=== PATIENT | female | born 1965 | race Caucasian/White ===

== ENCOUNTER → 2016-07-14 | Outpatient (REF) | payer OTHER ==
[~2016-07-14] MED LIST: /DULO30CA; /ESOM40CA; /HALO2TA; AMBI10TA; ASPI81TA3; ASPI81TA85 PO; BENA25CA2 PO; BUSP10TA2; CLON0.5T PO; CLON1TAB PO; DETR1TAB4 PO; DOCU10CA PO; FAMO20TA PO; GEOD20CA14 PO; HALO05TA PO; KLON0.5T PO; KLON1TAB PO; LEXA1TAB PO; MINI5CAP PO; NAPR500T PO; PEPC1TAB4 PO; PRAZ5CAP PO; PRIL40CA PO; TOLT1CAP PO; TRAZ100T; TRAZ150T; VIST25CA PO; ZOLO50TA; ZYRT10CA PO
[2016-07-14 14:03] LABS: BASO # 0.1 K/mm3 (0.0-0.2); BASO % 0.9 % (0.0-1.0); EOS # 0.1 K/mm3 (0.0-0.50); EOS % 1.8 % (0.0-3.0); LARGE UNSTAINED CELL # 0.1 K/mm3 (0.0-0.4); LARGE UNSTAINED CELL % 1.2 % (0.0-4.0); LYMPH # 1.6 K/mm3 (1.5-4.5); LYMPH % 23.1 % (24.0-44.0); MEAN CORPUSCULAR HEMOGLOBIN 28.2 pg (27.0-33.0); MEAN CORPUSCULAR HGB CONC 32.5 g/dl (32.0-36.5); MEAN CORPUSCULAR VOLUME 86.6 fl (80.0-96.0); MONO # 0.3 K/mm3 (0.0-0.8); MONO % 4.4 % (0.0-5.0); NEUTROPHILS # 4.8 K/mm3 (1.8-7.7); NEUTROPHILS % 68.6 % (36.0-66.0); PLATELET COUNT, AUTOMATED 243 k/mm3 (150-450)
[2016-07-14 14:24] LABS: VITAMIN B12 LEVEL 652 PG/ML
[2016-07-14 14:41] LABS: ALBUMIN 4.3 GM/DL (3.2-5.2); ALBUMIN/GLOBULIN RATIO 1.54 (1.00-1.93); ALKALINE PHOSPHATASE 73 U/L (45-117); ALT/SGPT 23 U/L (12-78); ANION GAP 6 MEQ/L (8-16); AST/SGOT 16 U/L (15-37); BILIRUBIN,TOTAL 0.2 MG/DL (0.2-1.0); BLOOD UREA NITROGEN 17 MG/DL (7-18); CARBON DIOXIDE LEVEL 31 MEQ/L (21-32); CHLORIDE LEVEL 107 MEQ/L (98-107); CREATININE FOR GFR 0.65 MG/DL (0.55-1.02); GLOMERULAR FILTRATION RATE > 60.0 (>51); GLUCOSE, FASTING 85 MG/DL (70-105); POTASSIUM SERUM 4.4 MEQ/L (3.5-5.1); SODIUM LEVEL 144 MEQ/L (136-145); TOTAL PROTEIN 7.1 GM/DL (6.4-8.2)
[2016-07-16 14:20] LABS: VITAMIN E LEVEL 8.3 mg/L (5.3-16.8)
== END ==
LOC: M LABNEURO 13:24
PROVIDERS: ATTEND Psychiatry & Neurology Neurology
DX: R41.0 Disorientation, unspecified (principal); Z13.29 Encounter for screening for other suspected endocrine disorder

== ENCOUNTER → 2016-10-10 | Outpatient (REF) | payer OTHER ==
[~2016-10-10] MED LIST changes: +DIGECAP7 PO; +EPIP0.3I2 IM; +HAIRTAB5 PO; +HALO0.5H PO; -HALO05TA PO; +HYDR200T3 PO; +OMEP40CA2 PO; +PRAZ2CAP PO
[2016-10-10 17:17] LABS: ALBUMIN 4.3 GM/DL (3.2-5.2); ALBUMIN/GLOBULIN RATIO 1.43 (1.00-1.93); ALKALINE PHOSPHATASE 70 U/L (45-117); ALT/SGPT 29 U/L (12-78); ANION GAP 10 MEQ/L (8-16); AST/SGOT 26 U/L (15-37); BILIRUBIN,TOTAL 0.4 MG/DL (0.2-1.0); BLOOD UREA NITROGEN 14 MG/DL (7-18); CALCIUM LEVEL 9.2 MG/DL (8.5-10.1); CARBON DIOXIDE LEVEL 26 MEQ/L (21-32); CHLORIDE LEVEL 108 MEQ/L (98-107); CREATININE FOR GFR 0.76 MG/DL (0.55-1.02); GLOMERULAR FILTRATION RATE > 60.0 (>51); GLUCOSE, FASTING 95 MG/DL (70-105); POTASSIUM SERUM 3.9 MEQ/L (3.5-5.1); SODIUM LEVEL 144 MEQ/L (136-145); TOTAL PROTEIN 7.3 GM/DL (6.4-8.2)
[2016-10-10 17:51] LABS: BASO % 0.7 % (0.0-1.0); EOS % 0.5 % (0.0-3.0); LARGE UNSTAINED CELL # 0.1 K/mm3 (0.0-0.4); LYMPH # 1.3 K/mm3 (1.5-4.5); LYMPH % 17.4 % (24.0-44.0); MEAN CORPUSCULAR HEMOGLOBIN 27.4 pg (27.0-33.0); MEAN CORPUSCULAR VOLUME 83.1 fl (80.0-96.0); MONO # 0.3 K/mm3 (0.0-0.8); MONO % 4.5 % (0.0-5.0); NEUTROPHILS # 5.3 K/mm3 (1.8-7.7); NEUTROPHILS % 75.9 % (36.0-66.0); PLATELET COUNT, AUTOMATED 225 k/mm3 (150-450); RED CELL DISTRIBUTION WIDTH 13.3 % (11.5-14.5)
[2016-10-15 00:06] LABS: BENZODIAZEPINES, URINE SCREEN Negative ng/mL (Cutoff=200); METHADONE, URINE SCREEN Negative ng/mL (Cutoff=300); pH, URINE 6.6 (4.5-8.9)
== END ==
LOC: M LABDRAW1 16:42
PROVIDERS: ATTEND Psychiatry & Neurology Neurology
DX: R41.82 Altered mental status, unspecified (principal)

== ENCOUNTER 2016-10-14 01:25 | Emergency (ER) | payer OTHER ==
[~2016-10-14 01:25] MED LIST changes: -DIGECAP7 PO; -EPIP0.3I2 IM; -HAIRTAB5 PO; -HYDR200T3 PO; -OMEP40CA2 PO; -PRAZ2CAP PO
[2016-10-14 01:31] VITALS: BP 143/84
[2016-10-14] MEDS ORDERED: HYDR200T3 PO (01:38)
[2016-10-14] MEDS ORDERED: OMEP40CA2 PO (01:38)
[2016-10-14] MEDS ORDERED: diphenhydrAMINE 25 MG CAP PO ONE (03:45)
== END 2016-10-14 04:00 | disposition home or self-care (01) ==
LOC: M ED 01:25
DX: L50.9 Urticaria, unspecified (principal); F32.9 Major depressive disorder, single episode, unspecified; Z91.013 Allergy to seafood; Z91.040 Latex allergy status; Z88.0 Allergy status to penicillin; Z79.899 Other long term (current) drug therapy; Z79.82 Long term (current) use of aspirin

== ENCOUNTER 2016-10-21 11:50 | Emergency (ER) | payer OTHER ==
[~2016-10-21] VITALS: Ht 167.6 cm; Wt 99.9 kg
[~2016-10-21 11:50] MED LIST changes: +HYDR200T3 PO; +OMEP40CA2 PO
[2016-10-21 13:37] LABS: MEAN CORPUSCULAR HEMOGLOBIN 27.7 pg (27.0-33.0); MEAN CORPUSCULAR HGB CONC 33.8 g/dl (32.0-36.5); MEAN CORPUSCULAR VOLUME 81.8 fl (80.0-96.0); RED CELL DISTRIBUTION WIDTH 13.1 % (11.5-14.5); WHITE BLOOD COUNT 6.9 K/mm3 (4.0-10.0)
[2016-10-21 13:56] LABS: METHADONE URINE NEGATIVE (NEGATIVE)
[2016-10-21 14:28] LABS: ALBUMIN 4.5 GM/DL (3.2-5.2); ALBUMIN/GLOBULIN RATIO 1.55 (1.00-1.93); ALKALINE PHOSPHATASE 64 U/L (45-117); ALT/SGPT 27 U/L (12-78); ANION GAP 10 MEQ/L (8-16); AST/SGOT 26 U/L (15-37); BILIRUBIN,DIRECT 0.2 MG/DL (0.0-0.2); BILIRUBIN,TOTAL 0.6 MG/DL (0.2-1.0); BLOOD UREA NITROGEN 12 MG/DL (7-18); CALCIUM LEVEL 9.1 MG/DL (8.5-10.1); CARBON DIOXIDE LEVEL 25 MEQ/L (21-32); CHLORIDE LEVEL 112 MEQ/L (98-107); CREATININE FOR GFR 0.89 MG/DL (0.55-1.02); GLOMERULAR FILTRATION RATE > 60.0 (>51); GLUCOSE, FASTING 92 MG/DL (70-105); POTASSIUM SERUM 3.5 MEQ/L (3.5-5.1); SODIUM LEVEL 147 MEQ/L (136-145); TOTAL PROTEIN 7.4 GM/DL (6.4-8.2)
--- NOTE | 2016-10-21 16:12 | ECGEPIP ---
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
[2016-10-21 16:35] VITALS: BP 125/80
== END 2016-10-21 16:36 | disposition home or self-care (01) ==
LOC: M ED 11:50
DX: F41.9 Anxiety disorder, unspecified (principal); F32.9 Major depressive disorder, single episode, unspecified; M32.9 Systemic lupus erythematosus, unspecified; Z88.1 Allergy status to other antibiotic agents; Z88.0 Allergy status to penicillin; Z91.040 Latex allergy status; Z91.041 Radiographic dye allergy status; Z91.013 Allergy to seafood; Z79.82 Long term (current) use of aspirin; Z79.899 Other long term (current) drug therapy
CPT/HCPCS: 36415; 80048; 80076; 80307; 84443; 85027; 93005; 99283; G0480

== ENCOUNTER 2016-10-24 23:41 | Emergency (ER) | payer OTHER ==
[~2016-10-24] VITALS: Ht 165.1 cm; Wt 219.0 kg
[2016-10-25 01:37] LABS: BASO # 0.1 K/mm3 (0.0-0.2); BASO % 1.4 % (0.0-1.0); EOS # 0.1 K/mm3 (0.0-0.50); EOS % 0.9 % (0.0-3.0); LARGE UNSTAINED CELL # 0.2 K/mm3 (0.0-0.4); LYMPH # 2.4 K/mm3 (1.5-4.5); MEAN CORPUSCULAR HEMOGLOBIN 27.8 pg (27.0-33.0); MEAN CORPUSCULAR HGB CONC 34.2 g/dl (32.0-36.5); MEAN CORPUSCULAR VOLUME 81.5 fl (80.0-96.0); MONO # 0.4 K/mm3 (0.0-0.8); MONO % 5.3 % (0.0-5.0); NEUTROPHILS # 4.6 K/mm3 (1.8-7.7); NEUTROPHILS % 60.5 % (36.0-66.0); PLATELET COUNT, AUTOMATED 230 k/mm3 (150-450); RED CELL DISTRIBUTION WIDTH 13.1 % (11.5-14.5); WHITE BLOOD COUNT 7.6 K/mm3 (4.0-10.0)
[2016-10-25 02:18] LABS: ALBUMIN 3.8 GM/DL (3.2-5.2); ALBUMIN/GLOBULIN RATIO 1.31 (1.00-1.93); ALKALINE PHOSPHATASE 59 U/L (45-117); ALT/SGPT 33 U/L (12-78); ANION GAP 7 MEQ/L (8-16); AST/SGOT 28 U/L (15-37); BILIRUBIN,DIRECT 0.1 MG/DL (0.0-0.2); BILIRUBIN,TOTAL 0.3 MG/DL (0.2-1.0); BLOOD UREA NITROGEN 11 MG/DL (7-18); CALCIUM LEVEL 8.8 MG/DL (8.5-10.1); CARBON DIOXIDE LEVEL 28 MEQ/L (21-32); CHLORIDE LEVEL 110 MEQ/L (98-107); CREATININE FOR GFR 0.79 MG/DL (0.55-1.02); GLOMERULAR FILTRATION RATE > 60.0 (>51); GLUCOSE, FASTING 103 MG/DL (70-105); POTASSIUM SERUM 3.4 MEQ/L (3.5-5.1); SODIUM LEVEL 145 MEQ/L (136-145); TOTAL PROTEIN 6.7 GM/DL (6.4-8.2)
[2016-10-25 02:56] LABS: METHADONE URINE NEGATIVE (NEGATIVE)
[2016-10-25 04:47] VITALS: BP 130/72
== END 2016-10-25 05:05 | disposition home or self-care (01) ==
LOC: M ED 23:41
DX: R53.1 Weakness (principal); F31.9 Bipolar disorder, unspecified; F44.81 Dissociative identity disorder; J30.9 Allergic rhinitis, unspecified; Z79.82 Long term (current) use of aspirin; Z79.899 Other long term (current) drug therapy; Z88.0 Allergy status to penicillin; Z88.1 Allergy status to other antibiotic agents; Z88.8 Allergy status to other drugs, medicaments and biological substances; Z91.013 Allergy to seafood; Z91.040 Latex allergy status; Z91.09 Other allergy status, other than to drugs and biological substances
CPT/HCPCS: 36415; 80048; 80076; 80307; 84443; 85025; 86780; 99282; G0480

== ENCOUNTER 2016-11-21 21:12 | Inpatient (IN) | payer OTHER ==
[~2016-11-21] VITALS: Ht 165.1 cm; Wt 96.8 kg
[2016-11-21] MEDS: PRAZOSIN 1 MG CAP PO SCH (21:00)
[2016-11-22] MEDS ORDERED: DIGECAP7 PO (00:36)
[2016-11-22] MEDS ORDERED: HAIRTAB5 PO (00:36)
[2016-11-22] MEDS ORDERED: EPIP0.3I2 IM (00:36)
[2016-11-22] MEDS ORDERED: PRAZ2CAP PO (00:36)
[2016-11-22 02:15] VITALS: BP 126/73
[2016-11-22] MEDS ORDERED: MOM 30ML SUSPENSION UDC PO PRN (03:45)
[2016-11-22] MEDS ORDERED: MAALOX 30 ML SUSP *UDC PO PRN (03:45)
[2016-11-22] MEDS: OMEPRAZOLE 20 MG CAP PO SCH (09:13)
[2016-11-22] MEDS: HYDROXYCHLOROQUINE 200 MG TAB PO SCH ×2 (09:13→21:50)
[2016-11-22] MEDS: NAPROXEN 250 MG TAB PO PRN ×2 (09:15→21:52)
[2016-11-22] MEDS: ACETAMINOPHEN TAB 650MG DOSE (2X325MG) PO PRN (16:28)
[2016-11-22 18:00] VITALS: BP 139/65
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
[2016-11-22] MEDS: PRAZOSIN 1 MG CAP PO SCH (21:51)
[2016-11-23] MEDS: ACETAMINOPHEN TAB 650MG DOSE (2X325MG) PO PRN ×3 (02:40→21:55)
[2016-11-23 06:50] VITALS: BP 136/74
[2016-11-23] MEDS: OMEPRAZOLE 20 MG CAP PO SCH (08:34)
[2016-11-23] MEDS: HYDROXYCHLOROQUINE 200 MG TAB PO SCH ×2 (08:34→21:49)
[2016-11-23] MEDS ORDERED: INFLUENZA QUADRIVALENT PF VACCINE 0.5ML SYRINGE (90686) IM ONE (09:00)
[2016-11-23] MEDS: NAPROXEN 250 MG TAB PO PRN (11:10)
[2016-11-23] MEDS: OLANZapine 5 MG TAB PO PRN (11:10)
[2016-11-23 12:00] VITALS: BP 125/73
--- NOTE | 2016-11-23 17:17 | MHIPN ---
DATE: 11/23/2016 CHIEF COMPLAINT: Feels anxious. SUBJECTIVE: Seen for followup in the presence of staff. Feels anxious and somewhat distressed. Says is experiencing what she terms as "reactions to the environment," indicating she has felt uncomfortable yesterday as well, with feeling uncomfortable sensations in her limbs, her breasts. Says also has had a burning sort of sensation in her back and her vagina, her legs, and says has experienced these similar to when she is at home. Says she thinks that maybe because of chemicals or "pheromones" while here. Reluctantly acknowledges that is unlikely that there are chemicals in the environment which may be impacting her, but has a hard time seeing that. Says has had similar sensations when at her daughter's place and elsewhere, but that they are not as intense. Says did not have a very good night. Does not feel rested. MENTAL STATUS EXAMINATION: She is neat. She is cooperative. Mildly fidgety. Appears mildly distressed and a bit anxious. No psychomotor retardation. She is coherent. Denies any suicidal thoughts or intents. No evidence of psychosis. Cognition is grossly intact. Judgment and insight are quite questionable. ASSESSMENT: Posttraumatic stress disorder. The possibility of delusion disorder is also considered. It is also possible the somatic preoccupation to possibly delusional proportions are incorporated in the posttraumatic stress. PLAN: I would suggest that she consider using an antidepressant to help with trauma-related symptoms and anxiety, and she would also potentially benefit from a low-dose of an atypical antipsychotic. It is preferable using an antidepressant. She indicated she does not think she is depressed, dose not need an antidepressant, and that she has discussed this with her psychiatrist, in fact does see a psychiatrist, Dr. Celeste, by telepsychiatry, who she says has thought that she does not need an antidepressant or any other "psychiatric medication" other than the prazosin, which she is quick to point out is an antihypertensive but given to her for night terrors. These preoccupations distinctly impact her functioning. She minimizes this. Attempts were made to talk to her . I understand the staff have not been able to and they will try again later in the afternoon. She says she informed her daughter in [place] that she was safe. She did not inform her where she was, says has not wanted to, but that the daughter was pleased that the patient was safe. I have encouraged her to participate in activities in the unit as tolerated. She has been given Zyprexa to help with agitation/anxiety for now. She will be meeting the treatment team, the assigned psychiatrist tomorrow. VITAL SIGNS: Blood pressure 136/74, pulse 89, temperature 98. It would be helpful to obtain collateral information, including from her psychiatrist, Dr. Celeste, and her therapist.
[2016-11-23 18:00] VITALS: BP 123/65
[2016-11-23] MEDS: PRAZOSIN 1 MG CAP PO SCH (21:00)
[2016-11-23 21:54] VITALS: BP 126/58
[2016-11-24 02:29] VITALS: BP 133/64
[2016-11-24] MEDS: NAPROXEN 250 MG TAB PO PRN ×2 (02:31→13:23)
--- NOTE | 2016-11-24 04:03 | HPE ---
DATE OF ADMISSION: 11/21/2016 PRIMARY CARE PROVIDER: Anjali Mariano MD. HISTORY OF PRESENT ILLNESS: Please refer to psychiatric history and evaluation for further details on this admission. This examination and history is intended for medical issues, which may need treatment, followup or consult on this 51-year-old female. SOCIAL HISTORY: She was transferred from [facility] for mental health evaluation. She feels that her is trying to poison her. She lives with her and four children. Two are living at the home. Ethyl alcohol (EtOH) none. Smokes none. Recreational drug use none. ALLERGIES: PENICILLIN, IODINE cause hives and anaphylaxis. Allergy to fish and shellfish. PAST MEDICAL HISTORY: 1. IVF. 2. History of nephrolithiasis. 3. History of ovarian cysts. 4. Chronic low back pain. 5. Fibrocystic breast disease. 6. Arthritis. 7. Posttraumatic stress disorder (PTSD). 8. Anxiety. 9. Gastroesophageal reflux disease (GERD). 10. Anticoagulant lupus. 11. Endometriosis. 12. History of eating disorder. 13. Obsessive-compulsive disorder (OCD). 14. History of cervix cancer status post four rounds of chemotherapy approximately 16 years ago. 15. History of hemorrhoids. PAST SURGICAL HISTORY: 1. Multiple loop electrosurgical excisional procedure (LEEP) procedures. 2. Cryosurgery. 3. Four laparoscopic surgeries, one ovarian cysts and she had three for endometriosis. 4. Colonoscopy 11/30/[address] Mendoza. 5. Right breast cyst removed, benign. 6. Dilation and curettage (D and C). 7. Heart catheterization 10 years ago, within normal limits. HOME MEDICATIONS: - hair, skin and nails one by mouth daily - hydroxychloroquine sulfate 200 mg by mouth twice a day - naproxen 500 mg by mouth twice a day as needed for pain - omeprazole 40 mg by mouth daily - prazosin two capsules 8 mg by mouth nightly REVIEW OF SYSTEMS: 10-system review was done, other than chronic pain, she was feeling well and some discomfort from the bruising. OBJECTIVE: 51-year-old cooperative female in no acute distress. Height 65 inches, weight 96.81 kg, body mass index (BMI) 35.5. Blood pressure 123/65, pulse 67, respirations 16, temperature 98.2. Patient is alert and oriented times three. Pupils equal and react to light. Extraocular muscles intact. Cornea and sclerae clear. Conjunctivae were normal. No facial asymmetry. Pharynx, tongue and gums pink and moist. Tongue is midline. Neck is supple without lymphadenopathy. No thyromegaly, no goiter. Carotids 2+ without bruit. Chest clear to auscultation without wheeze or retraction. Heart is regular. Abdomen is benign. Bowel sounds positive. Genitourinary/rectal: Not done. Extremities show equal strength, full range of motion. No cyanosis, clubbing or edema. Peripheral pulses equal and palpable bilaterally. Skin is warm and dry. Three healing bruises noted just above the antecubital space, one a little higher and one on her right arm, shoulder area, as well as one on the back of her leg, which she has had seen by orthopedics. Monitor for infection. IMPRESSION/PLAN: Psychiatric plan per Psychiatry Encourage patient to notify if further bruises arise.Gerd: Continue current medication of omeprazole. No acute medical issues. MTDD
[2016-11-24] MEDS: ACETAMINOPHEN TAB 650MG DOSE (2X325MG) PO PRN ×2 (04:59→19:45)
[2016-11-24 06:34] VITALS: BP_SYST 107; BP_SYST 110; BP_DIAS 61; BP_DIAS 63
[2016-11-24] MEDS: HYDROXYCHLOROQUINE 200 MG TAB PO SCH ×2 (08:30→21:26)
[2016-11-24] MEDS: OMEPRAZOLE 20 MG CAP PO SCH (08:30)
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
[2016-11-24 18:00] VITALS: BP 115/66
[2016-11-24] MEDS: PRAZOSIN 1 MG CAP PO SCH (21:28)
[2016-11-24] MEDS: OLANZapine 5 MG TAB PO PRN (22:53)
[2016-11-24] MEDS: traZODone 50 MG TAB PO PRN (22:53)
[2016-11-25 06:24] VITALS: BP 128/56
[2016-11-25] MEDS: OMEPRAZOLE 20 MG CAP PO SCH (09:42)
[2016-11-25] MEDS: HYDROXYCHLOROQUINE 200 MG TAB PO SCH ×2 (09:42→20:28)
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
[2016-11-25] MEDS: NAPROXEN 250 MG TAB PO PRN ×2 (11:52→23:57)
[2016-11-25] MEDS: ACETAMINOPHEN TAB 650MG DOSE (2X325MG) PO PRN ×2 (16:52→23:57)
[2016-11-25 18:00] VITALS: BP 124/70
[2016-11-25] MEDS: OLANZapine 5 MG TAB PO PRN ×2 (19:14→23:57)
[2016-11-25] MEDS: traZODone 50 MG TAB PO PRN (20:28)
[2016-11-25] MEDS: PRAZOSIN 1 MG CAP PO SCH (20:29)
[2016-11-26 06:50] VITALS: BP 134/94
[2016-11-26] MEDS: OMEPRAZOLE 20 MG CAP PO SCH (08:06)
[2016-11-26] MEDS: HYDROXYCHLOROQUINE 200 MG TAB PO SCH ×2 (08:06→21:53)
[2016-11-26] MEDS: OLANZapine 5 MG TAB PO PRN (08:07)
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
[2016-11-26] MEDS: ACETAMINOPHEN TAB 650MG DOSE (2X325MG) PO PRN (09:19)
[2016-11-26] MEDS: NAPROXEN 250 MG TAB PO PRN (13:51)
[2016-11-26 18:30] VITALS: BP 132/67
[2016-11-26] MEDS: traZODone 50 MG TAB PO PRN (21:53)
[2016-11-26] MEDS: PRAZOSIN 1 MG CAP PO SCH (21:54)
[2016-11-27] MEDS: ACETAMINOPHEN TAB 650MG DOSE (2X325MG) PO PRN ×3 (01:50→14:41)
[2016-11-27] MEDS: NAPROXEN 250 MG TAB PO PRN (05:30)
[2016-11-27 07:00] VITALS: BP 143/63
[2016-11-27] MEDS: HYDROXYCHLOROQUINE 200 MG TAB PO SCH ×2 (08:17→22:18)
[2016-11-27] MEDS: OMEPRAZOLE 20 MG CAP PO SCH (08:17)
--- NOTE | 2016-11-27 16:35 | MHIPNPDOC ---
[facility] Progress Note Progress Note DATE OF SERVICE: 11/27/16 HISTORY: day 6 of admission for bizarre thoughts and feeling unsafe VITAL SIGNS: See below. NEW TEST RESULTS: na CURRENT MEDICATIONS: See below. MENTAL STATUS EXAMINATION: General appearance: Patient is a 51-year old female, who is wearing hospital attire, dark hair, glasses, appears older than age, cooperative. Speech: spontaneous Thought processes: goal directed, contains thoughts which indicate she believes she is suffering from environmental sensitivities here and pheromones that make her ill at home. Believe they are affecting her children now. Thought content: .delusional? about (illegal activities) and home environment (pheromones) Weird reactions and sensitivities to environmental allergies. Thoughts are quite appropriate when discussing children, school, past treatment, family. Abstract reasoning and computation: good Description of associations: good. Description of abnormal or psychotic thoughts: denies SI or HI, pt has thoughts that she is reacting to and being affected by pheromones that her is excreting in their home. Also reports "environmental sensitivities" to being on this unit. Judgment: limited Insight: poor Orientation: oriented x 4 Recent and remote memory: mostly intact, some impaired remote recall Attention span and concentration: good. Fund of knowledge: Full Mood: depressed Affect: anxious, sometimes very calm DIAGNOSES: 1. PTSD-chronic by history 2. Dissociative Identity Disorder 3. Generalized anxiety disorder. 4. r/o Delusional disorder ASSESSMENT: Lilian talked openly about her past and one would have to be blind not recognize how truly strong this woman is. What she has survived is astounding and she was not required to tell lead technical writer all the details of her life. Write needs to speak with her therapist and find out how much these "sensitivities" are reality based and what we can do to either repair her relationship with or find her an appropriate setting to live in. Pt does not believe her marriage is salvageable at this point. She states 3 years ago there was a "disconnect" by her and she has not been able to get things back on track since then. Her greatest fear is to lose contact with her children. MANAGEMENT PLAN: speak with therapist, speak with , continue treatment plan, support pt in making decisions regarding her future. Will provide pass for 15 yo son to visit this weekend.Lilian will let me know what day. TIME SPENT: 45 minutes. Vital Signs Vital Signs Date Time Temp Pulse Resp B/P (MAP) Pulse Ox O2 Delivery O2 Flow Rate FiO2 11/27/16 07:00 97.2 102 18 143/63 (89) 11/24/16 02:29 Room Air 11/22/16 02:15 100 Current Medications Current Medications Acetaminophen (Tylenol Tab) 650 mg Q6HP PRN PO HEADACHE or DISCOMFORT Last administered on 11/27/16 14:41; Start 11/22/16 at 03:45; Stop 12/22/16 at 03: 44 Al Hydrox/Mg Hydrox/Simethicone (Mylanta) 30 ml Q4HP PRN PO HEARTBURN/ INDIGESTION; Start 11/22/16 at 03:45; Stop 12/22/16 at 03:44 Home Med (Med Rec Complete!) ASDIRECTED XX ; Start 11/22/16 at 00:45; Stop at 00:45; Status DC Hydroxychloroquine Sulfate (Plaquenil) 200 mg BID PO Last administered on 08:17; Start 11/22/16 at 09:00; Stop 12/22/16 at 08:59 Magnesium Hydroxide (Milk Of Magnesia) 30 ml DAILYPRN PRN PO CONSTIPATION; Start 11/22/16 at 03:45; Stop 12/22/16 at 03:44 Naproxen (Naprosyn) 500 mg BIDP PRN PO PAIN Last administered on 11/27/16 05: 30; Start 11/22/16 at 03:45; Stop 12/22/16 at 03:44 Olanzapine (ZyPREXA) 5 mg Q4HP PRN PO AGITATION Last administered on 11/26/16 08:07; Start 11/22/16 at 03:45; Stop 12/22/16 at 03:44 Omeprazole (PriLOSEC) 40 mg DAILY PO Last administered on 11/27/16 08:17; Start 11/22/16 at 09:00; Stop 12/22/16 at 08:59 Prazosin HCl (Minipress) 8 mg QHS PO Last administered on 11/26/16 21:54; Start 11/21/16 at 21:00; Stop 12/21/16 at 20:59 Trazodone HCl (Desyrel) 50 mg QHSP PRN PO INSOMNIA Last administered on t 21:53; Start 11/22/16 at 03:45; Stop 12/22/16 at 03:44 Allergies Coded Allergies: Iodine (Verified Allergy, Intermediate, SNEEZING AND VOMITING, 10/21/16) Latex (Verified Allergy, Intermediate, hives, 10/14/16) Clavulanic Acid (Verified Allergy, Unknown, 06/09/12) ENVIROMENTAL (Verified Allergy, Unknown, TREES, DUST, GRASS, POLLEN, ) FISH (Verified Allergy, Unknown, 08/26/06) Penicillins (Verified Allergy, Unknown, 06/09/12) Penicillins Cross Reactors (Verified Allergy, Unknown, 06/09/12) Shellfish Allergy (Verified Allergy, Unknown, 06/09/12) Amoxicillin (Verified Adverse Reaction, Mild, NAUSEA, 10/21/16) Tsering Welsh Nov 27, 2016 16:35
[2016-11-27 18:00] VITALS: BP 142/82
[2016-11-27] MEDS: PRAZOSIN 1 MG CAP PO SCH (22:20)
[2016-11-28] MEDS: NAPROXEN 250 MG TAB PO PRN ×2 (01:04→22:01)
[2016-11-28] MEDS: ACETAMINOPHEN TAB 650MG DOSE (2X325MG) PO PRN (05:29)
[2016-11-28 06:00] VITALS: BP 133/64
[2016-11-28] MEDS: OMEPRAZOLE 20 MG CAP PO SCH (10:44)
[2016-11-28] MEDS: OLANZapine 5 MG TAB PO PRN ×2 (10:44→22:01)
[2016-11-28] MEDS: HYDROXYCHLOROQUINE 200 MG TAB PO SCH ×2 (10:44→22:01)
--- NOTE | 2016-11-28 13:00 | MHIPNPDOC ---
[facility] Progress Note Progress Note DATE OF SERVICE: 11/28/16 HISTORY: day 7 of admission for PTSD and DID w/depression and anxiety VITAL SIGNS: See below. NEW TEST RESULTS: na CURRENT MEDICATIONS: See below. MENTAL STATUS EXAMINATION: General appearance: Patient is a 51-year old female, who is wearing hospital attire, dark hair, glasses, appears older than age, cooperative. Speech: spontaneous Thought processes: goal directed, contains thoughts which indicate she believes she is suffering from environmental sensitivities here and pheromones that make her ill at home. Believe they are affecting her children now. Thought content: .delusional? about (illegal activities) and home environment (pheromones) Weird reactions and sensitivities to environmental allergies. Thoughts are quite appropriate when discussing children, school, past treatment, family. Abstract reasoning and computation: good Description of associations: good. Description of abnormal or psychotic thoughts: denies SI or HI, pt has thoughts that she is reacting to and being affected by pheromones that her is excreting in their home. Also reports "environmental sensitivities" to being on this unit. Judgment: limited Insight: poor Orientation: oriented x 4 Recent and remote memory: mostly intact, some impaired remote recall Attention span and concentration: good. Fund of knowledge: Full Mood: depressed Affect: anxious, shoulders up to ears DIAGNOSES: 1. PTSD-chronic by history 2. Dissociative Identity Disorder 3. Generalized anxiety disorder. 4. r/o Delusional disorder ASSESSMENT:Lilian is attending programming and quite visible on the unit. She continues to experience pain in various parts of her body and odd sensations she believes are related to environmental sensitivities. She is tense much of the time and sighs a great deal. Pt is having good and bad days of sleep. She is worried about her children but they will visit her this weekend which should help. Hygiene is very good. Pt is using prn olanzapine for anxiety/agitation. Pt is not feeling very well today. Reports onset of sore throat and some chest congestion. Would like to do warm water and salt gargle which may help her. Otherwise a cepacol lozenge could be prescribed by PA. 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 Degroot at [phone] his personal cell phone number supplied by Lilian. it is hopeful he can shed some light on how to help her with this preoccupation or delusion with pheromones.Increase trazodone to help with insomnia. TIME SPENT: 15 minutes. Vital Signs Vital Signs Date Time Temp Pulse Resp B/P (MAP) Pulse Ox O2 Delivery O2 Flow Rate FiO2 11/28/16 06:00 98.5 77 18 133/64 (87) 11/24/16 02:29 Room Air 11/22/16 02:15 100 Current Medications Current Medications Acetaminophen (Tylenol Tab) 650 mg Q6HP PRN PO HEADACHE or DISCOMFORT Last administered on 11/28/16 05:29; Start 11/22/16 at 03:45; Stop 12/22/16 at 03: 44 Al Hydrox/Mg Hydrox/Simethicone (Mylanta) 30 ml Q4HP PRN PO HEARTBURN/ INDIGESTION; Start 11/22/16 at 03:45; Stop 12/22/16 at 03:44 Home Med (Med Rec Complete!) ASDIRECTED XX ; Start 11/22/16 at 00:45; Stop at 00:45; Status DC Hydroxychloroquine Sulfate (Plaquenil) 200 mg BID PO Last administered on 10:44; Start 11/22/16 at 09:00; Stop 12/22/16 at 08:59 Magnesium Hydroxide (Milk Of Magnesia) 30 ml DAILYPRN PRN PO CONSTIPATION; Start 11/22/16 at 03:45; Stop 12/22/16 at 03:44 Naproxen (Naprosyn) 500 mg BIDP PRN PO PAIN Last administered on 11/28/16 01: 04; Start 11/22/16 at 03:45; Stop 12/22/16 at 03:44 Olanzapine (ZyPREXA) 5 mg Q4HP PRN PO AGITATION Last administered on 11/28/16 10:44; Start 11/22/16 at 03:45; Stop 12/22/16 at 03:44 Omeprazole (PriLOSEC) 40 mg DAILY PO Last administered on 11/28/16 10:44; Start 11/22/16 at 09:00; Stop 12/22/16 at 08:59 Prazosin HCl (Minipress) 8 mg QHS PO Last administered on 11/27/16 22:20; Start 11/21/16 at 21:00; Stop 12/21/16 at 20:59 Trazodone HCl (Desyrel) 50 mg QHSP PRN PO INSOMNIA Last administered on t 21:53; Start 11/22/16 at 03:45; Stop 12/22/16 at 03:44 Allergies Coded Allergies: Iodine (Verified Allergy, Intermediate, SNEEZING AND VOMITING, 10/21/16) Latex (Verified Allergy, Intermediate, hives, 10/14/16) Clavulanic Acid (Verified Allergy, Unknown, 06/09/12) ENVIROMENTAL (Verified Allergy, Unknown, TREES, DUST, GRASS, POLLEN, ) FISH (Verified Allergy, Unknown, 08/26/06) Penicillins (Verified Allergy, Unknown, 06/09/12) Penicillins Cross Reactors (Verified Allergy, Unknown, 06/09/12) Shellfish Allergy (Verified Allergy, Unknown, 06/09/12) Amoxicillin (Verified Adverse Reaction, Mild, NAUSEA, 10/21/16) Tsering Welsh Nov 28, 2016 13:00
[2016-11-28 18:30] VITALS: BP 113/58
[2016-11-28] MEDS: traZODone 100 MG TAB PO PRN (22:01)
[2016-11-28] MEDS: PRAZOSIN 1 MG CAP PO SCH (22:02)
[2016-11-29] MEDS: ACETAMINOPHEN TAB 650MG DOSE (2X325MG) PO PRN ×3 (01:21→23:19)
[2016-11-29 03:10] VITALS: BP 109/59
[2016-11-29 03:21] VITALS: BP 111/59
[2016-11-29 07:20] VITALS: BP 111/65
[2016-11-29] MEDS: HYDROXYCHLOROQUINE 200 MG TAB PO SCH ×2 (08:06→21:37)
[2016-11-29] MEDS: OMEPRAZOLE 20 MG CAP PO SCH (08:07)
[2016-11-29] MEDS: NAPROXEN 250 MG TAB PO PRN (11:52)
[2016-11-29 18:24] VITALS: BP 104/65
[2016-11-29] MEDS: traZODone 100 MG TAB PO PRN (21:37)
[2016-11-29] MEDS: PRAZOSIN 1 MG CAP PO SCH (21:38)
[2016-11-30] MEDS: NAPROXEN 250 MG TAB PO PRN (02:04)
[2016-11-30] MEDS: ACETAMINOPHEN TAB 650MG DOSE (2X325MG) PO PRN (06:05)
[2016-11-30 06:28] VITALS: BP 126/68
[2016-11-30] MEDS: HYDROXYCHLOROQUINE 200 MG TAB PO SCH ×2 (08:09→21:21)
[2016-11-30] MEDS: OMEPRAZOLE 20 MG CAP PO SCH (08:09)
[2016-11-30] MEDS: OLANZapine 5 MG TAB PO PRN (12:43)
[2016-11-30 18:46] VITALS: BP 126/76
[2016-11-30] MEDS: traZODone 100 MG TAB PO PRN (21:20)
[2016-11-30] MEDS: PRAZOSIN 1 MG CAP PO SCH (21:21)
[2016-12-01] MEDS: ACETAMINOPHEN TAB 650MG DOSE (2X325MG) PO PRN ×2 (00:30→13:08)
[2016-12-01 06:41] VITALS: BP 114/61
[2016-12-01] MEDS: OMEPRAZOLE 20 MG CAP PO SCH (08:05)
[2016-12-01] MEDS: HYDROXYCHLOROQUINE 200 MG TAB PO SCH ×2 (08:05→21:30)
--- NOTE | 2016-12-01 11:42 | MHIPNPDOC ---
[facility] Progress Note Progress Note DATE OF SERVICE: 12/01/16 HISTORY: day 10 of admission for paranoia VITAL SIGNS: See below. NEW TEST RESULTS: na CURRENT MEDICATIONS: See below. MENTAL STATUS EXAMINATION: General appearance: Patient is a 51-year old female, who is wearing black slacks and polka dot blouse, dark hair, wet from shower, glasses, cooperative. Speech: spontaneous Thought processes: goal directed, contains thoughts which indicate she believes she is suffering from environmental sensitivities here and pheromones that make her ill at home. Believe they are affecting her children now. Thought content: .delusional? about (illegal activities) and home environment (pheromones) Weird reactions and sensitivities to environmental allergies. Thoughts are quite appropriate when discussing children, school, past treatment, family. Abstract reasoning and computation: good Description of associations: good. Description of abnormal or psychotic thoughts: denies SI or HI, pt has thoughts that she is reacting to and being affected by pheromones that her is excreting in their home. Also reports "environmental sensitivities" to being on this unit. Judgment: limited Insight: poor Orientation: oriented x 4 Recent and remote memory: mostly intact, some impaired remote recall Attention span and concentration: good. Fund of knowledge: Full Mood: "what to do next?" Affect: anxious & depressed DIAGNOSES: 1. PTSD-chronic by history 2. Dissociative Identity Disorder 3. Generalized anxiety disorder. 4. r/o Delusional disorder ASSESSMENT:Pt enjoyed the weekend visits with her 2 children. they also brought her clothing items. Pt has been attending very well to hygiene. Pt conitnues to obsessive over what she thinks are illegal activities by her . She has written quite a bit about this this weekend. Otherwise pt is visible in milieu , attends programming when feeling well, gets along well with others. She continues to struggle with environmental problems she feels are related to the unit. She has frequent somatic complaints. no evidence she used salt water gargle over the weekend. We discussed her Legal status she does not want to be converted to 2 PC. She will call someone from [employer] and see if that person would be willing to rent her a room. Then we will see if her will pay for this. That way she could sleep and have meals somewhere other than home where she feels ill. MANAGEMENT PLAN: pt does not desire olanzapine on discharge. Will not accept prn Seroquel at low dose due to weight gain in the past on Seroquel. Pt is intolerant of antihistamines. Pt was offered SSRI, SNRI but she denies depression stating "I'm not really depressed". E-mail with Dr. Natanael Degroot confirmed that having the pt live in her own space would be a step in the right direction as he has told her that her cannot be trusted right now. Dr. Zane carbajal snot think it is a safe relationship for Lilian at this time. We will see if the is willing to either come in or talk over the phone about options for his for living. Dr. Degroot did reveal Lilian's has PTSD. TIME SPENT: 25 minutes. Vital Signs Vital Signs Date Time Temp Pulse Resp B/P (MAP) Pulse Ox O2 Delivery O2 Flow Rate FiO2 12/01/16 06:41 98.3 70 16 114/61 (78) 11/29/16 03:21 97 Room Air Current Medications Current Medications Acetaminophen (Tylenol Tab) 650 mg Q6HP PRN PO HEADACHE or DISCOMFORT Last administered on 12/01/16 00:30; Start 11/22/16 at 03:45; Stop 12/22/16 at 03: 44 Al Hydrox/Mg Hydrox/Simethicone (Mylanta) 30 ml Q4HP PRN PO HEARTBURN/ INDIGESTION; Start 11/22/16 at 03:45; Stop 12/22/16 at 03:44 Home Med (Med Rec Complete!) ASDIRECTED XX ; Start 11/22/16 at 00:45; Stop at 00:45; Status DC Hydroxychloroquine Sulfate (Plaquenil) 200 mg BID PO Last administered on 08:05; Start 11/22/16 at 09:00; Stop 12/22/16 at 08:59 Magnesium Hydroxide (Milk Of Magnesia) 30 ml DAILYPRN PRN PO CONSTIPATION; Start 11/22/16 at 03:45; Stop 12/22/16 at 03:44 Naproxen (Naprosyn) 500 mg BIDP PRN PO PAIN Last administered on 11/30/16 02: 04; Start 11/22/16 at 03:45; Stop 12/22/16 at 03:44 Olanzapine (ZyPREXA) 5 mg Q4HP PRN PO AGITATION Last administered on 11/30/16 12:43; Start 11/22/16 at 03:45; Stop 12/22/16 at 03:44 Omeprazole (PriLOSEC) 40 mg DAILY PO Last administered on 12/01/16 08:05; Start 11/22/16 at 09:00; Stop 12/22/16 at 08:59 Prazosin HCl (Minipress) 8 mg QHS PO Last administered on 11/30/16 21:21; Start 11/21/16 at 21:00; Stop 12/21/16 at 20:59 Trazodone HCl (Desyrel) 50 mg QHSP PRN PO INSOMNIA Last administered on 21:53; Start 11/22/16 at 03:45; Stop 11/28/16 at 13:06; Status DC Trazodone HCl (Desyrel) 100 mg QHSP PRN PO INSOMNIA Last administered on 21:20; Start 11/28/16 at 13:15; Stop 12/28/16 at 13:14 Allergies Coded Allergies: Iodine (Verified Allergy, Intermediate, SNEEZING AND VOMITING, 10/21/16) Latex (Verified Allergy, Intermediate, hives, 10/14/16) Clavulanic Acid (Verified Allergy, Unknown, 06/09/12) ENVIROMENTAL (Verified Allergy, Unknown, TREES, DUST, GRASS, POLLEN, ) FISH (Verified Allergy, Unknown, 08/26/06) Penicillins (Verified Allergy, Unknown, 06/09/12) Penicillins Cross Reactors (Verified Allergy, Unknown, 06/09/12) Shellfish Allergy (Verified Allergy, Unknown, 06/09/12) Amoxicillin (Verified Adverse Reaction, Mild, NAUSEA, 10/21/16) Tsering Welsh Dec 01, 2016 11:42
[2016-12-01 18:00] VITALS: BP 126/77
[2016-12-01] MEDS: traZODone 100 MG TAB PO PRN (21:30)
[2016-12-01] MEDS: PRAZOSIN 1 MG CAP PO SCH (21:31)
[2016-12-02] MEDS: NAPROXEN 250 MG TAB PO PRN (00:01)
[2016-12-02 06:24] VITALS: BP 106/60
[2016-12-02] MEDS: OMEPRAZOLE 20 MG CAP PO SCH (09:07)
[2016-12-02] MEDS: HYDROXYCHLOROQUINE 200 MG TAB PO SCH ×2 (09:08→21:27)
--- NOTE | 2016-12-02 16:11 | MHIPNPDOC ---
[facility] Progress Note Progress Note DATE OF SERVICE: 12/02/16 HISTORY: day 11 of admission for feeling unsafe at home, altered perceptions, thoughts and paranoia VITAL SIGNS: See below. NEW TEST RESULTS: na CURRENT MEDICATIONS: See below. MENTAL STATUS EXAMINATION: General appearance: Patient is a 51-year old female, who is wearing black slacks and polka dot blouse, dark hair, wet from shower, glasses, cooperative. Speech: spontaneous Thought processes: goal directed, contains thoughts which indicate she believes she is suffering from environmental sensitivities here and pheromones that make her ill at home. Believe they are affecting her children now. Thought content: .delusional? about (illegal activities) and home environment (pheromones) Weird reactions and sensitivities to environmental allergies. Thoughts are quite appropriate when discussing children, school, past treatment, family. Abstract reasoning and computation: good Description of associations: good. Description of abnormal or psychotic thoughts: denies SI or HI, pt has thoughts that she is reacting to and being affected by pheromones that her is excreting in their home. Also reports "environmental sensitivities" to being on this unit. Judgment: limited Insight: poor Orientation: oriented x 4 Recent and remote memory: mostly intact, some impaired remote recall Attention span and concentration: good. Fund of knowledge: Full Mood: "what to do next?" Affect: anxious & depressed DIAGNOSES: 1. PTSD-chronic by history 2. Dissociative Identity Disorder 3. Generalized anxiety disorder. 4. r/o Delusional disorder ASSESSMENT:pt is attempting to secure housing at low cost where she can get away from her but also be the mother she wants to be. She plans to continue her therapy upon discharge. her was contacted today and asked about medication. Explained that I will not pressure Lilian into taking medication and I am not legally able to pursue Court action to force her to take medication. Pt denies feeling depressed or anxious and betty with her sensations and symptoms in her own way. Explained to our goal of finding her a safe place to reside outside of the home but he did not offer any suggestions but wanted a meeting to discuss Lilian. I told him her therapist Dr. Degroot knew her far better and he would probably get more out of talking to him than taking to me but we would meet with him if Lilian does not object. He asked for a call back to confirm a date of as we anticipate discharge by Thursday. MANAGEMENT PLAN: continue therapeutic environment, meds as prescribed and support. TIME SPENT: 15minutes. Vital Signs Vital Signs Date Time Temp Pulse Resp B/P (MAP) Pulse Ox O2 Delivery O2 Flow Rate FiO2 12/02/16 06:24 96.9 73 20 106/60 (75) 11/29/16 03:21 97 Room Air Current Medications Current Medications Acetaminophen (Tylenol Tab) 650 mg Q6HP PRN PO HEADACHE or DISCOMFORT Last administered on 12/01/16 13:08; Start 11/22/16 at 03:45; Stop 12/22/16 at 03: 44 Al Hydrox/Mg Hydrox/Simethicone (Mylanta) 30 ml Q4HP PRN PO HEARTBURN/ INDIGESTION; Start 11/22/16 at 03:45; Stop 12/22/16 at 03:44 Home Med (Med Rec Complete!) ASDIRECTED XX ; Start 11/22/16 at 00:45; Stop at 00:45; Status DC Hydroxychloroquine Sulfate (Plaquenil) 200 mg BID PO Last administered on 09:08; Start 11/22/16 at 09:00; Stop 12/22/16 at 08:59 Magnesium Hydroxide (Milk Of Magnesia) 30 ml DAILYPRN PRN PO CONSTIPATION; Start 11/22/16 at 03:45; Stop 12/22/16 at 03:44 Naproxen (Naprosyn) 500 mg BIDP PRN PO PAIN Last administered on 12/02/16 00: 01; Start 11/22/16 at 03:45; Stop 12/22/16 at 03:44 Olanzapine (ZyPREXA) 5 mg Q4HP PRN PO AGITATION Last administered on 11/30/16 12:43; Start 11/22/16 at 03:45; Stop 12/22/16 at 03:44 Omeprazole (PriLOSEC) 40 mg DAILY PO Last administered on 12/02/16 09:07; Start 11/22/16 at 09:00; Stop 12/22/16 at 08:59 Prazosin HCl (Minipress) 8 mg QHS PO Last administered on 12/01/16 21:31; Start 11/21/16 at 21:00; Stop 12/21/16 at 20:59 Trazodone HCl (Desyrel) 50 mg QHSP PRN PO INSOMNIA Last administered on 21:53; Start 11/22/16 at 03:45; Stop 11/28/16 at 13:06; Status DC Trazodone HCl (Desyrel) 100 mg QHSP PRN PO INSOMNIA Last administered on 21:30; Start 11/28/16 at 13:15; Stop 12/28/16 at 13:14 Allergies Coded Allergies: Iodine (Verified Allergy, Intermediate, SNEEZING AND VOMITING, 10/21/16) Latex (Verified Allergy, Intermediate, hives, 10/14/16) Clavulanic Acid (Verified Allergy, Unknown, 06/09/12) ENVIROMENTAL (Verified Allergy, Unknown, TREES, DUST, GRASS, POLLEN, ) FISH (Verified Allergy, Unknown, 08/26/06) Penicillins (Verified Allergy, Unknown, 06/09/12) Penicillins Cross Reactors (Verified Allergy, Unknown, 06/09/12) Shellfish Allergy (Verified Allergy, Unknown, 06/09/12) Amoxicillin (Verified Adverse Reaction, Mild, NAUSEA, 10/21/16) Tsering Welsh Dec 02, 2016 16:11
[2016-12-02 18:00] VITALS: BP 134/82
[2016-12-02] MEDS: PRAZOSIN 1 MG CAP PO SCH (21:27)
[2016-12-02] MEDS: traZODone 100 MG TAB PO PRN (21:27)
[2016-12-02] MEDS: ACETAMINOPHEN TAB 650MG DOSE (2X325MG) PO PRN (21:29)
[2016-12-03] MEDS: NAPROXEN 250 MG TAB PO PRN (02:01)
[2016-12-03] MEDS: ACETAMINOPHEN TAB 650MG DOSE (2X325MG) PO PRN (06:37)
[2016-12-03 07:09] VITALS: BP 112/56
[2016-12-03] MEDS: HYDROXYCHLOROQUINE 200 MG TAB PO SCH ×2 (08:47→20:29)
[2016-12-03] MEDS: OMEPRAZOLE 20 MG CAP PO SCH (08:48)
[2016-12-03] MEDS: OLANZapine 5 MG TAB PO PRN (15:18)
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
[2016-12-03 18:00] VITALS: BP 139/73
[2016-12-03] MEDS: PRAZOSIN 1 MG CAP PO SCH (20:29)
[2016-12-04] MEDS: NAPROXEN 250 MG TAB PO PRN ×2 (00:22→13:02)
[2016-12-04 06:00] VITALS: BP 123/71
[2016-12-04] MEDS: OMEPRAZOLE 20 MG CAP PO SCH (09:30)
[2016-12-04] MEDS: HYDROXYCHLOROQUINE 200 MG TAB PO SCH ×2 (09:30→22:33)
[2016-12-04] MEDS: ACETAMINOPHEN TAB 650MG DOSE (2X325MG) PO PRN (09:46)
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
[2016-12-04 18:00] VITALS: BP 138/84
[2016-12-04 22:34] VITALS: BP 154/85
[2016-12-04] MEDS: PRAZOSIN 1 MG CAP PO SCH (22:34)
[2016-12-05] MEDS: NAPROXEN 250 MG TAB PO PRN (02:45)
[2016-12-05 04:23] VITALS: BP 127/74
[2016-12-05] MEDS: ACETAMINOPHEN TAB 650MG DOSE (2X325MG) PO PRN (04:44)
[2016-12-05] MEDS: OMEPRAZOLE 20 MG CAP PO SCH (08:51)
[2016-12-05] MEDS: HYDROXYCHLOROQUINE 200 MG TAB PO SCH (08:51)
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
== END 2016-12-05 10:40 | disposition home or self-care (01) | DRG 882 ==
LOC: M ED 21:12 → M ED INP 23:31 → M PSY 11-22 01:07
PROVIDERS: ADMIT Psychiatry & Neurology Psychiatry; ATTEND Psychiatry & Neurology Psychiatry
DX: F43.12 Post-traumatic stress disorder, chronic (principal); D68.62 Lupus anticoagulant syndrome; F44.81 Dissociative identity disorder; F41.1 Generalized anxiety disorder; K21.9 Gastro-esophageal reflux disease without esophagitis; F22 Delusional disorders; Z79.899 Other long term (current) drug therapy; Z91.040 Latex allergy status; Z88.0 Allergy status to penicillin; Z88.1 Allergy status to other antibiotic agents; Z91.013 Allergy to seafood; Z91.048 Other nonmedicinal substance allergy status; Z91.018 Allergy to other foods; Z92.21 Personal history of antineoplastic chemotherapy; Z85.41 Personal history of malignant neoplasm of cervix uteri

== ENCOUNTER 2016-12-16 16:58 | Inpatient (IN) | payer OTHER ==
[~2016-12-16] VITALS: Ht 165.1 cm; Wt 95.4 kg
[~2016-12-16 16:58] MED LIST changes: +DIGECAP7 PO; +EPIP0.3I2 IM; +HAIRTAB5 PO; +PRAZ2CAP PO
[2016-12-16 18:03] LABS: METHADONE URINE NEGATIVE (NEGATIVE)
[2016-12-16 18:40] LABS: MEAN CORPUSCULAR HEMOGLOBIN 27.5 pg (27.0-33.0); MEAN CORPUSCULAR HGB CONC 32.8 g/dl (32.0-36.5); MEAN CORPUSCULAR VOLUME 83.6 fl (80.0-96.0); RED CELL DISTRIBUTION WIDTH 13.4 % (11.5-14.5); WHITE BLOOD COUNT 9.2 10^3/uL (4.0-10.0)
[2016-12-16 19:25] LABS: ALBUMIN 4.3 GM/DL (3.2-5.2); ALBUMIN/GLOBULIN RATIO 1.34 (1.00-1.93); ALKALINE PHOSPHATASE 80 U/L (45-117); ALT/SGPT 32 U/L (12-78); ANION GAP 9 MEQ/L (8-16); AST/SGOT 20 U/L (15-37); BILIRUBIN,DIRECT 0.1 MG/DL (0.0-0.2); BILIRUBIN,TOTAL 0.3 MG/DL (0.2-1.0); BLOOD UREA NITROGEN 17 MG/DL (7-18); CALCIUM LEVEL 9.6 MG/DL (8.5-10.1); CARBON DIOXIDE LEVEL 26 MEQ/L (21-32); CHLORIDE LEVEL 104 MEQ/L (98-107); CREATININE FOR GFR 0.67 MG/DL (0.55-1.02); GLOMERULAR FILTRATION RATE > 60.0 (>51); GLUCOSE, FASTING 91 MG/DL (70-105); POTASSIUM SERUM 3.7 MEQ/L (3.5-5.1); SODIUM LEVEL 139 MEQ/L (136-145); TOTAL PROTEIN 7.5 GM/DL (6.4-8.2)
[2016-12-16] MEDS ORDERED: PRAZOSIN 1 MG CAP PO SCH (21:00)
[2016-12-16] MEDS ORDERED: MAALOX 30 ML SUSP *UDC PO PRN (22:00)
[2016-12-16] MEDS ORDERED: MOM 30ML SUSPENSION UDC PO PRN (22:00)
[2016-12-16] MEDS ORDERED: ACETAMINOPHEN TAB 650MG DOSE (2X325MG) PO PRN (22:00)
[2016-12-16] MEDS ORDERED: traZODone 50 MG TAB PO PRN (22:00)
[2016-12-16 23:30] VITALS: BP 139/71
[2016-12-17] MEDS: NAPROXEN 250 MG TAB PO PRN ×2 (01:06→13:42)
[2016-12-17] MEDS: HYDROXYCHLOROQUINE 200 MG TAB PO SCH ×2 (01:06→09:04)
[2016-12-17 01:10] VITALS: BP 139/71
[2016-12-17 06:54] VITALS: BP 113/60
[2016-12-17] MEDS ORDERED: OMEPRAZOLE 20 MG CAP PO SCH (09:00)
--- NOTE | 2016-12-17 09:22 | HPEPDOC ---
[facility] Medical History & Physical Date of Admission Dec 16, 2016 History and Physical PCP: Dr Mariano ATTENDING: Dr. Lavon Sheikh HPI: 51 yo F admitted to [facility] for unspecified psychotic disorder, being medically examined today. No acute medical complaints today. Patient requests screening for hepatitis and HIV. Patient states she is currently taking prazosin for nightmares. Denies any fevers, chills, weakness, fatigue, MAYES, CP, SOB, cough, palpitations, abdominal pain, N/V/D or changes in bowel or bladder habits. PMHx: 1. IVF. 2. History of nephrolithiasis. 3. History of ovarian cysts. 4. Chronic low back pain 5. Fibrocystic breast disease. 6. OA. 7. Posttraumatic stress disorder (PTSD). 8. Anxiety. 9. Gastroesophageal reflux disease (GERD). 10. Anticoagulant lupus. Dr Caty Underwood. 11. Endometriosis. 12. History of eating disorder. 13. Obsessive-compulsive disorder (OCD). 14. History of cervix cancer status post four rounds of chemotherapy approximately 16 years ago. 15. History of hemorrhoids. 16. GERD 17. allergies. 18. Night terrors. PSHX: 1. Multiple loop electrosurgical excisional procedure (LEEP) procedures. 2. Cryosurgery. 3. Four laparoscopic surgeries, one ovarian cysts and she had three for endometriosis. 4. Colonoscopy 11/30/[address] Mendoza. 5. Right breast cyst removed, benign. 6. Dilation and curettage (D and C). 7. Heart catheterization 10 years ago, within normal limits. 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 ROS: As noted in HPI, otherwise 11pt ROS of systems reviewed and remarkable only for LMP, unknown. PE: GEN: 51 yo F, appears stated age. Well-nourished, well developed. No acute distress. Alert and oriented x 3. Pleasant, interactive. HEENT: Normocephalic, atraumatic. Pupils are equal, round, and reactive to light. Extraocular movements are intact. No nystagmus appreciated. Sclera are nonicteric. Conjunctiva without injection. Nose midline. Nasal turbinates without bogginess. EACs both patent BL. TMs both visualized and sherman with good cone of light, no bulging or erythema. No facial asymmetry. Moist mucous membranes. Dentition fair. Pharynx pink and moist, no cobblestoning. Neck supple , trachea midline. No lymphadenopathy or thyromegaly appreciated. CHEST: Regular rate and rhythm, +S1, +S2 LUNGS: Clear to auscultation bilaterally. No wheezes, rales, or rhonchi. Breathing appears symmetric and easy. Patient is speaking in full sentences. No accessory muscle use. ABD: Round, soft, non-tender, non-distended. +Bowel sounds throughout. No rebound or guarding. No costovertebral angle tenderness. EXT: Pulses 2+ bilaterally dorsalis pedis and radial. No lower extremity edema appreciated. SKIN: [place], dry, warm. Capillary refill <2sec. No rashes. NEURO: Alert and oriented x 3. Cranial nerves III-XII are intact. No focal deficits appreciated. EK10/21/16 SINUS RHYTHM NONSPECIFIC T-WAVE ABNORMALITY SIMILAR TO 07/30/15 A&P: 51 yo F admitted to [facility] for unspecified psychotic disorder 1. Psych. Plan per Psychiatry. EKG on file. 2. HIV and hepatitis screening as per patient request. 3. GERD. Continue Prilosec 40 mg daily. 4. Follow up with PCP on discharge. 5. Osteoarthritis. Continue naproxen 500 mg twice a day as needed. 6. Lupus. Continue hydroxychloroquine 200 mg by mouth twice a day as per rheumatology. 7. Staff member Cleopatra present throughout exam. Vital Signs Vital Signs Date Time Temp Pulse Resp B/P (MAP) Pulse Ox O2 Delivery O2 Flow Rate FiO2 12/17/16 06:54 97.3 83 20 113/60 (77) 12/16/16 23:30 100 Room Air Laboratory Data Labs 24H Laboratory Tests 2 12/16/16 17:25: Urine Amphetamines Screen NEGATIVE, Urine Benzodiazepines Screen NEGATIVE, Urine Opiates Screen NEGATIVE, Urine Methadone Screen NEGATIVE, Urine Barbiturates Screen NEGATIVE, Urine Phencyclidine Screen NEGATIVE, Urine Cocaine Metabolite Screen NEGATIVE, Urine Cannabinoids Screen NEGATIVE 12/16/16 18:31: Anion Gap 9, Glomerular Filtration Rate > 60.0, Calcium Level 9.6, Aspartate Amino Transf (AST/SGOT) 20, Alanine Aminotransferase (ALT/SGPT) 32, Alkaline Phosphatase 80, Total Bilirubin 0.3, Direct Bilirubin 0.1, Total Protein 7.5, Albumin 4.3, Albumin/Globulin Ratio 1.34, Thyroid Stimulating Hormone (TSH) 0.585, Salicylates Level < 1.7L, Acetaminophen Level < 2.0L, Ethyl Alcohol Level < 0.003 CBC/BMP Laboratory Tests 12/16/16 18:31 Red Blood Count 4.88, Mean Corpuscular Volume 83.6, Mean Corpuscular Hemoglobin 27.5, Mean Corpuscular Hemoglobin Concent 32.8, Red Cell Distribution Width 13.4 Home Medications Scheduled (Hair/Skin/Nails) 1 Tab Tab, 1 TAB PO DAILY (Digestive Enzymes) 1 Cap Cap, 2 CAP PO PC Hydroxychloroquine Sulfate (Hydroxychloroquine Sulfat) 200 Mg Tab, 200 MG PO BID Omeprazole (Omeprazole) 40 Mg Cap, 40 MG PO DAILY Prazosin Hcl (Prazosin HCl) 2 Mg Cap, 8 MG PO QHS Scheduled PRN (Epipen 2-Js) 0.3 Mg/0.3 Ml Inj, 1 SYRINGE IM ASDIRECTED PRN for ANAPHLAXIS Naproxen (Naprosyn) 500 Mg Tab, 500 MG PO BID PRN for pain Allergies Coded Allergies: Iodine (Verified Allergy, Intermediate, SNEEZING AND VOMITING, 10/21/16) Latex (Verified Allergy, Intermediate, hives, 10/14/16) Clavulanic Acid (Verified Allergy, Unknown, 06/09/12) ENVIROMENTAL (Verified Allergy, Unknown, TREES, DUST, GRASS, POLLEN, ) FISH (Verified Allergy, Unknown, 08/26/06) Penicillins (Verified Allergy, Unknown, 06/09/12) Penicillins Cross Reactors (Verified Allergy, Unknown, 06/09/12) Shellfish Allergy (Verified Allergy, Unknown, 06/09/12) Amoxicillin (Verified Adverse Reaction, Mild, NAUSEA, 10/21/16) Alexandra Lara Dec 17, 2016 09:22
--- NOTE | 2016-12-17 11:42 | MHIPNPDOC ---
[facility] Progress Note Progress Note DATE OF SERVICE: 12/17/16 HISTORY: pt admitted after she requested medical help for environment sensitivities. She was classified as delusional and admitted to the [facility]. Her sensitivities and mental status are well document. She is not a danger to self or others and she feels no benefit from being her when she was seeking medical care. She was evaluated by the unit PA. VITAL SIGNS: See below. NEW TEST RESULTS: HIV and Hepatitis testing all negative. CURRENT MEDICATIONS: See below. MENTAL STATUS EXAMINATION: Patient is a 51-year old female, who is average height, dark hair, glasses, wearing hospital attire and tearful as she relays her past 24 hour experience. Speech: Is spontaneous Language skills are good Thought processes including: goal directed Thought content: appropriate. Abstract reasoning, and computation: good. Description of associations: good. Description of abnormal or psychotic thoughts: she is being affected by her home environment when she visits due to her using cleaning products and not opening the windows. she feels he "sets me up" as he knows I was coming by to get the alarm fixed. He waited until 4 a.m. to do the cleaning and kept the house all closed up. Judgment: good Insight: fair to good. Orientation: well oriented x 4 Recent and remote memory: intact. Attention span and concentration: good. Fund of knowledge: full Mood: sad and angry Affect: tearful DIAGNOSES: 1. PTSD 2. unspecified depressive disorder. ASSESSMENT:Pt is not DTS or DTO. She reacts much differently to her environment due to her PTSD illness. She is having a severe action to her home and her . These things are characteristic in PTSD and though severe in Lilian's case, not at all uncommon. She is logical and future oriented. She has no desire to be here and would like to be dishcarged so she can process what is happening with her outpatient Psychologist and other therapist. She has housing until [facility] can be fully engaged in providing her with a place to live. Pt is staying with friends. She became ill at the soccer game last night of her 2 children and will need a cab to take her to the car at the [employer] in [place]. We called to let them know she would be returning for the car. MANAGEMENT PLAN: continue Prazosin at hs. Continue regular sessions with outpatient providers. TIME SPENT: 30 minutes. Vital Signs Vital Signs Date Time Temp Pulse Resp B/P (MAP) Pulse Ox O2 Delivery O2 Flow Rate FiO2 12/17/16 06:54 97.3 83 20 113/60 (77) 12/16/16 23:30 100 Room Air Laboratory Data 24H Labs Laboratory Tests 2 12/16/16 17:25: Urine Amphetamines Screen NEGATIVE, Urine Benzodiazepines Screen NEGATIVE, Urine Opiates Screen NEGATIVE, Urine Methadone Screen NEGATIVE, Urine Barbiturates Screen NEGATIVE, Urine Phencyclidine Screen NEGATIVE, Urine Cocaine Metabolite Screen NEGATIVE, Urine Cannabinoids Screen NEGATIVE 12/16/16 18:31: Anion Gap 9, Glomerular Filtration Rate > 60.0, Calcium Level 9.6, Aspartate Amino Transf (AST/SGOT) 20, Alanine Aminotransferase (ALT/SGPT) 32, Alkaline Phosphatase 80, Total Bilirubin 0.3, Direct Bilirubin 0.1, Total Protein 7.5, Albumin 4.3, Albumin/Globulin Ratio 1.34, Thyroid Stimulating Hormone (TSH) 0.585, Salicylates Level < 1.7L, Acetaminophen Level < 2.0L, Ethyl Alcohol Level < 0.003, Hepatitis A IgM Antibody NEGATIVE, Hepatitis B Surface Antigen NEGATIVE, Hepatitis B Core IgM Antibody NEGATIVE, Hepatitis C Antibody Index 0.1 , HIV Antigen/Antibody Combo Qual NEGATIVE CBC/BMP Laboratory Tests 12/16/16 18:31 Red Blood Count 4.88, Mean Corpuscular Volume 83.6, Mean Corpuscular Hemoglobin 27.5, Mean Corpuscular Hemoglobin Concent 32.8, Red Cell Distribution Width 13.4 Current Medications Current Medications Acetaminophen (Tylenol Tab) 650 mg Q6HP PRN PO HEADACHE or DISCOMFORT Last administered on 12/17/16 09:05; Start 12/16/16 at 22:00; Stop 01/15/17 at 21: 59 Al Hydrox/Mg Hydrox/Simethicone (Mylanta) 30 ml Q4HP PRN PO HEARTBURN/ INDIGESTION; Start 12/16/16 at 22:00; Stop 01/15/17 at 21:59 Hydroxychloroquine Sulfate (Plaquenil) 200 mg BID PO Last administered on 12/17 09:04; Start 12/16/16 at 21:00; Stop 01/15/17 at 20:59 Magnesium Hydroxide (Milk Of Magnesia) 30 ml DAILYPRN PRN PO CONSTIPATION; Start 12/16/16 at 22:00; Stop 01/15/17 at 21:59 Naproxen (Naprosyn) 500 mg BIDP PRN PO PAIN Last administered on 12/17/16 01: 06; Start 12/16/16 at 22:00; Stop 01/15/17 at 21:59 Omeprazole (PriLOSEC) 40 mg DAILY PO Last administered on 12/17/16 09:04; Start 12/17/16 at 09:00; Stop 01/16/17 at 08:59 Prazosin HCl (Minipress) 2 mg QHS PO Last administered on 12/17/16 01:10; Start 12/16/16 at 21:00; Stop 01/15/17 at 20:59 Trazodone HCl (Desyrel) 50 mg QHSP PRN PO INSOMNIA; Start 12/16/16 at 22:00; Stop 01/15/17 at 21:59 Allergies Coded Allergies: Iodine (Verified Allergy, Intermediate, SNEEZING AND VOMITING, 10/21/16) Latex (Verified Allergy, Intermediate, hives, 10/14/16) Clavulanic Acid (Verified Allergy, Unknown, 06/09/12) ENVIROMENTAL (Verified Allergy, Unknown, TREES, DUST, GRASS, POLLEN, ) FISH (Verified Allergy, Unknown, 08/26/06) Penicillins (Verified Allergy, Unknown, 06/09/12) Penicillins Cross Reactors (Verified Allergy, Unknown, 06/09/12) Shellfish Allergy (Verified Allergy, Unknown, 06/09/12) Amoxicillin (Verified Adverse Reaction, Mild, NAUSEA, 10/21/16) Tsering Welsh Dec 17, 2016 11:42
--- NOTE | 2016-12-17 14:29 | MHDSPDOC ---
[facility] Discharge Summary Discharge Summary DATE OF ADMISSION: Dec 16, 2016 at 21:52 DATE OF DISCHARGE: Dec 17, 2016 at 14:05 DISCHARGE DIAGNOSES: 1. PTSD 2. depressive disorder, unspecified. REASON FOR ADMISSION: Pt requested medical care due to her sensitivities to environmental triggers. Pt admitted to [facility] as her symptoms were considered delusions. Pt c/o skin burning, pain in genital area, breast pain. She is not appropriate for psychiatric inpatient treatment as she is emotional stable despite being angry at her . She receives routine outpatient counseling and keeping her here will keep her away from that treatment she surely needs. Pt spent 15 days on the unit and was just released 11 days ago. CONSULTANTS INVOLVED: lab, medicine, nursing, psychiatry. TREATMENT AND PROGRESS ON THE UNIT : pt had a PE, requested lab tests that were completed. Pt attended to her immediate needs and when seen by technical writer indicated it was pointless for her to stay here. She has a place to stay that is safe while she works out housing with [facility]. She denies suicidal ideation, plan or intent. She is upset that her did things that triggered her sensitivities and could have been done with more consideration to her needs. Pt has been enjoying activities with her 2 children. HOSPITAL COURSE: uneventful, however pt has physical problems due to the environment on [facility] and struggles to tolerate it here similar to home but home is worse. DISCHARGE ASSESSMENT: Pt will retrieve her car from the [place] where she was watching her children play soccer last night when she had to be taken by ambulance to our ED. Yellow cab will transport her there so she can return to her friends home. Pt has appts already with Yolanda Wiggins and Dr. Degroot. MENTAL STATUS EXAMINATION ON DISCHARGE: Patient is a 51-year old female, who is average height, dark hair, glasses, wearing hospital attire and tearful as she relays her past 24 hour experience. Speech: Is spontaneous Language skills are good Thought processes including: goal directed Thought content: appropriate. Abstract reasoning, and computation: good. Description of associations: good. Description of abnormal or psychotic thoughts: she is being affected by her home environment when she visits due to her using cleaning products and not opening the windows. she feels he "sets me up" as he knows I was coming by to get the alarm fixed. He waited until 4 a.m. to do the cleaning and kept the house all closed up. Judgment: good Insight: fair to good. Orientation: well oriented x 4 Recent and remote memory: intact. Attention span and concentration: good. Fund of knowledge: full Mood: euthymic Affect: congruent. MEDICATIONS ON DISCHARGE: done required. PLAN/FOLLOWUP ARRANGEMENTS: [facility]&K Natanael Mooney, Ph.D. & Yolanda Wiggins. Pt in control of her emotions. Not crying when discharged. Not suicidal or homicidal. 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 The amount of time spent in the coordination of care for this patient was approximately 30 minutes. Vital Signs/I&Os Vital Signs Date Time Temp Pulse Resp B/P (MAP) Pulse Ox O2 Delivery O2 Flow Rate FiO2 12/17/16 06:54 97.3 83 20 113/60 (77) 12/16/16 23:30 100 Room Air Laboratory Data Labs 24H Laboratory Tests 2 12/16/16 17:25: Urine Amphetamines Screen NEGATIVE, Urine Benzodiazepines Screen NEGATIVE, Urine Opiates Screen NEGATIVE, Urine Methadone Screen NEGATIVE, Urine Barbiturates Screen NEGATIVE, Urine Phencyclidine Screen NEGATIVE, Urine Cocaine Metabolite Screen NEGATIVE, Urine Cannabinoids Screen NEGATIVE 12/16/16 18:31: Anion Gap 9, Glomerular Filtration Rate > 60.0, Calcium Level 9.6, Aspartate Amino Transf (AST/SGOT) 20, Alanine Aminotransferase (ALT/SGPT) 32, Alkaline Phosphatase 80, Total Bilirubin 0.3, Direct Bilirubin 0.1, Total Protein 7.5, Albumin 4.3, Albumin/Globulin Ratio 1.34, Thyroid Stimulating Hormone (TSH) 0.585, Salicylates Level < 1.7L, Acetaminophen Level < 2.0L, Ethyl Alcohol Level < 0.003, Hepatitis A IgM Antibody NEGATIVE, Hepatitis B Surface Antigen NEGATIVE, Hepatitis B Core IgM Antibody NEGATIVE, Hepatitis C Antibody Index 0.1 , HIV Antigen/Antibody Combo Qual NEGATIVE CBC/BMP Laboratory Tests 12/16/16 18:31 Red Blood Count 4.88, Mean Corpuscular Volume 83.6, Mean Corpuscular Hemoglobin 27.5, Mean Corpuscular Hemoglobin Concent 32.8, Red Cell Distribution Width 13.4 Medications Scheduled (Hair/Skin/Nails) 1 Tab Tab, 1 TAB PO DAILY, (Reported) (Digestive Enzymes) 1 Cap Cap, 2 CAP PO PC, (Reported) Hydroxychloroquine Sulfate (Hydroxychloroquine Sulfat) 200 Mg Tab, 200 MG PO BID , (Reported) Omeprazole (Omeprazole) 40 Mg Cap, 40 MG PO DAILY, (Reported) Prazosin Hcl (Prazosin HCl) 2 Mg Cap, 8 MG PO QHS, (Reported) Scheduled PRN (Epipen 2-Js) 0.3 Mg/0.3 Ml Inj, 1 SYRINGE IM ASDIRECTED PRN for ANAPHLAXIS, ( Reported) Naproxen (Naprosyn) 500 Mg Tab, 500 MG PO BID PRN for pain, (Reported) Allergies Coded Allergies: Iodine (Verified Allergy, Intermediate, SNEEZING AND VOMITING, 10/21/16) Latex (Verified Allergy, Intermediate, hives, 10/14/16) Clavulanic Acid (Verified Allergy, Unknown, 06/09/12) ENVIROMENTAL (Verified Allergy, Unknown, TREES, DUST, GRASS, POLLEN, ) FISH (Verified Allergy, Unknown, 08/26/06) Penicillins (Verified Allergy, Unknown, 06/09/12) Penicillins Cross Reactors (Verified Allergy, Unknown, 06/09/12) Shellfish Allergy (Verified Allergy, Unknown, 06/09/12) Amoxicillin (Verified Adverse Reaction, Mild, NAUSEA, 10/21/16) Tsering Welsh Dec 17, 2016 14:28
== END 2016-12-17 14:05 | disposition home or self-care (01) | DRG 882 ==
LOC: M ED 16:58 → M ED INP 21:52 → M PSY 23:30
PROVIDERS: ADMIT Psychiatry & Neurology Psychiatry; ATTEND Psychiatry & Neurology Psychiatry
DX: F43.10 Post-traumatic stress disorder, unspecified (principal); F32.9 Major depressive disorder, single episode, unspecified; K21.9 Gastro-esophageal reflux disease without esophagitis; M19.90 Unspecified osteoarthritis, unspecified site; M32.9 Systemic lupus erythematosus, unspecified; J30.9 Allergic rhinitis, unspecified; Z79.899 Other long term (current) drug therapy; Z88.0 Allergy status to penicillin; Z88.8 Allergy status to other drugs, medicaments and biological substances; Z91.013 Allergy to seafood

== ENCOUNTER 2017-01-30 14:30 | Emergency (ER) | payer OTHER ==
[~2017-01-30] VITALS: Ht 165.1 cm; Wt 103.2 kg
--- NOTE | 2017-01-30 15:34 | REP ---
Clinical: Altered mental status. Possible acute cerebrovascular accident. Comparison: 10/27/2015. Findings: The ventricles, sulci, and cisterns are normal in position and appearance. Lott-white differentiation is maintained. No acute intracranial hemorrhage, mass/mass effect, pathology or trauma/injury. No evidence for acute infarction. No extra-axial fluid collection. Calvarium is intact. Paranasal sinuses and mastoid air cells are clear. Impression: Normal noncontrast head CT. No evidence for acute intracranial pathology or trauma/injury. Signed by Juan Miguel Allred MD 01/30/2017 03:25 P
--- NOTE | 2017-01-30 15:41 | REP ---
Clinical: Cerebrovascular accident . Comparison: 07/30/2015 . Findings: The mediastinum and cardiac silhouette are stable and within normal limits for portable technique. The lung mar are clear without acute consolidation, effusion, or pneumothorax. Skeletal structures are intact. Impression: No acute cardiopulmonary process appreciated. Signed by Juan Miguel Allred MD 01/30/2017 03:32 P
[2017-01-30 15:58] LABS: BASO # 0.1 10^3/uL (0.0-0.2); BASO % 0.8 % (0.0-1.0); EOS # 0.1 10^3/uL (0.0-0.50); EOS % 1.6 % (0.0-3.0); IMMATURE GRANULOCYTE % 0.3 % (0-0); LYMPH # 1.8 10^3/uL (1.5-4.5); LYMPH % 23.8 % (24.0-44.0); MEAN CORPUSCULAR HEMOGLOBIN 27.2 pg (27.0-33.0); MEAN CORPUSCULAR HGB CONC 32.3 g/dl (32.0-36.5); MEAN CORPUSCULAR VOLUME 84.3 fl (80.0-96.0); MONO # 0.5 10^3/uL (0.0-0.8); MONO % 6.8 % (0.0-5.0); NEUTROPHILS % 66.7 % (36.0-66.0); PLATELET COUNT, AUTOMATED 240 10^3/uL (150-450); RED CELL DISTRIBUTION WIDTH 13.3 % (11.5-14.5); WHITE BLOOD COUNT 7.5 10^3/uL (4.0-10.0)
[2017-01-30 16:22] LABS: ANION GAP 5 MEQ/L (8-16); BLOOD UREA NITROGEN 21 MG/DL (7-18); CALCIUM LEVEL 8.6 MG/DL (8.5-10.1); CARBON DIOXIDE LEVEL 28 MEQ/L (21-32); CHLORIDE LEVEL 110 MEQ/L (98-107); CREATININE FOR GFR 0.75 MG/DL (0.55-1.02); GLOMERULAR FILTRATION RATE > 60.0 (>51); GLUCOSE, FASTING 98 MG/DL (70-105); POTASSIUM SERUM 4.4 MEQ/L (3.5-5.1); SODIUM LEVEL 143 MEQ/L (136-145)
[2017-01-30 17:01] LABS: OSMOLALITY SERUM 296 MOSM/KG (275-295)
--- NOTE | 2017-01-30 17:06 | REP ---
Clinical: Right-sided weakness. Technique: Standard noncontrast MRI sequencing of the brain. Findings: The ventricles, sulci, and cisterns are normal. The parenchyma including posterior fossa and cerebellum appear symmetric and normal. There is no evidence for acute intracranial hemorrhage, mass/mass effect, abnormal signal intensity, or evidence for acute infarction. Midline and midbrain structures are intact and normal. No extra-axial fluid collection is appreciated. Sinuses are clear. The bilateral orbits are symmetric and normal. Impression: Normal noncontrast MRI of the brain. Signed by Juan Miguel Allred MD 01/30/2017 04:58 P
--- NOTE | 2017-01-30 17:07 | REP ---
Clinical: Right-sided weakness Comparison: None Technique: Axial 3-D [id number] noncontrast source images with 3-D multiplanar re-formations. Findings: Vasculature to the bilateral hemispheres appears symmetric and normal without areas of attenuation to suggest occlusion or stenosis. No evidence for arteriovenous malformation or aneurysm. No obvious abnormality. Impression: Normal MRA of the brain. Signed by Juan Miguel Allred MD 01/30/2017 04:59 P
[2017-01-30] MEDS ORDERED: PERCOCET 5MG/325MG TAB PO ONE (17:30)
[2017-01-30 17:36] LABS: METHADONE URINE NEGATIVE (NEGATIVE)
[2017-01-30 18:02] VITALS: BP 138/68
--- NOTE | 2017-01-30 18:15 | ECGEPIP ---
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
== END 2017-01-30 18:15 | disposition home or self-care (01) ==
LOC: M ED 14:30
DX: R53.1 Weakness (principal); K21.9 Gastro-esophageal reflux disease without esophagitis; F99 Mental disorder, not otherwise specified; F43.10 Post-traumatic stress disorder, unspecified; Z79.899 Other long term (current) drug therapy; Z88.0 Allergy status to penicillin; J30.89 Other allergic rhinitis; Z91.013 Allergy to seafood; Z88.8 Allergy status to other drugs, medicaments and biological substances; Z91.040 Latex allergy status; Z85.41 Personal history of malignant neoplasm of cervix uteri; Z92.21 Personal history of antineoplastic chemotherapy; Z98.890 Other specified postprocedural states
CPT/HCPCS: 70450; 70544; 70551; 71010; 80048; 80307; 82140; 82550; 82553; 83930; 85025; 85610; 85730; 86850; 86900; 86901; 93005; 93041; 94760; 99284; G0480

== ENCOUNTER 2017-01-31 20:41 | Inpatient (IN) | payer OTHER ==
[~2017-01-31] VITALS: Ht 165.1 cm; Wt 104.3 kg
[2017-01-31] MEDS ORDERED: NS 1,000 ML IV ONE (21:30)
[2017-01-31 21:55] LABS: VENOUS BASE EXCESS 0.8 (-2.0-2.0); VENOUS O2 SATURATION 97.7 % (60.0-80.0); VENOUS PARTIAL PRESSURE CO2 42.9 mmHg (38.0-50.0); VENOUS PARTIAL PRESSURE O2 99.7 mmHg (30.0-50.0); VENOUS STANDARD HCO3 25.2 MEQ/L; VENOUS TOTAL CO2 27.1 MEQ/L (24.0-28.0)
[2017-01-31 21:57] LABS: BASO # 0.1 10^3/uL (0.0-0.2); BASO % 0.7 % (0.0-1.0); EOS # 0.2 10^3/uL (0.0-0.50); EOS % 1.6 % (0.0-3.0); IMMATURE GRANULOCYTE % 0.2 % (0-0); LYMPH # 2.3 10^3/uL (1.5-4.5); LYMPH % 24.1 % (24.0-44.0); MEAN CORPUSCULAR HEMOGLOBIN 27.6 pg (27.0-33.0); MEAN CORPUSCULAR HGB CONC 32.7 g/dl (32.0-36.5); MEAN CORPUSCULAR VOLUME 84.4 fl (80.0-96.0); MONO # 0.6 10^3/uL (0.0-0.8); MONO % 6.1 % (0.0-5.0); NEUTROPHILS # 6.4 10^3/uL (1.8-7.7); NEUTROPHILS % 67.3 % (36.0-66.0); PLATELET COUNT, AUTOMATED 286 10^3/uL (150-450); RED CELL DISTRIBUTION WIDTH 13.3 % (11.5-14.5); WHITE BLOOD COUNT 9.5 10^3/uL (4.0-10.0)
[2017-01-31 22:01] LABS: INR 0.85
[2017-01-31 22:07] LABS: ANION GAP 5 MEQ/L (8-16); BLOOD UREA NITROGEN 19 MG/DL (7-18); CALCIUM LEVEL 8.8 MG/DL (8.5-10.1); CARBON DIOXIDE LEVEL 29 MEQ/L (21-32); CHLORIDE LEVEL 107 MEQ/L (98-107); CREATININE FOR GFR 0.71 MG/DL (0.55-1.02); GLOMERULAR FILTRATION RATE > 60.0 (>51); GLUCOSE, FASTING 99 MG/DL (70-105); POTASSIUM SERUM 4.1 MEQ/L (3.5-5.1); SODIUM LEVEL 141 MEQ/L (136-145)
[2017-02-01] MEDS ORDERED: CETI10TA PO (00:02)
[2017-02-01] MEDS ORDERED: ONDANSETRON 4 MG TAB (S0181) PO PRN (01:15)
[2017-02-01 04:00] VITALS: BP 148/86
[2017-02-01] MEDS: PRAZOSIN 1 MG CAP PO SCH ×2 (04:45→22:16)
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
[2017-02-01 06:00] VITALS: BP 133/80
[2017-02-01] MEDS: OCUVITE 1 TAB PO SCH (09:53)
[2017-02-01] MEDS: HYDROXYCHLOROQUINE 200 MG TAB PO SCH ×2 (09:53→19:53)
[2017-02-01] MEDS: CETIRIZINE (ZyrTEC) 10 MG TAB PO SCH (09:53)
[2017-02-01 14:00] VITALS: BP 131/87
--- NOTE | 2017-02-01 16:42 | ECGEPIP ---
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
[2017-02-01 19:34] LABS: METHADONE URINE NEGATIVE (NEGATIVE)
[2017-02-01] MEDS: NAPROXEN 250 MG TAB PO PRN (22:16)
[2017-02-01 22:30] VITALS: BP 130/82
[2017-02-02 06:00] VITALS: BP 113/57
[2017-02-02 07:08] LABS: MEAN CORPUSCULAR HGB CONC 32.1 g/dl (32.0-36.5); MEAN CORPUSCULAR VOLUME 84.1 fl (80.0-96.0); PLATELET COUNT, AUTOMATED 232 10^3/uL (150-450); RED CELL DISTRIBUTION WIDTH 13.6 % (11.5-14.5); WHITE BLOOD COUNT 5.7 10^3/uL (4.0-10.0)
[2017-02-02 07:35] LABS: ANION GAP 8 MEQ/L (8-16); BLOOD UREA NITROGEN 19 MG/DL (7-18); CALCIUM LEVEL 8.8 MG/DL (8.5-10.1); CARBON DIOXIDE LEVEL 26 MEQ/L (21-32); CHLORIDE LEVEL 111 MEQ/L (98-107); CREATININE FOR GFR 0.62 MG/DL (0.55-1.02); GLOMERULAR FILTRATION RATE > 60.0 (>51); GLUCOSE, FASTING 91 MG/DL (70-105); POTASSIUM SERUM 3.7 MEQ/L (3.5-5.1); SODIUM LEVEL 145 MEQ/L (136-145)
--- NOTE | 2017-02-02 08:42 | ECGEPIP ---
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
[2017-02-02] MEDS: CETIRIZINE (ZyrTEC) 10 MG TAB PO SCH (08:58)
[2017-02-02] MEDS: OCUVITE 1 TAB PO SCH (08:58)
[2017-02-02] MEDS: HYDROXYCHLOROQUINE 200 MG TAB PO SCH ×2 (08:59→21:37)
[2017-02-02 14:00] VITALS: BP 167/98
[2017-02-02] MEDS: NAPROXEN 250 MG TAB PO PRN ×2 (15:19→21:37)
--- NOTE | 2017-02-02 18:12 | IPN ---
DATE: 02/02/2017 SUBJECTIVE: The patient is seen and examined in the room today. During the encounter which lasted approximately 15-20 minutes, the patient continued to have persistent twitching-like movement. However, per patient, the patient stated that she really thinks the is trying to poison her with high dose of pheromone. Denies any acute complaints. OBJECTIVE: VITAL SIGNS: Temperature is 97.9, pulse is 82, respirations 18, blood pressure is 113/57, pulse oximetry is 95% in room air. GENERAL: No sign of acute distress, persistent muscle twitching of the upper extremities and neck and facial muscles. Able to answer questions correctly. However, the content may be tangential most of the time. HEENT: Normocephalic, atraumatic. CARDIOVASCULAR: Positive S1, S2, regular rate. LUNGS: Clear to auscultation bilaterally. ABDOMEN: Soft, nontender, nondistended. Bowel sounds present. EXTREMITIES: No edema. No cyanosis. LABORATORY DATA: WBC is 5.7, hemoglobin 11.3, hematocrit 34.9, platelet count is 232. Sodium is 145, potassium 3.7, chloride is 111, carbon dioxide 26, BUN 19, creatinine 0.62, GFR greater than 60, fasting glucose 91, calcium 8.8, total CK is 56, troponin I is less than 0.02. ASSESSMENT AND PLAN: 1. Possible psychosis. Before the encounter, the patient did not realize that I had stepped in the room and the patient was able to type an email or text on her cell phone without any issues. Since the initiation of the encounter, the patient started to have persistent bilateral upper extremity twitching, facial muscle twitching, and neck muscle twitching that has been persistent since the whole encounter. Per nursing staff, the patient can finish all of her meals without spilling over the tray. Her gown and her bed are completely clean. It seems like the abnormal movement only occurs when a visitor is in the room. I also had a chance to discuss with the patient's friends. They do admit that the patient does have a significant psychiatric disorder for a long duration. The patient confessed to the nursing staff and also to me that she strongly feels that her is trying to hurt her by increasing the amount of pheromone and because of the increase in pheromone, the patient has increased sensory stimulations. Laboratory tests and vital signs are completely normal. The patient's presentation seems largely due to her exacerbation of psychiatric conditions. Case discussed with psychiatrist, Dr. Cuello. We appreciate her input. 2. History of lupus anticoagulants. Continue Plaquenil. 3. Posttraumatic stress disorder (PTSD) and night terrors, on prazosin. 4. Osteoarthritis. 5. History of obsessive-compulsive disorder (OCD). 6. History of anxiety. 7. History of cervical cancer, status post chemotherapy. 8. Deep vein thrombosis (DVT) prophylaxis, on compression.
[2017-02-02] MEDS: PRAZOSIN 1 MG CAP PO SCH (21:38)
[2017-02-02 22:00] VITALS: BP 134/77
[2017-02-03] MEDS: NAPROXEN 250 MG TAB PO PRN (03:44)
[2017-02-03 06:00] VITALS: BP 118/66
[2017-02-03 07:45] LABS: MEAN CORPUSCULAR HEMOGLOBIN 27.1 pg (27.0-33.0); MEAN CORPUSCULAR HGB CONC 32.4 g/dl (32.0-36.5); MEAN CORPUSCULAR VOLUME 83.8 fl (80.0-96.0); PLATELET COUNT, AUTOMATED 242 10^3/uL (150-450); RED CELL DISTRIBUTION WIDTH 13.6 % (11.5-14.5)
[2017-02-03 08:10] LABS: ANION GAP 7 MEQ/L (8-16); BLOOD UREA NITROGEN 17 MG/DL (7-18); CARBON DIOXIDE LEVEL 28 MEQ/L (21-32); CHLORIDE LEVEL 108 MEQ/L (98-107); CREATININE FOR GFR 0.63 MG/DL (0.55-1.02); GLOMERULAR FILTRATION RATE > 60.0 (>51); GLUCOSE, FASTING 85 MG/DL (70-105); POTASSIUM SERUM 3.9 MEQ/L (3.5-5.1); SODIUM LEVEL 143 MEQ/L (136-145)
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
[2017-02-03] MEDS: HYDROXYCHLOROQUINE 200 MG TAB PO SCH ×2 (10:36→21:08)
[2017-02-03] MEDS: OCUVITE 1 TAB PO SCH (10:36)
[2017-02-03] MEDS: CETIRIZINE (ZyrTEC) 10 MG TAB PO SCH (10:37)
[2017-02-03 14:00] VITALS: BP 135/95
--- NOTE | 2017-02-03 18:18 | IPNPDOC ---
Text Note Date of Service The patient was seen on 02/03/17. NOTE SUBJECTIVE: The patient is seen and examined in the room today. Denies any acute complaints. Continues having involuntary body movements. No event is reported. OBJECTIVE: VITAL SIGNS: Listed below GENERAL: No sign of acute distress, persistent muscle twitching of the upper extremities and neck and facial muscles. Able to answer questions correctly. However, the content may be tangential most of the time. HEENT: Normocephalic, atraumatic. CARDIOVASCULAR: Positive S1, S2, regular rate. LUNGS: Clear to auscultation bilaterally. ABDOMEN: Soft, nontender, nondistended. Bowel sounds present. EXTREMITIES: No edema. No cyanosis. LABORATORY DATA: Listed below ASSESSMENT AND PLAN: 1. PTSD. Evaluated by psychiatrist. Starts patient on Risperdal 0.5mg BID per recommendation. Patient does not need [facility] admission. Physical therapy is helping accessing her functional status. 2. History of lupus anticoagulants. Continue Plaquenil. 3. Posttraumatic stress disorder (PTSD) and night terrors, on prazosin. 4. Osteoarthritis. 5. History of obsessive-compulsive disorder (OCD). 6. History of anxiety. 7. History of cervical cancer, status post chemotherapy. 8. Deep vein thrombosis (DVT) prophylaxis, on compression. VS,Fishbone, I+O VS, Fishbone, I+O Laboratory Tests 02/03/17 07:04 Red Blood Count 4.13, Mean Corpuscular Volume 83.8, Mean Corpuscular Hemoglobin 27.1, Mean Corpuscular Hemoglobin Concent 32.4, Red Cell Distribution Width 13.6 , Calcium Level 9.0 Vital Signs Date Time Temp Pulse Resp B/P (MAP) Pulse Ox O2 Delivery O2 Flow Rate FiO2 02/03/17 14:00 97.7 80 16 135/95 (108) 98 Room Air I&O- Last 24 Hours up to 6 AM 02/04/17 06:00 Intake Total 1440 ml Output Total 1950 ml Balance -510 ml JOSE VILLAGOMEZ DO Feb 03, 2017 18:18
[2017-02-03] MEDS: risperiDONE 0.5 MG TAB PO SCH (21:00)
[2017-02-03 21:08] VITALS: BP 137/64
[2017-02-03] MEDS: PRAZOSIN 1 MG CAP PO SCH (21:08)
[2017-02-03 22:00] VITALS: BP 137/64
[2017-02-04] MEDS: NAPROXEN 250 MG TAB PO PRN (01:20)
[2017-02-04 06:00] VITALS: BP 106/55
[2017-02-04 07:17] LABS: ANION GAP 6 MEQ/L (8-16); BLOOD UREA NITROGEN 16 MG/DL (7-18); CALCIUM LEVEL 8.7 MG/DL (8.5-10.1); CARBON DIOXIDE LEVEL 29 MEQ/L (21-32); CHLORIDE LEVEL 108 MEQ/L (98-107); GLOMERULAR FILTRATION RATE > 60.0 (>51); GLUCOSE, FASTING 90 MG/DL (70-105); POTASSIUM SERUM 3.8 MEQ/L (3.5-5.1); SODIUM LEVEL 143 MEQ/L (136-145)
[2017-02-04 07:21] LABS: MEAN CORPUSCULAR HEMOGLOBIN 27.3 pg (27.0-33.0); MEAN CORPUSCULAR HGB CONC 32.6 g/dl (32.0-36.5); MEAN CORPUSCULAR VOLUME 83.8 fl (80.0-96.0); PLATELET COUNT, AUTOMATED 255 10^3/uL (150-450); RED CELL DISTRIBUTION WIDTH 13.4 % (11.5-14.5); WHITE BLOOD COUNT 6.2 10^3/uL (4.0-10.0)
[2017-02-04] MEDS: risperiDONE 0.5 MG TAB PO SCH (09:00)
[2017-02-04] MEDS: OCUVITE 1 TAB PO SCH (10:37)
[2017-02-04] MEDS: HYDROXYCHLOROQUINE 200 MG TAB PO SCH (10:37)
[2017-02-04] MEDS: CETIRIZINE (ZyrTEC) 10 MG TAB PO SCH (10:37)
[2017-02-04] MEDS ORDERED: RISP0.5T21 PO (13:24)
[2017-02-04 14:00] VITALS: BP 120/66
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
== END 2017-02-04 16:40 | disposition home health service (06) | DRG 556 ==
LOC: M ED 20:41 → M ED INP 02-01 02:55 → M MS5PR 02-01 03:42
PROVIDERS: ADMIT Internal Medicine; ATTEND Internal Medicine
DX: M62.838 Other muscle spasm (principal); D68.62 Lupus anticoagulant syndrome; F32.0 Major depressive disorder, single episode, mild; F43.10 Post-traumatic stress disorder, unspecified; R53.1 Weakness; M19.90 Unspecified osteoarthritis, unspecified site; F41.9 Anxiety disorder, unspecified; F42.9 Obsessive-compulsive disorder, unspecified; F44.7 Conversion disorder with mixed symptom presentation; K21.9 Gastro-esophageal reflux disease without esophagitis; F45.8 Other somatoform disorders; Z91.040 Latex allergy status; Z91.013 Allergy to seafood; Z88.0 Allergy status to penicillin; Z88.8 Allergy status to other drugs, medicaments and biological substances; M54.5 Low back pain; Z85.41 Personal history of malignant neoplasm of cervix uteri; Z92.21 Personal history of antineoplastic chemotherapy; J30.9 Allergic rhinitis, unspecified; Z62.810 Personal history of physical and sexual abuse in childhood; Z79.899 Other long term (current) drug therapy

== ENCOUNTER 2017-02-12 16:20 | Emergency (ER) | payer OTHER ==
[~2017-02-12] VITALS: Ht 165.1 cm; Wt 104.1 kg
[~2017-02-12 16:20] MED LIST changes: +CETI10TA PO; +RISP0.5T21 PO
[2017-02-12] MEDS ORDERED: LORazepam 2 MG/ML VIAL (J2060) IM STA (16:42)
[2017-02-12] MEDS ORDERED: diphenhydrAMINE INJ 50MG/ML VIAL (J1200) IM STA (16:42)
[2017-02-12 18:26] VITALS: BP 115/65
== END 2017-02-12 18:32 | disposition home or self-care (01) ==
LOC: M ED 16:20
DX: F44.9 Dissociative and conversion disorder, unspecified (principal); F31.9 Bipolar disorder, unspecified; M32.9 Systemic lupus erythematosus, unspecified; Z79.899 Other long term (current) drug therapy; Z88.0 Allergy status to penicillin; Z88.8 Allergy status to other drugs, medicaments and biological substances; Z91.040 Latex allergy status; Z91.013 Allergy to seafood; J30.1 Allergic rhinitis due to pollen; J30.89 Other allergic rhinitis
CPT/HCPCS: 96372; 99283; J1200; J2060

== ENCOUNTER 2017-03-25 15:59 | Emergency (ER) | payer OTHER ==
[2017-03-25] MEDS: LORazepam 1 MG TAB PO (17:55)
[2017-03-25 18:45] LABS: BASO # 0.1 10^3/uL (0.0-0.2); EOS # 0.1 10^3/uL (0.0-0.50); EOS % 1.6 % (0.0-3.0); HEMATOCRIT 37.9 % (36.0-47.0); HEMOGLOBIN 12.4 g/dl (12.0-16.0); IMMATURE GRANULOCYTE % 0.1 % (0-0); LYMPH # 1.8 10^3/uL (1.5-4.5); LYMPH % 27.2 % (24.0-44.0); MEAN CORPUSCULAR HGB CONC 32.7 g/dl (32.0-36.5); MEAN CORPUSCULAR VOLUME 82.4 fl (80.0-96.0); MONO # 0.5 10^3/uL (0.0-0.8); MONO % 6.8 % (0.0-5.0); NEUTROPHILS # 4.3 10^3/uL (1.8-7.7); NEUTROPHILS % 63.3 % (36.0-66.0); PLATELET COUNT, AUTOMATED 248 10^3/uL (150-450); RED CELL DISTRIBUTION WIDTH 13.3 % (11.5-14.5); WHITE BLOOD COUNT 6.8 10^3/uL (4.0-10.0)
[2017-03-25 19:02] LABS: CONTROL LINE HCG INT CTR LINE PRESENT; HCG, SERUM QUALITATIVE NEGATIVE (NEGATIVE)
[2017-03-25 19:08] LABS: AMPHETAMINES LEVEL URINE NEGATIVE (NEGATIVE); BARBITURATES URINE NEGATIVE (NEGATIVE); BENZODIAZEPINES URINE NEGATIVE (NEGATIVE); CANNABINOIDS URINE NEGATIVE (NEGATIVE); COCAINE METABOLITE URINE NEGATIVE (NEGATIVE); METHADONE URINE NEGATIVE (NEGATIVE); OPIATES URINE NEGATIVE (NEGATIVE); PHENCYCLIDINE URINE NEGATIVE (NEGATIVE)
[2017-03-25 19:09] LABS: CPK CREATINE PHOSPHOKINASE 93 U/L (26-192)
[2017-03-25 19:19] LABS: ALBUMIN 4.6 GM/DL (3.2-5.2); ALBUMIN/GLOBULIN RATIO 1.59 (1.00-1.93); ALKALINE PHOSPHATASE 69 U/L (45-117); ALT/SGPT 27 U/L (12-78); ANION GAP 6 MEQ/L (8-16); AST/SGOT 19 U/L (7-37); BILIRUBIN,DIRECT < 0.1 MG/DL (0.0-0.2); BILIRUBIN,TOTAL 0.3 MG/DL (0.2-1.0); BLOOD UREA NITROGEN 18 MG/DL (7-18); CALCIUM LEVEL 9.1 MG/DL (8.5-10.1); CARBON DIOXIDE LEVEL 27 MEQ/L (21-32); CHLORIDE LEVEL 108 MEQ/L (98-107); CREATININE FOR GFR 0.71 MG/DL (0.55-1.02); ETHYL ALCOHOL (ETHANOL) < 0.003 % (0.000-0.010); GLOMERULAR FILTRATION RATE > 60.0 (>51); GLUCOSE, FASTING 93 MG/DL (70-105); POTASSIUM SERUM 4.2 MEQ/L (3.5-5.1); SALICYLATE LEVEL 1.7 MG/DL (5.0-30.0); SODIUM LEVEL 141 MEQ/L (136-145); THYROID STIMULATING HORMONE 0.605 uIU/ML (0.358-3.740); TOTAL PROTEIN 7.5 GM/DL (6.4-8.2)
[2017-03-25 19:20] LABS: ACETAMINOPHEN LEVEL < 2.0 UG/ML (10.0-30.0)
== END 2017-03-25 22:33 | disposition home or self-care (01) ==
LOC: M ED 15:59
DX: F43.20 Adjustment disorder, unspecified (principal); K21.9 Gastro-esophageal reflux disease without esophagitis; F99 Mental disorder, not otherwise specified; Z79.899 Other long term (current) drug therapy; Z88.0 Allergy status to penicillin; Z88.8 Allergy status to other drugs, medicaments and biological substances; Z91.040 Latex allergy status; Z91.048 Other nonmedicinal substance allergy status; Z91.013 Allergy to seafood; Z98.890 Other specified postprocedural states
CPT/HCPCS: G0480

== ENCOUNTER 2017-04-02 16:25 | Emergency (ER) | payer OTHER | END 2017-04-02 18:39 | disposition home or self-care (01) | LOC: M ED 16:25 | DX: F43.10 Post-traumatic stress disorder, unspecified (principal); F44.9 Dissociative and conversion disorder, unspecified; Z79.899 Other long term (current) drug therapy; Z91.048 Other nonmedicinal substance allergy status; Z88.0 Allergy status to penicillin; Z88.8 Allergy status to other drugs, medicaments and biological substances; Z91.013 Allergy to seafood; Z91.040 Latex allergy status | CPT/HCPCS: 99284 ==

== ENCOUNTER 2017-04-12 02:23 | Emergency (ER) | payer OTHER ==
[2017-04-12] MEDS: NS 1,000 ML IV (04:00)
[2017-04-12] MEDS: PROMETHAZINE INJ 25 MG/ML VIAL (J2550) IV (04:00)
[2017-04-12] MEDS: PANTOPRAZOLE 40MG INJ (PROTONIX) (C9113) IV (04:00)
[2017-04-12 04:12] LABS: BASO # 0.1 10^3/uL (0.0-0.2); BASO % 0.8 % (0.0-1.0); EOS % 0.4 % (0.0-3.0); HEMATOCRIT 36.3 % (36.0-47.0); HEMOGLOBIN 12.1 g/dl (12.0-16.0); IMMATURE GRANULOCYTE % 0.2 % (0-0); LYMPH % 21.9 % (24.0-44.0); MEAN CORPUSCULAR HEMOGLOBIN 27.3 pg (27.0-33.0); MEAN CORPUSCULAR HGB CONC 33.3 g/dl (32.0-36.5); MEAN CORPUSCULAR VOLUME 81.8 fl (80.0-96.0); MONO # 0.6 10^3/uL (0.0-0.8); MONO % 6.5 % (0.0-5.0); NEUTROPHILS # 6.2 10^3/uL (1.8-7.7); NEUTROPHILS % 70.2 % (36.0-66.0); PLATELET COUNT, AUTOMATED 244 10^3/uL (150-450); RED BLOOD COUNT 4.44 10^6/uL (4.00-5.40); RED CELL DISTRIBUTION WIDTH 13.2 % (11.5-14.5); WHITE BLOOD COUNT 8.9 10^3/uL (4.0-10.0)
[2017-04-12 04:21] LABS: ALBUMIN 4.1 GM/DL (3.2-5.2); ALBUMIN/GLOBULIN RATIO 1.21 (1.00-1.93); ALKALINE PHOSPHATASE 60 U/L (45-117); ALT/SGPT 32 U/L (12-78); ANION GAP 6 MEQ/L (8-16); AST/SGOT 28 U/L (7-37); BILIRUBIN,DIRECT < 0.1 MG/DL (0.0-0.2); BILIRUBIN,TOTAL 0.2 MG/DL (0.2-1.0); BLOOD UREA NITROGEN 14 MG/DL (7-18); CARBON DIOXIDE LEVEL 29 MEQ/L (21-32); CHLORIDE LEVEL 110 MEQ/L (98-107); CK-MB VALUE MASS 4.6 NG/ML (0.0-3.6); CPK CREATINE PHOSPHOKINASE 260 U/L (26-192); CREATININE FOR GFR 0.87 MG/DL (0.55-1.30); GLOMERULAR FILTRATION RATE > 60.0 (>51); GLUCOSE, FASTING 125 MG/DL (70-100); LIPASE 125 U/L (73-393); MB/CK RELATIVE INDEX 1.76 (< OR =4); POTASSIUM SERUM 3.6 MEQ/L (3.5-5.1); SODIUM LEVEL 145 MEQ/L (136-145); TOTAL PROTEIN 7.5 GM/DL (6.4-8.2); TROPONIN I 0.03 NG/ML (< 0.10)
[2017-04-12] MEDS: LORazepam 2 MG/ML VIAL (J2060) IV (04:47)
[2017-04-12] MEDS ORDERED: ISOVUE-370 76% 100ML VIAL (Q9967) As Ordered (04:52)
[2017-04-12 07:42] LABS: INFLUENZA A AMPLIFICATION NEGATIVE (NEGATIVE); INFLUENZA B AMPLIFICATION NEGATIVE (NEGATIVE)
== END 2017-04-12 08:15 | disposition home or self-care (01) ==
LOC: M ED 02:23
DX: K52.9 Noninfective gastroenteritis and colitis, unspecified (principal); F43.10 Post-traumatic stress disorder, unspecified; Z79.899 Other long term (current) drug therapy; Z91.048 Other nonmedicinal substance allergy status; Z91.013 Allergy to seafood; Z88.0 Allergy status to penicillin; Z88.8 Allergy status to other drugs, medicaments and biological substances; Z91.040 Latex allergy status
CPT/HCPCS: C9113

== ENCOUNTER 2017-04-14 17:46 | Emergency (ER) | payer OTHER ==
[2017-04-14] MEDS: ASPIRIN 81 MG CHEW TABLET PO (18:00)
[2017-04-14] MEDS: NS 500 ML IV (18:45)
[2017-04-14] MEDS: ONDANSETRON 4MG/2ML VIAL (J2405) IV (18:45)
[2017-04-14] MEDS: ACETAMINOPHEN TAB 650MG DOSE (2X325MG) PO (18:49)
[2017-04-14 18:54] LABS: BASO # 0.1 10^3/uL (0.0-0.2); BASO % 0.7 % (0.0-1.0); EOS % 0.4 % (0.0-3.0); HEMATOCRIT 35.3 % (36.0-47.0); HEMOGLOBIN 11.7 g/dl (12.0-16.0); IMMATURE GRANULOCYTE % 0.1 % (0-0); LYMPH # 1.9 10^3/uL (1.5-4.5); LYMPH % 27.2 % (24.0-44.0); MEAN CORPUSCULAR HEMOGLOBIN 26.5 pg (27.0-33.0); MEAN CORPUSCULAR HGB CONC 33.1 g/dl (32.0-36.5); MONO # 0.4 10^3/uL (0.0-0.8); MONO % 5.5 % (0.0-5.0); NEUTROPHILS # 4.7 10^3/uL (1.8-7.7); NEUTROPHILS % 66.1 % (36.0-66.0); PLATELET COUNT, AUTOMATED 237 10^3/uL (150-450); RED BLOOD COUNT 4.41 10^6/uL (4.00-5.40); RED CELL DISTRIBUTION WIDTH 13.1 % (11.5-14.5); WHITE BLOOD COUNT 7.1 10^3/uL (4.0-10.0)
[2017-04-14 19:28] LABS: ALBUMIN 4.2 GM/DL (3.2-5.2); ALBUMIN/GLOBULIN RATIO 1.35 (1.00-1.93); ALKALINE PHOSPHATASE 57 U/L (45-117); ALT/SGPT 27 U/L (12-78); ANION GAP 6 MEQ/L (8-16); AST/SGOT 23 U/L (7-37); BILIRUBIN,DIRECT < 0.1 MG/DL (0.0-0.2); BILIRUBIN,TOTAL 0.3 MG/DL (0.2-1.0); BLOOD UREA NITROGEN 19 MG/DL (7-18); CALCIUM LEVEL 8.8 MG/DL (8.5-10.1); CARBON DIOXIDE LEVEL 28 MEQ/L (21-32); CHLORIDE LEVEL 109 MEQ/L (98-107); CK-MB VALUE MASS 3.7 NG/ML (0.0-3.6); CPK CREATINE PHOSPHOKINASE 119 U/L (26-192); CREATININE FOR GFR 0.77 MG/DL (0.55-1.30); GLOMERULAR FILTRATION RATE > 60.0 (>51); GLUCOSE, FASTING 96 MG/DL (70-100); POTASSIUM SERUM 3.6 MEQ/L (3.5-5.1); SODIUM LEVEL 143 MEQ/L (136-145); TOTAL PROTEIN 7.3 GM/DL (6.4-8.2); TROPONIN I 0.03 NG/ML (< 0.10)
[2017-04-14 19:28] LABS: NT-PRO BNP 76 PG/ML (<125)
== END 2017-04-14 20:32 | disposition home or self-care (01) ==
LOC: M ED 17:46
DX: R07.9 Chest pain, unspecified (principal); M32.9 Systemic lupus erythematosus, unspecified; K21.9 Gastro-esophageal reflux disease without esophagitis; F41.9 Anxiety disorder, unspecified; F33.9 Major depressive disorder, recurrent, unspecified; F43.10 Post-traumatic stress disorder, unspecified; F44.4 Conversion disorder with motor symptom or deficit; Z88.0 Allergy status to penicillin; Z88.8 Allergy status to other drugs, medicaments and biological substances; Z91.040 Latex allergy status; Z91.013 Allergy to seafood; Z91.048 Other nonmedicinal substance allergy status; Z86.69 Personal history of other diseases of the nervous system and sense organs; Z87.42 Personal history of other diseases of the female genital tract; Z98.890 Other specified postprocedural states
CPT/HCPCS: J2405

== ENCOUNTER 2017-04-19 21:01 | Emergency (ER) | payer OTHER ==
[2017-04-19 22:00] LABS: HEMATOCRIT 39.5 % (36.0-47.0); HEMOGLOBIN 12.8 g/dl (12.0-16.0); MEAN CORPUSCULAR HEMOGLOBIN 26.5 pg (27.0-33.0); MEAN CORPUSCULAR HGB CONC 32.4 g/dl (32.0-36.5); MEAN CORPUSCULAR VOLUME 81.8 fl (80.0-96.0); PLATELET COUNT, AUTOMATED 251 10^3/uL (150-450); RED BLOOD COUNT 4.83 10^6/uL (4.00-5.40); RED CELL DISTRIBUTION WIDTH 13.3 % (11.5-14.5)
[2017-04-19 22:22] LABS: AMPHETAMINES LEVEL URINE NEGATIVE (NEGATIVE); BARBITURATES URINE NEGATIVE (NEGATIVE); BENZODIAZEPINES URINE NEGATIVE (NEGATIVE); CANNABINOIDS URINE NEGATIVE (NEGATIVE); COCAINE METABOLITE URINE NEGATIVE (NEGATIVE); METHADONE URINE NEGATIVE (NEGATIVE); OPIATES URINE NEGATIVE (NEGATIVE); PHENCYCLIDINE URINE NEGATIVE (NEGATIVE)
[2017-04-19 22:29] LABS: ALBUMIN 4.6 GM/DL (3.2-5.2); ALBUMIN/GLOBULIN RATIO 1.44 (1.00-1.93); ALKALINE PHOSPHATASE 67 U/L (45-117); ALT/SGPT 28 U/L (12-78); ANION GAP 6 MEQ/L (8-16); AST/SGOT 25 U/L (7-37); BILIRUBIN,DIRECT 0.1 MG/DL (0.0-0.2); BILIRUBIN,TOTAL 0.3 MG/DL (0.2-1.0); BLOOD UREA NITROGEN 14 MG/DL (7-18); CARBON DIOXIDE LEVEL 28 MEQ/L (21-32); CHLORIDE LEVEL 109 MEQ/L (98-107); CREATININE FOR GFR 0.81 MG/DL (0.55-1.30); ETHYL ALCOHOL (ETHANOL) < 0.003 % (0.000-0.010); GLOMERULAR FILTRATION RATE > 60.0 (>51); GLUCOSE, FASTING 91 MG/DL (70-100); SALICYLATE LEVEL < 1.7 MG/DL (5.0-30.0); SODIUM LEVEL 143 MEQ/L (136-145); THYROID STIMULATING HORMONE 0.661 uIU/ML (0.358-3.740); TOTAL PROTEIN 7.8 GM/DL (6.4-8.2)
[2017-04-19 22:54] LABS: ACETAMINOPHEN LEVEL < 2.0 UG/ML (10.0-30.0)
[2017-04-20] MEDS ORDERED: METAL LOCK LOOP XX (05:05)
[2017-04-20] MEDS: HYDROXYCHLOROQUINE 200 MG TAB PO (07:48)
[2017-04-20] MEDS: CETIRIZINE (ZyrTEC) 10 MG TAB PO (07:48)
[2017-04-20] MEDS: OMEPRAZOLE 20 MG CAP PO (07:48)
[2017-04-20] MEDS: ONDANSETRON 4 MG ORAL DISINTEGRATING TAB (S0181) PO (08:46)
== END 2017-04-20 09:13 | disposition short-term general hospital (02) ==
LOC: M ED 04-20 09:13
DX: R41.82 Altered mental status, unspecified (principal); Z79.899 Other long term (current) drug therapy; Z91.018 Allergy to other foods; Z91.013 Allergy to seafood; Z88.0 Allergy status to penicillin; Z88.8 Allergy status to other drugs, medicaments and biological substances; Z91.040 Latex allergy status
CPT/HCPCS: 70450

== ENCOUNTER → 2017-08-19 | Outpatient (REF) | payer OTHER ==
[2017-08-22 14:10] LABS: HPV HYBRID CAPTURE II Negative (Negative)
== END ==
LOC: M LAB REF 18:44
DX: Z01.419 Encounter for gynecological examination (general) (routine) without abnormal findings (principal); Z11.51 Encounter for screening for human papillomavirus (HPV)
CPT/HCPCS: G0123

== ENCOUNTER 2018-10-09 12:27 | Emergency (ER) | payer OTHER ==
[~2018-10-09] VITALS: Ht 167.6 cm; Wt 116.3 kg
[~2018-10-09 12:27] MED LIST changes: -/DULO30CA; -/ESOM40CA; -/HALO2TA; -CLON0.5T PO; +CLON0.5T8 PO; -CLON1TAB PO; +CLON1TAB8 PO; +CYMB1CAP5; -DETR1TAB4 PO; +DETR1TAB5 PO; +HALO1TAB19; +NAPR-837 PO; -NAPR500T PO; +NEXI1CAP3; -PEPC1TAB4 PO; +PEPC1TAB5 PO; -TOLT1CAP PO; +TOLT4CAP3 PO; +ZOFR4TAB14 PO
[2018-10-09 12:59] LABS: BASO # 0.1 10^3/uL (0.0-0.2); BASO % 0.7 % (0.0-1.0); EOS # 0.1 10^3/uL (0.0-0.50); EOS % 0.8 % (0.0-3.0); HEMOGLOBIN 13.7 g/dl (12.0-15.5); LYMPH # 1.7 10^3/uL (1.5-4.5); LYMPH % 22.9 % (24.0-44.0); MEAN CORPUSCULAR HEMOGLOBIN 26.9 pg (27.0-33.0); MEAN CORPUSCULAR HGB CONC 32.6 g/dl (32.0-36.5); MEAN CORPUSCULAR VOLUME 82.4 fl (80.0-96.0); MONO # 0.4 10^3/uL (0.0-0.8); NEUTROPHILS # 5.2 10^3/uL (1.8-7.7); NEUTROPHILS % 70.3 % (36.0-66.0); PLATELET COUNT, AUTOMATED 255 10^3/uL (150-450); WHITE BLOOD COUNT 7.3 10^3/uL (4.0-10.0)
[2018-10-09] MEDS ORDERED: MECLIZINE 25 MG TABLET PO ONE (13:00)
[2018-10-09 13:12] LABS: INR 1.08; PROTHROMBIN TIME 13.7 SECONDS (11.8-14.0)
[2018-10-09 13:13] LABS: PARTIAL THROMBOPLASTIN TIME 29.7 SECONDS (25.0-38.4)
--- NOTE | 2018-10-09 13:18 | REP ---
Clinical: Possible acute cerebrovascular accident . Comparison: 01/30/2017, 04/19/2017 . Findings: The ventricles, sulci, and cisterns are normal in position and appearance. Lott-white differentiation is maintained. No acute intracranial hemorrhage, mass/mass effect, pathology or trauma/injury. No evidence for acute infarction. No extra-axial fluid collection. Calvarium is intact. Paranasal sinuses and mastoid air cells are clear. Impression: Normal noncontrast head CT. No evidence for acute intracranial pathology or trauma/injury. Electronically Signed by Juan Miguel Allred MD 10/09/2018 01:10 P
--- NOTE | 2018-10-09 13:35 | REP ---
Clinical: Dizziness . Comparison: 04/12/2017. Technique: PA and lateral. Findings: The mediastinum and cardiac silhouette are normal. The lung mar are clear and without acute consolidation, effusion, or pneumothorax. The skeletal structures are intact and normal. Impression: 1. No acute cardiopulmonary process. Electronically Signed by Juan Miguel Allred MD 10/09/2018 01:27 P
[2018-10-09] MEDS ORDERED: NS 500 ML IV ONE (13:45)
[2018-10-09 13:48] LABS: ALBUMIN 3.7 GM/DL (3.2-5.2); ALT/SGPT 24 U/L (12-78); BILIRUBIN,TOTAL 0.4 MG/DL (0.2-1.0); BLOOD UREA NITROGEN 13 MG/DL (7-18); CALCIUM LEVEL 8.8 MG/DL (8.5-10.1); CARBON DIOXIDE LEVEL 25 MEQ/L (21-32); CHLORIDE LEVEL 108 MEQ/L (98-107); CK-MB VALUE MASS < 1.0 NG/ML (<3.6); CPK CREATINE PHOSPHOKINASE 57 U/L (26-192); CREATININE FOR GFR 0.97 MG/DL (0.55-1.30); FREE T4 1.07 NG/DL (0.76-1.46); GLOMERULAR FILTRATION RATE > 60.0 (>51); GLUCOSE, FASTING 110 MG/DL (70-100); MAGNESIUM LEVEL 1.7 MG/DL (1.8-2.4); MB/CK RELATIVE INDEX 1.75 (< OR =4); PHOSPHORUS LEVEL 2.5 MG/DL (2.5-4.9); POTASSIUM SERUM 3.8 MEQ/L (3.5-5.1); SODIUM LEVEL 142 MEQ/L (136-145); THYROID STIMULATING HORMONE 0.487 uIU/ML (0.358-3.740); TOTAL PROTEIN 7.4 GM/DL (6.4-8.2); TROPONIN I 0.02 NG/ML (< 0.10)
[2018-10-09] MEDS ORDERED: MAGNESIUM OXIDE 400 MG TAB (MAG-OX) PO ONE (14:00)
--- NOTE | 2018-10-09 15:35 | ECGEPIP ---
[facility] - ED Test Date: 2018-10-09 Pat Name: SEVERO YEPEZ Department: Room: - Gender: Female Fleet Coordinator: DAMARIS : 1965 Requested By: JOE Muñiz Order Number: [id number] Reading MD: Yesenia Regan Measurements Intervals [place] Rate: 70 P: 32 NE: 153 QRS: -23 QRSD: 90 T: 6 QT: 405 QTc: 440 Interpretive Statements SINUS RHYTHM BORDERLINE LEFT AXIS DEVIATION NONSPECIFIC T-WAVE ABNORMALITY INCREASED RATE 04/20/17 Electronically Signed on 10-09-2018 15:35:01 EDT by Yesenia Regan
--- NOTE | 2018-10-09 16:01 | REPVR ---
EXAM: MR Head Without Contrast EXAM DATE/TIME: 10/09/2018 3:35 PM CLINICAL HISTORY: 53 years old, female; Dizziness and visual disturbance and walking, difficulty; Patient HX: CVA dizziness nausea trouble walking TECHNIQUE: Imaging protocol: MR of the head without contrast. MRA is recommended to evaluate for vascular structures. COMPARISON: CT Head without contrast 10/09/2018 1:05 PM FINDINGS: Brain: Normal. No acute infarct. No hemorrhage. No significant white matter disease. No edema. Ventricles: Normal. No ventriculomegaly. Bones/joints: Unremarkable. Soft tissues: Normal. Sinuses: There is mild sinus disease. Mastoid air cells: Normal as visualized. No mastoid effusion. Orbits: Unremarkable. IMPRESSION: No acute intracranial findings identified. Please refer to incidental findings in body of report. EXAM: MR Angiogram Head Without Contrast, Arteries EXAM DATE/TIME: 10/09/2018 3:35 PM CLINICAL HISTORY: 53 years old, female; Dizziness and visual disturbance and walking, difficulty; Patient HX: CVA dizziness nausea trouble walking TECHNIQUE: Imaging protocol: MR angiogram head without contrast. Exam focused on the arteries. MRA is recommended to evaluate for vascular structures. COMPARISON: CT Head without contrast 10/09/2018 1:05 PM FINDINGS: Right internal carotid artery: Unremarkable. Intracranial segment is patent with no significant stenosis. No aneurysm. Right anterior cerebral artery: Unremarkable. No occlusion or significant stenosis. No aneurysm. Right middle cerebral artery: Unremarkable. No occlusion or significant stenosis. No aneurysm. Right posterior cerebral artery: Unremarkable. No occlusion or significant stenosis. No aneurysm. Right vertebral artery: Unremarkable. No occlusion or significant stenosis. No aneurysm. Left internal carotid artery: Unremarkable. Intracranial segment is patent with no significant stenosis. No aneurysm. Left anterior cerebral artery: Unremarkable. No occlusion or significant stenosis. No aneurysm. Left middle cerebral artery: Unremarkable. No occlusion or significant stenosis. No aneurysm. Left posterior cerebral artery: Unremarkable. No occlusion or significant stenosis. No aneurysm. Left vertebral artery: Unremarkable. No occlusion or significant stenosis. No aneurysm. Basilar artery: Unremarkable. No occlusion or significant stenosis. No aneurysm. IMPRESSION: No acute findings. Electronically signed by: Albin Bsos On 10/09/2018 16:01:36 PM
--- NOTE | 2018-10-09 16:02 | REPVR ---
EXAM: MR Angiogram Head Without Contrast, Arteries EXAM DATE/TIME: 10/09/2018 3:35 PM CLINICAL HISTORY: 53 years old, female; Dizziness and giddiness and visual disturbance and weakness; Other visual defect; Patient HX: CVA dizziness nausea trouble walking TECHNIQUE: Imaging protocol: MR angiogram head without contrast. Exam focused on the arteries. 3D rendering: MIP reconstructed images were created and reviewed. COMPARISON: CT Head without contrast 10/09/2018 1:05 PM FINDINGS: Right internal carotid artery: Unremarkable. Intracranial segment is patent with no significant stenosis. No aneurysm. Right anterior cerebral artery: Unremarkable. No occlusion or significant stenosis. No aneurysm. Right middle cerebral artery: Unremarkable. No occlusion or significant stenosis. No aneurysm. Right posterior cerebral artery: Unremarkable. No occlusion or significant stenosis. No aneurysm. Right vertebral artery: Unremarkable. No occlusion or significant stenosis. No aneurysm. Left internal carotid artery: Unremarkable. Intracranial segment is patent with no significant stenosis. No aneurysm. Left anterior cerebral artery: Unremarkable. No occlusion or significant stenosis. No aneurysm. Left middle cerebral artery: Unremarkable. No occlusion or significant stenosis. No aneurysm. Left posterior cerebral artery: Unremarkable. No occlusion or significant stenosis. No aneurysm. Left vertebral artery: Unremarkable. No occlusion or significant stenosis. No aneurysm. Basilar artery: Unremarkable. No occlusion or significant stenosis. No aneurysm. IMPRESSION: No acute findings. Electronically signed by: Albin Boss On 10/09/2018 16:01:50 PM
[2018-10-09] MEDS ORDERED: MECL-68 PO (16:08)
[2018-10-09 16:38] VITALS: BP 119/80
== END 2018-10-09 16:40 | disposition home or self-care (01) ==
LOC: M ED 12:27
DX: R42 Dizziness and giddiness (principal); M32.9 Systemic lupus erythematosus, unspecified; F43.10 Post-traumatic stress disorder, unspecified; F42.9 Obsessive-compulsive disorder, unspecified; F41.9 Anxiety disorder, unspecified; G89.29 Other chronic pain; M54.9 Dorsalgia, unspecified; Z98.61 Coronary angioplasty status; J30.2 Other seasonal allergic rhinitis; Z79.899 Other long term (current) drug therapy; Z91.013 Allergy to seafood; Z91.89 Other specified personal risk factors, not elsewhere classified; Z91.040 Latex allergy status; Z88.0 Allergy status to penicillin

== ENCOUNTER 2019-02-19 11:32 | Emergency (ER) | payer OTHER ==
[~2019-02-19] VITALS: Ht 170.2 cm; Wt 116.6 kg
[~2019-02-19 11:32] MED LIST changes: +CLON0.5T2 PO; -CLON0.5T8 PO; +MECL-68 PO; -OMEP40CA2 PO; +OMEP40CA97 PO
[2019-02-19] MEDS ORDERED: OMEP-221 (12:34)
[2019-02-19] MEDS ORDERED: PRAZ2CAP (12:34)
[2019-02-19] MEDS ORDERED: ALL10TAB29 (12:34)
[2019-02-19 13:03] LABS: BASO # 0.1 10^3/uL (0.0-0.2); BASO % 0.7 % (0.0-1.0); EOS # 0.1 10^3/uL (0.0-0.5); EOS % 0.9 % (0.0-3.0); HEMATOCRIT 41.9 % (36.0-47.0); HEMOGLOBIN 13.2 g/dl (12.0-15.5); LYMPH # 1.8 10^3/uL (1.5-5.0); LYMPH % 26.2 % (24.0-44.0); MEAN CORPUSCULAR HGB CONC 31.5 g/dl (32.0-36.5); MEAN CORPUSCULAR VOLUME 82.5 fl (80.0-96.0); MONO # 0.4 10^3/uL (0.0-0.8); MONO % 5.8 % (0.0-5.0); NEUTROPHILS # 4.6 10^3/uL (1.5-8.5); NEUTROPHILS % 66.1 % (36.0-66.0); PLATELET COUNT, AUTOMATED 262 10^3/uL (150-450); RED BLOOD COUNT 5.08 10^6/uL (4.00-5.40); WHITE BLOOD COUNT 6.9 10^3/uL (4.0-10.0)
[2019-02-19 13:27] LABS: ALBUMIN 3.6 GM/DL (3.2-5.2); ALT/SGPT 16 U/L (12-78); BILIRUBIN,DIRECT 0.1 MG/DL (0.0-0.2); BILIRUBIN,TOTAL 0.4 MG/DL (0.2-1.0); BLOOD UREA NITROGEN 12 MG/DL (7-18); CARBON DIOXIDE LEVEL 29 MEQ/L (21-32); CHLORIDE LEVEL 106 MEQ/L (98-107); CREATININE FOR GFR 0.97 MG/DL (0.55-1.30); GLOMERULAR FILTRATION RATE > 60.0 (>51); GLUCOSE, FASTING 91 MG/DL (70-100); LIPASE 61 U/L (73-393); POTASSIUM SERUM 3.7 MEQ/L (3.5-5.1); SODIUM LEVEL 143 MEQ/L (136-145); TOTAL PROTEIN 7.3 GM/DL (6.4-8.2)
[2019-02-19] MEDS ORDERED: NS 1,000 ML IV ONE (14:00)
[2019-02-19] MEDS ORDERED: KETOROLAC 30 MG/ML VIAL (J1885) IV ONE (16:30)
[2019-02-19] MEDS ORDERED: METAL LOCK LOOP XX ONE (17:47)
[2019-02-19 18:15] VITALS: BP 138/66
[2019-02-19 18:43] LABS: CHLAMYDIA DNA AMPLIFICATION NEGATIVE (NEGATIVE); GC DNA AMPLIFICATION NEGATIVE (NEGATIVE)
--- NOTE | 2019-02-20 06:41 | REP ---
CT abdomen and pelvis without IV or oral contrast: Renal stone protocol. History: Left flank pain. Left lower quadrant pain. Comparison CT study: April 12, 2017. CT findings: Preliminary digital supervising broker radiograph is unremarkable. There is a small amount of right pleural fluid visible which is a new finding compared with the April 12, 2017 exam. No left effusion is seen. The lung bases are otherwise clear. No pericardial effusion is seen. The liver and the spleen are normal in size and homogeneous in texture. There are two tiny accessory splenules. No abnormalities noted in the gallbladder or in the pancreas. No adrenal lesion is seen on either side. There is a cyst in the upper pole of the left kidney medially measuring 1.6 cm in greatest diameter. No hydronephrosis is seen. There are bilateral intrarenal stones however with four to five separate calculi visible in the left kidney and five separate calculi in the right kidney. The largest of these is in the left mid kidney measuring 3 mm. There are multiple phleboliths in the pelvis. No ureteral stone is observed on either side. No bladder calculus is appreciated. The uterus is unremarkable. No adnexal abnormality is seen. A normal appendix is observed. Small and large bowel loops are unremarkable. No abdominal wall defect is seen. Impression: Bilateral intrarenal nephrolithiasis. There is no evidence of hydronephrosis or ureteral calculus. Small cyst upper pole left kidney. This is unchanged. Normal appendix. Otherwise negative. Electronically Signed by Ricki Dangelo MD 02/20/2019 08:44 A
--- NOTE | 2019-02-20 07:09 | REP ---
Pelvic sonography: History: Left pelvic pain. Comparison CT study is from earlier today. Findings: Transabdominal and transvaginal scanning are performed. Normal sized uterus is seen measuring 7.0 x 3.7 x 5.8 cm. Endometrial echo is 0.3 cm thick and centrally placed. No focal uterine mass is seen. Visualized bladder hare are smooth. No free fluid is noted. The left ovary could not be identified due to bowel gas and position. A normal right ovary is seen measuring 1.7 x 1.2 x 1.6 cm. No free fluid or adnexal mass lesion is seen. There is no left ovarian or right ovarian abnormality by CT. Impression: Normal pelvic sonography. Left ovary not directly visualized. Electronically Signed by Ricki Dangelo MD 02/20/2019 08:45 A
== END 2019-02-19 19:15 | disposition home or self-care (01) ==
LOC: M ED 11:32
DX: R10.32 Left lower quadrant pain (principal); R11.0 Nausea; M32.9 Systemic lupus erythematosus, unspecified; K21.9 Gastro-esophageal reflux disease without esophagitis; K27.9 Peptic ulcer, site unspecified, unspecified as acute or chronic, without hemorrhage or perforation; N80.9 Endometriosis, unspecified; Z79.899 Other long term (current) drug therapy; Z88.0 Allergy status to penicillin; Z88.8 Allergy status to other drugs, medicaments and biological substances; Z91.018 Allergy to other foods; Z91.040 Latex allergy status

== ENCOUNTER → 2019-02-22 | Outpatient (REF) | payer OTHER ==
[~2019-02-22] MED LIST changes: +ALL10TAB29; +OMEP-221; +PRAZ2CAP
== END ==
LOC: M LAB REF 13:57
PROVIDERS: ATTEND Family Medicine
DX: Z01.411 Encounter for gynecological examination (general) (routine) with abnormal findings (principal)

== ENCOUNTER 2019-05-30 19:19 | Emergency (ER) | payer OTHER ==
[~2019-05-30] VITALS: Ht 170.2 cm; Wt 110.0 kg
[~2019-05-30 19:19] MED LIST changes: -MECL-68 PO; +MECL1TAB31 PO
[2019-05-30 20:36] LABS: BASO # 0.1 10^3/uL (0.0-0.2); BASO % 0.7 % (0.0-1.0); EOS % 0.4 % (0.0-3.0); HEMATOCRIT 43.4 % (36.0-47.0); HEMOGLOBIN 13.9 g/dl (12.0-15.5); LYMPH # 2.6 10^3/uL (1.5-5.0); LYMPH % 25.5 % (24.0-44.0); MEAN CORPUSCULAR HEMOGLOBIN 26.3 pg (27.0-33.0); MEAN CORPUSCULAR VOLUME 82.2 fl (80.0-96.0); MONO # 0.7 10^3/uL (0.0-0.8); MONO % 6.8 % (0.0-5.0); NEUTROPHILS # 6.8 10^3/uL (1.5-8.5); NEUTROPHILS % 66.3 % (36.0-66.0); PLATELET COUNT, AUTOMATED 292 10^3/uL (150-450); RED BLOOD COUNT 5.28 10^6/uL (4.00-5.40); WHITE BLOOD COUNT 10.2 10^3/uL (4.0-10.0)
[2019-05-30 21:06] LABS: ALBUMIN 4.1 GM/DL (3.2-5.2); ALT/SGPT 22 U/L (12-78); BILIRUBIN,DIRECT 0.1 MG/DL (0.0-0.2); BILIRUBIN,TOTAL 0.3 MG/DL (0.2-1.0); BLOOD UREA NITROGEN 12 MG/DL (7-18); CALCIUM LEVEL 9.6 MG/DL (8.5-10.1); CARBON DIOXIDE LEVEL 28 MEQ/L (21-32); CHLORIDE LEVEL 105 MEQ/L (98-107); CK-MB VALUE MASS 1.7 NG/ML (<3.6); CPK CREATINE PHOSPHOKINASE 99 U/L (26-192); GLOMERULAR FILTRATION RATE > 60.0 (>51); GLUCOSE, FASTING 106 MG/DL (70-100); MB/CK RELATIVE INDEX 1.72 (< OR =4); POTASSIUM SERUM 4.2 MEQ/L (3.5-5.1); SODIUM LEVEL 141 MEQ/L (136-145); TOTAL PROTEIN 8.1 GM/DL (6.4-8.2); TROPONIN I 0.09 NG/ML (< 0.10)
[2019-05-30] MEDS ORDERED: METAL LOCK LOOP XX ONE (21:27)
[2019-05-30 22:51] LABS: CK-MB VALUE MASS 1.8 NG/ML (<3.6); MB/CK RELATIVE INDEX 2.12 (< OR =4); TROPONIN I 0.1 NG/ML (< 0.10)
[2019-05-30] MEDS ORDERED: PYRI1TAB5 PO (23:43)
[2019-05-30 23:53] VITALS: BP 146/88
--- NOTE | 2019-05-31 05:46 | ECGEPIP ---
[facility] - ED Test Date: 2019-05-30 Pat Name: SEVERO YEPEZ Department: Room: - Gender: Female Customer Success Manager: DAMARIS : 1965 Requested By: VEDA NORWOOD Order Number: [id number] Reading MD: Alcon Dick Measurements Intervals [place] Rate: 67 P: 47 ME: 157 QRS: -7 QRSD: 94 T: 9 QT: 404 QTc: 428 Interpretive Statements SINUS RHYTHM INCOMPLETE RIGHT BUNDLE BRANCH BLOCK NONSPECIFIC T-WAVE ABNORMALITY SIMILAR TO PRIOR ON SAME DATE Electronically Signed on 05-31-2019 5:46:37 EDT by Alcon Dick
--- NOTE | 2019-05-31 05:46 | ECGEPIP ---
[facility] - ED Test Date: 2019-05-30 Pat Name: SEVERO YEPEZ Department: Room: - Gender: Female Entry Level Sales Consultant: DAMON : 1965 Requested By: VEDA NORWOOD Order Number: [id number] Reading MD: Alcon Dick Measurements Intervals [place] Rate: 76 P: 40 MT: 154 QRS: -16 QRSD: 89 T: 11 QT: 375 QTc: 424 Interpretive Statements SINUS RHYTHM INCOMPLETE RIGHT BUNDLE BRANCH BLOCK NONSPECIFIC T-WAVE ABNORMALITY SIMILAR TO 10/09/18 Electronically Signed on 05-31-2019 5:46:16 EDT by Alcon Dick
[2019-05-31] MEDS ORDERED: PHEN-501 (16:37)
[2019-05-31] MEDS ORDERED: FLUC200T2 (16:37)
[2019-05-31] MEDS ORDERED: MACR100C43 PO (21:39)
== END 2019-05-30 23:54 | disposition home or self-care (01) ==
LOC: M ED 19:19
DX: R30.0 Dysuria (principal); R07.9 Chest pain, unspecified; I45.19 Other right bundle-branch block; K21.9 Gastro-esophageal reflux disease without esophagitis; F43.10 Post-traumatic stress disorder, unspecified; F44.81 Dissociative identity disorder; F44.9 Dissociative and conversion disorder, unspecified; Z85.41 Personal history of malignant neoplasm of cervix uteri; Z79.899 Other long term (current) drug therapy; Z88.0 Allergy status to penicillin; Z88.1 Allergy status to other antibiotic agents; Z91.89 Other specified personal risk factors, not elsewhere classified; Z91.040 Latex allergy status; Z91.013 Allergy to seafood

== ENCOUNTER 2019-05-31 16:29 | Emergency (ER) | payer OTHER ==
[~2019-05-31] VITALS: Ht 167.6 cm; Wt 116.5 kg
[~2019-05-31 16:29] MED LIST changes: +PYRI1TAB5 PO
[2019-05-31] MEDS ORDERED: FLUC200T2 (16:37)
[2019-05-31] MEDS ORDERED: PHEN-501 (16:37)
[2019-05-31] MEDS ORDERED: ONDANSETRON 4MG/2ML VIAL (J2405) IV ONE (17:30)
[2019-05-31] MEDS ORDERED: NS 1,000 ML IV ONE (17:30)
[2019-05-31] MEDS ORDERED: diazePAM 5 MG TAB PO ONE (17:30)
[2019-05-31] MEDS ORDERED: diphenhydrAMINE INJ 50MG/ML VIAL (J1200) IV ONE (18:00)
[2019-05-31] MEDS ORDERED: methylPREDNISolone INJ 125 MG/2 ML VIAL (J2930) IV ONE (18:00)
[2019-05-31 18:01] LABS: BASO # 0.1 10^3/uL (0.0-0.2); BASO % 0.7 % (0.0-1.0); EOS # 0.1 10^3/uL (0.0-0.5); EOS % 0.8 % (0.0-3.0); HEMATOCRIT 39.3 % (36.0-47.0); HEMOGLOBIN 12.9 g/dl (12.0-15.5); LYMPH # 2.7 10^3/uL (1.5-5.0); LYMPH % 22.6 % (24.0-44.0); MEAN CORPUSCULAR HEMOGLOBIN 26.3 pg (27.0-33.0); MEAN CORPUSCULAR HGB CONC 32.8 g/dl (32.0-36.5); MONO % 8.2 % (0.0-5.0); NEUTROPHILS % 67.4 % (36.0-66.0); PLATELET COUNT, AUTOMATED 264 10^3/uL (150-450); RED BLOOD COUNT 4.91 10^6/uL (4.00-5.40); WHITE BLOOD COUNT 11.9 10^3/uL (4.0-10.0)
--- NOTE | 2019-05-31 18:14 | REP ---
Clinical: Chest and abdominal pain . Comparison: 10/09/2018 . Technique: PA and lateral. Findings: The mediastinum and cardiac silhouette are normal. The lung mar are clear and without acute consolidation, effusion, or pneumothorax. The skeletal structures are intact and normal. Impression: 1. No acute cardiopulmonary process. Electronically Signed by Juan Miguel Allred MD 05/31/2019 06:05 P
[2019-05-31 18:30] LABS: BILIRUBIN, URINE MANUAL NEGATIVE (NEGATIVE); GLUCOSE, URINE (UA) MANUAL NEGATIVE (NEGATIVE); KETONE, URINE MANUAL NEGATIVE (NEGATIVE); UROBILINOGEN, URINE MANUAL NORMAL (NORMAL)
[2019-05-31 18:33] LABS: ALBUMIN 3.8 GM/DL (3.2-5.2); ALT/SGPT 27 U/L (12-78); BILIRUBIN,DIRECT < 0.1 MG/DL (0.0-0.2); BILIRUBIN,TOTAL 0.6 MG/DL (0.2-1.0); BLOOD UREA NITROGEN 12 MG/DL (7-18); CALCIUM LEVEL 8.8 MG/DL (8.5-10.1); CARBON DIOXIDE LEVEL 23 MEQ/L (21-32); CHLORIDE LEVEL 93 MEQ/L (98-107); GLOMERULAR FILTRATION RATE > 60.0 (>51); GLUCOSE, FASTING 83 MG/DL (70-100); LIPASE 26 U/L (73-393); POTASSIUM SERUM 5.3 MEQ/L (3.5-5.1); SODIUM LEVEL 126 MEQ/L (136-145); TOTAL PROTEIN 7.5 GM/DL (6.4-8.2)
[2019-05-31 18:36] LABS: BACTERIA, URINE SMALL AMOUNT; HYALINE CAST, URINE NONE SEEN /lpf (0-1); RBC, URINE 0-1 /hpf (0-3); SQUAMOUS EPITHELIAL CELL URINE SMALL AMOUNT /hpf (SMALL AMT)
[2019-05-31 18:38] LABS: HEMOGLOBIN A1c 5.6 %
[2019-05-31] MEDS ORDERED: ISOVUE-370 76% 100ML VIAL (Q9967) As Ordered ONE (18:46)
[2019-05-31 18:59] LABS: INFLUENZA A AMPLIFICATION NEGATIVE (NEGATIVE); INFLUENZA B AMPLIFICATION NEGATIVE (NEGATIVE)
--- NOTE | 2019-05-31 19:45 | REPVR ---
PROCEDURE INFORMATION: Exam: CT Abdomen And Pelvis With Contrast Exam date and time: 05/31/2019 7:16 PM Age: 54 years old Clinical indication: Abdominal pain; Generalized TECHNIQUE: Imaging protocol: Computed tomography of the abdomen and pelvis with intravenous contrast. Radiation optimization: All CT scans at this facility use at least one of these dose optimization techniques: automated exposure control; mA and/or kV adjustment per patient size (includes targeted exams where dose is matched to clinical indication); or iterative reconstruction. Contrast material: ISOVUE 370; Contrast volume: 100 ml; Contrast route: IV; COMPARISON: 1. CT ABD PELVIS W/O CONTRAST 02/19/2019 2:20 PM 2. US PELVIC NON-OB COMPLETE 02/19/2019 3:07:[address] ABD PELVIS W/O CONTRAST 04/12/2017 4:59:53 AM FINDINGS: Lungs: There is mild atelectasis in the inferior lingula. Heart: No cardiomegaly or pericardial effusion. Diaphragm: Intact. Liver: Unremarkable. No liver lesion is identified. The contour of the liver is smooth. No hepatomegaly is noted. Gallbladder and bile ducts: No calcified gallstones are noted. No gallbladder wall thickening, pericholecystic fluid, or pericholecystic inflammatory changes are identified. No dilation of the intrahepatic or extrahepatic bile ducts is noted. Pancreas: Normal. No dilation of the main pancreatic duct is noted. There is no inflammatory fat stranding around the pancreas to suggest acute pancreatitis. Spleen: Normal. No splenomegaly is noted. Incidental note is made of 2 small accessory spleens. Adrenals: Normal. No adrenal mass is noted. Kidneys and ureters: There are several calculi in the right renal collecting system measuring up to 3 mm and several calculi in the left renal collecting system measuring up to 4 mm. No stones are noted in the ureters. There is no hydronephrosis. There is a moderately dilated right extrarenal pelvis and mild right hydroureter. Incidental note is made of a 1.6 cm simple exophytic cyst arising from the medial aspect of the upper pole of the left kidney, which is unchanged compared to the prior CTs on 02/19/2019 and 04/12/2017 and for which follow-up is not necessary. There are no wedge-shaped areas of low attenuation in the kidneys to suggest pyelonephritis. There is no renal abscess or perinephric fluid collection. Stomach and bowel: The stomach is unremarkable. The small bowel is unremarkable. There is colonic diverticulosis without evidence for diverticulitis. There is no evidence for a bowel obstruction, pneumatosis intestinalis, intussusception, volvulus, or perforated viscus. The transverse colon, descending colon, and rectosigmoid are decompressed, limiting their optimal evaluation. There is no pericolonic inflammatory fat stranding. Appendix: The appendix is chronically dilated and measures 9 mm in diameter, which is unchanged compared to the prior CTs on 02/19/2019 and 04/12/2017. However, there is no inflammatory fat stranding around the appendix or appendicolith to suggest acute appendicitis. Intraperitoneal space: No free air. No fluid collection. Retroperitoneal space: No fluid collection. No mass. Vasculature: The abdominal aorta is patent, normal in caliber, and there is no dissection. The iliac arteries, common femoral arteries, renal arteries, celiac artery, superior mesenteric artery, and inferior mesenteric artery are patent. The iliac veins, inferior vena cava, renal veins, hepatic veins, portal veins, splenic vein, superior mesenteric vein, and inferior mesenteric vein are patent. Incidental note is made of a retroaortic left renal vein. Incidental note is made of small round calcifications in the pelvis, which are compatible with phleboliths. Lymph nodes: No enlarged lymph nodes. Bladder: The distended urinary bladder is normal in appearance. No stones or masses are seen in the bladder. Reproductive: The uterus is anterverted and unremarkable. The ovaries are unremarkable. Bones/joints: No fracture or dislocation is noted. There is no suspicious osteolytic or osteoblastic lesion. There are degenerative changes in the lower thoracic spine and lumbar spine. Soft tissues: There is a small fat containing umbilical hernia, which is similar in appearance compared to the prior CT on 02/19/2019. IMPRESSION: 1. Moderately dilated right extrarenal pelvis and mild right hydroureter, but no stones in the ureters or bladder. 2. Bilateral nephrolithiasis. 3. Colonic diverticulosis without evidence for diverticulitis. 4. Small fat containing umbilical hernia, which is similar in appearance compared to the prior CT on 02/19/2019. Electronically signed by: Mitul Alberto On 05/31/2019 19:44:55 PM
[2019-05-31] MEDS ORDERED: NITROFURANTOIN (MACROBID) 100 MG CAP PO ONE (20:15)
[2019-05-31] MEDS ORDERED: PHENAZOPYRIDINE 100 MG TAB PO ONE (20:15)
[2019-05-31 20:49] LABS: BLOOD UREA NITROGEN 10 MG/DL (7-18); CALCIUM LEVEL 8.7 MG/DL (8.5-10.1); CARBON DIOXIDE LEVEL 27 MEQ/L (21-32); CHLORIDE LEVEL 99 MEQ/L (98-107); CREATININE FOR GFR 0.76 MG/DL (0.55-1.30); GLOMERULAR FILTRATION RATE > 60.0 (>51); GLUCOSE, FASTING 87 MG/DL (70-100); POTASSIUM SERUM 3.6 MEQ/L (3.5-5.1); SODIUM LEVEL 133 MEQ/L (136-145)
[2019-05-31] MEDS ORDERED: MACR100C43 PO (21:39)
[2019-05-31 22:15] VITALS: BP 133/81
[2019-05-31] MEDS ORDERED: ACETAMINOPHEN 325 MG TAB PO ONE (22:15)
[2019-06-02] MEDS ORDERED: PRAZ2CAP (18:47)
[2019-06-02] MEDS ORDERED: OMEP-218 PO (23:15)
[2019-06-02] MEDS ORDERED: PRAZ2CAP PO (23:15)
[2019-06-02] MEDS ORDERED: CETI10TA4 PO (23:15)
[2019-06-02] MEDS ORDERED: MACR100C43 PO (23:15)
[2019-06-02] MEDS ORDERED: PYRI1TAB5 PO (23:17)
== END 2019-06-01 00:28 | disposition home or self-care (01) ==
LOC: M ED 16:29
DX: N30.90 Cystitis, unspecified without hematuria (principal); F41.9 Anxiety disorder, unspecified; F43.10 Post-traumatic stress disorder, unspecified; F44.9 Dissociative and conversion disorder, unspecified; G43.909 Migraine, unspecified, not intractable, without status migrainosus; K21.9 Gastro-esophageal reflux disease without esophagitis; M32.9 Systemic lupus erythematosus, unspecified; Z79.899 Other long term (current) drug therapy; Z88.0 Allergy status to penicillin; Z88.8 Allergy status to other drugs, medicaments and biological substances; Z91.018 Allergy to other foods; Z91.040 Latex allergy status
CPT/HCPCS: 71046; 74177; 80047; 80048; 80076; 81000; 83036; 83690; 85025; 87086; 87502; 96361; 96374; 96375; 99284; J1200; J2405; J2930; Q9967

== ENCOUNTER 2019-06-02 18:27 | Inpatient (IN) | payer OTHER ==
[~2019-06-02] VITALS: Ht 170.2 cm; Wt 108.8 kg
[~2019-06-02 18:27] MED LIST changes: +FLUC200T2; +MACR100C43 PO; +PHEN-501
[2019-06-02] MEDS ORDERED: PRAZ2CAP (18:47)
[2019-06-02 19:08] LABS: HEMOGLOBIN 13.5 g/dl (12.0-15.5); MEAN CORPUSCULAR HEMOGLOBIN 26.1 pg (27.0-33.0); MEAN CORPUSCULAR HGB CONC 31.4 g/dl (32.0-36.5); PLATELET COUNT, AUTOMATED 294 10^3/uL (150-450); RED BLOOD COUNT 5.18 10^6/uL (4.00-5.40); WHITE BLOOD COUNT 10.6 10^3/uL (4.0-10.0)
[2019-06-02 19:45] LABS: ACETAMINOPHEN LEVEL < 2.0 UG/ML (10.0-30.0); ALBUMIN 4.3 GM/DL (3.2-5.2); ALT/SGPT 28 U/L (12-78); BILIRUBIN,DIRECT 0.1 MG/DL (0.0-0.2); BILIRUBIN,TOTAL 0.3 MG/DL (0.2-1.0); BLOOD UREA NITROGEN 17 MG/DL (7-18); CALCIUM LEVEL 9.3 MG/DL (8.5-10.1); CARBON DIOXIDE LEVEL 29 MEQ/L (21-32); CHLORIDE LEVEL 104 MEQ/L (98-107); CREATININE FOR GFR 0.99 MG/DL (0.55-1.30); ETHYL ALCOHOL (ETHANOL) < 0.003 % (0.000-0.010); GLOMERULAR FILTRATION RATE > 60.0 (>51); GLUCOSE, FASTING 130 MG/DL (70-100); POTASSIUM SERUM 3.6 MEQ/L (3.5-5.1); SALICYLATE LEVEL < 1.7 MG/DL (5.0-30.0); SODIUM LEVEL 139 MEQ/L (136-145); THYROID STIMULATING HORMONE 0.838 uIU/ML (0.358-3.740); TOTAL PROTEIN 7.7 GM/DL (6.4-8.2)
[2019-06-02] MEDS ORDERED: HALOPERIDOL 5 MG/ML VIAL (J1630) As Ordered ONE (20:13)
[2019-06-02] MEDS ORDERED: diphenhydrAMINE INJ 50MG/ML VIAL (J1200) As Ordered ONE (20:13)
[2019-06-02] MEDS ORDERED: LORazepam 2 MG/ML VIAL (J2060) IM ONE (20:15)
[2019-06-02] MEDS ORDERED: HALOPERIDOL 5 MG/ML VIAL (J1630) IM ONE (20:15)
[2019-06-02] MEDS ORDERED: diphenhydrAMINE INJ 50MG/ML VIAL (J1200) IM ONE (20:15)
[2019-06-02 22:09] LABS: AMPHETAMINES LEVEL URINE NEGATIVE (NEGATIVE); BARBITURATES URINE NEGATIVE (NEGATIVE); BENZODIAZEPINES URINE NEGATIVE (NEGATIVE); CANNABINOIDS URINE NEGATIVE (NEGATIVE); COCAINE METABOLITE URINE NEGATIVE (NEGATIVE); METHADONE URINE NEGATIVE (NEGATIVE); OPIATES URINE NEGATIVE (NEGATIVE); PHENCYCLIDINE URINE NEGATIVE (NEGATIVE)
[2019-06-02] MEDS ORDERED: traZODone 50 MG TAB PO PRN (23:00)
[2019-06-02] MEDS ORDERED: ACETAMINOPHEN TAB 650MG DOSE (2X325MG) PO PRN (23:00)
[2019-06-02] MEDS ORDERED: MOM 30ML SUSPENSION UDC PO PRN (23:00)
[2019-06-02] MEDS ORDERED: MAALOX 30 ML SUSP *UDC PO PRN (23:00)
[2019-06-02] MEDS ORDERED: CETI10TA4 PO (23:15)
[2019-06-02] MEDS ORDERED: PRAZ2CAP PO (23:15)
[2019-06-02] MEDS ORDERED: OMEP-218 PO (23:15)
[2019-06-02] MEDS ORDERED: MACR100C43 PO (23:15)
[2019-06-02] MEDS ORDERED: PYRI1TAB5 PO (23:17)
[2019-06-03 00:23] VITALS: BP 162/88
[2019-06-03 06:25] VITALS: BP 142/90
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
[2019-06-03] MEDS ORDERED: OLANZapine ORAL DISINTEGRATING TAB 5MG PO PRN (10:00)
[2019-06-03] MEDS ORDERED: PHENAZOPYRIDINE 100 MG TAB PO SCH (10:45)
--- NOTE | 2019-06-03 11:39 | HPEPDOC ---
[facility] Medical History & Physical Date of Admission Jun 03, 2019 Home Medications Scheduled Cetirizine HCl (Cetirizine HCl) 10 Mg Tablet, 10 MG PO DAILY Nitrofurantoin Monohyd/M-Cryst (Macrobid 100 mg Capsule) 100 Mg Capsule, 100 MG PO BID Omeprazole (Omeprazole) 20 Mg Capsule.dr, 40 MG PO DAILY Phenazopyridine HCl (Pyridium) 200 Mg Tablet, 200 MG PO Q8H Prazosin Hcl (Prazosin HCl) 2 Mg Capsule, 8 MG PO QHS Allergies Coded Allergies: shellfish derived (Verified Allergy, Severe, lip swelling/airway compromise, 05/30/19) Penicillins (Verified Allergy, Intermediate, swelling of lips, 05/30/19) latex (Verified Allergy, Intermediate, rash, 05/30/19) amoxicillin (Verified Adverse Reaction, Intermediate, vomiting, 05/30/19) clavulanic acid (Verified Adverse Reaction, Intermediate, vomiting, 05/30/19) iodine (Verified Adverse Reaction, Intermediate, sneezing/vomiting, 05/30/19) ENVIROMENTAL (Verified Adverse Reaction, Mild, cough/sneeze, 05/30/19) DANITZA PARRISH MD Jun 03, 2019 11:39
[2019-06-03] MEDS: OMEPRAZOLE 20 MG CAP PO SCH (12:21)
[2019-06-03] MEDS: CETIRIZINE (ZyrTEC) 10 MG TAB PO SCH (12:22)
[2019-06-03] MEDS: NITROFURANTOIN (MACROBID) 100 MG CAP PO SCH ×2 (12:22→21:08)
[2019-06-03] MEDS ORDERED: PHENAZOPYRIDINE 100 MG TAB PO PRN (12:30)
--- NOTE | 2019-06-03 13:15 | CR.PDOC ---
General Date of Consultation: Jun 03, 2019 Referring Provider: RAMESH DE LUNA DO Consultation TIME OF SERVICE: 8:20 AM REASON FOR CONSULT: Medical comanagement HISTORY OF PRESENT ILLNESS: This is a 54 old female who was admitted to [facility] because of delusional behavior; apparently she's been paranoid and has been accusing her of poisoning her and moved to travel [place] for the last week. This morning the patient reports feeling well. She denies having any chest pain, shortness of breath, fever, cough, chills, or any other acute complaints. REVIEW OF SYSTEMS: 12 point review of systems negative except as listed in HPI PAST MEDICAL/ SURGICAL HISTORY: Lupus / reports she is no longer taking chloroquine as because of adverse effects. Antiphospholipid antibody syndrome Chronic back pain Fibrocystic breast disease. PTSD/anxiety History of recurrent UTIs. Endometriosis. Diverticulitis Status post LEEP. SOCIAL HISTORY: She doesn't smoke. She drinks alcohol occasionally. She denies recreational drug Is FAMILY HISTORY: Father was institutionalized and was a sex offender Mother had Graves ALLERGIES: Please see below. HOME MEDICATIONS: Please see below. PHYSICAL EXAMINATION: Vital Signs Date Time Temp Pulse Resp B/P (MAP) Pulse Ox O2 Delivery O2 Flow Rate FiO2 06/02/19 18:33 98.3 96 20 142/94 (110) 98 Room Air GEN: well-nourished / well developed/ NAD HEENT: NCAT CVS: RRR/NMRG LUNGS: lungs are clear to auscultation bilaterally on room air MSK/EXTREMITIES: Gait normal NEURO: CN 2-12 are grossly intact PSYCH: alert and oriented to person place and time/ able to understand and follow all commands LABORATORY DATA: Laboratory Tests 06/02/19 18:57 06/02/19 18:57: Nucleated Red Blood Cells % (auto) 0.0, Anion Gap 6L, Glomerular Filtration Rate > 60.0, Calcium Level 9.3, Total Bilirubin 0.3, Direct Bilirubin 0.1, Aspartate Amino Transf (AST/SGOT) 32, Alanine Aminotransferase (ALT/SGPT) 28, Alkaline Phosphatase 92, Total Protein 7.7, Albumin 4.3, Albumin/Globulin Ratio 1.26, Thyroid Stimulating Hormone (TSH) 0.838, Salicylates Level < 1.7L, Acetaminophen Level < 2.0L, Ethyl Alcohol Level < 0.003 3/26/20 21:37: Urine Opiates Screen NEGATIVE, Urine Methadone Screen NEGATIVE, Urine Barbiturates Screen NEGATIVE, Urine Phencyclidine Screen NEGATIVE, Urine Amph etamines Screen NEGATIVE, Urine Benzodiazepines Screen NEGATIVE, Urine Cocaine Metabolite Screen NEGATIVE, Urine Cannabinoids Screen NEGATIVE ASSESSMENT: Ms. Raza is a 54-year-old with a history of lupus, antiphospholipid antibody syndrome, chronic back pain, PTSD, anxiety, and recurrent UTIs who was admitted to [facility] for management of paranoia and psychosis; we were consulted for medical management. PLAN: 1. Paranoia/psychosis?/Anxiety/PTSD - plan per Dr. De Luna 2. Recurrent UTIs?- c/w Macrobid 3. Chronic back pain - Tylenol / lidocaine patches when necessary 4. SLE / antiphospholipid antibody syndrome - follow-up with qa tester on an outpatient basis 5. Elevated BP / HTN ? - she is on prazosin but this is not first line for HTN, f/u vitals and consider switching to amlodipine 6. Obesity , BMI of 38. Complicates care - f/u A1C / the pt can f/u w her PCP for ST[facility]ANG questionnaire & senior systems programmer consult DVT PROPHYLAXIS: n/a she is ambulatory Thank you for consulting us; we will continue to follow the patient with you. Allergies Coded Allergies: shellfish derived (Verified Allergy, Severe, lip swelling/airway compromise, 05/30/19) Penicillins (Verified Allergy, Intermediate, swelling of lips, 05/30/19) latex (Verified Allergy, Intermediate, rash, 05/30/19) amoxicillin (Verified Adverse Reaction, Intermediate, vomiting, 05/30/19) clavulanic acid (Verified Adverse Reaction, Intermediate, vomiting, 05/30/19) iodine (Verified Adverse Reaction, Intermediate, sneezing/vomiting, 05/30/19) ENVIROMENTAL (Verified Adverse Reaction, Mild, cough/sneeze, 05/30/19) Home Medications Scheduled Cetirizine HCl (Cetirizine HCl) 10 Mg Tablet, 10 MG PO DAILY, (Reported) Nitrofurantoin Monohyd/M-Cryst (Macrobid 100 mg Capsule) 100 Mg Capsule, 100 MG PO BID for 6 Days, (Reported) Omeprazole (Omeprazole) 20 Mg Capsule.dr, 40 MG PO DAILY, (Reported) Phenazopyridine HCl (Pyridium) 200 Mg Tablet, 200 MG PO Q8H for 3 Days, (Reported) Prazosin Hcl (Prazosin HCl) 2 Mg Capsule, 8 MG PO QHS, (Reported) DANITZA PARRISH MD Jun 03, 2019 13:15
[2019-06-03 15:56] VITALS: BP 136/76
[2019-06-03] MEDS: LIDOCAINE 5% (LIDODERM) PATCH TD SCH ×2 (21:00→21:26)
[2019-06-03] MEDS: risperiDONE 1 MG TAB PO SCH (21:08)
[2019-06-03] MEDS: PRAZOSIN 1 MG CAP PO SCH (21:09)
[2019-06-03 22:00] LABS: HEMOGLOBIN A1c 5.7 %
[2019-06-04 06:18] VITALS: BP 135/71
[2019-06-04] MEDS: CETIRIZINE (ZyrTEC) 10 MG TAB PO SCH (08:24)
[2019-06-04] MEDS: OMEPRAZOLE 20 MG CAP PO SCH (08:24)
[2019-06-04] MEDS: NITROFURANTOIN (MACROBID) 100 MG CAP PO SCH ×2 (08:25→21:46)
[2019-06-04] MEDS: **NOTE PATIENT COMMENT** MISC XX SCH (08:28)
[2019-06-04 17:04] VITALS: BP 150/80
--- NOTE | 2019-06-04 18:00 | MHIPNPDOC ---
[facility] Progress Note Progress Note DATE OF SERVICE: 06/04/19 HISTORY: As per Dr. De Luna: "HISTORY OF THE PRESENT ILLNESS: Patient is a 54 -year-old , female, with a history of depression, depression with psychosis, lupus, currently being treated for UTI, who was brought to ED on 9.45 after her therapist concerned pt was decompensating. Per ED, pt has been isolating at the [facility] for the past week b/c she felt she needed "a little space from others." Pt's outpatient therapist, Dr. Degroot, spoke the ED after he had spoken to pt's who said that pt had been increasingly paranoid at home and accusing him of trying to poison her. Pt was asked about her paranoia toward her and she confirmed that she believes her is trying to "poison my drinks." Pt denies SI/HI, hallucinations in the ED. She endorsed "restlessness," poor concentration, racing thoughts in the ED. She became agitated in the ED after interviewed, demanding to leave and was chemically and mechanically restrained for safety." VITAL SIGNS: See below. NEW TEST RESULTS: See below CURRENT MEDICATIONS: See below. MENTAL STATUS EXAMINATION: General Appearance: well groomed, appears stated age, hospital scrubs/clothing Build: overweight Demeanor: average Eye Contact: average Activity: average Behavior: cooperative Speech: clear, spontaneous, normal volume, reg/rate,rhythm,volume Mood: "It's been a hard day" Mood Anxious/sad Affect: full, appropriate, congruent, anxious, sad, tearful at times Thought Process: logical/linear, intact Thought Content (Delusions): denies SI, HI, AVH, she reports an improvement in her paranoid delusions. She says she doesn't think her is going to poison her and now she realizes he might have been trying to protect her before. Thought Content (Other): appropriate, cooperative, initially she was a little bit guarded. Thought Content (Aggressive): none reported Perception (Hallucinations): none reported Perception (Other): none reported Cognition (Impairment of): none reported Cognition(Intelligence Est.): average Oriented: Awake, Alert, Oriented times three Insight: fair Judgment: Fair Diagnoses Psychosis unspecified R/O psychosis [place] [facility] [place] ASSESSMENT: The patient has been active at the Unit, according to Nursing staff. The patient tells me that she has been questioning herself about her previous paranoid thoughts regarding her wanting to poison her. She is responding to medications, she says she loves her with all her heart and she doesn't think he will try to poison her, she thinks in the past he might have been trying to protect her. MANAGEMENT PLAN: As per Dr. De Luna TIME SPENT: 20 minutes. Vital Signs Vital Signs Date Time Temp Pulse Resp B/P (MAP) Pulse Ox O2 Delivery O2 Flow Rate FiO2 06/04/19 08:35 Room Air 06/04/19 06:18 96.8 95 16 135/71 (92) 06/02/19 23:40 99 Laboratory Data 24H Labs Laboratory Tests 2 06/03/19 18:57: Estimated Mean Plasma Glucose 117H, Hemoglobin A1c 5.7 Current Medications Current Medications Medications (Trade) Dose Ordered Sig/Remberto Route PRN Reason Start Time Stop Time Status Last Admin Dose Admin Acetaminophen (Tylenol Tab) 650 mg Q6HP PRN PO HEADACHE or DISCOMFORT 06/02/19 23:00 Al Hydrox/Mg Hydrox/Simethicone (Mylanta) 30 ml Q4HP PRN PO HEARTBURN/INDIGESTION 06/02/19 23:00 Cetirizine HCl (ZyrTEC) 10 mg DAILY PO 06/03/19 09:00 06/04/19 08:24 Home Med (Med Rec Complete!) ASDIRECTED XX 06/02/19 23:30 06/02/19 23:19 DC Lidocaine (Lidoderm Patch) 2 patch QHS TD 06/03/19 21:00 06/03/19 21:26 Magnesium Hydroxide (Milk Of Magnesia) 30 ml DAILYPRN PRN PO CONSTIPATION 06/02/19 23:00 Nitrofurantoin Monoh/Nitrofur Macro (Macrobid) 100 mg BID PO 06/03/19 09:00 06/08/19 21:01 06/04/19 08:25 Non-Formulary Medication ( See Comment Field Below ) REMOVE LIDODERM PATCH DAILY@0900 XX 06/04/19 09:00 06/04/19 08:28 Olanzapine (ZyPREXA ZYDIS) 5 mg Q4HP PRN PO ANXIETY/AGITATION 06/03/19 10:00 Omeprazole (PriLOSEC) 40 mg DAILY PO 06/03/19 09:00 06/04/19 08:24 Phenazopyridine HCl (Pyridium) 200 mg Q8H PO 06/03/19 10:45 06/03/19 12:23 DC Phenazopyridine HCl (Pyridium) 200 mg Q8MP PRN PO PAIN 06/03/19 12:30 Prazosin HCl (Minipress) 8 mg QHS PO 06/03/19 21:00 06/03/19 21:09 Risperidone (RisperDAL) 1 mg QHS PO 06/03/19 21:00 06/03/19 21:08 Trazodone HCl (Desyrel) 50 mg QHSP PRN PO INSOMNIA 06/02/19 23:00 Allergies Coded Allergies: shellfish derived (Verified Allergy, Severe, lip swelling/airway compromise, 05/30/19) Penicillins (Verified Allergy, Intermediate, swelling of lips, 05/30/19) latex (Verified Allergy, Intermediate, rash, 05/30/19) amoxicillin (Verified Adverse Reaction, Intermediate, vomiting, 05/30/19) clavulanic acid (Verified Adverse Reaction, Intermediate, vomiting, 05/30/19) iodine (Verified Adverse Reaction, Intermediate, sneezing/vomiting, 05/30/19) ENVIROMENTAL (Verified Adverse Reaction, Mild, cough/sneeze, 05/30/19) YESI HUFF MD Jun 04, 2019 16:54
[2019-06-04] MEDS: risperiDONE 1 MG TAB PO SCH (21:46)
[2019-06-04] MEDS: LIDOCAINE 5% (LIDODERM) PATCH TD SCH (21:47)
[2019-06-04] MEDS: PRAZOSIN 1 MG CAP PO SCH (21:50)
[2019-06-05 06:28] VITALS: BP 122/77
[2019-06-05] MEDS: **NOTE PATIENT COMMENT** MISC XX SCH (07:28)
[2019-06-05] MEDS: NITROFURANTOIN (MACROBID) 100 MG CAP PO SCH ×2 (08:27→21:35)
[2019-06-05] MEDS: CETIRIZINE (ZyrTEC) 10 MG TAB PO SCH (08:27)
[2019-06-05] MEDS: OMEPRAZOLE 20 MG CAP PO SCH (08:27)
--- NOTE | 2019-06-05 12:49 | MHIPNPDOC ---
[facility] Progress Note Progress Note DATE OF SERVICE: 06/05/19 HISTORY: As per Dr. De Luna: "HISTORY OF THE PRESENT ILLNESS: Patient is a 54 -year-old , female, with a history of depression, depression with psychosis, lupus, currently being treated for UTI, who was brought to ED on 9.45 after her therapist concerned pt was decompensating. Per ED, pt has been isolating at the [facility] for the past week b/c she felt she needed "a little space from others." Pt's outpatient therapist, Dr. Degroot, spoke the ED after he had spoken to pt's who said that pt had been increasingly paranoid at home and accusing him of trying to poison her. Pt was asked about her paranoia toward her and she confirmed that she believes her is trying to "poison my drinks." Pt denies SI/HI, hallucinations in the ED. She endorsed "restlessness," poor concentration, racing thoughts in the ED. She became agitated in the ED after interviewed, demanding to leave and was chemically and mechanically restrained for safety." VITAL SIGNS: See below. NEW TEST RESULTS: See below CURRENT MEDICATIONS: See below. MENTAL STATUS EXAMINATION: General Appearance: well groomed, appears stated age, hospital scrubs/clothing Build: overweight Demeanor: average Eye Contact: average Activity: average Behavior: cooperative Speech: clear, spontaneous, normal volume, reg/rate,rhythm,volume Mood: "I feel all excited " Mood Euthymic Affect: full, appropriate, happy Thought Process: logical/linear, intact Thought Content (Delusions): denies SI, HI, AVH, she denies paranoid delusions Thought Content (Other): appropriate, cooperative, future orientated, she wants to have a fresh start with her . Thought Content (Aggressive): none reported Perception (Hallucinations): none reported Perception (Other): none reported Cognition (Impairment of): none reported Cognition(Intelligence Est.): average Oriented: Awake, Alert, Oriented times three Insight: fair Judgment: Fair Diagnoses Psychosis unspecified R/O psychosis due to [facility] UTI/lupus ASSESSMENT: She sleeps well, her appetite is good, her smell and her taste are coming back. She had some PTSD moments but she has been able to manage. She is having a good response to medications and she denies side effects. She is applying coping skills to manage her illness. MANAGEMENT PLAN: As per Dr. De Luna TIME SPENT: 20 minutes. Vital Signs Vital Signs Date Time Temp Pulse Resp B/P (MAP) Pulse Ox O2 Delivery O2 Flow Rate FiO2 06/05/19 07:42 Room Air 06/05/19 06:28 98.7 82 16 122/77 (92) 06/02/19 23:40 99 Current Medications Current Medications Medications (Trade) Dose Ordered Sig/Remberto Route PRN Reason Start Time Stop Time Status Last Admin Dose Admin Acetaminophen (Tylenol Tab) 650 mg Q6HP PRN PO HEADACHE or DISCOMFORT 06/02/19 23:00 Al Hydrox/Mg Hydrox/Simethicone (Mylanta) 30 ml Q4HP PRN PO HEARTBURN/INDIGESTION 06/02/19 23:00 Cetirizine HCl (ZyrTEC) 10 mg DAILY PO 06/03/19 09:00 06/05/19 08:27 Home Med (Med Rec Complete!) ASDIRECTED XX 06/02/19 23:30 06/02/19 23:19 DC Lidocaine (Lidoderm Patch) 2 patch QHS TD 06/03/19 21:00 06/04/19 21:47 Magnesium Hydroxide (Milk Of Magnesia) 30 ml DAILYPRN PRN PO CONSTIPATION 06/02/19 23:00 Nitrofurantoin Monoh/Nitrofur Macro (Macrobid) 100 mg BID PO 06/03/19 09:00 06/08/19 21:01 06/05/19 08:27 Non-Formulary Medication ( See Comment Field Below ) REMOVE LIDODERM PATCH DAILY@0900 XX 06/04/19 09:00 06/05/19 07:28 Olanzapine (ZyPREXA ZYDIS) 5 mg Q4HP PRN PO ANXIETY/AGITATION 06/03/19 10:00 Omeprazole (PriLOSEC) 40 mg DAILY PO 06/03/19 09:00 06/05/19 08:27 Phenazopyridine HCl (Pyridium) 200 mg Q8H PO 06/03/19 10:45 06/03/19 12:23 DC Phenazopyridine HCl (Pyridium) 200 mg Q8MP PRN PO PAIN 06/03/19 12:30 Prazosin HCl (Minipress) 8 mg QHS PO 06/03/19 21:00 06/04/19 21:50 Risperidone (RisperDAL) 1 mg QHS PO 06/03/19 21:00 06/04/19 21:46 Trazodone HCl (Desyrel) 50 mg QHSP PRN PO INSOMNIA 06/02/19 23:00 Allergies Coded Allergies: shellfish derived (Verified Allergy, Severe, lip swelling/airway compromise, 05/30/19) Penicillins (Verified Allergy, Intermediate, swelling of lips, 05/30/19) latex (Verified Allergy, Intermediate, rash, 05/30/19) amoxicillin (Verified Adverse Reaction, Intermediate, vomiting, 05/30/19) clavulanic acid (Verified Adverse Reaction, Intermediate, vomiting, 05/30/19) iodine (Verified Adverse Reaction, Intermediate, sneezing/vomiting, 05/30/19) ENVIROMENTAL (Verified Adverse Reaction, Mild, cough/sneeze, 05/30/19) YESI HUFF MD Jun 05, 2019 10:17
[2019-06-05 18:07] VITALS: BP 153/87
[2019-06-05] MEDS: LIDOCAINE 5% (LIDODERM) PATCH TD SCH (21:00)
[2019-06-05] MEDS: risperiDONE 1 MG TAB PO SCH (21:35)
[2019-06-05 21:36] VITALS: BP 156/90
[2019-06-05] MEDS: PRAZOSIN 1 MG CAP PO SCH (21:36)
[2019-06-06 06:16] VITALS: BP 120/76
[2019-06-06] MEDS ORDERED: RISP1TAB42 PO (08:30)
--- NOTE | 2019-06-06 08:30 | MHDSPDOC ---
[facility] Discharge Summary Discharge Summary DATE OF ADMISSION: Jun 02, 2019 at 11:02 pm DATE OF DISCHARGE: Jun 06, 2019 DISCHARGE DIAGNOSES: Psychosis unspecified R/O psychosis due to [facility] UTI/lupus REASON FOR ADMISSION: Patient is a 54 -year-old , female, with a history of depression, depression with psychosis, lupus, currently being treated for UTI, who was brought to ED on 9.45 after her therapist concerned pt was decompensating. Per ED, pt has been isolating at the [employer] for the past week b/c she felt she needed "a little space from others." Pt's outpatient therapist, Dr. Degroot, spoke the ED after he had spoken to pt's who said that pt had been increasingly paranoid at home and accusing him of trying to poison her. Pt was asked about her paranoia toward her and she confirmed that she believes her is trying to "poison my drinks." Pt denies SI/HI, hallucinations in the ED. She endorsed "restlessness," poor concentration, racing thoughts in the ED. She became agitated in the ED after interviewed, demanding to leave and was chemically and mechanically restrained for safety. CONSULTANTS INVOLVED: none TREATMENT AND PROGRESS ON THE UNIT : Pt was admitted to [facility], seen for psychia tric assessment and started on risperidone 1mg qhs for psychosis and paranoia. She was provided trazodone 50mg qhs prn insomnia. Pt found her risperidone beneficial and it them well. She attended groups daily during her stay. Her symptoms of psychosis and paranoia improved with treatment. On day of discharge she denied depression, anxiety, insomnia, SI/HI, hallucinations, delusions, paranoia. She was discharged home with follow-up at [facility]. She felt safe for discharge. DISCHARGE ASSESSMENT: Pt seen and states that her mood is "good" and that she's looking forward to going home to her today. She denies paranoia toward him and does not appear psychotic. States she slept well last night. Feels she is tolerating her risperidone and that it's beneficial. She is attending groups and finding them helpful. She denies depression, anxiety, insomnia, SI/HI, hallucinations, delusions, paranoia. Pt feels safe to d/c home today. MENTAL STATUS EXAMINATION ON DISCHARGE: General Appearance: well groomed, appears stated age, own clothing Build: overweight Demeanor: average Eye Contact: average Activity: average Behavior: cooperative Speech: clear, spontaneous, normal volume, reg/rate,rhythm,volume Mood: "good" Mood euthymic, full range, bright Affect: full, appropriate, congruent Thought Process: logical/linear, intact Thought Content (Delusions): denies SI, HI, AVH, denies paranoid delusions Thought Content (Other): appropriate, cooperative Thought Content (Aggressive): none reported Perception (Hallucinations): none reported Perception (Other): none reported Cognition (Impairment of): none reported Cognition(Intelligence Est.): average Oriented: Awake, Alert, Oriented times three Insight: good Judgment: good MEDICATIONS ON DISCHARGE: risperidone 1mg qhs PLAN/FOLLOWUP ARRANGEMENTS: D/c home with follow-up at [facility]. The amount of time spent in the coordination of care for this patient was approximately 30 minutes. Vital Signs/I&Os Vital Signs Date Time Temp Pulse Resp B/P (MAP) Pulse Ox O2 Delivery O2 Flow Rate FiO2 06/06/19 06:16 97.4 88 12 120/76 (91) Room Air 06/02/19 23:40 99 Medications Scheduled Cetirizine HCl (Cetirizine HCl) 10 Mg Tablet, 10 MG PO DAILY, (Reported) Nitrofurantoin Monohyd/M-Cryst (Macrobid 100 mg Capsule) 100 Mg Capsule, 100 MG PO BID for 6 Days, (Reported) Omeprazole (Omeprazole) 20 Mg Capsule.dr, 40 MG PO DAILY, (Reported) Phenazopyridine HCl (Pyridium) 200 Mg Tablet, 200 MG PO Q8H for 3 Days, (Reported) Prazosin Hcl (Prazosin HCl) 2 Mg Capsule, 8 MG PO QHS, (Reported) Allergies Coded Allergies: shellfish derived (Verified Allergy, Severe, lip swelling/airway compromise, 05/30/19) Penicillins (Verified Allergy, Intermediate, swelling of lips, 05/30/19) latex (Verified Allergy, Intermediate, rash, 05/30/19) amoxicillin (Verified Adverse Reaction, Intermediate, vomiting, 05/30/19) clavulanic acid (Verified Adverse Reaction, Intermediate, vomiting, 05/30/19) iodine (Verified Adverse Reaction, Intermediate, sneezing/vomiting, 05/30/19) ENVIROMENTAL (Verified Adverse Reaction, Mild, cough/sneeze, 05/30/19) RAMESH HCIKS DO Jun 06, 2019 8:30 am
[2019-06-06] MEDS: CETIRIZINE (ZyrTEC) 10 MG TAB PO SCH (08:34)
[2019-06-06] MEDS: NITROFURANTOIN (MACROBID) 100 MG CAP PO SCH (08:34)
[2019-06-06] MEDS: OMEPRAZOLE 20 MG CAP PO SCH (08:35)
[2019-06-06] MEDS: **NOTE PATIENT COMMENT** MISC XX SCH (08:41)
== END 2019-06-06 12:40 | disposition home or self-care (01) | DRG 885 ==
LOC: M ED 18:27 → M ED INP 23:02 → M PSY 23:51
PROVIDERS: ADMIT Psychiatry & Neurology Addiction Medicine; ATTEND Psychiatry & Neurology Psychiatry
DX: F29 Unspecified psychosis not due to a substance or known physiological condition (principal); D68.61 Antiphospholipid syndrome; L93.0 Discoid lupus erythematosus; F43.10 Post-traumatic stress disorder, unspecified; F22 Delusional disorders; F41.9 Anxiety disorder, unspecified; M54.5 Low back pain; R03.0 Elevated blood-pressure reading, without diagnosis of hypertension; F06.8 Other specified mental disorders due to known physiological condition; E66.9 Obesity, unspecified; Z68.38 Body mass index [BMI] 38.0-38.9, adult; Z88.0 Allergy status to penicillin; Z88.8 Allergy status to other drugs, medicaments and biological substances; Z87.440 Personal history of urinary (tract) infections; Z91.013 Allergy to seafood; Z91.040 Latex allergy status; Z79.899 Other long term (current) drug therapy

== ENCOUNTER 2019-06-15 03:33 | Inpatient (IN) | payer OTHER ==
[~2019-06-15] VITALS: Ht 167.6 cm; Wt 100.0 kg
[~2019-06-15 03:33] MED LIST changes: +CETI10TA4 PO; +OMEP-218 PO; +RISP1TAB42 PO
[2019-06-15 04:32] LABS: HEMATOCRIT 40.5 % (36.0-47.0); HEMOGLOBIN 12.9 g/dl (12.0-15.5); MEAN CORPUSCULAR HEMOGLOBIN 26.1 pg (27.0-33.0); MEAN CORPUSCULAR HGB CONC 31.9 g/dl (32.0-36.5); PLATELET COUNT, AUTOMATED 280 10^3/uL (150-450); RED BLOOD COUNT 4.94 10^6/uL (4.00-5.40); WHITE BLOOD COUNT 9.6 10^3/uL (4.0-10.0)
[2019-06-15 05:10] LABS: ACETAMINOPHEN LEVEL < 2.0 UG/ML (10.0-30.0); ALT/SGPT 41 U/L (12-78); BILIRUBIN,DIRECT 0.1 MG/DL (0.0-0.2); BILIRUBIN,TOTAL 0.3 MG/DL (0.2-1.0); BLOOD UREA NITROGEN 10 MG/DL (7-18); CALCIUM LEVEL 8.8 MG/DL (8.5-10.1); CARBON DIOXIDE LEVEL 28 MEQ/L (21-32); CHLORIDE LEVEL 109 MEQ/L (98-107); CREATININE FOR GFR 0.76 MG/DL (0.55-1.30); ETHYL ALCOHOL (ETHANOL) < 0.003 % (0.000-0.010); GLOMERULAR FILTRATION RATE > 60.0 (>51); GLUCOSE, FASTING 102 MG/DL (70-100); POTASSIUM SERUM 4.1 MEQ/L (3.5-5.1); SALICYLATE LEVEL < 1.7 MG/DL (5.0-30.0); SODIUM LEVEL 140 MEQ/L (136-145); THYROID STIMULATING HORMONE 0.553 uIU/ML (0.358-3.740); TOTAL PROTEIN 7.4 GM/DL (6.4-8.2)
[2019-06-15 05:12] LABS: AMPHETAMINES LEVEL URINE NEGATIVE (NEGATIVE); BARBITURATES URINE NEGATIVE (NEGATIVE); BENZODIAZEPINES URINE NEGATIVE (NEGATIVE); CANNABINOIDS URINE NEGATIVE (NEGATIVE); COCAINE METABOLITE URINE NEGATIVE (NEGATIVE); METHADONE URINE NEGATIVE (NEGATIVE); OPIATES URINE NEGATIVE (NEGATIVE); PHENCYCLIDINE URINE NEGATIVE (NEGATIVE)
[2019-06-15] MEDS ORDERED: LORazepam 1 MG TAB PO ONE (06:15)
[2019-06-15] MEDS ORDERED: FERR325T3 PO (06:24)
[2019-06-15] MEDS ORDERED: EPIN0.3I11 IM (06:24)
[2019-06-15] MEDS ORDERED: C 50TAB PO (06:24)
[2019-06-15] MEDS ORDERED: RISP1TAB3 PO (06:25)
[2019-06-15] MEDS ORDERED: MAALOX 30 ML SUSP *UDC PO PRN (08:45)
[2019-06-15] MEDS ORDERED: traZODone 50 MG TAB PO PRN (08:45)
[2019-06-15] MEDS ORDERED: ACETAMINOPHEN TAB 650MG DOSE (2X325MG) PO PRN (08:45)
[2019-06-15] MEDS ORDERED: MOM 30ML SUSPENSION UDC PO PRN (08:45)
[2019-06-15 09:37] VITALS: BP 131/69
--- NOTE | 2019-06-15 10:54 | HPEPDOC ---
General Date of Admission Jun 15, 2019 at 08:40 Date of Service: Jun 15, 2019 Chief Complaint The patient is a 54-year-old female admitted with a reason for visit of Unspecified Psychotic Disorder. Source: Patient, RN/MD History of Present Illness 54 year old female admitted to [facility] for acute psychosis and paranoid ideas. She said that her is trying to poison her. Complaining of pain in both the knees and the bottom of feet and both heels. The knee pain is about 4/10 in intensity, dull aching in nature sometimes goes to the back of the knees. Says sometimes takes tylenol for the pain. Home Medications Scheduled Ascorbic Acid (Vitamin C) 500 Mg Tablet, 500 MG PO DAILY, (Reported) Cetirizine HCl (Cetirizine HCl) 10 Mg Tablet, 10 MG PO DAILY, (Reported) Ferrous Sulfate (Ferrous Sulfate) 325 Mg Tablet.dr, 325 MG PO DAILY, (Reported) Omeprazole (Omeprazole) 20 Mg Capsule.dr, 40 MG PO DAILY, (Reported) Prazosin Hcl (Prazosin HCl) 2 Mg Capsule, 8 MG PO QHS, (Reported) Risperidone (Risperidone) 1 Mg Tablet, 1 MG PO QHS, (Reported) Scheduled PRN Epinephrine (Epinephrine) 0.3 Mg/0.3 Ml Auto.injct, 0.3 MG IM ASDIRECTED PRN for ANAPHYLAXIS, (Reported) Allergies Coded Allergies: shellfish derived (Verified Allergy, Severe, lip swelling/airway compromise, 05/30/19) Penicillins (Verified Allergy, Intermediate, swelling of lips, 05/30/19) latex (Verified Allergy, Intermediate, rash, 05/30/19) amoxicillin (Verified Adverse Reaction, Intermediate, vomiting, 05/30/19) clavulanic acid (Verified Adverse Reaction, Intermediate, vomiting, 0) iodine (Verified Adverse Reaction, Intermediate, sneezing/vomiting, 05/30/19) ENVIROMENTAL (Verified Adverse Reaction, Mild, cough/sneeze, 05/30/19) Past Medical History Medical History Lupus / reports she is no longer taking chloroquine as because of adverse effects. Antiphospholipid antibody syndrome Chronic back pain Fibrocystic breast disease. PTSD/anxiety History of obsessive compulsive disorder (OCD). Night terrors Osteoarthritis. History of ovarian cysts. Endometriosis. History of eating disorder. History of cervix cancer status post cryosurgery about 20 years ago. approximately 20 years ago. History of nephrolithiasis. History of hemorrhoids. Surgical History Multiple loop electrosurgical excisional procedure (LEEP) procedures. Cryosurgery. Four laparoscopic surgeries, one ovarian cysts and she had three for endometriosis. Colonoscopy 11/30/[address] Mendoza. Right breast cyst removed, benign. Dilation and curettage (D and C). Heart catheterization 10 years ago, within normal limits. Family History Significant Family History: Cancer (mother iwht cervical cancer, Maternal aunts with cervical and breast cancers. ), Heart disease (mother), Other (mother with rheumatoid arthritis, graves disease) Social History * Smoker: Denies Alcohol: rarely Drugs: denies A-FIB/CHADSVASC A-FIB History Current/History of A-Fib/PAF?: No Review of Systems Constitutional: Denies: Chills, Fever, Night Sweats Eyes: Denies: Pain, Vision change ENT: Denies: Head Aches, Ear Pain, Dysphagia Skin: Denies: Rash, Lesions, Breakdown Pulmonary: Denies: Dyspnea, Cough Cardiovascular: Denies: Chest Pain, Palpitations, Orthopnea, Paroxysmal Noc. Dyspnea, Lt Headedness Gastrointestinal: Reports: Constipation; Denies: Nausea, Vomiting, Abdominal Pain Genitourinary: Denies: Dysuria, Frequency, Incontinence, Retention Hematologic: Denies: Bruising, Bleeding Excessively Musculoskeletal: Reports: Foot Pain, Joint Pain, Muscle Pain Physical Examination General Exam: Positive: Alert, Cooperative, No Acute Distress Eye Exam: Positive: PERRLA, Conjunctiva & lids normal, EOMI; Negative: Sclera icteric ENT Exam: Positive: Atraumatic, Mucous membr. moist/pink, Pharynx Normal Neck Exam: Positive: Supple; Negative: JVD, thyromegaly Chest Exam: Positive: Clear to auscultation, Normal air movement Heart Exam: Positive: Rate Normal, Regular Rhythm, Normal S1, Normal S2; Negative: Murmurs, Rubs Abdomen Exam: Positive: Normal bowel sounds, Soft; Negative: Tenderness, Hepatospenomegaly Extremity Exam: Positive: Normal pulses; Negative: Clubbing, Cyanosis, Edema Skin Exam: Positive: Nl turgor and temperature; Negative: Breakdown, Lesion Vital Signs Vital Signs Date Time Temp Pulse Resp B/P (MAP) Pulse Ox O2 Delivery O2 Flow Rate FiO2 4/8/20 09:37 97.5 74 16 131/69 (89) 99 Room Air Laboratory Data Labs 24H Laboratory Tests 2 06/15/19 04:11: Urine Opiates Screen NEGATIVE, Urine Methadone Screen NEGATIVE, Urine Barbiturates Screen NEGATIVE, Urine Phencyclidine Screen NEGATIVE, Urine Amphetamines Screen NEGATIVE, Urine Benzodiazepines Screen NEGATIVE, Urine Cocaine Metabolite Screen NEGATIVE, Urine Cannabinoids Screen NEGATIVE 06/15/19 04:18: Nucleated Red Blood Cells % (auto) 0.0, Anion Gap 3L, Glomerular Filtration Rate > 60.0, Calcium Level 8.8, Total Bilirubin 0.3, Direct Bilirubin 0.1, Aspartate Amino Transf (AST/SGOT) 48H, Alanine Aminotransferase (ALT/SGPT) 41, Alkaline Phosphatase 87, Total Protein 7.4, Albumin 4.0, Albumin/Globulin Ratio 1.18, Thyroid Stimulating Hormone (TSH) 0.553, Salicylates Level < 1.7L, Acetaminophen Level < 2.0L, Ethyl Alcohol Level < 0.003 CBC/BMP Laboratory Tests 06/15/19 04:18 Assessment/Plan 54 year old female admitted to [facility] for acute psychosis and paranoid ideas. i am seeing the pateint here for medical histroy and physical. Knee pain/ heel pain OA tylenol prn Acute psychosis /paranoid ideas as per psychiatry Plan / VTE VTE Prophylaxis Ordered?: No MATTHEW MARTIN MD Jun 15, 2019 10:16
[2019-06-15] MEDS: CETIRIZINE (ZyrTEC) 10 MG TAB PO SCH (15:23)
[2019-06-15] MEDS: OMEPRAZOLE 20 MG CAP PO SCH (15:23)
[2019-06-15] MEDS: FERROUS SULFATE 325MG TAB PO SCH (15:23)
[2019-06-15] MEDS: ASCORBIC ACID 500 MG TAB PO SCH (15:23)
[2019-06-15 15:56] VITALS: BP 190/93
[2019-06-15] MEDS: risperiDONE 1 MG TAB PO SCH ×3 (21:00→22:51)
[2019-06-15] MEDS: PRAZOSIN 1 MG CAP PO SCH ×3 (21:00→22:51)
[2019-06-16 06:31] VITALS: BP 138/71
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
[2019-06-16] MEDS: OMEPRAZOLE 20 MG CAP PO SCH (09:15)
[2019-06-16] MEDS: ASCORBIC ACID 500 MG TAB PO SCH (09:15)
[2019-06-16] MEDS: FERROUS SULFATE 325MG TAB PO SCH (09:15)
[2019-06-16] MEDS: CETIRIZINE (ZyrTEC) 10 MG TAB PO SCH (09:15)
[2019-06-16 16:00] VITALS: BP 142/76
[2019-06-16 17:56] VITALS: BP 142/76
[2019-06-16] MEDS: risperiDONE 1 MG TAB PO SCH (20:34)
[2019-06-16] MEDS: PRAZOSIN 1 MG CAP PO SCH (20:35)
[2019-06-17 06:40] VITALS: BP 132/82
[2019-06-17] MEDS: ASCORBIC ACID 500 MG TAB PO SCH (08:58)
[2019-06-17] MEDS: CETIRIZINE (ZyrTEC) 10 MG TAB PO SCH (08:58)
[2019-06-17] MEDS: OMEPRAZOLE 20 MG CAP PO SCH (08:59)
[2019-06-17] MEDS: FERROUS SULFATE 325MG TAB PO SCH (08:59)
--- NOTE | 2019-06-17 09:14 | MHDSPDOC ---
[facility] Discharge Summary Discharge Summary DATE OF ADMISSION: Jun 15, 2019 at 08:40 DATE OF DISCHARGE: DISCHARGE DIAGNOSES: 1. . 2. . REASON FOR ADMISSION: CONSULTANTS INVOLVED: TREATMENT AND PROGRESS ON THE UNIT : . HOSPITAL COURSE: DISCHARGE ASSESSMENT: MENTAL STATUS EXAMINATION ON DISCHARGE: Patient is a -year old female, who is . Speech is . Language skills are . Thought processes including: . Thought content: . Abstract reasoning, and computation: . Description of associations: . Description of abnormal or psychotic thoughts: . Judgment: . Insight: . Orientation to . Recent and remote memory: . Attention span and concentration: . Language: . Fund of knowledge: . Mood: . Affect: . MEDICATIONS ON DISCHARGE: - for . - for . - for . PLAN/FOLLOWUP ARRANGEMENTS: . The amount of time spent in the coordination of care for this patient was approximately minutes. Vital Signs/I&Os Vital Signs Date Time Temp Pulse Resp B/P (MAP) Pulse Ox O2 Delivery O2 Flow Rate FiO2 06/17/19 06:40 97.7 82 18 132/82 (99) 96 Room Air Laboratory Data Labs 24H Laboratory Tests 2 06/16/19 10:39: C-Reactive Protein, Quantitative 0.82H Medications Scheduled Ascorbic Acid (Vitamin C) 500 Mg Tablet, 500 MG PO DAILY, (Reported) Cetirizine HCl (Cetirizine HCl) 10 Mg Tablet, 10 MG PO DAILY, (Reported) Ferrous Sulfate (Ferrous Sulfate) 325 Mg Tablet.dr, 325 MG PO DAILY, (Reported) Omeprazole (Omeprazole) 20 Mg Capsule.dr, 40 MG PO DAILY, (Reported) Prazosin Hcl (Prazosin HCl) 2 Mg Capsule, 8 MG PO QHS, (Reported) Risperidone (Risperidone) 1 Mg Tablet, 1 MG PO QHS, (Reported) Scheduled PRN Epinephrine (Epinephrine) 0.3 Mg/0.3 Ml Auto.injct, 0.3 MG IM ASDIRECTED PRN for ANAPHYLAXIS, (Reported) Allergies Coded Allergies: shellfish derived (Verified Allergy, Severe, lip swelling/airway compromise, 05/30/19) Penicillins (Verified Allergy, Intermediate, swelling of lips, 05/30/19) latex (Verified Allergy, Intermediate, rash, 05/30/19) amoxicillin (Verified Adverse Reaction, Intermediate, vomiting, 05/30/19) clavulanic acid (Verified Adverse Reaction, Intermediate, vomiting, 05/30/19) iodine (Verified Adverse Reaction, Intermediate, sneezing/vomiting, 05/30/19) ENVIROMENTAL (Verified Adverse Reaction, Mild, cough/sneeze, 05/30/19) BLAKE SOSA DO Jun 17, 2019 09:14
--- NOTE | 2019-06-17 10:31 | MHIPNPDOC ---
[facility] Progress Note Progress Note Inpatient Progress Note Lilian Tinajero MRN: N/A Date of : N/A Date of Service: 06/17/2019 History of Present Illness The patient is a 54-year-old woman who was recently admitted to the inpatient mental health unit only week or 2 ago presents again reporting that she has had paranoid thoughts and feels that her had been trying to poison her and her dog. The patient elaborates that she only has this particular paranoid thou ghts and does appear to change her mood quite quickly when meeting with this provider versus others. There had been some concerns that the patient had been presenting in order to avoid having to be around her and she had reportedly stated "I lied to get here." The patient was met with but generally focuses on elaborating in great detail these particular paranoid thoughts, h owever, she is easily redirected and reports that she has had no major changes and has no major medication problems since she left. Interestingly enough, she still endorses that she feels paranoid that her is trying to poison her but is not able to rectify this with why she has presented by herself to the ER for admission. Her psychosocial information is extracted from her previous admission and updated as appropriate. Interval History The patient is met with today, she continues to refuse to sign any voluntary paperwork and the majority of the session is spent with her arguing about how she should be allowed to use "whatever name she wants" on the paperwork. The patient generally has told me that she will sign voluntary or comply with treatment, but subsequently declines to stating to the nurse that she has no interest to and stating that she wants to stay here "forever". The patient has notably made statements that she's "lied" in order to get into our inpatient unit and generally hasn't been endorsing any suicidal or homicidal ideation with no bizarre ideation. The patient spends the majority of the time focusing on which name she would be allowed to use. She is generally uncooperative with treatment, highly uninterested in any offerings on the unit. Review Of Systems No notations of any physical concerns. Psychotherapy None on this visit. Vital Signs Reviewed. Mental Status Examination General: Well dressed with good hygiene Speech: Spontaneous and fluid Thought processes: Linear and logical MSK: Smooth and coordinated gait, no signs of tremors or involuntary orofacial movements Thought content: Perseverative on admission Abstract reasoning, and computation: Intact Description of associations: Intact Description of abnormal or psychotic thoughts: Denies any suicidal or homicidal ideation. Denies any auditory or visual hallucinations. Does not appear to be responding to internal stimuli. Does not appear to be endorsing any bizarre or paranoid ideation. Judgment: fair Insight: limited Orientation: Alert and orientated 3 Cognition: Grossly normal Recent and remote memory: Intact Attention span and concentration: Intact Fund of knowledge: Adequate Mood: "okay" Affect: Euthymic, only dysthymic when she appears to be in front of this provider. Diagnoses Unspecified psychosis. Rule out malingering versus fabrication versus organic cause. PTSD, chronic. Cluster B personality traits? Assessment and Plan Unspecified psychosis: The patient's agreed to trying Invega, we'll start 3 mg nightly, discontinue risperidone. Concern for malingering: Patient will be converted to voluntary status, however, if she declines again she will be discharged as she does not meet involuntary criteria. There is strong concern that she is malingering as she has stated as such and seems to be highly interested in being kept against her will where she will not be empowered to make any choices, that appears consistent with an individual with cluster B personality traits. PTSD: Continue Prazosin 8 mg daily. Unclear if currently present on admission, does not appear to have any significant problems at this time with intrusiveness or flashbacks. Disposition Patient will be converted to voluntary. If she refuses to sign she will be discharged as she does not meet involuntary criteria and appears primarily interested in being kept here without need to engage in treatment, consistent with her initial statement when she had presented of "I lied to get in". I am highly concerned that she is primarily malingering and if she does not sign for voluntary then I would have no choice but to discharge her. She doesn't appear to be endorsing any psychiatric signs or symptoms of psychosis, her paranoia only seems to be isolated to her , but does not appeared to be readily engaged or even endorsed with any conviction. Time Spent 15 minutes Thursday Vital Signs Vital Signs Date Time Temp Pulse Resp B/P (MAP) Pulse Ox O2 Delivery O2 Flow Rate FiO2 06/17/19 06:40 97.7 82 18 132/82 (99) 96 Room Air Laboratory Data 24H Labs Laboratory Tests 2 06/16/19 10:39: C-Reactive Protein, Quantitative 0.82H Current Medications Current Medications Medications (Trade) Dose Ordered Sig/Remberto Route PRN Reason Start Time Stop Time Status Last Admin Dose Admin Acetaminophen (Tylenol Tab) 650 mg Q6HP PRN PO HEADACHE or DISCOMFORT 06/15/19 08:45 Al Hydrox/Mg Hydrox/Simethicone (Mylanta) 30 ml Q4HP PRN PO HEARTBURN/INDIGESTION 06/15/19 08:45 Ascorbic Acid (Vitamin C) 500 mg DAILY PO 06/15/19 09:00 06/17/19 08:58 Cetirizine HCl (ZyrTEC) 10 mg DAILY PO 06/15/19 09:00 06/17/19 08:58 Ferrous Sulfate (Ferrous Sulfate) 325 mg DAILY PO 06/15/19 09:00 06/17/19 08:59 Home Med (Med Rec Complete!) ASDIRECTED XX 06/15/19 06:30 06/15/19 06:27 DC Magnesium Hydroxide (Milk Of Magnesia) 30 ml DAILYPRN PRN PO CONSTIPATION 06/15/19 08:45 Omeprazole (PriLOSEC) 40 mg DAILY PO 06/15/19 09:00 06/17/19 08:59 Prazosin HCl (Minipress) 8 mg QHS PO 06/15/19 21:00 06/16/19 20:35 Risperidone (RisperDAL) 1 mg QHS PO 06/15/19 21:00 06/16/19 20:34 Trazodone HCl (Desyrel) 50 mg QHSP PRN PO INSOMNIA 06/15/19 08:45 Allergies Coded Allergies: shellfish derived (Verified Allergy, Severe, lip swelling/airway compromise, 05/30/19) Penicillins (Verified Allergy, Intermediate, swelling of lips, 05/30/19) latex (Verified Allergy, Intermediate, rash, 05/30/19) amoxicillin (Verified Adverse Reaction, Intermediate, vomiting, 05/30/19) clavulanic acid (Verified Adverse Reaction, Intermediate, vomiting, 0) iodine (Verified Adverse Reaction, Intermediate, sneezing/vomiting, 05/30/19) ENVIROMENTAL (Verified Adverse Reaction, Mild, cough/sneeze, 05/30/19) BLAKE SOSA DO Jun 17, 2019 10:31
[2019-06-17 16:00] VITALS: BP 142/81
[2019-06-17] MEDS ORDERED: PALIPERIDONE 3 MG ER TAB (INVEGA) PO SCH (21:00)
[2019-06-17 21:18] VITALS: BP 142/81
[2019-06-17] MEDS: PRAZOSIN 1 MG CAP PO SCH (21:18)
[2019-06-18 07:00] VITALS: BP 116/64
[2019-06-18] MEDS: OMEPRAZOLE 20 MG CAP PO SCH (09:34)
[2019-06-18] MEDS: FERROUS SULFATE 325MG TAB PO SCH (09:34)
[2019-06-18] MEDS: CETIRIZINE (ZyrTEC) 10 MG TAB PO SCH (09:34)
[2019-06-18] MEDS: ASCORBIC ACID 500 MG TAB PO SCH (09:34)
--- NOTE | 2019-06-18 11:48 | MHDSPDOC ---
[facility] Discharge Summary Discharge Summary DATE OF ADMISSION: Jun 15, 2019 at 08:40 DATE OF DISCHARGE: 06/18/19 Discharge Lilian Tinajero MRN: N/A Date of : N/A Date of Service: 06/18/2019 Diagnoses Malingering. PTSD, chronic. Cluster B personality traits. History of Present Illness The patient is a 54-year-old woman who was recently admitted to the inpatient mental health unit only week or 2 ago presents again reporting that she has had paranoid thoughts and feels that her had been trying to poison her and her dog. The patient elaborates that she only has this particular paranoid th oughts and does appear to change her mood quite quickly when meeting with this provider versus others. There had been some concerns that the patient had been presenting in order to avoid having to be around her and she had reportedly stated "I lied to get here." The patient was met with but generally focuses on elaborating in great detail these particular paranoid thoughts, however, she is easily redirected and reports that she has had no major changes and has no major medication problems since she left. Interestingly enough, she still endorses that she feels paranoid that her is trying to poison her but is not able to rectify this with why she has presented by herself to the ER for admission. Her psychosocial information is extracted from her previous admission and updated as appropriate. Consultants Involved Hospitalist/PCP screening Treatment and Progress On The Unit The patient was admitted to the inpatient unit and she denied any suicidal or homicidal ideation throughout the entirety of her stay. She did endorse only one paranoid thought that she felt her was poisoning her, however when asked more specifically about it she endorsed no conviction about this and appeared primarily interested in staying on the unit and not being engaged in treatment. She was converted to involuntary status twice after she had agreed to stay voluntarily as she no longer met involuntary criteria, however both times she refused to sign after the nurse brought her the paperwork and consistently refused to try any different medications, she did eventually consent to changing her risperidone to Invega 3 mg, which she tried. However on the day of discharge she had declined further voluntary admission multiple times and she was instructed that she cannot be held against her will since she has specifically made it clear she does not want to sign any voluntary paperwork and she no longer meets involuntary criteria. She will have to be discharged. She had been tearful about this, however she appeared primarily to tell different stories to different individuals and even upon her presentation had stated that she had "laid" to get back in here. She had no major behavioral problems and was observed to primarily not have any psychiatric/psychotic phenomenon. Discharge Assessment 54-year-old woman who presents primarily malingering for admission, she appears to prefer to stay on the unit and does not want to have any involvement in treatment, she appeared to be uninterested in signing any voluntary paper primarily engaging an unusual discussions asking about signing under a different name, reporting that she has a history or dissociative identity disorder she demonstrated no signs or symptoms of this and generally would only be tearful whenever she would present to this provider, after she was discussed with that she cannot stay without a legal status and that she cannot be held against her will the patient was discharged. It appeared that given the preponderance of the information above that she was primarily malingering as she had nearly stated as such. She had been denying suicidal and homicidal ideation and had not been exhibiting any overt psychosis symptoms that were impairing and thus did not meet involuntary criteria. I discussed with her that since she has refused twice to sign for voluntary that I would have to assumed that meant that she does not wish to be kept against her will and that she is not interested in a voluntary admission. Mental Status Examination General: Well dressed with good hygiene Speech: Spontaneous and fluid Thought processes: Linear and logical MSK: Smooth and coordinated gait, no signs of tremors or involuntary orofacial movements Thought content: Focused on admission. Abstract reasoning, and computation: Intact Description of associations: Intact Description of abnormal or psychotic thoughts: Does not allude to any suicidal or homicidal ideation, does not appear to be responding to internal stimuli, endorses no paranoid ideation at this time. Judgment: Chronically limited. Insight: Limited. Orientation: Alert and orientated 3 Cognition: Grossly normal Recent and remote memory: Intact Attention span and concentration: Intact Fund of knowledge: Adequate Mood: "Fine." Affect: Tearful at first, but then euthymic after confronted. Follow Up The social work team worked during the predischarge meeting in order to evaluate for further issues of lethality address them fully before discharge. They worked on safety planning with the patient's family members in order to ensure that the patient will have a safe and effective discharge. Time Spent The amount of time spent in the coordination of care for this patient was approximately 45 minutes. Thursday Vital Signs/I&Os Vital Signs Date Time Temp Pulse Resp B/P (MAP) Pulse Ox O2 Delivery O2 Flow Rate FiO2 06/18/19 07:00 99.4 97 18 116/64 (81) 96 Room Air Medications Scheduled Ascorbic Acid (Vitamin C) 500 Mg Tablet, 500 MG PO DAILY, (Reported) Cetirizine HCl (Cetirizine HCl) 10 Mg Tablet, 10 MG PO DAILY, (Reported) Ferrous Sulfate (Ferrous Sulfate) 325 Mg Tablet.dr, 325 MG PO DAILY, (Reported) Omeprazole (Omeprazole) 20 Mg Capsule.dr, 40 MG PO DAILY, (Reported) Paliperidone (Paliperidone ER) 3 Mg Tab.er.24, 3 MG PO QHS for thought for 7 Days, #7 Prazosin Hcl (Prazosin HCl) 2 Mg Capsule, 8 MG PO QHS, (Reported) Scheduled PRN Epinephrine (Epinephrine) 0.3 Mg/0.3 Ml Auto.injct, 0.3 MG IM ASDIRECTED PRN for ANAPHYLAXIS, (Reported) Allergies Coded Allergies: shellfish derived (Verified Allergy, Severe, lip swelling/airway compromise, 05/30/19) Penicillins (Verified Allergy, Intermediate, swelling of lips, 05/30/19) latex (Verified Allergy, Intermediate, rash, 05/30/19) amoxicillin (Verified Adverse Reaction, Intermediate, vomiting, 05/30/19) clavulanic acid (Verified Adverse Reaction, Intermediate, vomiting, 05/30/19) iodine (Verified Adverse Reaction, Intermediate, sneezing/vomiting, 05/30/19) ENVIROMENTAL (Verified Adverse Reaction, Mild, cough/sneeze, 05/30/19) BLAKE SOSA DO Jun 18, 2019 11:48
[2019-06-18] MEDS ORDERED: PALI1TAB2 PO (11:56)
== END 2019-06-18 13:10 | disposition home or self-care (01) | DRG 883 ==
LOC: M ED 03:33 → M ED INP 08:40 → M PSY 09:17
PROVIDERS: ADMIT Psychiatry & Neurology Psychiatry; ATTEND Psychiatry & Neurology Addiction Medicine
DX: F60.89 Other specific personality disorders (principal); D68.61 Antiphospholipid syndrome; F43.12 Post-traumatic stress disorder, chronic; Z76.5 Malingerer [conscious simulation]; J30.9 Allergic rhinitis, unspecified; N60.19 Diffuse cystic mastopathy of unspecified breast; L93.0 Discoid lupus erythematosus; M54.9 Dorsalgia, unspecified; M15.9 Polyosteoarthritis, unspecified; F29 Unspecified psychosis not due to a substance or known physiological condition; Z79.899 Other long term (current) drug therapy; Z88.0 Allergy status to penicillin; Z88.8 Allergy status to other drugs, medicaments and biological substances; Z91.013 Allergy to seafood; Z91.040 Latex allergy status; Z87.442 Personal history of urinary calculi; Z85.41 Personal history of malignant neoplasm of cervix uteri

== ENCOUNTER 2019-06-20 16:46 | Inpatient (IN) | payer OTHER ==
[~2019-06-20] VITALS: Ht 165.1 cm; Wt 111.0 kg
[~2019-06-20 16:46] MED LIST changes: +C 50TAB PO; +EPIN0.3I11 IM; +FERR325T3 PO; +PALI1TAB2 PO; +RISP1TAB3 PO
[2019-06-20] MEDS ORDERED: RISP1TAB3 PO (16:55)
[2019-06-20 17:44] LABS: HEMATOCRIT 37.5 % (36.0-47.0); HEMOGLOBIN 12.1 g/dl (12.0-15.5); MEAN CORPUSCULAR HEMOGLOBIN 27.1 pg (27.0-33.0); MEAN CORPUSCULAR HGB CONC 32.3 g/dl (32.0-36.5); MEAN CORPUSCULAR VOLUME 84.1 fl (80.0-96.0); PLATELET COUNT, AUTOMATED 237 10^3/uL (150-450); RED BLOOD COUNT 4.46 10^6/uL (4.00-5.40); WHITE BLOOD COUNT 9.3 10^3/uL (4.0-10.0)
[2019-06-20 18:04] LABS: ACETAMINOPHEN LEVEL < 2.0 UG/ML (10.0-30.0); ALBUMIN 3.5 GM/DL (3.2-5.2); ALT/SGPT 24 U/L (12-78); BILIRUBIN,DIRECT < 0.1 MG/DL (0.0-0.2); BILIRUBIN,TOTAL 0.2 MG/DL (0.2-1.0); BLOOD UREA NITROGEN 13 MG/DL (7-18); CALCIUM LEVEL 8.7 MG/DL (8.5-10.1); CARBON DIOXIDE LEVEL 29 MEQ/L (21-32); CHLORIDE LEVEL 111 MEQ/L (98-107); CREATININE FOR GFR 0.87 MG/DL (0.55-1.30); ETHYL ALCOHOL (ETHANOL) < 0.003 % (0.000-0.010); GLOMERULAR FILTRATION RATE > 60.0 (>51); GLUCOSE, FASTING 102 MG/DL (70-100); POTASSIUM SERUM 3.7 MEQ/L (3.5-5.1); SALICYLATE LEVEL < 1.7 MG/DL (5.0-30.0); SODIUM LEVEL 144 MEQ/L (136-145); THYROID STIMULATING HORMONE 0.707 uIU/ML (0.358-3.740); TOTAL PROTEIN 6.7 GM/DL (6.4-8.2)
[2019-06-20 18:13] LABS: AMPHETAMINES LEVEL URINE NEGATIVE (NEGATIVE); BARBITURATES URINE NEGATIVE (NEGATIVE); BENZODIAZEPINES URINE NEGATIVE (NEGATIVE); CANNABINOIDS URINE NEGATIVE (NEGATIVE); COCAINE METABOLITE URINE NEGATIVE (NEGATIVE); METHADONE URINE NEGATIVE (NEGATIVE); OPIATES URINE NEGATIVE (NEGATIVE); PHENCYCLIDINE URINE NEGATIVE (NEGATIVE)
[2019-06-20] MEDS ORDERED: MAALOX 30 ML SUSP *UDC PO PRN (19:30)
[2019-06-20] MEDS ORDERED: MOM 30ML SUSPENSION UDC PO PRN (19:30)
[2019-06-20] MEDS ORDERED: ACETAMINOPHEN TAB 650MG DOSE (2X325MG) PO PRN (19:30)
[2019-06-20] MEDS ORDERED: OLANZapine ORAL DISINTEGRATING TAB 5MG PO PRN (19:30)
[2019-06-20] MEDS ORDERED: EPINEPHrine INJ 1 MG/ML 1ML AMP IM PRN (19:30)
[2019-06-20] MEDS ORDERED: PALI1TAB2 PO ×2 (19:46)
[2019-06-20] MEDS: PALIPERIDONE 3 MG ER TAB (INVEGA) PO SCH (21:00)
[2019-06-20 21:28] VITALS: BP 137/80
[2019-06-21] MEDS: FERROUS SULFATE 325MG TAB PO SCH (08:10)
[2019-06-21] MEDS: ASCORBIC ACID 500 MG TAB PO SCH (08:10)
[2019-06-21] MEDS: CETIRIZINE (ZyrTEC) 10 MG TAB PO SCH (08:10)
[2019-06-21] MEDS: OMEPRAZOLE 20 MG CAP PO SCH (08:10)
[2019-06-21] MEDS: PALIPERIDONE 3 MG ER TAB (INVEGA) PO SCH (08:14)
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
[2019-06-21 13:34] LABS: CHOLESTEROL RISK RATIO 2.584 (<5)
[2019-06-21 13:47] LABS: HEMOGLOBIN A1c 5.6 %
--- NOTE | 2019-06-21 15:58 | HPEPDOC ---
General Date of Admission Jun 20, 2019 at 19:17 Date of Service: Jun 21, 2019 Chief Complaint The patient is a 54-year-old female admitted with a reason for visit of Unspecified Psychotic Disorder. Source: Patient Exam Limitations: No limitations Timing/Duration: 24 hours Severity: Mild History of Present Illness Patient is 54 years old female with past medical history of lupus, chronic back pain, history of obsessive-compulsive disorder, history of osteoarthritis and endometriosis presented hospital with delusional and paranoid ideation. She denied fever, chills, nausea, vomiting, chest pain, diarrhea or dysuria. Home Medications Scheduled Ascorbic Acid (Vitamin C) 500 Mg Tablet, 500 MG PO DAILY, (Reported) Cetirizine HCl (Cetirizine HCl) 10 Mg Tablet, 10 MG PO DAILY, (Reported) Ferrous Sulfate (Ferrous Sulfate) 325 Mg Tablet.dr, 325 MG PO DAILY, (Reported) Omeprazole (Omeprazole) 20 Mg Capsule.dr, 40 MG PO DAILY, (Reported) Paliperidone (Paliperidone ER) 3 Mg Tab.er.24, 3 MG PO QHS, (Reported) Prazosin Hcl (Prazosin HCl) 2 Mg Capsule, 8 MG PO QHS, (Reported) Scheduled PRN Epinephrine (Epinephrine) 0.3 Mg/0.3 Ml Auto.injct, 0.3 MG IM ASDIRECTED PRN for ANAPHYLAXIS, (Reported) Allergies Coded Allergies: shellfish derived (Verified Allergy, Severe, lip swelling/airway compromise, 05/30/19) Penicillins (Verified Allergy, Intermediate, swelling of lips, 05/30/19) latex (Verified Allergy, Intermediate, rash, 05/30/19) amoxicillin (Verified Adverse Reaction, Intermediate, vomiting, 05/30/19) clavulanic acid (Verified Adverse Reaction, Intermediate, vomiting, 05/30/19) iodine (Verified Adverse Reaction, Intermediate, sneezing/vomiting, 05/30/19) ENVIROMENTAL (Verified Adverse Reaction, Mild, cough/sneeze, 05/30/19) Past Medical History Medical History Lupus / reports she is no longer taking chloroquine as because of adverse effects. Antiphospholipid antibody syndrome Chronic back pain Fibrocystic breast disease. PTSD/anxiety History of obsessive compulsive disorder (OCD). Night terrors Osteoarthritis. History of ovarian cysts. Endometriosis. History of eating disorder. History of cervix cancer status post cryosurgery about 20 years ago. approximately 20 years ago. History of nephrolithiasis. History of hemorrhoids. Surgical History Multiple loop electrosurgical excisional procedure (LEEP) procedures. Cryosurgery. Four laparoscopic surgeries, one ovarian cysts and she had three for endometriosis. Colonoscopy 11/30/[address] Mendoza. Right breast cyst removed, benign. Dilation and curettage (D and C). Heart catheterization 10 years ago, within normal limits. Surgical History Cryosurgery. Four laparoscopic surgeries, one ovarian cysts and she had three for endometriosis. Colonoscopy 11/30/[address] Mendoza. Right breast cyst removed, benign. Dilation and curettage (D and C). Heart catheterization 10 years ago, within normal limits. Family History Cancer (mother iwht cervical cancer, Maternal aunts with cervical and breast cancers. ), Heart disease (mother), Other (mother with rheumatoid arthritis, graves disease) Social History * Smoker: Denies Alcohol: Denies Drugs: denies A-FIB/CHADSVASC A-FIB History Current/History of A-Fib/PAF?: No Current PO Anticoag Therapy: No Review of Systems Constitutional: Denies: Chills Eyes: Denies: Pain ENT: Denies: Head Aches Skin: Denies: Rash Pulmonary: Denies: Dyspnea, Cough Cardiovascular: Denies: Chest Pain, Palpitations Gastrointestinal: Denies: Nausea, Vomiting Genitourinary: Denies: Dysuria, Frequency Hematologic: Denies: Bruising Endocrine: Denies: Polydipsia, Polyphagia Musculoskeletal: Denies: Neck Pain Neurological: Denies: Weakness Psych: Reports: Mood Normal Physical Examination General Exam: Positive: Alert, Cooperative Eye Exam: Positive: PERRLA ENT Exam: Positive: Atraumatic Neck Exam: Positive: Supple; Negative: JVD Chest Exam: Positive: Clear to auscultation Heart Exam: Positive: Rate Normal Telemetry: Positive: No significant arrhythmia Abdomen Exam: Positive: Normal bowel sounds Extremity Exam: Negative: Clubbing, Cyanosis Skin Exam: Positive: Nl turgor and temperature Neuro Exam: Positive: Normal Gait Psych Exam: Positive: Mental status NL Vital Signs Vital Signs Date Time Temp Pulse Resp B/P (MAP) Pulse Ox O2 Delivery O2 Flow Rate FiO2 06/21/19 08:36 Room Air 06/20/19 21:28 98.8 95 18 137/80 (99) 97 Laboratory Data Labs 24H Laboratory Tests 2 06/20/19 17:18: Nucleated Red Blood Cells % (auto) 0.0, Anion Gap 4L, Glomerular Filtration Rate > 60.0, Calcium Level 8.7, Total Bilirubin 0.2, Direct Bilirubin < 0.1, Aspartate Amino Transf (AST/SGOT) 21, Alanine Aminotransferase (ALT/SGPT) 24, Alkaline Phosphatase 81, Total Protein 6.7, Albumin 3.5, Albumin/Globulin Ratio 1.09, Thyroid Stimulating Hormone (TSH) 0.707, Salicylates Level < 1.7L, Acetaminophen Level < 2.0L, Ethyl Alcohol Level < 0.003 06/20/19 17:41: Urine Opiates Screen NEGATIVE, Urine Methadone Screen NEGATIVE, Urine Barbiturates Screen NEGATIVE, Urine Phencyclidine Screen NEGATIVE, Urine Amphetamines Screen NEGATIVE, Urine Benzodiazepines Screen NEGATIVE, Urine Cocaine Metabolite Screen NEGATIVE, Urine Cannabinoids Screen NEGATIVE 06/21/19 12:32: Estimated Mean Plasma Glucose 114H, Hemoglobin A1c 5.6, Triglycerides Level 88, Total Cholesterol 168, LDL Cholesterol 85, Non-HDL Cholesterol (LDL + VLDL) 103, Total HDL Cholesterol 65, Cholesterol/HDL Ratio 2.584 CBC/BMP Laboratory Tests 06/20/19 17:18 Assessment/Plan Patient is 54 years old female with past medical history of lupus, chronic back pain, history of obsessive-compulsive disorder, history of osteoarthritis and endometriosis presented hospital with delusional and paranoid ideation. She denied fever, chills, nausea, vomiting, chest pain, diarrhea or dysuria. Problems (1) Anxiety and depression Status: Acute Problem Text: Associated with depression Psychiatry team follows her Currently patient doesn't have any acute somatic diseases except mental illness Plan / VTE VTE Prophylaxis Ordered?: No VTE Exclusion Pharmacological: At Low Risk for VTE GHASSAN EUBANKS DO Jun 21, 2019 15:58
[2019-06-21] MEDS: PRAZOSIN 1 MG CAP PO SCH (20:08)
[2019-06-21] MEDS: traZODone 50 MG TAB PO PRN (20:12)
[2019-06-22 06:20] VITALS: BP 137/79
[2019-06-22] MEDS: CETIRIZINE (ZyrTEC) 10 MG TAB PO SCH (08:24)
[2019-06-22] MEDS: FERROUS SULFATE 325MG TAB PO SCH (08:24)
[2019-06-22] MEDS: ASCORBIC ACID 500 MG TAB PO SCH (08:24)
[2019-06-22] MEDS: OMEPRAZOLE 20 MG CAP PO SCH (08:24)
--- NOTE | 2019-06-22 09:13 | MHIPNPDOC ---
[facility] Progress Note Progress Note Inpatient Progress Note Lilian Tinajero MRN: N/A Date of : N/A Date of Service: 06/22/2019 History of Present Illness The patient, a 54-year-old woman who presents again shortly after being discharged, she returned stating that she was "psychotic," she reports that she felt her was poisoning her, but as previous report no change in the low level of conviction she had about this. She was admitted out of an abundance of caution, however, the patient reportedly had malingered to present again to our unit. She reports no changes in her review systems or psychosocial information. Interval History Patient is met with today. She reports she is tolerating the Abilify well and has not noticed any undue effects. She continues to state she has paranoid thoughts, but has difficulty describing any thoughts, she continues to want to split with various staff members and continues to try to justify her needs by endorsing various unusual paranoid ideations, but usually does not continue with it. She said no behavioral problems overnight and has been compliant although generally not engaged in treatment. Review Of Systems General: Denies fever or appetite changes Cardiovascular: Denies Chest pain or palpations GI: Denies Nausea, vomiting, or bowel changes Respiratory: Denies shortness of breath or cough Neuro: Denies dizziness, tremors Derm: Denies any rashes or pruritus : Denies any dysuria or urinary problems MSK: Denies any muscle tightness or stiffness HEENT: Denies any vision changes or headaches General: Denies fever or appetite changes Cardiovascular: Denies Chest pain or palpations GI: Denies Nausea, vomiting, or bowel changes Respiratory: Denies shortness of breath or cough Neuro: Denies dizziness, tremors Derm: Denies any rashes or pruritus : Denies any dysuria or urinary problems MSK: Denies any muscle tightness or stiffness HEENT: Denies any vision changes or headaches Psychotherapy None on this visit. Vital Signs Reviewed. Mental Status Examination General: Well dressed with good hygiene Speech: Spontaneous and fluid Thought processes: Linear and logical MSK: Smooth and coordinated gait, no signs of tremors or involuntary orofacial movements Thought content: Future orientated Abstract reasoning, and computation: Intact Description of associations: Intact Description of abnormal or psychotic thoughts: Denies any suicidal or homicidal ideation. Denies any auditory or visual hallucinations. Does not appear to be responding to internal stimuli. Does not appear to be endorsing any bizarre or paranoid ideation. Judgment: Limited. Insight: Limited. Orientation: Alert and orientated 3 Cognition: Grossly normal Recent and remote memory: Intact Attention span and concentration: Intact Fund of knowledge: Adequate Mood: "okay" Affect: Euthymic with a full range Diagnoses Unspecified psychosis. Concern for fabrication versus malingering. Dependent personality disorder. Assessment and Plan Unspecified psychosis: Continue Abilify 5 mg nightly. Continue to monitor. Disposition Continue to monitor for effects, and to determinate if paranoid ideation exists. Time Spent 15 minutes [id number]. Thursday Vital Signs Vital Signs Date Time Temp Pulse Resp B/P (MAP) Pulse Ox O2 Delivery O2 Flow Rate FiO2 06/22/19 08:02 Room Air 06/22/19 06:20 98.3 84 14 137/79 (98) 96 Laboratory Data 24H Labs Laboratory Tests 2 06/21/19 12:32: Estimated Mean Plasma Glucose 114H, Hemoglobin A1c 5.6, Triglycerides Level 88, Total Cholesterol 168, LDL Cholesterol 85, Non-HDL Cholesterol (LDL + VLDL) 103, Total HDL Cholesterol 65, Cholesterol/HDL Ratio 2.584 Current Medications Current Medications Medications (Trade) Dose Ordered Sig/Remberto Route PRN Reason Start Time Stop Time Status Last Admin Dose Admin Acetaminophen (Tylenol Tab) 650 mg Q6HP PRN PO HEADACHE or DISCOMFORT 06/20/19 19:30 06/21/19 20:09 Al Hydrox/Mg Hydrox/Simethicone (Mylanta) 30 ml Q4HP PRN PO HEARTBURN/INDIGESTION 06/20/19 19:30 Aripiprazole (AbiLIFY) 5 mg QHS PO 06/21/19 21:00 06/21/19 20:08 Ascorbic Acid (Vitamin C) 500 mg DAILY PO 06/21/19 09:00 06/22/19 08:24 Cetirizine HCl (ZyrTEC) 10 mg DAILY PO 06/21/19 09:00 06/22/19 08:24 Epinephrine HCl (Adrenalin) 0.3 mg DAILYPRN PRN IM anaphylaxis 06/20/19 19:30 Ferrous Sulfate (Ferrous Sulfate) 325 mg DAILY PO 06/21/19 09:00 06/22/19 08:24 Home Med (Med Rec Complete!) ASDIRECTED XX 06/20/19 20:15 06/20/19 20:16 DC Magnesium Hydroxide (Milk Of Magnesia) 30 ml DAILYPRN PRN PO CONSTIPATION 06/20/19 19:30 Olanzapine (ZyPREXA ZYDIS) 5 mg Q6HP PRN PO AGITATION 06/20/19 19:30 Omeprazole (PriLOSEC) 40 mg DAILY PO 06/21/19 09:00 06/22/19 08:24 Paliperidone (Invega) 3 mg BID PO 06/20/19 21:00 06/21/19 09:45 DC Prazosin HCl (Minipress) 8 mg QHS PO 06/21/19 21:00 06/21/19 20:08 Trazodone HCl (Desyrel) 50 mg QHSP PRN PO INSOMNIA 06/20/19 19:30 06/21/19 20:12 Allergies Coded Allergies: shellfish derived (Verified Allergy, Severe, lip swelling/airway compromise, 05/30/19) Penicillins (Verified Allergy, Intermediate, swelling of lips, 05/30/19) latex (Verified Allergy, Intermediate, rash, 05/30/19) amoxicillin (Verified Adverse Reaction, Intermediate, vomiting, 05/30/19) clavulanic acid (Verified Adverse Reaction, Intermediate, vomiting, 05/30/19) iodine (Verified Adverse Reaction, Intermediate, sneezing/vomiting, 05/30/19) ENVIROMENTAL (Verified Adverse Reaction, Mild, cough/sneeze, 05/30/19) BLAKE SOSA DO Jun 22, 2019 09:13
[2019-06-22 15:44] VITALS: BP 120/82
[2019-06-22] MEDS: PRAZOSIN 1 MG CAP PO SCH (21:51)
[2019-06-22] MEDS: traZODone 50 MG TAB PO PRN (21:52)
[2019-06-23 06:08] VITALS: BP 128/69
[2019-06-23] MEDS: FERROUS SULFATE 325MG TAB PO SCH (08:21)
[2019-06-23] MEDS: OMEPRAZOLE 20 MG CAP PO SCH (08:22)
[2019-06-23] MEDS: CETIRIZINE (ZyrTEC) 10 MG TAB PO SCH (08:22)
[2019-06-23] MEDS: ASCORBIC ACID 500 MG TAB PO SCH (08:22)
--- NOTE | 2019-06-23 09:12 | MHIPNPDOC ---
[facility] Progress Note Progress Note Inpatient Progress Note Lilian Tinajero MRN: N/A Date of : N/A Date of Service: 06/23/2019 History of Present Illness The patient, a 54-year-old woman who presents again shortly after being discharged, she returned stating that she was "psychotic," she reports that she felt her was poisoning her, but as previous report no change in the low level of conviction she had about this. She was admitted out of an abundance of caution, however, the patient reportedly had malingered to present again to our unit. She reports no changes in her review systems or psychosocial information. Interval History The patient has met with today. She generally brings a list of various complaints, she discussed that she feels somewhat more fatigued on the Abilify. However she reports that this goes away. She continues to focus on wanting to engage and split with the treatment team, she continues to want her daughter and her psychologist to be intimately involved in her care, continue redirection as needed in order to reframe that this is a short-term stay and that she will need to ascertain her ultimate direction. Review Of Systems General: Denies fever or appetite changes Cardiovascular: Denies Chest pain or palpations GI: Denies Nausea, vomiting, or bowel changes Respiratory: Denies shortness of breath or cough Neuro: Denies dizziness, tremors Derm: Denies any rashes or pruritus MSK: Denies any muscle tightness or stiffness Psychotherapy None on this visit. Vital Signs Reviewed. Mental Status Examination General: Well dressed with good hygiene Speech: Spontaneous and fluid Thought processes: Linear and logical MSK: Smooth and coordinated gait, no signs of tremors or involuntary orofacial movements Thought content: Future orientated Abstract reasoning, and computation: Intact Description of associations: Intact Description of abnormal or psychotic thoughts: Denies any suicidal or homicidal ideation. Denies any auditory or visual hallucinations. Does not appear to be responding to internal stimuli. Does not appear to be endorsing any bizarre or paranoid ideation. Judgment: Limited. Insight: Limited. Orientation: Alert and orientated 3 Cognition: Grossly normal Recent and remote memory: Intact Attention span and concentration: Intact Fund of knowledge: Adequate Mood: "okay" Affect: Euthymic with a full range Diagnoses Unspecified psychosis. Concern for fabrication versus malingering. Dependent personality disorder. Assessment and Plan Unspecified psychosis: Continue Abilify 5 mg nightly. Continue to monitor. Dependent personality disorder: Will minimize splitting, discuss with treatment team about minimizing the patient's ability to split between treatment team and family and outpatient providers, as she generally does. Will continue to ascertain peer need for treatment avoiding engaging in any transfer and space behavior. Disposition Patient will be observed and likely discharge on Thursday, as she will be met the full amount treatment possible for her condition, still great concern for malingering. Time Spent 15 minutes. Vital Signs Vital Signs Date Time Temp Pulse Resp B/P (MAP) Pulse Ox O2 Delivery O2 Flow Rate FiO2 06/23/19 07:59 Room Air 06/23/19 06:08 98.1 81 16 128/69 (88) 97 Current Medications Current Medications Medications (Trade) Dose Ordered Sig/Remberto Route PRN Reason Start Time Stop Time Status Last Admin Dose Admin Acetaminophen (Tylenol Tab) 650 mg Q6HP PRN PO HEADACHE or DISCOMFORT 06/20/19 19:30 06/21/19 20:09 Al Hydrox/Mg Hydrox/Simethicone (Mylanta) 30 ml Q4HP PRN PO HEARTBURN/INDIGESTION 06/20/19 19:30 Aripiprazole (AbiLIFY) 5 mg QHS PO 06/21/19 21:00 06/22/19 21:50 Ascorbic Acid (Vitamin C) 500 mg DAILY PO 06/21/19 09:00 06/23/19 08:22 Cetirizine HCl (ZyrTEC) 10 mg DAILY PO 06/21/19 09:00 06/23/19 08:22 Epinephrine HCl (Adrenalin) 0.3 mg DAILYPRN PRN IM anaphylaxis 06/20/19 19:30 Ferrous Sulfate (Ferrous Sulfate) 325 mg DAILY PO 06/21/19 09:00 06/23/19 08:21 Home Med (Med Rec Complete!) ASDIRECTED XX 06/20/19 20:15 06/20/19 20:16 DC Magnesium Hydroxide (Milk Of Magnesia) 30 ml DAILYPRN PRN PO CONSTIPATION 06/20/19 19:30 Olanzapine (ZyPREXA ZYDIS) 5 mg Q6HP PRN PO AGITATION 06/20/19 19:30 Omeprazole (PriLOSEC) 40 mg DAILY PO 06/21/19 09:00 06/23/19 08:22 Paliperidone (Invega) 3 mg BID PO 06/20/19 21:00 06/21/19 09:45 DC Prazosin HCl (Minipress) 8 mg QHS PO 06/21/19 21:00 06/22/19 21:51 Trazodone HCl (Desyrel) 50 mg QHSP PRN PO INSOMNIA 06/20/19 19:30 06/22/19 21:52 Allergies Coded Allergies: shellfish derived (Verified Allergy, Severe, lip swelling/airway compromise, 05/30/19) Penicillins (Verified Allergy, Intermediate, swelling of lips, 05/30/19) latex (Verified Allergy, Intermediate, rash, 05/30/19) amoxicillin (Verified Adverse Reaction, Intermediate, vomiting, 05/30/19) clavulanic acid (Verified Adverse Reaction, Intermediate, vomiting, 05/30/19) iodine (Verified Adverse Reaction, Intermediate, sneezing/vomiting, 05/30/19) ENVIROMENTAL (Verified Adverse Reaction, Mild, cough/sneeze, 05/30/19) BLAKE SOSA DO Jun 23, 2019 09:12
[2019-06-23] MEDS ORDERED: CEPACOL LOZENGE PO PRN (12:00)
[2019-06-23 15:15] VITALS: BP 175/88
[2019-06-23] MEDS: PRAZOSIN 1 MG CAP PO SCH (21:50)
[2019-06-23] MEDS: traZODone 50 MG TAB PO PRN (21:51)
[2019-06-24 06:19] VITALS: BP 142/87
[2019-06-24] MEDS: ASCORBIC ACID 500 MG TAB PO SCH (08:39)
[2019-06-24] MEDS: CETIRIZINE (ZyrTEC) 10 MG TAB PO SCH (08:40)
[2019-06-24] MEDS: OMEPRAZOLE 20 MG CAP PO SCH (08:40)
[2019-06-24] MEDS: FERROUS SULFATE 325MG TAB PO SCH (08:40)
--- NOTE | 2019-06-24 09:10 | MHIPNPDOC ---
[facility] Progress Note Progress Note Inpatient Progress Note Lilian Tinajero MRN: N/A Date of : N/A Date of Service: 06/24/2019 History of Present Illness The patient, a 54-year-old woman who presents again shortly after being discharged, she returned stating that she was "psychotic," she reports that she felt her was poisoning her, but as previous report no change in the low level of conviction she had about this. She was admitted out of an abundance of caution, however, the patient reportedly had malingered to present again to our unit. She reports no changes in her review systems or psychosocial information. Interval History The patient is met with today. She continues to fixate on various splitting behaviors. She continues to try to justify her admission, stating that she has some sedation from the Abilify, however continues to manufacture unclear symptoms. She states she has gastrointestinal upset, however is unable to describe it. She continues to focus on this during the entirety of the interview being wholly unproductive. The patient continues to be very needy focusing on tension seeking behaviors from the nurses. When asked about any suicidal thoughts, she bloviates for the majority of it as well as with homicidal thoughts, however with more strict clarification. She yields she does not have this, but then request to have a one-to-one sitter. Review Of Systems Unclear, however patient denies any specific side effects from Abilify. Psychotherapy None on this visit. Vital Signs Reviewed. Mental Status Examination General: Well dressed with good hygiene Speech: Spontaneous and fluid Thought processes: Linear and logical MSK: Smooth and coordinated gait, no signs of tremors or involuntary orofacial movements Thought content: Focused on remaining Abstract reasoning, and computation: Intact Description of associations: Intact Description of abnormal or psychotic thoughts: Denies any suicidal or homicidal ideation. Denies any auditory or visual hallucinations. Does not appear to be responding to internal stimuli. Does not appear to be endorsing any bizarre or paranoid ideation. Judgment: Limited. Insight: Limited. Orientation: Alert and orientated 3 Cognition: Grossly normal Recent and remote memory: Intact Attention span and concentration: Intact Fund of knowledge: Adequate Mood: "okay" Affect: Euthymic with a full range Diagnoses Unspecified psychosis. Concern for fabrication versus malingering. Dependent personality disorder. Assessment and Plan Unspecified psychosis: Continue Abilify 5 mg nightly. Dependent personality disorder: Continue to minimize splitting, patient will not be rewarded for any negative behaviors. Disposition Further admission for observation, however she will likely be discharged on Thursday as she appears to be getting worse on her inpatient unit, as would be expected with a dependent personality disorder, she is becoming more needy and attention seeking. Time Spent 15 minutes. Thursday Vital Signs Vital Signs Date Time Temp Pulse Resp B/P (MAP) Pulse Ox O2 Delivery O2 Flow Rate FiO2 06/24/19 06:19 99.7 87 16 142/87 (105) 06/23/19 07:59 Room Air 06/23/19 06:08 97 Current Medications Current Medications Medications (Trade) Dose Ordered Sig/Remberto Route PRN Reason Start Time Stop Time Status Last Admin Dose Admin Acetaminophen (Tylenol Tab) 650 mg Q6HP PRN PO HEADACHE or DISCOMFORT 06/20/19 19:30 06/21/19 20:09 Al Hydrox/Mg Hydrox/Simethicone (Mylanta) 30 ml Q4HP PRN PO HEARTBURN/INDIGESTION 06/20/19 19:30 Aripiprazole (AbiLIFY) 5 mg QHS PO 06/21/19 21:00 06/23/19 21:49 Ascorbic Acid (Vitamin C) 500 mg DAILY PO 06/21/19 09:00 06/24/19 08:39 Cetirizine HCl (ZyrTEC) 10 mg DAILY PO 06/21/19 09:00 06/24/19 08:40 Cetylpyridinium Chloride (Cepacol) 1 ruth Q2HP PRN PO SORE THROAT 06/23/19 12:00 Epinephrine HCl (Adrenalin) 0.3 mg DAILYPRN PRN IM anaphylaxis 06/20/19 19:30 Ferrous Sulfate (Ferrous Sulfate) 325 mg DAILY PO 06/21/19 09:00 06/24/19 08:40 Home Med (Med Rec Complete!) ASDIRECTED XX 06/20/19 20:15 06/20/19 20:16 DC Magnesium Hydroxide (Milk Of Magnesia) 30 ml DAILYPRN PRN PO CONSTIPATION 06/20/19 19:30 Olanzapine (ZyPREXA ZYDIS) 5 mg Q6HP PRN PO AGITATION 06/20/19 19:30 Omeprazole (PriLOSEC) 40 mg DAILY PO 06/21/19 09:00 06/24/19 08:40 Paliperidone (Invega) 3 mg BID PO 06/20/19 21:00 06/21/19 09:45 DC Prazosin HCl (Minipress) 8 mg QHS PO 06/21/19 21:00 06/23/19 21:50 Trazodone HCl (Desyrel) 50 mg QHSP PRN PO INSOMNIA 06/20/19 19:30 06/23/19 21:51 Allergies Coded Allergies: shellfish derived (Verified Allergy, Severe, lip swelling/airway compromise, 05/30/19) Penicillins (Verified Allergy, Intermediate, swelling of lips, 05/30/19) latex (Verified Allergy, Intermediate, rash, 05/30/19) amoxicillin (Verified Adverse Reaction, Intermediate, vomiting, 05/30/19) clavulanic acid (Verified Adverse Reaction, Intermediate, vomiting, 05/30/19) iodine (Verified Adverse Reaction, Intermediate, sneezing/vomiting, 05/30/19) ENVIROMENTAL (Verified Adverse Reaction, Mild, cough/sneeze, 05/30/19) BLAKE SOSA DO Jun 24, 2019 09:10
[2019-06-24] MEDS: traZODone 50 MG TAB PO PRN (21:58)
[2019-06-24] MEDS: PRAZOSIN 1 MG CAP PO SCH (21:59)
[2019-06-25 06:20] VITALS: BP 128/71
[2019-06-25] MEDS: CETIRIZINE (ZyrTEC) 10 MG TAB PO SCH (08:27)
[2019-06-25] MEDS: OMEPRAZOLE 20 MG CAP PO SCH (08:27)
[2019-06-25] MEDS: FERROUS SULFATE 325MG TAB PO SCH (08:27)
[2019-06-25] MEDS: ASCORBIC ACID 500 MG TAB PO SCH (08:27)
[2019-06-25 16:10] VITALS: BP 118/75
[2019-06-25] MEDS: PRAZOSIN 1 MG CAP PO SCH (21:21)
[2019-06-25] MEDS: traZODone 50 MG TAB PO PRN (22:15)
[2019-06-26 06:41] VITALS: BP 125/53
[2019-06-26] MEDS: ASCORBIC ACID 500 MG TAB PO SCH (08:26)
[2019-06-26] MEDS: CETIRIZINE (ZyrTEC) 10 MG TAB PO SCH (08:26)
[2019-06-26] MEDS: OMEPRAZOLE 20 MG CAP PO SCH (08:26)
[2019-06-26] MEDS: FERROUS SULFATE 325MG TAB PO SCH (08:26)
[2019-06-26 16:04] VITALS: BP 132/89
[2019-06-26 21:04] VITALS: BP 113/78
[2019-06-26] MEDS: PRAZOSIN 1 MG CAP PO SCH (21:04)
[2019-06-26] MEDS: traZODone 50 MG TAB PO PRN (21:04)
[2019-06-27 06:33] VITALS: BP 135/64
--- NOTE | 2019-06-27 09:18 | MHDSPDOC ---
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 History of Present Illness The patient, a 54-year-old woman who presents again shortly after being discharged, she returned stating that she was "psychotic," she reports that she felt her was poisoning her, but as previous report no change in the low level of conviction she had about this. She was admitted out of an abundance of caution, however, the patient reportedly had malingered to present again to our unit. She reports no changes in her review systems or psychosocial information. Consultants Involved Hospitalist/PCP screening Treatment and Progress On The Unit The patient was admitted to the inpatient mental health after being recently discharged, she was changed from Invega as she reports it made her too tired to Abilify. She reportedly tolerated it well and would complain about medication, but would never give me any specifics. She continued during her stay to genuinely decompensate the longer she was on our unit becoming more dependent and attention seeking. Her paranoia had no conviction as is her normal presentation, she states that her had been poisoning her, but then when she had arrived she was quite euthymic and asked for him to bring her chocolates. She reported most nursing staff that she wants to stay here to avoid being around her and felt it saved her money from being at a hotel. The patient continued to try to split with staff and wanted a majority of the staff to arrange for her to be ATLS or other living situations. Even when she would talk about paranoid ideation, she was subsequently redirected in the middle of a sentence contradicting herself frequently. She demonstrated a fairly high level of intelligence with no overt signs of psychosis discomfort during her tr eatment, she required multiple redirections in order to gauge in any treatment as she reportedly did not want to be "forced" it took being treated, but did not want to be discharged. Discharge Assessment 54-year-old woman with likely factitious disorder on top of dependent personality presents again after wanting to stay on our unit, she has a long history of being in residential programs for reported dissociative identity disorder, however, no signs or symptoms psychosis or DID were found during her assessment or her observation. She began to decompensate as would be expected with a dependent personality becoming more needy, more behaviorally problematic, with no aggression, but becoming more elaborate with various claims of psychosis that have no conviction. The patient was discharged as she no longer met involuntary criteria, denying any suicidal or homicidal ideation, having no o vert signs of psychosis. I do not believe that at that time of discharge, she met criteria to be kept against her will. She does not meet voluntary criteria as it appears that her voluntary stay has made her worse and will likely decompensated her. A sufficient followup program was made and referral to [facility] residential treatment was made in order for the patient to engage with a more effective treatment. Discussed with her outpatient psychologist about encouraging her to pursue a long-term residential program as she would be ineligible for long-term psychiatric treatment. Mental Status Examination General: Well dressed with good hygiene Speech: Spontaneous and fluid Thought processes: Linear and logical MSK: Smooth and coordinated gait, no signs of tremors or involuntary orofacial movements Thought content: Future orientated Abstract reasoning, and computation: Intact Description of associations: Intact Description of abnormal or psychotic thoughts: Denies any suicidal or homicidal ideation. Denies any auditory or visual hallucinations. Does not appear to be responding to internal stimuli. Does not appear to be endorsing any bizarre or paranoid ideation. Judgment: Chronically limited. Insight: Chronically limited. Orientation: Alert and orientated 3 Cognition: Grossly normal Recent and remote memory: Intact Attention span and concentration: Intact Fund of knowledge: Adequate Mood: "okay" Affect: Euthymic with a full range Follow Up The social work team worked during the predischarge meeting in order to evaluate for further issues of lethality address them fully before discharge. They worked on safety planning with the patient's family members in order to ensure that the patient will have a safe and effective discharge. Time Spent The amount of time spent in the coordination of care for this patient was approximately 45 minutes. Thursday Vital Signs/I&Os Vital Signs Date Time Temp Pulse Resp B/P (MAP) Pulse Ox O2 Delivery O2 Flow Rate FiO2 06/27/19 06:33 97.3 82 16 135/64 (87) 96 Room Air Medications Scheduled Aripiprazole (Abilify) 5 Mg Tablet, 5 MG PO QHS for mood for 7 Days, #7 Ascorbic Acid (Vitamin C) 500 Mg Tablet, 500 MG PO DAILY, (Reported) Cetirizine HCl (Cetirizine HCl) 10 Mg Tablet, 10 MG PO DAILY, (Reported) Ferrous Sulfate (Ferrous Sulfate) 325 Mg Tablet.dr, 325 MG PO DAILY, (Reported) Omeprazole (Omeprazole) 20 Mg Capsule.dr, 40 MG PO DAILY, (Reported) Prazosin Hcl (Prazosin HCl) 2 Mg Capsule, 8 MG PO QHS, (Reported) Scheduled PRN Epinephrine (Epinephrine) 0.3 Mg/0.3 Ml Auto.injct, 0.3 MG IM ASDIRECTED PRN for ANAPHYLAXIS, (Reported) Allergies Coded Allergies: shellfish derived (Verified Allergy, Severe, lip swelling/airway compromise, 05/30/19) Penicillins (Verified Allergy, Intermediate, swelling of lips, 05/30/19) latex (Verified Allergy, Intermediate, rash, 05/30/19) amoxicillin (Verified Adverse Reaction, Intermediate, vomiting, 05/30/19) clavulanic acid (Verified Adverse Reaction, Intermediate, vomiting, 05/30/19) iodine (Verified Adverse Reaction, Intermediate, sneezing/vomiting, 05/30/19) ENVIROMENTAL (Verified Adverse Reaction, Mild, cough/sneeze, 05/30/19) BLAKE SOSA DO Jun 27, 2019 09:18
[2019-06-27] MEDS: FERROUS SULFATE 325MG TAB PO SCH (09:24)
[2019-06-27] MEDS: CETIRIZINE (ZyrTEC) 10 MG TAB PO SCH (09:25)
[2019-06-27] MEDS: OMEPRAZOLE 20 MG CAP PO SCH (09:25)
[2019-06-27] MEDS: ASCORBIC ACID 500 MG TAB PO SCH (09:26)
[2019-06-27] MEDS ORDERED: ABIL1TAB11 PO (11:54)
[2019-06-27 15:00] VITALS: BP 144/80
== END 2019-06-27 15:50 | disposition home or self-care (01) | DRG 880 ==
LOC: M ED 16:46 → M ED INP 19:17 → M PSY 20:28
PROVIDERS: ADMIT Psychiatry & Neurology Psychiatry; ATTEND Psychiatry & Neurology Addiction Medicine
DX: F68.11 Factitious disorder imposed on self, with predominantly psychological signs and symptoms (principal); D68.61 Antiphospholipid syndrome; L93.0 Discoid lupus erythematosus; F60.7 Dependent personality disorder; J30.9 Allergic rhinitis, unspecified; Z88.0 Allergy status to penicillin; Z88.8 Allergy status to other drugs, medicaments and biological substances; M54.9 Dorsalgia, unspecified; N60.19 Diffuse cystic mastopathy of unspecified breast; M19.90 Unspecified osteoarthritis, unspecified site; Z91.013 Allergy to seafood; Z91.040 Latex allergy status; Z85.41 Personal history of malignant neoplasm of cervix uteri; Z62.810 Personal history of physical and sexual abuse in childhood; Z79.899 Other long term (current) drug therapy

== ENCOUNTER → 2019-08-03 | Outpatient (CLI) | payer OTHER ==
[~2019-08-03] MED LIST changes: +ABIL1TAB11 PO; +B-12100010 PO; +CHILCHW27 PO; +FOLI800C PO; +MAGN400C2 PO; +MIRA1POW3 PO; +MULT1TAB83 PO; +NOXI1TAB PO; +OMEG100011 PO; +ONDA4TAB6 PO; +RA T500C2 PO; +VITAD1000T PO
[2019-08-03 08:23] LABS: BASO % 0.5 % (0.0-1.0); EOS # 0.1 10^3/uL (0.0-0.5); EOS % 1.1 % (0.0-3.0); HEMATOCRIT 37.5 % (36.0-47.0); LYMPH # 1.5 10^3/uL (1.5-5.0); LYMPH % 20.2 % (24.0-44.0); MEAN CORPUSCULAR HEMOGLOBIN 26.1 pg (27.0-33.0); MEAN CORPUSCULAR VOLUME 81.5 fl (80.0-96.0); MONO # 0.6 10^3/uL (0.0-0.8); MONO % 8.7 % (0.0-5.0); NEUTROPHILS # 5.1 10^3/uL (1.5-8.5); NEUTROPHILS % 69.2 % (36.0-66.0); PLATELET COUNT, AUTOMATED 251 10^3/uL (150-450); WHITE BLOOD COUNT 7.4 10^3/uL (4.0-10.0)
[2019-08-03 09:04] LABS: ALBUMIN 3.6 GM/DL (3.2-5.2); ALT/SGPT 35 U/L (12-78); BILIRUBIN,TOTAL 0.5 MG/DL (0.2-1.0); BLOOD UREA NITROGEN 10 MG/DL (7-18); CALCIUM LEVEL 8.8 MG/DL (8.5-10.1); CARBON DIOXIDE LEVEL 29 MEQ/L (21-32); CHLORIDE LEVEL 105 MEQ/L (98-107); CREATININE FOR GFR 0.77 MG/DL (0.55-1.30); FOLATE > 24.0 NG/ML; GLOMERULAR FILTRATION RATE > 60.0 (>51); GLUCOSE, FASTING 91 MG/DL (70-100); POTASSIUM SERUM 3.5 MEQ/L (3.5-5.1); SODIUM LEVEL 141 MEQ/L (136-145); VITAMIN B12 LEVEL 982 PG/ML
[2019-08-03 09:55] LABS: HEMOGLOBIN A1c 5.6 %
== END ==
LOC: M LAB 07:59
PROVIDERS: ATTEND Physician Assistant
DX: R20.2 Paresthesia of skin (principal)

== ENCOUNTER 2019-08-06 00:04 | Emergency (ER) | payer OTHER ==
[~2019-08-06] VITALS: Ht 170.2 cm; Wt 100.0 kg
[~2019-08-06 00:04] MED LIST changes: -B-12100010 PO; -CHILCHW27 PO; -FOLI800C PO; -MAGN400C2 PO; -MIRA1POW3 PO; -MULT1TAB83 PO; -NOXI1TAB PO; -OMEG100011 PO; -ONDA4TAB6 PO; -RA T500C2 PO; -VITAD1000T PO
[2019-08-06 01:17] VITALS: BP 106/58
== END 2019-08-06 01:29 | disposition home or self-care (01) ==
LOC: M ED 00:04 → EDBD 00:04 → M ED 01:29
DX: F44.6 Conversion disorder with sensory symptom or deficit (principal); F60.9 Personality disorder, unspecified; Z88.0 Allergy status to penicillin; Z88.1 Allergy status to other antibiotic agents; Z88.8 Allergy status to other drugs, medicaments and biological substances; Z91.040 Latex allergy status; Z91.013 Allergy to seafood; J30.9 Allergic rhinitis, unspecified; Z79.899 Other long term (current) drug therapy

== ENCOUNTER 2019-08-07 23:16 | Inpatient (IN) | payer OTHER ==
[~2019-08-07] VITALS: Ht 162.6 cm; Wt 106.8 kg
[2019-08-08 00:12] LABS: APPEARANCE, URINE CLEAR (CLEAR); BACTERIA, URINE AUTO NEGATIVE (NEGATIVE); BILIRUBIN, URINE AUTO NEGATIVE (NEGATIVE); BLOOD, URINE BLOOD NEGATIVE (NEGATIVE); COLOR, URINE YELLOW (YELLOW); GLUCOSE, URINE (UA) AUTO NEGATIVE (NEGATIVE); KETONE, URINE AUTO NEGATIVE (NEGATIVE); LEUKOCYTE ESTERASE, URINE AUTO NEGATIVE (NEGATIVE); NITRITE, URINE AUTO NEGATIVE (NEGATIVE); PROTEIN, URINE AUTO NEGATIVE (NEGATIVE); RBC, URINE AUTO 0 /HPF (0-3); SPECIFIC GRAVITY URINE AUTO 1.005 (1.002-1.035); SQUAMOUS EPITHELIAL CELL UR AU 0 /HPF (0-6); UROBILINOGEN, URINE AUTO 0.2 mg/dL (0.0-2.0); WBC, URINE AUTO 0 /HPF (0-3)
[2019-08-08 00:17] LABS: BASO # 0.1 10^3/uL (0.0-0.2); BASO % 0.6 % (0.0-1.0); EOS # 0.1 10^3/uL (0.0-0.5); EOS % 0.5 % (0.0-3.0); HEMATOCRIT 39.6 % (36.0-47.0); HEMOGLOBIN 12.8 g/dl (12.0-15.5); LYMPH # 2.1 10^3/uL (1.5-5.0); LYMPH % 21.3 % (24.0-44.0); MEAN CORPUSCULAR HEMOGLOBIN 26.6 pg (27.0-33.0); MEAN CORPUSCULAR HGB CONC 32.3 g/dl (32.0-36.5); MEAN CORPUSCULAR VOLUME 82.3 fl (80.0-96.0); MONO # 0.6 10^3/uL (0.0-0.8); MONO % 6.2 % (0.0-5.0); NEUTROPHILS % 70.6 % (36.0-66.0); PLATELET COUNT, AUTOMATED 302 10^3/uL (150-450); RED BLOOD COUNT 4.81 10^6/uL (4.00-5.40)
[2019-08-08 00:30] LABS: ALT/SGPT 53 U/L (12-78); BILIRUBIN,DIRECT 0.2 MG/DL (0.0-0.2); BILIRUBIN,TOTAL 0.4 MG/DL (0.2-1.0); LIPASE 88 U/L (73-393); NT-PRO BNP 61 PG/ML (<125); TOTAL PROTEIN 7.3 GM/DL (6.4-8.2)
[2019-08-08] MEDS ORDERED: ONDANSETRON 4MG/2ML VIAL IV ONE (00:45)
[2019-08-08] MEDS ORDERED: KETOROLAC 30 MG/ML 1ML VIAL IV ONE (00:45)
[2019-08-08] MEDS ORDERED: METAL LOCK LOOP XX ONE (00:53)
--- NOTE | 2019-08-08 00:59 | REP ---
Clinical: Acute abdominal pain. Technique: Upright view of the chest with supine and upright views of the abdomen and pelvis. Findings: Frontal upright view of the chest demonstrates no acute cardiopulmonary process or free air below the diaphragm to suspect pneumoperitoneum. Supine and upright views of the abdomen and pelvis demonstrate nonspecific bowel gas pattern without obstruction or perforation. No organomegaly. Benign phleboliths noted in the pelvis. No significant abnormal calcifications. Skeletal structures normal for age. Impression: Nonspecific bowel gas pattern. Electronically Signed by Juan Miguel Allred MD 08/08/2019 12:49 A
[2019-08-08] MEDS ORDERED: ONDA4TAB6 PO (01:12)
[2019-08-08] MEDS ORDERED: MIRA1POW3 PO (01:12)
[2019-08-08 01:45] LABS: AMPHETAMINES LEVEL URINE NEGATIVE (NEGATIVE); BARBITURATES URINE NEGATIVE (NEGATIVE); BENZODIAZEPINES URINE NEGATIVE (NEGATIVE); CANNABINOIDS URINE NEGATIVE (NEGATIVE); COCAINE METABOLITE URINE NEGATIVE (NEGATIVE); METHADONE URINE NEGATIVE (NEGATIVE); OPIATES URINE NEGATIVE (NEGATIVE); PHENCYCLIDINE URINE NEGATIVE (NEGATIVE)
[2019-08-08 01:52] LABS: ACETAMINOPHEN LEVEL < 2.0 UG/ML (10.0-30.0); ETHYL ALCOHOL (ETHANOL) < 0.003 % (0.000-0.010); SALICYLATE LEVEL < 1.7 MG/DL (5.0-30.0)
[2019-08-08] MEDS ORDERED: CYANOCOBALAMIN 500 MCG TAB PO SCH (09:00)
[2019-08-08] MEDS ORDERED: VITAMIN D 1,000 INTERNATIONAL UNITS TABLET PO SCH (09:00)
[2019-08-08] MEDS ORDERED: ASCORBIC ACID 500 MG TAB PO SCH (09:00)
[2019-08-08] MEDS ORDERED: NOXI1TAB PO (11:34)
[2019-08-08] MEDS ORDERED: B-12100010 PO (11:34)
[2019-08-08] MEDS ORDERED: PALI1TAB2 PO (11:34)
[2019-08-08] MEDS ORDERED: CHILCHW27 PO (11:34)
[2019-08-08] MEDS ORDERED: CETIRIZINE (ZyrTEC) 10 MG TAB PO ONE (11:45)
[2019-08-08] MEDS ORDERED: OMEPRAZOLE 20 MG CAP PO ONE (11:45)
[2019-08-08] MEDS: FERROUS SULFATE 325MG TAB PO SCH (12:00)
[2019-08-08] MEDS: MULTIVITAMINS/MINERALS THERAP 1 TAB PO SCH (12:00)
[2019-08-08] MEDS ORDERED: MIRALAX *UNIT DOSE* 17GM PACKET PO ONE (14:15)
[2019-08-08] MEDS ORDERED: FOLI800C PO (14:36)
[2019-08-08] MEDS ORDERED: MAGN400C2 PO (14:36)
[2019-08-08] MEDS ORDERED: MULT1TAB83 PO (14:36)
[2019-08-08] MEDS ORDERED: VITAD1000T PO (14:36)
[2019-08-08] MEDS ORDERED: RA T500C2 PO (14:36)
[2019-08-08] MEDS ORDERED: ABIL1TAB11 PO (14:36)
[2019-08-08] MEDS ORDERED: OMEG100011 PO (14:36)
[2019-08-08] MEDS ORDERED: traZODone 50 MG TAB PO PRN (16:15)
[2019-08-08] MEDS ORDERED: MOM 30ML SUSPENSION UDC PO PRN (16:15)
[2019-08-08] MEDS ORDERED: ACETAMINOPHEN TAB 650MG DOSE (2X325MG) PO PRN (16:15)
--- NOTE | 2019-08-08 20:27 | ECGEPIP ---
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
[2019-08-08] MEDS: OMEGA-3 1000MG CAPSULE PO SCH (21:00)
[2019-08-08 21:20] VITALS: BP 135/83
[2019-08-08] MEDS: PRAZOSIN 1 MG CAP PO SCH (22:34)
[2019-08-09 06:05] VITALS: BP 117/58
[2019-08-09] MEDS ORDERED: VITAMIN D 1,000 INTERNATIONAL UNITS TABLET PO SCH (09:00)
[2019-08-09] MEDS: MULTIVITAMINS/MINERALS THERAP 1 TAB PO SCH (09:09)
[2019-08-09] MEDS: FERROUS SULFATE 325MG TAB PO SCH (09:09)
[2019-08-09] MEDS: OMEPRAZOLE 20 MG CAP PO SCH (09:09)
[2019-08-09] MEDS: MAALOX 30 ML SUSP *UDC PO PRN (09:09)
--- NOTE | 2019-08-09 09:11 | MHHPEPDOC ---
General Date Of Admission: Aug 08, 2019 Legal Status: 9.13 Chief Complaint I dont want to say" History of Present Illness HISTORY OF THE PRESENT ILLNESS: Patient is a 54 -year-old , female, Presents to [facility] after reporting, abdominal pain, after she was told she be discharged as she did not require inpatient medical hospital patient, she is suddenly then reported that she was suicidal and was initially triage for a [id number]. However, she was admitted on an abundance of caution. In the patient was met with she generally did not want to describe any of her symptoms staying "life stuff", she generally was uninterested ending engaging in any meaningful discussion during the interview. Psychiatric Review of Systems Depression (2 or more weeks): depressed mood PTSD: history of trauma Past Psychiatric History Previous Psychiatric Diagnosis: Unclear, PTSD reported. Previous Psychiatric Admissions: [facility], last several weeks ago. Suicide Attempts: denies . Psychiatric Follow-up: [facility]. Psychiatric medications: Invega. Past Medical History Medical Problems no changes from last admission Family Medical/Psychiatric HX Medical Problems no changes from previous Addiction History denies, other (neg utox on admission) Social History Current Living Situation: lives with . Education: HS. Employment: unemployed . Social Support: ,children. Legal: none. Marital: for many years, no changes . Mental Status Examination General Appearance: well groomed Build: average Demeanor: average Eye Contact: average Activity: average Behavior: cooperative Speech: clear Mood: euthymic Affect: full Thought Process: logical/linear Thought Content (Delusions): denies SI, HI, AVH Thought Content (Other): appropriate Thought Content (Aggressive): none reported Perception (Hallucinations): none reported Perception (Other): none reported Cognition(Intelligence Est.): average Oriented: Awake, Alert Insight: poor Judgment: Poor Psychosis: Denies A-FIB/CHADSVASC A-FIB History Current/History of A-Fib/PAF?: No Assessment 54 yo woman with a hx of ptsd and conversion disorder presents likely for assuming of the sick role, as is her as is her now normal presentation, she claims various symptoms but there appears to be no objective evidence of psychosis, likely her social situation is creating a nidus for presenting hoping for treatment. Problem List Problems: (1) PTSD (post-traumatic stress disorder) Status: Chronic Problem Text: Continue Abilify (2) Conversion disorder with abnormal movement, acute episode Status: Chronic Problem Text: Monitor for behavioral problems (3) Munchausen syndrome Status: Chronic Response to Treatment: Uncontrolled Problem Text: Likely related to patient's constant presentations especially with focusing for assuming the sacral, as she presents consistently wanting to be in the sacral and seeking attention. Initial Treatment Plan 1. Patient was admitted on a [9.13] status. 2. Complete history was obtained. 3. With patients permission, family will be contacted and database will be expanded. 4. Patients medication regimen will be reviewed and changed accordingly. 5. Patient will be provided with protected environment. 6. Patient will be treated with individual, group, and milieu therapies. 7. Patient will receive supportive psych-education. 8. Discharge planning will commence immediately. 9. Outpatient follow-up treatment will be strongly recommended. 10. The initial treatment plan will focus initially on: * Depression. * Risk for suicide. ESTIMATED LENGTH OF STAY: 2-3 DAYS. TIME SPENT COUNSELING AND COORDINATING INITIAL CARE: 70 minutes. Vital Signs Vital Signs Date Time Temp Pulse Resp B/P (MAP) Pulse Ox O2 Delivery O2 Flow Rate FiO2 08/09/19 06:05 98.0 62 16 117/58 (77) 98 Room Air Medications Scheduled Aripiprazole (Abilify) 5 Mg Tablet, 5 MG PO QHS, (Reported) Ascorbic Acid (Vitamin C) 500 Mg Tablet, 500 MG PO DAILY, (Reported) Cetirizine HCl (Cetirizine HCl) 10 Mg Tablet, 10 MG PO DAILY, (Reported) Cholecalciferol (Vitamin D3) (Vitamin D3) 1,000 Unit Tablet, 1,000 UNITS PO DAILY, (Reported) Cyanocobalamin (Vitamin B-12) (Vitamin B-12) 1,000 Mcg Capsule, 1,000 MCG PO DAILY, (Reported) Folic Acid (Folic Acid) 0.8 Mg Capsule, 800 MCG PO DAILY, (Reported) Magnesium Oxide (Magnesium) 400 Mg Capsule, 400 MG PO DAILY, (Reported) Multivitamin with Iron (Multivitamins with Iron) 1 Each Tablet, 1 TAB PO DAILY, (Reported) [place]-3 Fatty Acids/Fish Oil ([place] 3 1,000 mg Softgel) 1 Each Capsule, 1 CAP PO BID, (Reported) Omeprazole (Omeprazole) 20 Mg Capsule.dr, 40 MG PO DAILY, (Reported) Prazosin Hcl (Prazosin HCl) 2 Mg Capsule, 8 MG PO QHS, (Reported) Turmeric Root Extract (Turmeric) 500 Mg Capsule, 500 MG PO DAILY, (Reported) Scheduled PRN Epinephrine (Epinephrine) 0.3 Mg/0.3 Ml Auto.injct, 0.3 MG IM ASDIRECTED PRN for ANAPHYLAXIS, (Reported) Allergies Coded Allergies: shellfish derived (Verified Allergy, Severe, lip swelling/airway compromise, 08/06/19) Penicillins (Verified Allergy, Intermediate, swelling of lips, 08/06/19) latex (Verified Allergy, Intermediate, rash, 08/06/19) amoxicillin (Verified Adverse Reaction, Intermediate, vomiting, 08/06/19) clavulanic acid (Verified Adverse Reaction, Intermediate, vomiting, 08/05) iodine (Verified Adverse Reaction, Intermediate, sneezing/vomiting, 08/06/19) ENVIROMENTAL (Verified Adverse Reaction, Mild, cough/sneeze, 08/06/19) BLAKE SOSA DO Aug 09, 2019 09:11
[2019-08-09] MEDS ORDERED: LIDOCAINE 5% (LIDODERM) PATCH TD PRN (11:30)
[2019-08-09] MEDS: VITAMIN D 1,000 INTERNATIONAL UNITS TABLET PO SCH (12:33)
[2019-08-09] MEDS: CETIRIZINE (ZyrTEC) 10 MG TAB PO SCH (12:33)
[2019-08-09] MEDS: OMEGA-3 1000MG CAPSULE PO SCH ×2 (12:34→21:00)
[2019-08-09] MEDS: ASCORBIC ACID 500 MG TAB PO SCH (12:34)
[2019-08-09] MEDS: CYANOCOBALAMIN 500 MCG TAB PO SCH (12:34)
[2019-08-09 17:03] VITALS: BP 151/77
--- NOTE | 2019-08-09 17:43 | HPEPDOC ---
General Date of Admission Aug 08, 2019 at 16:02 Date of Service: Aug 09, 2019 Chief Complaint The patient is a 54-year-old female Who presented to the emergency room with complaints of suicidal ideation History of Present Illness Patient is a 54, her female with a past medical history of lupus, chronic back pain, history of OCD history of osteoarthritis, history of endometriosis who presented to the hospital with complaints of suicidal ideation. Patient has been admitted to the inpatient mental health unit under the care of psychiatry. Hospitalist services consult for medical screening evaluation. Patient was a mild headache, constipation and chills. She denies any chest pain, shortness of breath, palpitations, nausea, vomiting, abdominal pain, diarrhea, or urinary discomfort. She does report some lower summary swelling has occurred over the last several months. Patient reports her appetite is poor but denies any significant changes in her weight. Home Medications Scheduled Aripiprazole (Abilify) 5 Mg Tablet, 5 MG PO QHS, (Reported) Ascorbic Acid (Vitamin C) 500 Mg Tablet, 500 MG PO DAILY, (Reported) Cetirizine HCl (Cetirizine HCl) 10 Mg Tablet, 10 MG PO DAILY, (Reported) Cholecalciferol (Vitamin D3) (Vitamin D3) 1,000 Unit Tablet, 1,000 UNITS PO DAILY, (Reported) Cyanocobalamin (Vitamin B-12) (Vitamin B-12) 1,000 Mcg Capsule, 1,000 MCG PO DAILY, (Reported) Folic Acid (Folic Acid) 0.8 Mg Capsule, 800 MCG PO DAILY, (Reported) Magnesium Oxide (Magnesium) 400 Mg Capsule, 400 MG PO DAILY, (Reported) Multivitamin with Iron (Multivitamins with Iron) 1 Each Tablet, 1 TAB PO DAILY, (Reported) [place]-3 Fatty Acids/Fish Oil ([place] 3 1,000 mg Softgel) 1 Each Capsule, 1 CAP PO BID, (Reported) Omeprazole (Omeprazole) 20 Mg Capsule.dr, 40 MG PO DAILY, (Reported) Prazosin Hcl (Prazosin HCl) 2 Mg Capsule, 8 MG PO QHS, (Reported) Turmeric Root Extract (Turmeric) 500 Mg Capsule, 500 MG PO DAILY, (Reported) Scheduled PRN Epinephrine (Epinephrine) 0.3 Mg/0.3 Ml Auto.injct, 0.3 MG IM ASDIRECTED PRN for ANAPHYLAXIS, (Reported) Allergies Coded Allergies: shellfish derived (Verified Allergy, Severe, lip swelling/airway compromise, 08/06/19) Penicillins (Verified Allergy, Intermediate, swelling of lips, 08/06/19) latex (Verified Allergy, Intermediate, rash, 08/06/19) amoxicillin (Verified Adverse Reaction, Intermediate, vomiting, 08/06/19) clavulanic acid (Verified Adverse Reaction, Intermediate, vomiting, 08/06/19) iodine (Verified Adverse Reaction, Intermediate, sneezing/vomiting, 08/06/19) ENVIROMENTAL (Verified Adverse Reaction, Mild, cough/sneeze, 08/06/19) Past Medical History Medical History Lupus chronic back pain osteoarthritis history of endometriosis Reported history of antiphospholipid syndrome Fibrocystic breast disease PTSD and anxiety OCD History of cervical cancer status post cryosurgery approximately 20 years ago History of nephrolithiasis History of hemorrhoids Surgical History Cryosurgery Four Laparoscopic surgeries, one for an ovarian cyst and 3 for endometriosis Breast cyst removal Dilation and curettage Heart catheterization done approximately 10 years ago; was done for palpitations without any significant findings Family History - Patient reports her mother has a history of cervical cancer Social History - Denies the use of alcohol, tobacco or illicit drugs - Denies recent travel or sick contacts - Lives with son and friend - Occupation; reports she is unemployed Review of Systems Other systems 10 point review of systems complete, all negative otherwise stated in HPI Vital Signs - Vitals: BP 151/77, HR 83, RR 16, Sat 98%RA, Temp 98.8F - General: Lying in bed, No acute distress, Speaking in full sentences, AAOx3 - HEENT: NC, AT, PERRLA, EOMI - CVS: RRR, +S1S2, - Lungs: Fair air entry bilaterally, No appreciable wheezing / rales / rhonchi - Abdomen: Soft, Non-distended, Non-tender - Extremities: 1+ pitting edema bilaterally, No calf tenderness - Neuro: No focal motor or sensory deficit - Skin: No visible rashes Plan / VTE VTE Prophylaxis Ordered?: Yes Plan Plan Suicidal ideation / PTSD / Anxiety / OCD - Patient was admitted to [facility] under the care of psychiatry - Currently being managed by psychiatry LE edema - etiology unclear - Patient reports she expresses a extremity swelling but denies any shortness of breath - Patient is saturating well on room air at 98% - Will check echocardiogram - Advised patient to elevate legs while sleeping Lupus - Reported history of antiphospholipid syndrome Chronic back pain / Osteoarthritis - c/w Tylenol PRN GERD - c/w Omeprazole DVT prophylaxis - c/w early ambulation Female maintenance helper was present at the duration of this history and physical examination Thank you for this consultation; please reconsult as needed THIERNO FLOR MD Aug 09, 2019 17:42
[2019-08-09] MEDS ORDERED: **NOTE PATIENT COMMENT** MISC XX SCH (21:00)
[2019-08-09 21:31] VITALS: BP 151/77
[2019-08-09] MEDS: PRAZOSIN 1 MG CAP PO SCH (21:31)
[2019-08-10 06:29] VITALS: BP 109/58
[2019-08-10] MEDS: OMEPRAZOLE 20 MG CAP PO SCH (08:46)
[2019-08-10] MEDS: ASCORBIC ACID 500 MG TAB PO SCH (08:46)
[2019-08-10] MEDS: CYANOCOBALAMIN 500 MCG TAB PO SCH (08:47)
[2019-08-10] MEDS: FERROUS SULFATE 325MG TAB PO SCH (08:47)
[2019-08-10] MEDS: VITAMIN D 1,000 INTERNATIONAL UNITS TABLET PO SCH (08:47)
[2019-08-10] MEDS: MULTIVITAMINS/MINERALS THERAP 1 TAB PO SCH (08:47)
[2019-08-10] MEDS: CETIRIZINE (ZyrTEC) 10 MG TAB PO SCH (08:47)
[2019-08-10] MEDS: OMEGA-3 1000MG CAPSULE PO SCH (08:49)
[2019-08-10] MEDS: MAALOX 30 ML SUSP *UDC PO PRN (08:51)
[2019-08-10] MEDS ORDERED: VITAMIN D 1,000 INTERNATIONAL UNITS TABLET PO SCH (09:00)
--- NOTE | 2019-08-10 09:13 | MHDSPDOC ---
[facility] Discharge Summary Discharge Summary DATE OF ADMISSION: Aug 08, 2019 at 16:02 DATE OF DISCHARGE: Aug 10, 2019 at 13:05 DISCHARGE DIAGNOSES: 1. Unspecified depression/psychosis: likely manufactured. 2. Munchausen syndrome. REASON FOR ADMISSION: 54-year-old woman with a long history of presenting to the unit wanting admission specifically presents for abdominal pain. When told that she would be discharged. She suddenly reported suicidal thoughts, that appeared to be likely manufactured. CONSULTANTS INVOLVED: none TREATMENT AND PROGRESS ON THE UNIT :. The patient was admitted to inpatient mental health unit and resumed on her home medications of Abilify, as was started on her previous admission. She generally sought most of her time trying to get attention from staff and would generally boundaries replace the patient became uninterested in staying and subsequently requested discharge. She had been denying suicidal and homicidal ideation through the entirety of her admission being highly inconsistent as is her regular pattern. She does uninterested engaging in care and appeared to continue to be interested in actions that would gather her more attention.. DISCHARGE ASSESSMENT: 54-year-old woman with likely Munchausen syndrome who presents continuing to try to stay in the sick role, one this is not obliged she becomes disinterested quite quickly and remaining on our unit. She doesn't meet involuntary criteria as she is been denying suicidal and homicidal ideation and has been at her baseline mental status and health. She does tried to make the discharge process as complicated as possible in order to continue to stay longer on the unit, however she generally prefers to go to a hotel and she was obliged this, staff were instructed to generally not engage in various actions meant to engender more attention, which then she left without any incident. MENTAL STATUS EXAMINATION ON DISCHARGE: General: Well dressed with good hygiene Speech: Spontaneous and fluid Thought processes: Linear and logical Thought content: Future orientated Abstract reasoning, and computation: Intact Description of associations: Intact Description of abnormal or psychotic thoughts:Denies any suicidal or homicidal ideation. Denies any auditory or visual hallucinations. Does not appear to be responding to internal stimuli. Does not appear to be endorsing any bizarre or paranoid ideation. Judgment: chronically limited Insight: chronically limited Orientation: Alert and orientated 3 Recent and remote memory: Intact Attention span and concentration: Intact Fund of knowledge: Adequate Mood: "okay" Affect: Euthymic with a full range PLAN/FOLLOWUP ARRANGEMENTS: JAIME. The amount of time spent in the coordination of care for this patient was appro ximately 30 minutes. Vital Signs/I&Os Vital Signs Date Time Temp Pulse Resp B/P (MAP) Pulse Ox O2 Delivery O2 Flow Rate FiO2 08/10/19 06:29 98.5 80 14 109/58 (75) 97 Room Air Medications Scheduled Aripiprazole (Abilify) 5 Mg Tablet, 5 MG PO QHS, (Reported) Ascorbic Acid (Vitamin C) 500 Mg Tablet, 500 MG PO DAILY, (Reported) Cetirizine HCl (Cetirizine HCl) 10 Mg Tablet, 10 MG PO DAILY, (Reported) Cholecalciferol (Vitamin D3) (Vitamin D3) 1,000 Unit Tablet, 1,000 UNITS PO DAILY, (Reported) Cyanocobalamin (Vitamin B-12) (Vitamin B-12) 1,000 Mcg Capsule, 1,000 MCG PO DAILY, (Reported) Folic Acid (Folic Acid) 0.8 Mg Capsule, 800 MCG PO DAILY, (Reported) Magnesium Oxide (Magnesium) 400 Mg Capsule, 400 MG PO DAILY, (Reported) Multivitamin with Iron (Multivitamins with Iron) 1 Each Tablet, 1 TAB PO DAILY, (Reported) [place]-3 Fatty Acids/Fish Oil ([place] 3 1,000 mg Softgel) 1 Each Capsule, 1 CAP PO BID, (Reported) Omeprazole (Omeprazole) 20 Mg Capsule.dr, 40 MG PO DAILY, (Reported) Prazosin Hcl (Prazosin HCl) 2 Mg Capsule, 8 MG PO QHS, (Reported) Turmeric Root Extract (Turmeric) 500 Mg Capsule, 500 MG PO DAILY, (Reported) Scheduled PRN Epinephrine (Epinephrine) 0.3 Mg/0.3 Ml Auto.injct, 0.3 MG IM ASDIRECTED PRN for ANAPHYLAXIS, (Reported) Allergies Coded Allergies: shellfish derived (Verified Allergy, Severe, lip swelling/airway compromise, 08/06/19) Penicillins (Verified Allergy, Intermediate, swelling of lips, 08/06/19) latex (Verified Allergy, Intermediate, rash, 08/06/19) amoxicillin (Verified Adverse Reaction, Intermediate, vomiting, 08/06/19) clavulanic acid (Verified Adverse Reaction, Intermediate, vomiting, 08/06/19) iodine (Verified Adverse Reaction, Intermediate, sneezing/vomiting, 08/06/19) ENVIROMENTAL (Verified Adverse Reaction, Mild, cough/sneeze, 08/06/19) BLAKE SOSA 3, 2020 09:13
[2019-08-10 09:25] VITALS: BP 109/58
--- NOTE | 2019-08-11 09:46 | ECHO ---
DATE OF PROCEDURE: 08/09/2019 REFERRING PHYSICIAN: Dr. Jenna Bean REASON FOR STUDY: Edema. 2D MEASUREMENTS: IVS - 1.2 cm LV - 4.4 cm LVPW - 1.2 cm LA - 4.1 cm Aorta - 2.9 cm RV - 3.5 cm IVC - 2.57 DOPPLER MEASUREMENTS: Peak velocity across the aortic valve 1.5 meters per second Peak velocity across the LVOT - 0.88 meters per second Mitral E - 0.72, mitral A - 0.67 with a ratio of greater than 1.0 2D COMMENTS: 1. Normal left ventricular size, wall thickness, and normal global left ventricular systolic function. The estimated left ventricular systolic function is 16-65%. 2. The left atrium appeared to be mildly enlarged. Normal right atrium and right ventricle. 3. The atrial septum appeared to be normal without evidence of defect or shunt. 4. Normal aortic root. 5. No pericardial effusion seen. 6. Minimally calcified aortic valve with normal leaflet excursion. Mildly calcified mitral annulus with normal anterior mitral valve leaflet motion. Normal tricuspid valve and pulmonic valve. The proximal pulmonary artery branches were not well visualized. 7. The inferior vena cava was mildly enlarged, central venous pressure might be elevated. Doppler detects trace to mild mitral regurgitation, trace tricuspid regurgitation. Abnormal relaxation pattern was noted across the mitral annulus consistent with features of grade 2 left ventricular diastolic dysfunction. IMPRESSION: 1. Normal global left ventricular systolic function. There are some features of left ventricular diastolic dysfunction as mentioned above. 2. Aortic valve sclerosis without stenosis or aortic regurgitation. 3. Mitral annulus calcification with a mildly enlarged left atrium and trace to mild mitral regurgitation. 4. Trace tricuspid regurgitation. 5. The inferior vena cava was mildly enlarged, central venous pressure might be elevated.
== END 2019-08-10 13:05 | disposition home or self-care (01) | DRG 881 ==
LOC: M ED 23:16 → M ED INP 08-08 16:02 → M PSY 08-08 20:05
PROVIDERS: ADMIT Psychiatry & Neurology Addiction Medicine; ATTEND Psychiatry & Neurology Addiction Medicine
DX: F32.9 Major depressive disorder, single episode, unspecified (principal); F44.4 Conversion disorder with motor symptom or deficit; F68.10 Factitious disorder imposed on self, unspecified; J30.9 Allergic rhinitis, unspecified; L93.0 Discoid lupus erythematosus; M54.9 Dorsalgia, unspecified; M19.90 Unspecified osteoarthritis, unspecified site; R60.0 Localized edema; K21.9 Gastro-esophageal reflux disease without esophagitis; F43.12 Post-traumatic stress disorder, chronic; Z79.899 Other long term (current) drug therapy; Z88.0 Allergy status to penicillin; Z85.41 Personal history of malignant neoplasm of cervix uteri; Z91.013 Allergy to seafood; Z91.040 Latex allergy status; Z88.8 Allergy status to other drugs, medicaments and biological substances

== ENCOUNTER → 2020-08-15 | Outpatient (CLI) | payer OTHER ==
[~2020-08-15] MED LIST changes: -ALL10TAB29; -ASPI81TA85 PO; +ASPI81TA86 PO; +B-12100010 PO; +CETI-24; +CHILCHW28 PO; +D31000TA2 PO; +FOLI800C PO; +MAGN400C2 PO; +MIRA1POW3 PO; +MULT1TAB83 PO; +NOXI1TAB PO; +OMEG100011 PO; +ONDA4TAB6 PO; +RA T500C2 PO; +RISP-8 PO; -RISP1TAB3 PO
[2020-08-15 16:55] LABS: ALBUMIN 3.7 GM/DL (3.2-5.2); ALT/SGPT 25 U/L (12-78); BILIRUBIN,TOTAL 0.4 MG/DL (0.2-1.0); BLOOD UREA NITROGEN 20 MG/DL (7-18); CARBON DIOXIDE LEVEL 30 MEQ/L (21-32); CHLORIDE LEVEL 106 MEQ/L (98-107); CHOLESTEROL LEVEL 191 MG/DL (<200); CHOLESTEROL RISK RATIO 2.984 (<5); CREATININE FOR GFR 0.64 MG/DL (0.55-1.30); GLOMERULAR FILTRATION RATE > 60.0 (>51); GLUCOSE, FASTING 84 MG/DL (70-100); HDL CHOLESTEROL 64 MG/DL (>40); LDL CHOLESTEROL 111 MG/DL (<100); NON-HDL-C 127 MG/DL; POTASSIUM SERUM 4.1 MEQ/L (3.5-5.1); SODIUM LEVEL 142 MEQ/L (136-145); TOTAL PROTEIN 6.9 GM/DL (6.4-8.2); TRIGLYCERIDES LEVEL 80 MG/DL (<150)
== END ==
LOC: M WUC 13:08
PROVIDERS: ATTEND Nurse Practitioner Family
DX: Z00.00 Encounter for general adult medical examination without abnormal findings (principal); M32.10 Systemic lupus erythematosus, organ or system involvement unspecified

== ENCOUNTER 2021-04-01 09:56 | Inpatient (IN) | payer OTHER ==
[~2021-04-01] VITALS: Ht 162.6 cm; Wt 94.0 kg
[~2021-04-01 09:56] MED LIST changes: +OMEP-173 PO; -OMEP-218 PO; -OMEP-221; +OMEP40CA4 PO; +OMEP40CA5; -OMEP40CA97 PO
[2021-04-01 18:55] LABS: HEMATOCRIT 41.2 % (36.0-47.0); HEMOGLOBIN 13.6 g/dl (12.0-15.5); MEAN CORPUSCULAR HEMOGLOBIN 28.3 pg (27.0-33.0); MEAN CORPUSCULAR VOLUME 85.7 fl (80.0-96.0); PLATELET COUNT, AUTOMATED 236 10^3/uL (150-450); RED BLOOD COUNT 4.81 10^6/uL (4.00-5.40); WHITE BLOOD COUNT 9.9 10^3/uL (4.0-10.0)
[2021-04-01 19:08] LABS: ACETAMINOPHEN LEVEL < 2.0 UG/ML (10.0-30.0); ALBUMIN 4.2 GM/DL (3.2-5.2); ALT/SGPT 43 U/L (12-78); BILIRUBIN,DIRECT 0.2 MG/DL (0.0-0.2); BILIRUBIN,TOTAL 0.5 MG/DL (0.2-1.0); BLOOD UREA NITROGEN 15 MG/DL (7-18); CALCIUM LEVEL 9.4 MG/DL (8.5-10.1); CARBON DIOXIDE LEVEL 31 MEQ/L (21-32); CHLORIDE LEVEL 102 MEQ/L (98-107); CREATININE FOR GFR 0.74 MG/DL (0.55-1.30); ETHYL ALCOHOL (ETHANOL) < 0.003 % (0.000-0.010); GLOMERULAR FILTRATION RATE > 60.0 (>51); GLUCOSE, FASTING 103 MG/DL (70-100); POTASSIUM SERUM 3.6 MEQ/L (3.5-5.1); SALICYLATE LEVEL < 1.7 MG/DL (5.0-30.0); SODIUM LEVEL 141 MEQ/L (136-145); THYROID STIMULATING HORMONE 0.421 uIU/ML (0.358-3.740); TOTAL PROTEIN 7.6 GM/DL (6.4-8.2)
[2021-04-01 21:11] LABS: AMPHETAMINES LEVEL URINE NEGATIVE (NEGATIVE); BARBITURATES URINE NEGATIVE (NEGATIVE); BENZODIAZEPINES URINE NEGATIVE (NEGATIVE); CANNABINOIDS URINE NEGATIVE (NEGATIVE); COCAINE METABOLITE URINE NEGATIVE (NEGATIVE); METHADONE URINE NEGATIVE (NEGATIVE); OPIATES URINE NEGATIVE (NEGATIVE); PHENCYCLIDINE URINE NEGATIVE (NEGATIVE)
[2021-04-01] MEDS ORDERED: diphenhydrAMINE 50MG/ML VIAL (J1200) IM ONE (21:35)
[2021-04-01] MEDS ORDERED: HALOPERIDOL 5MG/ML VIAL (J1630 PER 1) IM ONE (21:35)
[2021-04-01] MEDS ORDERED: LORazepam 2 MG/ML VIAL IM ONE (21:35)
[2021-04-01] MEDS ORDERED: ACETAMINOPHEN TAB 650MG DOSE (2X325MG) PO PRN (22:15)
[2021-04-01] MEDS ORDERED: MOM 30ML SUSPENSION UDC PO PRN (22:15)
[2021-04-01] MEDS ORDERED: MAALOX 30 ML SUSP *UDC PO PRN (22:15)
[2021-04-01] MEDS ORDERED: traZODone 50 MG TAB PO PRN (22:15)
[2021-04-02 03:47] VITALS: BP 130/75
[2021-04-02] MEDS ORDERED: OLANZapine INTRAMUSCULAR 10MG VIAL IM STA (07:08)
[2021-04-02 07:30] VITALS: BP 114/61
[2021-04-02 08:45] VITALS: BP 134/63
[2021-04-02] MEDS ORDERED: OMEPRAZOLE 20 MG CAP PO SCH (09:00)
[2021-04-02] MEDS ORDERED: TOLTERODINE TARTRATE 2 MG LA CAP (DETROL LA) PO SCH (09:00)
[2021-04-02] MEDS ORDERED: DETR4CAP PO (09:22)
[2021-04-02] MEDS ORDERED: MED NOTE (09:24)
[2021-04-02] MEDS ORDERED: HOME MED LIST COMPLETE! XX SCH (09:25)
[2021-04-02] MEDS ORDERED: OLANZapine ORAL DISINTEGRATING TAB 5MG PO PRN (11:25)
[2021-04-02] MEDS ORDERED: LORazepam 2 MG TAB PO ONE (15:20)
[2021-04-03 00:48] VITALS: BP 107/53
[2021-04-03 01:50] LABS: CK-MB VALUE MASS 93.2 NG/ML (<3.6); MB/CK RELATIVE INDEX 4.44 (< OR =4)
[2021-04-03] MEDS ORDERED: ASPIRIN 81 MG CHEW TABLET PO ONE (02:00)
[2021-04-03 02:41] VITALS: BP 106/63
[2021-04-03] MEDS ORDERED: METO1TAB87 PO (11:40)
[2021-04-03] MEDS ORDERED: CLOP75TA2 PO (11:40)
[2021-04-03] MEDS ORDERED: HEPA1INJ81 IV (11:40)
[2021-04-03] MEDS ORDERED: ATOR1TAB21 PO (11:40)
== END 2021-04-03 03:00 | disposition short-term general hospital (02) | DRG 883 ==
LOC: M ED 09:56 → M ED INP 22:11 → M PSY 04-02 03:40
PROVIDERS: ADMIT Student in an Organized Health Care Education/Training Program; ATTEND Student in an Organized Health Care Education/Training Program
DX: F60.3 Borderline personality disorder (principal); I21.4 Non-ST elevation (NSTEMI) myocardial infarction; F43.10 Post-traumatic stress disorder, unspecified; J30.9 Allergic rhinitis, unspecified; F44.89 Other dissociative and conversion disorders; K21.9 Gastro-esophageal reflux disease without esophagitis; L93.0 Discoid lupus erythematosus; Z79.899 Other long term (current) drug therapy; Z88.0 Allergy status to penicillin; Z88.8 Allergy status to other drugs, medicaments and biological substances; Z91.040 Latex allergy status; Z91.013 Allergy to seafood

== ENCOUNTER 2021-04-03 02:13 | Inpatient (IN) | payer OTHER ==
[~2021-04-03] VITALS: Ht 162.6 cm; Wt 92.2 kg
[~2021-04-03 02:13] MED LIST changes: +DETR4CAP PO; +MED NOTE
[2021-04-03] MEDS ORDERED: NS 1,000 ML IV SCH (02:20)
[2021-04-03] MEDS ORDERED: HEPARIN SOD (PORCINE) 5000UNITS/ML 1ML VIAL/SYRINGE IV PRN (02:40)
[2021-04-03] MEDS ORDERED: HEPARIN DRIP 25,000 UNITS in IV 1 EA IV SCH (02:40)
[2021-04-03 03:27] VITALS: BP 126/75
[2021-04-03] MEDS ORDERED: HOME MED LIST COMPLETE! XX SCH (03:35)
[2021-04-03] MEDS ORDERED: CLOPIDOGREL 75 MG TAB PO ONE (04:00)
[2021-04-03] MEDS ORDERED: HEPARIN SOD (PORCINE) 5000UNITS/ML 1ML VIAL/SYRINGE IV ONE (04:00)
[2021-04-03] MEDS ORDERED: ATORVASTATIN 20 MG TAB PO ONE (04:00)
[2021-04-03 04:13] LABS: BASO % 0.1 % (0.0-1.0); LYMPH # 1.4 10^3/uL (1.5-5.0); MEAN CORPUSCULAR HEMOGLOBIN 28.1 pg (27.0-33.0); MEAN CORPUSCULAR HGB CONC 33.3 g/dl (32.0-36.5); MEAN CORPUSCULAR VOLUME 84.2 fl (80.0-96.0); MONO # 0.8 10^3/uL (0.0-0.8); MONO % 5.4 % (2.0-8.0); NEUTROPHILS # 13.3 10^3/uL (1.5-8.5); NEUTROPHILS % 85.1 % (36.0-66.0); PLATELET COUNT, AUTOMATED 220 10^3/uL (150-450); RED BLOOD COUNT 4.63 10^6/uL (4.00-5.40); WHITE BLOOD COUNT 15.6 10^3/uL (4.0-10.0)
[2021-04-03 04:23] LABS: INR 1.2; PROTHROMBIN TIME 15.6 SECONDS (12.7-14.5)
[2021-04-03 04:24] LABS: PARTIAL THROMBOPLASTIN TIME 29.2 SECONDS (25.9-37.0)
[2021-04-03] MEDS: METOPROLOL TART 25 MG TABLET PO SCH ×2 (04:35→04:43)
[2021-04-03 05:41] LABS: ALBUMIN 3.8 GM/DL (3.2-5.2); BILIRUBIN,TOTAL 0.3 MG/DL (0.2-1.0); CALCIUM LEVEL 9.1 MG/DL (8.5-10.1); CREATININE FOR GFR 2.01 MG/DL (0.55-1.30); GLOMERULAR FILTRATION RATE 27.1 (>51); MAGNESIUM LEVEL 2.4 MG/DL (1.8-2.4); PHOSPHORUS LEVEL 4.7 MG/DL (2.5-4.9); POTASSIUM SERUM 3.6 MEQ/L (3.5-5.1); THYROID STIMULATING HORMONE 0.694 uIU/ML (0.358-3.740); TOTAL PROTEIN 7.4 GM/DL (6.4-8.2)
[2021-04-03 05:47] LABS: CK-MB VALUE MASS 107.6 NG/ML (<3.6); MB/CK RELATIVE INDEX 4.45 (< OR =4)
[2021-04-03 07:32] VITALS: BP 108/52
[2021-04-03 08:56] LABS: CALCIUM LEVEL 8.9 MG/DL (8.5-10.1); CREATININE FOR GFR 1.51 MG/DL (0.55-1.30); GLOMERULAR FILTRATION RATE 37.7 (>51); POTASSIUM SERUM 3.6 MEQ/L (3.5-5.1)
[2021-04-03] MEDS ORDERED: METOPROLOL TART 50 MG TAB PO SCH (09:00)
[2021-04-03 10:52] VITALS: BP 105/54
[2021-04-03] MEDS ORDERED: CLOP75TA2 PO (11:40)
[2021-04-03] MEDS ORDERED: METO1TAB87 PO (11:40)
[2021-04-03] MEDS ORDERED: HEPA1INJ81 IV (11:40)
[2021-04-03] MEDS ORDERED: ATOR1TAB21 PO (11:40)
[2021-04-03 11:43] LABS: INR 1.21; PROTHROMBIN TIME 15.7 SECONDS (12.7-14.5)
[2021-04-03 12:22] LABS: PARTIAL THROMBOPLASTIN TIME 134.7 SECONDS (25.9-37.0)
[2021-04-03 12:25] VITALS: BP 112/59
[2021-04-04] MEDS ORDERED: ATORVASTATIN 20 MG TAB PO SCH (09:00)
[2021-04-04] MEDS ORDERED: CLOPIDOGREL 75 MG TAB PO SCH (09:00)
== END 2021-04-03 13:15 | disposition short-term general hospital (02) | DRG 281 ==
LOC: M PCU 03:15
PROVIDERS: ADMIT Internal Medicine; ATTEND Internal Medicine
DX: I21.4 Non-ST elevation (NSTEMI) myocardial infarction (principal); R45.851 Suicidal ideations; N17.9 Acute kidney failure, unspecified; I10 Essential (primary) hypertension; Z20.822 Contact with and (suspected) exposure to COVID-19; K21.9 Gastro-esophageal reflux disease without esophagitis; N32.81 Overactive bladder; Z85.41 Personal history of malignant neoplasm of cervix uteri

== ENCOUNTER → 2021-06-20 | Outpatient (CLI) | payer OTHER ==
[~2021-06-20] MED LIST changes: +ARIP10TA32 PO; +ATOR1TAB21 PO; +ATOR80TA59 PO; +CIDA500T2 PO; +CLOP75TA2 PO; +COQ-100C5 PO; +CRAN200C PO; -D31000TA2 PO; +ELIQ5TAB PO; -FLUC200T2; +FLUC200T4; +GNP250TA9 PO; +HAIRTAB10 PO; +HEPA1INJ81 IV; +MELA3TAB49 PO; +METO1TAB87 PO; +NITR0.4S14 SL; +PANT40TA29 PO; +TURMPOW XX; +VITA100093 PO
== END ==
LOC: M WHC 14:50
PROVIDERS: ATTEND Nurse Practitioner Family
DX: Z12.31 Encounter for screening mammogram for malignant neoplasm of breast (principal); M89.9 Disorder of bone, unspecified

== ENCOUNTER → 2021-07-15 | Outpatient (REF) | payer OTHER ==
[2021-07-15 16:25] LABS: HEMATOCRIT 40.1 % (36.0-47.0); HEMOGLOBIN 13.1 g/dl (12.0-15.5); MEAN CORPUSCULAR HEMOGLOBIN 27.7 pg (27.0-33.0); MEAN CORPUSCULAR HGB CONC 32.7 g/dl (32.0-36.5); MEAN CORPUSCULAR VOLUME 84.8 fl (80.0-96.0); PLATELET COUNT, AUTOMATED 256 10^3/uL (150-450); RED BLOOD COUNT 4.73 10^6/uL (4.00-5.40); WHITE BLOOD COUNT 8.7 10^3/uL (4.0-10.0)
[2021-07-15 16:45] LABS: ALT/SGPT 26 U/L (12-78); BILIRUBIN,TOTAL 0.2 MG/DL (0.2-1.0); BLOOD UREA NITROGEN 19 MG/DL (7-18); CALCIUM LEVEL 9.7 MG/DL (8.5-10.1); CARBON DIOXIDE LEVEL 29 MEQ/L (21-32); CHLORIDE LEVEL 110 MEQ/L (98-107); CHOLESTEROL LEVEL 128 MG/DL (<200); CHOLESTEROL RISK RATIO 2.245 (<5); CREATININE FOR GFR 0.72 MG/DL (0.55-1.30); GLOMERULAR FILTRATION RATE > 60.0 (>51); GLUCOSE, FASTING 96 MG/DL (70-100); HDL CHOLESTEROL 57 MG/DL (>40); LDL CHOLESTEROL 56 MG/DL (<100); NON-HDL-C 71 MG/DL; POTASSIUM SERUM 4.5 MEQ/L (3.5-5.1); SODIUM LEVEL 142 MEQ/L (136-145); TOTAL PROTEIN 6.9 GM/DL (6.4-8.2); TRIGLYCERIDES LEVEL 74 MG/DL (<150)
== END ==
LOC: M WUC 15:41
PROVIDERS: ATTEND Physician Assistant Medical
DX: R10.84 Generalized abdominal pain (principal); R19.7 Diarrhea, unspecified

== ENCOUNTER 2021-12-01 17:36 | Inpatient (IN) | payer OTHER ==
[~2021-12-01] VITALS: Ht 162.6 cm; Wt 104.2 kg
[2021-12-01 18:27] LABS: BASO # 0.1 10^3/uL (0.0-0.2); BASO % 0.9 % (0.0-1.0); EOS % 0.2 % (0.0-3.0); HEMATOCRIT 43.4 % (36.0-47.0); LYMPH # 1.8 10^3/uL (1.5-5.0); LYMPH % 19.4 % (24.0-44.0); MEAN CORPUSCULAR HEMOGLOBIN 27.6 pg (27.0-33.0); MEAN CORPUSCULAR HGB CONC 32.3 g/dl (32.0-36.5); MEAN CORPUSCULAR VOLUME 85.6 fl (80.0-96.0); MONO # 0.7 10^3/uL (0.0-0.8); MONO % 7.8 % (2.0-8.0); NEUTROPHILS # 6.7 10^3/uL (1.5-8.5); NEUTROPHILS % 71.5 % (36.0-66.0); PLATELET COUNT, AUTOMATED 239 10^3/uL (150-450); RED BLOOD COUNT 5.07 10^6/uL (4.00-5.40); WHITE BLOOD COUNT 9.3 10^3/uL (4.0-10.0)
[2021-12-01 19:08] LABS: ACETAMINOPHEN LEVEL < 2.0 UG/ML (10.0-30.0); ALBUMIN 4.1 GM/DL (3.2-5.2); ALT/SGPT 36 U/L (12-78); BILIRUBIN,DIRECT 0.1 MG/DL (0.0-0.2); BILIRUBIN,TOTAL 0.5 MG/DL (0.2-1.0); BLOOD UREA NITROGEN 16 MG/DL (7-18); CALCIUM LEVEL 8.9 MG/DL (8.5-10.1); CARBON DIOXIDE LEVEL 25 MEQ/L (21-32); CHLORIDE LEVEL 109 MEQ/L (98-107); CREATININE FOR GFR 0.75 MG/DL (0.55-1.30); ETHYL ALCOHOL (ETHANOL) < 0.003 % (0.000-0.010); FREE T4 1.24 NG/DL (0.76-1.46); GLOMERULAR FILTRATION RATE > 60.0 (>51); GLUCOSE, FASTING 102 MG/DL (70-100); POTASSIUM SERUM 4.2 MEQ/L (3.5-5.1); SODIUM LEVEL 139 MEQ/L (136-145); THYROID STIMULATING HORMONE 0.595 uIU/ML (0.358-3.740); TOTAL PROTEIN 7.6 GM/DL (6.4-8.2)
[2021-12-01] MEDS ORDERED: LORazepam 2 MG/ML VIAL IV STA (21:07)
[2021-12-01 21:50] LABS: RSV AMPLIFICATION NEGATIVE (NEGATIVE)
[2021-12-01 21:56] LABS: CK-MB VALUE MASS 7.7 NG/ML (<3.6); MB/CK RELATIVE INDEX 2.13 (< OR =4)
[2021-12-01 23:47] LABS: CK-MB VALUE MASS 6.8 NG/ML (<3.6); MB/CK RELATIVE INDEX 3.45 (< OR =4)
[2021-12-02 00:04] LABS: AMPHETAMINES LEVEL URINE NEGATIVE (NEGATIVE); BARBITURATES URINE NEGATIVE (NEGATIVE); BENZODIAZEPINES URINE NEGATIVE (NEGATIVE); CANNABINOIDS URINE NEGATIVE (NEGATIVE); COCAINE METABOLITE URINE NEGATIVE (NEGATIVE); METHADONE URINE NEGATIVE (NEGATIVE); OPIATES URINE NEGATIVE (NEGATIVE); PHENCYCLIDINE URINE NEGATIVE (NEGATIVE)
[2021-12-02] MEDS: NS 1,000 ML IV SCH ×2 (02:35→03:41)
[2021-12-02] MEDS ORDERED: ASPIRIN 81 MG CHEW TABLET PO ONE (03:00)
[2021-12-02 03:10] LABS: INR 1.06; PROTHROMBIN TIME 14.2 SECONDS (12.7-14.5)
[2021-12-02 03:11] LABS: PARTIAL THROMBOPLASTIN TIME 36.6 SECONDS (25.9-37.0)
[2021-12-02 06:38] LABS: CK-MB VALUE MASS 8.5 NG/ML (<3.6); MB/CK RELATIVE INDEX 2.64 (< OR =4)
[2021-12-02] MEDS: PANTOPRAZOLE 40MG TAB (PROTONIX) PO SCH (09:00)
[2021-12-02] MEDS: TOLTERODINE TARTRATE 2 MG LA CAP (DETROL LA) PO SCH (09:00)
[2021-12-02] MEDS: METOPROLOL TART 12.5 MG PER 1/2 TAB PO SCH ×2 (09:00→20:27)
[2021-12-02] MEDS: APIXABAN 5 MG TAB (ELIQUIS) PO SCH ×2 (09:00→20:24)
[2021-12-02] MEDS: CETIRIZINE (ZyrTEC) 10 MG TAB PO SCH (09:00)
[2021-12-02] MEDS ORDERED: MELA1TAB9 PO (09:28)
[2021-12-02] MEDS ORDERED: VITA400T PO (09:28)
[2021-12-02] MEDS ORDERED: GLUC500C37 PO (09:28)
[2021-12-02] MEDS ORDERED: TURM500C PO (09:28)
[2021-12-02] MEDS ORDERED: HOME MED LIST COMPLETE! XX SCH (09:30)
[2021-12-02] MEDS ORDERED: **SFRHE** EPINEPHrine (EPIPEN) 0.3MG/0.3ML SYRINGE INJ PRN (10:10)
[2021-12-02] MEDS ORDERED: NITROGLYCERIN 0.4 MG SUBL TABLET SL PRN (10:10)
[2021-12-02 11:14] LABS: HEMATOCRIT 40.4 % (36.0-47.0); HEMOGLOBIN 13.1 g/dl (12.0-15.5); MEAN CORPUSCULAR HEMOGLOBIN 28.2 pg (27.0-33.0); MEAN CORPUSCULAR HGB CONC 32.4 g/dl (32.0-36.5); MEAN CORPUSCULAR VOLUME 86.9 fl (80.0-96.0); PLATELET COUNT, AUTOMATED 223 10^3/uL (150-450); RED BLOOD COUNT 4.65 10^6/uL (4.00-5.40); WHITE BLOOD COUNT 7.1 10^3/uL (4.0-10.0)
[2021-12-02 11:31] LABS: BLOOD UREA NITROGEN 13 MG/DL (7-18); CALCIUM LEVEL 8.7 MG/DL (8.5-10.1); CARBON DIOXIDE LEVEL 28 MEQ/L (21-32); CHLORIDE LEVEL 110 MEQ/L (98-107); GLOMERULAR FILTRATION RATE > 60.0 (>51); GLUCOSE, FASTING 84 MG/DL (70-100); POTASSIUM SERUM 3.5 MEQ/L (3.5-5.1); SODIUM LEVEL 143 MEQ/L (136-145)
[2021-12-02 11:43] LABS: CK-MB VALUE MASS 13.1 NG/ML (<3.6); MB/CK RELATIVE INDEX 2.26 (< OR =4)
[2021-12-02 17:40] VITALS: BP 129/66
[2021-12-02 18:48] VITALS: BP 151/75
[2021-12-02 19:03] VITALS: BP 214/109
[2021-12-02] MEDS ORDERED: diazePAM 10MG/2ML SYRINGE (J3360 PER 5MG) As Ordered ONE (19:04)
[2021-12-02 19:05] VITALS: BP 167/82
[2021-12-02] MEDS ORDERED: diazePAM 10MG/2ML SYRINGE (J3360 PER 5MG) IV ONE (19:05)
[2021-12-02] MEDS ORDERED: diazePAM 10MG/2ML SYRINGE (J3360 PER 5MG) IM ONE (19:15)
[2021-12-02 19:30] VITALS: BP 142/69
[2021-12-02] MEDS ORDERED: LORazepam 2 MG/ML VIAL IV PRN (19:30)
[2021-12-02] MEDS ORDERED: carisoprodoL 350 MG TAB PO ONE (19:35)
[2021-12-02 20:00] VITALS: BP 109/62
[2021-12-02 20:11] LABS: MAGNESIUM LEVEL 2.2 MG/DL (1.8-2.4)
[2021-12-02] MEDS: ATORVASTATIN 20 MG TAB PO SCH (20:24)
[2021-12-02 20:53] LABS: PROLACTIN 10.4 NG/ML
[2021-12-03] VITALS: BP 114/69
[2021-12-03] MEDS: NS 1,000 ML IV SCH ×2 (00:43→09:02)
[2021-12-03 06:00] VITALS: BP 115/68
[2021-12-03 06:37] LABS: HEMATOCRIT 35.7 % (36.0-47.0); HEMOGLOBIN 11.6 g/dl (12.0-15.5); MEAN CORPUSCULAR HGB CONC 32.5 g/dl (32.0-36.5); PLATELET COUNT, AUTOMATED 187 10^3/uL (150-450); RED BLOOD COUNT 4.15 10^6/uL (4.00-5.40); WHITE BLOOD COUNT 7.2 10^3/uL (4.0-10.0)
[2021-12-03 07:22] LABS: BLOOD UREA NITROGEN 13 MG/DL (7-18); CALCIUM LEVEL 8.3 MG/DL (8.5-10.1); CARBON DIOXIDE LEVEL 27 MEQ/L (21-32); CHLORIDE LEVEL 111 MEQ/L (98-107); CREATININE FOR GFR 0.54 MG/DL (0.55-1.30); GLOMERULAR FILTRATION RATE > 60.0 (>51); GLUCOSE, FASTING 93 MG/DL (70-100); POTASSIUM SERUM 3.5 MEQ/L (3.5-5.1); SODIUM LEVEL 143 MEQ/L (136-145)
[2021-12-03 08:00] VITALS: BP 106/66
[2021-12-03] MEDS: METOPROLOL TART 12.5 MG PER 1/2 TAB PO SCH ×2 (08:46→20:32)
[2021-12-03] MEDS: CETIRIZINE (ZyrTEC) 10 MG TAB PO SCH (09:02)
[2021-12-03] MEDS: TOLTERODINE TARTRATE 2 MG LA CAP (DETROL LA) PO SCH (09:02)
[2021-12-03] MEDS: APIXABAN 5 MG TAB (ELIQUIS) PO SCH ×2 (09:02→20:30)
[2021-12-03] MEDS: BACLOFEN 5MG PER 1/2 TABLET PO PRN ×2 (09:02→16:01)
[2021-12-03] MEDS: PANTOPRAZOLE 40MG TAB (PROTONIX) PO SCH (09:02)
[2021-12-03 10:03] LABS: C REACTIVE PROTEIN QUANTITATIV 0.71 MG/DL (0.00-0.30)
[2021-12-03 10:07] LABS: CK-MB VALUE MASS 3.3 NG/ML (<3.6); MB/CK RELATIVE INDEX 1.3 (< OR =4)
[2021-12-03] MEDS ORDERED: LORazepam 1 MG TAB PO PRN (15:55)
[2021-12-03 20:15] VITALS: BP 122/80
[2021-12-03] MEDS: ATORVASTATIN 20 MG TAB PO SCH (20:30)
[2021-12-03 20:53] VITALS: BP 168/95
[2021-12-04 05:11] VITALS: BP 108/62
[2021-12-04] MEDS: CETIRIZINE (ZyrTEC) 10 MG TAB PO SCH (09:18)
[2021-12-04] MEDS: APIXABAN 5 MG TAB (ELIQUIS) PO SCH ×2 (09:19→21:57)
[2021-12-04] MEDS: PANTOPRAZOLE 40MG TAB (PROTONIX) PO SCH (09:19)
[2021-12-04] MEDS: METOPROLOL TART 12.5 MG PER 1/2 TAB PO SCH ×2 (09:19→21:58)
[2021-12-04] MEDS: TOLTERODINE TARTRATE 2 MG LA CAP (DETROL LA) PO SCH (09:19)
[2021-12-04] MEDS: BACLOFEN 5MG PER 1/2 TABLET PO PRN ×2 (09:22→18:20)
[2021-12-04 14:00] VITALS: BP 109/56
[2021-12-04 21:32] VITALS: BP 112/66
[2021-12-05] MEDS: BACLOFEN 5MG PER 1/2 TABLET PO PRN ×3 (01:01→21:35)
[2021-12-05] MEDS: ACETAMINOPHEN TAB 650MG DOSE (2X325MG) PO PRN ×2 (01:41→12:55)
[2021-12-05 05:15] VITALS: BP 108/59
[2021-12-05 06:30] LABS: C REACTIVE PROTEIN QUANTITATIV 0.41 MG/DL (0.00-0.30); RHEUMATOID FACTOR QUANT < 10.0 IU/ML (<15.0)
[2021-12-05] MEDS: PANTOPRAZOLE 40MG TAB (PROTONIX) PO SCH (08:36)
[2021-12-05] MEDS: APIXABAN 5 MG TAB (ELIQUIS) PO SCH ×2 (08:40→21:35)
[2021-12-05] MEDS: METOPROLOL TART 12.5 MG PER 1/2 TAB PO SCH ×2 (08:40→21:35)
[2021-12-05] MEDS: CETIRIZINE (ZyrTEC) 10 MG TAB PO SCH (08:40)
[2021-12-05] MEDS: TOLTERODINE TARTRATE 2 MG LA CAP (DETROL LA) PO SCH (08:40)
[2021-12-05] MEDS ORDERED: MOM 30ML SUSPENSION UDC PO PRN (10:35)
[2021-12-05 11:23] LABS: HEMATOCRIT 39.6 % (36.0-47.0); HEMOGLOBIN 13.1 g/dl (12.0-15.5); MEAN CORPUSCULAR HEMOGLOBIN 28.7 pg (27.0-33.0); MEAN CORPUSCULAR HGB CONC 33.1 g/dl (32.0-36.5); MEAN CORPUSCULAR VOLUME 86.7 fl (80.0-96.0); PLATELET COUNT, AUTOMATED 235 10^3/uL (150-450); RED BLOOD COUNT 4.57 10^6/uL (4.00-5.40); WHITE BLOOD COUNT 7.4 10^3/uL (4.0-10.0)
[2021-12-05 12:08] LABS: BLOOD UREA NITROGEN 10 MG/DL (7-18); CALCIUM LEVEL 8.9 MG/DL (8.5-10.1); CARBON DIOXIDE LEVEL 29 MEQ/L (21-32); CHLORIDE LEVEL 110 MEQ/L (98-107); CREATININE FOR GFR 0.69 MG/DL (0.55-1.30); GLOMERULAR FILTRATION RATE > 60.0 (>51); GLUCOSE, FASTING 82 MG/DL (70-100); POTASSIUM SERUM 4.2 MEQ/L (3.5-5.1); SODIUM LEVEL 142 MEQ/L (136-145)
[2021-12-05 13:21] LABS: PROLACTIN 6.4 NG/ML
[2021-12-06] MEDS: ACETAMINOPHEN TAB 650MG DOSE (2X325MG) PO PRN ×3 (00:05→20:24)
[2021-12-06 05:57] VITALS: BP 116/69
[2021-12-06] MEDS: BACLOFEN 5MG PER 1/2 TABLET PO PRN ×2 (06:29→18:19)
[2021-12-06] MEDS: PANTOPRAZOLE 40MG TAB (PROTONIX) PO SCH (10:51)
[2021-12-06] MEDS: APIXABAN 5 MG TAB (ELIQUIS) PO SCH ×2 (10:51→20:25)
[2021-12-06] MEDS: TOLTERODINE TARTRATE 2 MG LA CAP (DETROL LA) PO SCH (10:53)
[2021-12-06] MEDS: CETIRIZINE (ZyrTEC) 10 MG TAB PO SCH (10:53)
[2021-12-06] MEDS: METOPROLOL TART 12.5 MG PER 1/2 TAB PO SCH ×2 (10:56→20:24)
[2021-12-06] MEDS ORDERED: traMADol 50 MG TAB PO ONE (19:00)
[2021-12-06] MEDS ORDERED: predniSONE 5 MG TAB PO ONE (19:00)
[2021-12-07] MEDS: BACLOFEN 5MG PER 1/2 TABLET PO PRN ×2 (01:20→16:38)
[2021-12-07] MEDS: ACETAMINOPHEN TAB 650MG DOSE (2X325MG) PO PRN ×2 (05:46→16:38)
[2021-12-07 05:47] VITALS: BP 130/67
[2021-12-07] MEDS: APIXABAN 5 MG TAB (ELIQUIS) PO SCH ×2 (09:17→20:52)
[2021-12-07] MEDS: CETIRIZINE (ZyrTEC) 10 MG TAB PO SCH (09:17)
[2021-12-07] MEDS: TOLTERODINE TARTRATE 2 MG LA CAP (DETROL LA) PO SCH (09:17)
[2021-12-07] MEDS: PANTOPRAZOLE 40MG TAB (PROTONIX) PO SCH (09:18)
[2021-12-07] MEDS: METOPROLOL TART 12.5 MG PER 1/2 TAB PO SCH ×2 (09:18→20:49)
[2021-12-08 06:17] VITALS: BP 121/59
[2021-12-08] MEDS: CETIRIZINE (ZyrTEC) 10 MG TAB PO SCH (08:34)
[2021-12-08] MEDS: TOLTERODINE TARTRATE 2 MG LA CAP (DETROL LA) PO SCH (08:34)
[2021-12-08] MEDS: APIXABAN 5 MG TAB (ELIQUIS) PO SCH ×2 (08:34→22:13)
[2021-12-08] MEDS: BACLOFEN 5MG PER 1/2 TABLET PO PRN ×2 (08:35→14:12)
[2021-12-08] MEDS: METOPROLOL TART 12.5 MG PER 1/2 TAB PO SCH ×2 (08:35→22:12)
[2021-12-08] MEDS: ACETAMINOPHEN TAB 650MG DOSE (2X325MG) PO PRN ×3 (08:35→22:13)
[2021-12-08] MEDS: PANTOPRAZOLE 40MG TAB (PROTONIX) PO SCH (09:00)
[2021-12-09] MEDS: METOPROLOL TART 12.5 MG PER 1/2 TAB PO SCH ×2 (09:00→20:17)
[2021-12-09] MEDS: CETIRIZINE (ZyrTEC) 10 MG TAB PO SCH (10:16)
[2021-12-09] MEDS: ACETAMINOPHEN TAB 650MG DOSE (2X325MG) PO PRN ×2 (10:16→20:25)
[2021-12-09] MEDS: TOLTERODINE TARTRATE 2 MG LA CAP (DETROL LA) PO SCH (10:16)
[2021-12-09] MEDS: APIXABAN 5 MG TAB (ELIQUIS) PO SCH ×2 (10:16→20:28)
[2021-12-09] MEDS: BACLOFEN 5MG PER 1/2 TABLET PO PRN ×2 (10:17→20:27)
[2021-12-09] MEDS: PANTOPRAZOLE 40MG TAB (PROTONIX) PO SCH (10:17)
[2021-12-09 10:24] LABS: HEMATOCRIT 39.9 % (36.0-47.0); HEMOGLOBIN 12.9 g/dl (12.0-15.5); MEAN CORPUSCULAR HEMOGLOBIN 28.2 pg (27.0-33.0); MEAN CORPUSCULAR HGB CONC 32.3 g/dl (32.0-36.5); MEAN CORPUSCULAR VOLUME 87.1 fl (80.0-96.0); PLATELET COUNT, AUTOMATED 228 10^3/uL (150-450); RED BLOOD COUNT 4.58 10^6/uL (4.00-5.40); WHITE BLOOD COUNT 6.6 10^3/uL (4.0-10.0)
[2021-12-09 10:48] LABS: BLOOD UREA NITROGEN 22 MG/DL (7-18); CALCIUM LEVEL 8.9 MG/DL (8.5-10.1); CARBON DIOXIDE LEVEL 28 MEQ/L (21-32); CHLORIDE LEVEL 109 MEQ/L (98-107); GLOMERULAR FILTRATION RATE > 60.0 (>51); GLUCOSE, FASTING 119 MG/DL (70-100); POTASSIUM SERUM 3.9 MEQ/L (3.5-5.1); SODIUM LEVEL 142 MEQ/L (136-145)
[2021-12-09 12:00] VITALS: BP 101/55
[2021-12-10 06:00] VITALS: BP 117/61
[2021-12-10] MEDS: METOPROLOL TART 12.5 MG PER 1/2 TAB PO SCH ×2 (09:00→21:00)
[2021-12-10] MEDS: CETIRIZINE (ZyrTEC) 10 MG TAB PO SCH (09:16)
[2021-12-10] MEDS: BACLOFEN 5MG PER 1/2 TABLET PO PRN ×2 (09:17→18:36)
[2021-12-10] MEDS: APIXABAN 5 MG TAB (ELIQUIS) PO SCH ×2 (09:17→21:07)
[2021-12-10] MEDS: ACETAMINOPHEN TAB 650MG DOSE (2X325MG) PO PRN ×2 (09:17→18:36)
[2021-12-10] MEDS: PANTOPRAZOLE 40MG TAB (PROTONIX) PO SCH (09:17)
[2021-12-10] MEDS: TOLTERODINE TARTRATE 2 MG LA CAP (DETROL LA) PO SCH (09:18)
[2021-12-11 06:00] VITALS: BP 118/57
[2021-12-11] MEDS: METOPROLOL TART 12.5 MG PER 1/2 TAB PO SCH ×2 (09:00→20:10)
[2021-12-11] MEDS: BACLOFEN 5MG PER 1/2 TABLET PO PRN ×2 (09:12→18:45)
[2021-12-11] MEDS: APIXABAN 5 MG TAB (ELIQUIS) PO SCH ×2 (09:12→20:09)
[2021-12-11] MEDS: PANTOPRAZOLE 40MG TAB (PROTONIX) PO SCH (09:12)
[2021-12-11] MEDS: ACETAMINOPHEN TAB 650MG DOSE (2X325MG) PO PRN ×2 (09:12→18:45)
[2021-12-11] MEDS: CETIRIZINE (ZyrTEC) 10 MG TAB PO SCH (09:12)
[2021-12-11] MEDS: TOLTERODINE TARTRATE 2 MG LA CAP (DETROL LA) PO SCH (10:51)
[2021-12-12] MEDS: ACETAMINOPHEN TAB 650MG DOSE (2X325MG) PO PRN ×3 (00:18→20:25)
[2021-12-12] MEDS: BACLOFEN 5MG PER 1/2 TABLET PO PRN ×3 (00:46→20:25)
[2021-12-12 05:58] VITALS: BP 113/56
[2021-12-12] MEDS ORDERED: BACL10TA2 PO (07:54)
[2021-12-12] MEDS: METOPROLOL TART 12.5 MG PER 1/2 TAB PO SCH ×2 (08:32→20:03)
[2021-12-12] MEDS: APIXABAN 5 MG TAB (ELIQUIS) PO SCH ×2 (08:33→20:00)
[2021-12-12] MEDS: PANTOPRAZOLE 40MG TAB (PROTONIX) PO SCH (08:33)
[2021-12-12] MEDS: TOLTERODINE TARTRATE 2 MG LA CAP (DETROL LA) PO SCH (08:33)
[2021-12-12] MEDS: CETIRIZINE (ZyrTEC) 10 MG TAB PO SCH (08:33)
[2021-12-12 10:43] LABS: HEMATOCRIT 42.4 % (36.0-47.0); HEMOGLOBIN 13.8 g/dl (12.0-15.5); MEAN CORPUSCULAR HEMOGLOBIN 28.4 pg (27.0-33.0); MEAN CORPUSCULAR HGB CONC 32.5 g/dl (32.0-36.5); MEAN CORPUSCULAR VOLUME 87.2 fl (80.0-96.0); PLATELET COUNT, AUTOMATED 241 10^3/uL (150-450); RED BLOOD COUNT 4.86 10^6/uL (4.00-5.40); WHITE BLOOD COUNT 6.1 10^3/uL (4.0-10.0)
[2021-12-12 10:54] VITALS: BP 117/71
[2021-12-12 11:22] LABS: BLOOD UREA NITROGEN 18 MG/DL (7-18); CALCIUM LEVEL 9.2 MG/DL (8.5-10.1); CARBON DIOXIDE LEVEL 28 MEQ/L (21-32); CHLORIDE LEVEL 108 MEQ/L (98-107); CREATININE FOR GFR 0.72 MG/DL (0.55-1.30); GLOMERULAR FILTRATION RATE > 60.0 (>51); GLUCOSE, FASTING 100 MG/DL (70-100); SODIUM LEVEL 139 MEQ/L (136-145)
[2021-12-12 21:07] LABS: ANTI DS-DNA AB Negative (Negative); ANTI SMITH(Sm) AB <20 Units (<20); ANTINUCLEAR ANTIBODIES DIRECT Negative (Negative)
[2021-12-13 06:00] VITALS: BP 98/58
[2021-12-13 09:00] VITALS: BP 108/55
[2021-12-13] MEDS: METOPROLOL TART 12.5 MG PER 1/2 TAB PO SCH (09:00)
[2021-12-13] MEDS: APIXABAN 5 MG TAB (ELIQUIS) PO SCH (09:03)
[2021-12-13] MEDS: PANTOPRAZOLE 40MG TAB (PROTONIX) PO SCH (09:03)
[2021-12-13] MEDS: CETIRIZINE (ZyrTEC) 10 MG TAB PO SCH (09:03)
[2021-12-13] MEDS: TOLTERODINE TARTRATE 2 MG LA CAP (DETROL LA) PO SCH (09:03)
[2021-12-13] MEDS: ACETAMINOPHEN TAB 650MG DOSE (2X325MG) PO PRN (09:04)
[2021-12-13] MEDS: BACLOFEN 5MG PER 1/2 TABLET PO PRN (09:04)
== END 2021-12-13 13:38 | DRG 556 ==
LOC: M ED 17:36 → M ED INP 12-02 10:14 → ENRESERV 12-02 16:52 → M PCU 12-02 17:41 → M MSPAV 12-03 20:05
PROVIDERS: ADMIT Internal Medicine; ATTEND Internal Medicine Nephrology
DX: M60.89 Other myositis, multiple sites (principal); D68.62 Lupus anticoagulant syndrome; K21.9 Gastro-esophageal reflux disease without esophagitis; F25.9 Schizoaffective disorder, unspecified; I10 Essential (primary) hypertension; F44.4 Conversion disorder with motor symptom or deficit; R07.89 Other chest pain; E66.9 Obesity, unspecified; T46.6X5A Adverse effect of antihyperlipidemic and antiarteriosclerotic drugs, initial encounter; Z86.718 Personal history of other venous thrombosis and embolism; Z79.01 Long term (current) use of anticoagulants; Z79.899 Other long term (current) drug therapy; Z88.0 Allergy status to penicillin; Z88.8 Allergy status to other drugs, medicaments and biological substances; Z91.040 Latex allergy status; Z91.013 Allergy to seafood; Z87.891 Personal history of nicotine dependence; Z86.711 Personal history of pulmonary embolism; Z91.51 Personal history of suicidal behavior; Z68.39 Body mass index [BMI] 39.0-39.9, adult

== ENCOUNTER 2021-12-21 20:04 | Inpatient (IN) | payer OTHER ==
[~2021-12-21] VITALS: Ht 165.1 cm; Wt 98.0 kg
[~2021-12-21 20:04] MED LIST changes: +BACL10TA2 PO; +GLUC500C37 PO; +MELA1TAB9 PO; +TURM500C PO; +VITA400T PO
[2021-12-21] MEDS ORDERED: ACETAMINOPHEN TAB 650MG DOSE (2X325MG) PO ONE (20:30)
[2021-12-21 20:38] LABS: BASO # 0.1 10^3/uL (0.0-0.2); BASO % 0.5 % (0.0-1.0); EOS # 0.1 10^3/uL (0.0-0.5); EOS % 0.8 % (0.0-3.0); HEMATOCRIT 43.4 % (36.0-47.0); HEMOGLOBIN 14.2 g/dl (12.0-15.5); LYMPH # 2.1 10^3/uL (1.5-5.0); LYMPH % 18.5 % (24.0-44.0); MEAN CORPUSCULAR HEMOGLOBIN 27.8 pg (27.0-33.0); MEAN CORPUSCULAR HGB CONC 32.7 g/dl (32.0-36.5); MEAN CORPUSCULAR VOLUME 84.9 fl (80.0-96.0); MONO # 0.9 10^3/uL (0.0-0.8); MONO % 7.9 % (2.0-8.0); NEUTROPHILS # 8.3 10^3/uL (1.5-8.5); PLATELET COUNT, AUTOMATED 289 10^3/uL (150-450); RED BLOOD COUNT 5.11 10^6/uL (4.00-5.40); WHITE BLOOD COUNT 11.5 10^3/uL (4.0-10.0)
[2021-12-21 21:19] LABS: CPK CREATINE PHOSPHOKINASE 68 U/L (26-192)
[2021-12-21 21:21] LABS: ACETAMINOPHEN LEVEL < 2.0 UG/ML (10.0-30.0); ALBUMIN 3.4 GM/DL (3.2-5.2); ALT/SGPT 25 U/L (12-78); BILIRUBIN,DIRECT < 0.1 MG/DL (0.0-0.2); BILIRUBIN,TOTAL 0.6 MG/DL (0.2-1.0); BLOOD UREA NITROGEN 17 MG/DL (7-18); CALCIUM LEVEL 9.6 MG/DL (8.5-10.1); CARBON DIOXIDE LEVEL 25 MEQ/L (21-32); CHLORIDE LEVEL 109 MEQ/L (98-107); CREATININE FOR GFR 0.67 MG/DL (0.55-1.30); ETHYL ALCOHOL (ETHANOL) < 0.003 % (0.000-0.010); GLOMERULAR FILTRATION RATE > 60.0 (>51); GLUCOSE, FASTING 114 MG/DL (70-100); POTASSIUM SERUM 4.3 MEQ/L (3.5-5.1); SALICYLATE LEVEL < 1.7 MG/DL (5.0-30.0); SODIUM LEVEL 140 MEQ/L (136-145); THYROID STIMULATING HORMONE 0.466 uIU/ML (0.358-3.740); TOTAL PROTEIN 7.1 GM/DL (6.4-8.2)
[2021-12-21 22:14] LABS: AMPHETAMINES LEVEL URINE NEGATIVE (NEGATIVE); BARBITURATES URINE NEGATIVE (NEGATIVE); BENZODIAZEPINES URINE NEGATIVE (NEGATIVE); CANNABINOIDS URINE NEGATIVE (NEGATIVE); COCAINE METABOLITE URINE NEGATIVE (NEGATIVE); METHADONE URINE NEGATIVE (NEGATIVE); OPIATES URINE NEGATIVE (NEGATIVE); PHENCYCLIDINE URINE NEGATIVE (NEGATIVE)
[2021-12-21 22:36] LABS: CPK CREATINE PHOSPHOKINASE 49 U/L (26-192)
[2021-12-21] MEDS: GASTROGRAFIN SOLUTION 30ML PO SCH ×2 (23:09→23:40)
[2021-12-22] MEDS ORDERED: ISOVUE-370 76% 100ML VIAL As Ordered ONE (00:26)
[2021-12-22 00:39] LABS: CPK CREATINE PHOSPHOKINASE 65 U/L (26-192)
[2021-12-22] MEDS ORDERED: FAMOTIDINE 20MG/2ML VIAL IVP ONE (00:40)
[2021-12-22] MEDS ORDERED: diphenhydrAMINE 50MG/ML VIAL IV ONE ×2 (00:40→04:00)
[2021-12-22] MEDS ORDERED: methylPREDNISolone 125MG 2ML VIAL IV ONE (00:40)
[2021-12-22] MEDS ORDERED: CIPROFLOXACIN 400 MG in IV 1 EA IV ONE (03:00)
[2021-12-22] MEDS ORDERED: metroNIDAZOLE 500 MG in IV 1 EA IV ONE (03:00)
[2021-12-22] MEDS ORDERED: BACL1TAB8 PO (03:42)
[2021-12-22] MEDS ORDERED: ACET1TAB55 PO (03:42)
[2021-12-22] MEDS ORDERED: HOME MED LIST COMPLETE! XX SCH (03:45)
[2021-12-22] MEDS ORDERED: NITROGLYCERIN 0.4 MG SUBL TABLET SL PRN (04:00)
[2021-12-22] MEDS ORDERED: EPINEPHrine INJ 1 MG/ML 1ML AMP INJ PRN (04:00)
[2021-12-22] MEDS ORDERED: MORPHINE 2 MG/ML 1ML VIAL IV PRN (04:00)
[2021-12-22] MEDS ORDERED: NS 1,000 ML IV SCH (04:00)
[2021-12-22 07:22] LABS: HEMATOCRIT 40.6 % (36.0-47.0); HEMOGLOBIN 13.4 g/dl (12.0-15.5); MEAN CORPUSCULAR VOLUME 84.9 fl (80.0-96.0); PLATELET COUNT, AUTOMATED 288 10^3/uL (150-450); RED BLOOD COUNT 4.78 10^6/uL (4.00-5.40); WHITE BLOOD COUNT 6.8 10^3/uL (4.0-10.0)
[2021-12-22 08:00] LABS: BLOOD UREA NITROGEN 19 MG/DL (7-18); CALCIUM LEVEL 9.2 MG/DL (8.5-10.1); CARBON DIOXIDE LEVEL 26 MEQ/L (21-32); CHLORIDE LEVEL 107 MEQ/L (98-107); CREATININE FOR GFR 0.73 MG/DL (0.55-1.30); GLOMERULAR FILTRATION RATE > 60.0 (>51); GLUCOSE, FASTING 149 MG/DL (70-100); POTASSIUM SERUM 4.3 MEQ/L (3.5-5.1); SODIUM LEVEL 139 MEQ/L (136-145)
[2021-12-22] MEDS: BACLOFEN 10 MG TAB PO SCH ×4 (08:04→23:23)
[2021-12-22] MEDS ORDERED: FLEET OIL RETENTION ENEMA PR SCH (09:00)
[2021-12-22] MEDS: FLEET OIL RETENTION ENEMA PR SCH ×2 (09:00→21:27)
[2021-12-22 09:08] LABS: INR 1.1; PROTHROMBIN TIME 14.4 SECONDS (12.5-14.5)
[2021-12-22 09:09] LABS: PARTIAL THROMBOPLASTIN TIME 31.4 SECONDS (24.8-34.2)
[2021-12-22] MEDS: APIXABAN 5 MG TAB (ELIQUIS) PO SCH ×2 (09:22→21:26)
[2021-12-22] MEDS: CETIRIZINE (ZyrTEC) 10 MG TAB PO SCH (09:22)
[2021-12-22] MEDS: PANTOPRAZOLE 40MG TAB (PROTONIX) PO SCH (09:22)
[2021-12-22] MEDS: METOPROLOL TART 12.5 MG PER 1/2 TAB PO SCH ×2 (09:24→21:00)
[2021-12-22] MEDS: BISACODYL 10 MG SUPP PR SCH ×2 (12:03→21:26)
[2021-12-22] MEDS: CIPROFLOXACIN 400 MG in IV 1 EA IV SCH ×2 (12:03→22:17)
[2021-12-22] MEDS: MIRALAX *UNIT DOSE* 17GM PACKET PO SCH ×2 (12:04→21:26)
[2021-12-22] MEDS: TOLTERODINE TARTRATE 2 MG LA CAP (DETROL LA) PO SCH (12:04)
[2021-12-22 14:30] VITALS: BP 133/76
[2021-12-22] MEDS: metroNIDAZOLE 500 MG in IV 1 EA IV SCH ×2 (15:34→21:27)
[2021-12-22 20:40] VITALS: BP 103/55
[2021-12-22] MEDS: ACETAMINOPHEN TAB 650MG DOSE (2X325MG) PO PRN (21:27)
[2021-12-22] MEDS: ONDANSETRON 4MG 2ML VIAL IV PRN (23:22)
[2021-12-23] MEDS: metroNIDAZOLE 500 MG in IV 1 EA IV SCH ×3 (04:19→21:06)
[2021-12-23] MEDS: BACLOFEN 10 MG TAB PO SCH ×4 (05:28→23:55)
[2021-12-23 06:00] VITALS: BP 99/56
[2021-12-23 06:12] LABS: HEMATOCRIT 34.4 % (36.0-47.0); HEMOGLOBIN 11.6 g/dl (12.0-15.5); MEAN CORPUSCULAR HEMOGLOBIN 29.1 pg (27.0-33.0); MEAN CORPUSCULAR HGB CONC 33.7 g/dl (32.0-36.5); MEAN CORPUSCULAR VOLUME 86.2 fl (80.0-96.0); PLATELET COUNT, AUTOMATED 226 10^3/uL (150-450); RED BLOOD COUNT 3.99 10^6/uL (4.00-5.40); WHITE BLOOD COUNT 7.4 10^3/uL (4.0-10.0)
[2021-12-23 06:46] LABS: BLOOD UREA NITROGEN 14 MG/DL (7-18); CALCIUM LEVEL 8.6 MG/DL (8.5-10.1); CARBON DIOXIDE LEVEL 29 MEQ/L (21-32); CHLORIDE LEVEL 109 MEQ/L (98-107); GLOMERULAR FILTRATION RATE > 60.0 (>51); GLUCOSE, FASTING 100 MG/DL (70-100); POTASSIUM SERUM 3.4 MEQ/L (3.5-5.1); SODIUM LEVEL 141 MEQ/L (136-145)
[2021-12-23] MEDS ORDERED: POTASSIUM CHLORIDE 10MEQ SR TABLET PO ONE (06:55)
[2021-12-23] MEDS ORDERED: MOM 30ML SUSPENSION UDC PO PRN (06:55)
[2021-12-23] MEDS: APIXABAN 5 MG TAB (ELIQUIS) PO SCH ×2 (08:37→21:05)
[2021-12-23] MEDS: METAMUCIL (PSYLLIUM) PACKET PO SCH ×2 (08:37→21:00)
[2021-12-23] MEDS: MIRALAX *UNIT DOSE* 17GM PACKET PO SCH ×2 (08:37→21:00)
[2021-12-23] MEDS: BISACODYL 10 MG SUPP PR SCH (08:38)
[2021-12-23] MEDS: PANTOPRAZOLE 40MG TAB (PROTONIX) PO SCH (08:38)
[2021-12-23] MEDS: CETIRIZINE (ZyrTEC) 10 MG TAB PO SCH (08:38)
[2021-12-23] MEDS: TOLTERODINE TARTRATE 2 MG LA CAP (DETROL LA) PO SCH (08:38)
[2021-12-23] MEDS: METOPROLOL TART 12.5 MG PER 1/2 TAB PO SCH ×2 (08:39→21:00)
[2021-12-23] MEDS: FLEET OIL RETENTION ENEMA PR SCH (08:39)
[2021-12-23] MEDS ORDERED: SENNA 8.6 MG TAB (SENOKOT) PO SCH (09:00)
[2021-12-23] MEDS: CIPROFLOXACIN 400 MG in IV 1 EA IV SCH ×2 (11:27→22:15)
[2021-12-23] MEDS: ACETAMINOPHEN TAB 650MG DOSE (2X325MG) PO PRN ×2 (13:24→21:05)
[2021-12-23] MEDS: ONDANSETRON 4MG 2ML VIAL IV PRN (13:28)
[2021-12-23 14:00] VITALS: BP 104/58
[2021-12-23] MEDS ORDERED: PROHANCE 279.3MG/ML 15ML VIAL As Ordered ONE (18:47)
[2021-12-23] MEDS ORDERED: PROHANCE 279.3MG/ML 5ML VIAL As Ordered ONE (18:48)
[2021-12-23] MEDS ORDERED: FLEET OIL RETENTION ENEMA PR PRN (20:30)
[2021-12-23] MEDS ORDERED: BISACODYL 10 MG SUPP PR PRN (20:30)
[2021-12-23 21:00] VITALS: BP 104/67
[2021-12-23 22:00] VITALS: BP 104/67
[2021-12-24] MEDS: metroNIDAZOLE 500 MG in IV 1 EA IV SCH (04:06)
[2021-12-24] MEDS: ONDANSETRON 4MG 2ML VIAL IV PRN ×2 (04:06→13:06)
[2021-12-24] MEDS: BACLOFEN 10 MG TAB PO SCH ×3 (04:56→17:48)
[2021-12-24 06:00] VITALS: BP 94/61
[2021-12-24 06:21] LABS: HEMATOCRIT 36.1 % (36.0-47.0); HEMOGLOBIN 11.5 g/dl (12.0-15.5); MEAN CORPUSCULAR HEMOGLOBIN 28.2 pg (27.0-33.0); MEAN CORPUSCULAR HGB CONC 31.9 g/dl (32.0-36.5); MEAN CORPUSCULAR VOLUME 88.5 fl (80.0-96.0); PLATELET COUNT, AUTOMATED 224 10^3/uL (150-450); RED BLOOD COUNT 4.08 10^6/uL (4.00-5.40); WHITE BLOOD COUNT 5.1 10^3/uL (4.0-10.0)
[2021-12-24 06:42] LABS: BLOOD UREA NITROGEN 11 MG/DL (7-18); CALCIUM LEVEL 8.4 MG/DL (8.5-10.1); CARBON DIOXIDE LEVEL 29 MEQ/L (21-32); CHLORIDE LEVEL 107 MEQ/L (98-107); CREATININE FOR GFR 0.69 MG/DL (0.55-1.30); GLOMERULAR FILTRATION RATE > 60.0 (>51); GLUCOSE, FASTING 99 MG/DL (70-100); POTASSIUM SERUM 3.6 MEQ/L (3.5-5.1); SODIUM LEVEL 142 MEQ/L (136-145)
[2021-12-24] MEDS: MIRALAX *UNIT DOSE* 17GM PACKET PO SCH ×2 (09:00→21:00)
[2021-12-24] MEDS: METOPROLOL TART 12.5 MG PER 1/2 TAB PO SCH (09:00)
[2021-12-24] MEDS ORDERED: DOCUSATE SODIUM 100MG CAPSULE PO SCH (09:00)
[2021-12-24] MEDS: LACTOBACILLUS ACIDOPHILUS CAP (BACID) PO SCH ×2 (09:23→17:48)
[2021-12-24] MEDS: APIXABAN 5 MG TAB (ELIQUIS) PO SCH ×2 (09:23→22:03)
[2021-12-24] MEDS: PANTOPRAZOLE 40MG TAB (PROTONIX) PO SCH (09:23)
[2021-12-24] MEDS: CETIRIZINE (ZyrTEC) 10 MG TAB PO SCH (09:23)
[2021-12-24] MEDS: CIPROFLOXACIN 500MG TABLET PO SCH ×2 (09:24→17:48)
[2021-12-24] MEDS: TOLTERODINE TARTRATE 2 MG LA CAP (DETROL LA) PO SCH (09:24)
[2021-12-24] MEDS ORDERED: metroNIDAZOLE (FLAGYL) 500MG TABLET PO SCH (14:00)
[2021-12-24 14:45] VITALS: BP 105/65
[2021-12-24 20:24] VITALS: BP 99/56
[2021-12-24] MEDS: SENNA 8.6 MG TAB (SENOKOT) PO SCH (21:00)
[2021-12-24] MEDS: METAMUCIL (PSYLLIUM) PACKET PO SCH (22:03)
[2021-12-25 04:50] VITALS: BP 104/57
[2021-12-25] MEDS: BACLOFEN 10 MG TAB PO SCH ×4 (05:40→17:01)
[2021-12-25 07:29] LABS: HEMATOCRIT 36.1 % (36.0-47.0); HEMOGLOBIN 11.7 g/dl (12.0-15.5); MEAN CORPUSCULAR HEMOGLOBIN 28.3 pg (27.0-33.0); MEAN CORPUSCULAR HGB CONC 32.4 g/dl (32.0-36.5); MEAN CORPUSCULAR VOLUME 87.2 fl (80.0-96.0); PLATELET COUNT, AUTOMATED 247 10^3/uL (150-450); RED BLOOD COUNT 4.14 10^6/uL (4.00-5.40); WHITE BLOOD COUNT 6.7 10^3/uL (4.0-10.0)
[2021-12-25] MEDS: MIRALAX *UNIT DOSE* 17GM PACKET PO SCH ×2 (07:55→20:24)
[2021-12-25] MEDS: METAMUCIL (PSYLLIUM) PACKET PO SCH ×2 (07:59→20:24)
[2021-12-25] MEDS: CETIRIZINE (ZyrTEC) 10 MG TAB PO SCH (08:00)
[2021-12-25] MEDS: TOLTERODINE TARTRATE 2 MG LA CAP (DETROL LA) PO SCH (08:00)
[2021-12-25] MEDS: LACTOBACILLUS ACIDOPHILUS CAP (BACID) PO SCH ×2 (08:00→17:01)
[2021-12-25] MEDS: PANTOPRAZOLE 40MG TAB (PROTONIX) PO SCH (08:00)
[2021-12-25] MEDS: APIXABAN 5 MG TAB (ELIQUIS) PO SCH ×2 (08:00→20:24)
[2021-12-25 08:52] LABS: BLOOD UREA NITROGEN 11 MG/DL (7-18); CALCIUM LEVEL 8.9 MG/DL (8.5-10.1); CARBON DIOXIDE LEVEL 28 MEQ/L (21-32); CHLORIDE LEVEL 108 MEQ/L (98-107); GLOMERULAR FILTRATION RATE > 60.0 (>51); GLUCOSE, FASTING 99 MG/DL (70-100); SODIUM LEVEL 141 MEQ/L (136-145)
[2021-12-25 14:00] VITALS: BP 106/53
[2021-12-25 20:14] VITALS: BP 107/54
[2021-12-25] MEDS: SENNA 8.6 MG TAB (SENOKOT) PO SCH (20:24)
[2021-12-26] MEDS: BACLOFEN 10 MG TAB PO SCH ×4 (00:39→17:54)
[2021-12-26 06:12] VITALS: BP 127/70
[2021-12-26 06:56] LABS: HEMATOCRIT 37.5 % (36.0-47.0); HEMOGLOBIN 12.1 g/dl (12.0-15.5); MEAN CORPUSCULAR HEMOGLOBIN 28.3 pg (27.0-33.0); MEAN CORPUSCULAR HGB CONC 32.3 g/dl (32.0-36.5); MEAN CORPUSCULAR VOLUME 87.8 fl (80.0-96.0); PLATELET COUNT, AUTOMATED 247 10^3/uL (150-450); RED BLOOD COUNT 4.27 10^6/uL (4.00-5.40); WHITE BLOOD COUNT 6.1 10^3/uL (4.0-10.0)
[2021-12-26] MEDS: ACETAMINOPHEN TAB 650MG DOSE (2X325MG) PO PRN ×2 (07:33→21:19)
[2021-12-26 07:42] LABS: BLOOD UREA NITROGEN 12 MG/DL (7-18); CALCIUM LEVEL 8.9 MG/DL (8.5-10.1); CARBON DIOXIDE LEVEL 29 MEQ/L (21-32); CHLORIDE LEVEL 108 MEQ/L (98-107); GLOMERULAR FILTRATION RATE > 60.0 (>51); GLUCOSE, FASTING 91 MG/DL (70-100); POTASSIUM SERUM 4.3 MEQ/L (3.5-5.1); SODIUM LEVEL 142 MEQ/L (136-145)
[2021-12-26] MEDS: LACTOBACILLUS ACIDOPHILUS CAP (BACID) PO SCH ×2 (09:21→17:54)
[2021-12-26] MEDS: CETIRIZINE (ZyrTEC) 10 MG TAB PO SCH (09:22)
[2021-12-26] MEDS: TOLTERODINE TARTRATE 2 MG LA CAP (DETROL LA) PO SCH (09:22)
[2021-12-26] MEDS: APIXABAN 5 MG TAB (ELIQUIS) PO SCH ×2 (09:22→21:19)
[2021-12-26] MEDS: PANTOPRAZOLE 40MG TAB (PROTONIX) PO SCH (09:23)
[2021-12-26] MEDS: METAMUCIL (PSYLLIUM) PACKET PO SCH ×2 (09:23→21:18)
[2021-12-26] MEDS: MIRALAX *UNIT DOSE* 17GM PACKET PO SCH ×2 (09:24→21:18)
[2021-12-26 14:00] VITALS: BP 122/68
[2021-12-26] MEDS ORDERED: META1POW PO (17:33)
[2021-12-26] MEDS ORDERED: SENN18TA PO (17:33)
[2021-12-26] MEDS ORDERED: MIRA1POW3 PO (17:33)
[2021-12-26] MEDS ORDERED: MOM30SS2 PO (17:33)
[2021-12-26 20:04] VITALS: BP 115/67
[2021-12-26] MEDS: SENNA 8.6 MG TAB (SENOKOT) PO SCH (21:19)
[2021-12-27] MEDS: BACLOFEN 10 MG TAB PO SCH ×4 (00:08→17:24)
[2021-12-27 05:39] VITALS: BP 113/66
[2021-12-27] MEDS: ACETAMINOPHEN TAB 650MG DOSE (2X325MG) PO PRN (05:50)
[2021-12-27 07:00] LABS: HEMATOCRIT 39.1 % (36.0-47.0); HEMOGLOBIN 12.3 g/dl (12.0-15.5); MEAN CORPUSCULAR HEMOGLOBIN 27.7 pg (27.0-33.0); MEAN CORPUSCULAR HGB CONC 31.5 g/dl (32.0-36.5); MEAN CORPUSCULAR VOLUME 88.1 fl (80.0-96.0); PLATELET COUNT, AUTOMATED 267 10^3/uL (150-450); RED BLOOD COUNT 4.44 10^6/uL (4.00-5.40); WHITE BLOOD COUNT 6.2 10^3/uL (4.0-10.0)
[2021-12-27 07:47] LABS: BLOOD UREA NITROGEN 13 MG/DL (7-18); CALCIUM LEVEL 8.4 MG/DL (8.5-10.1); CARBON DIOXIDE LEVEL 29 MEQ/L (21-32); CHLORIDE LEVEL 109 MEQ/L (98-107); CREATININE FOR GFR 0.64 MG/DL (0.55-1.30); GLOMERULAR FILTRATION RATE > 60.0 (>51); GLUCOSE, FASTING 95 MG/DL (70-100); POTASSIUM SERUM 3.6 MEQ/L (3.5-5.1); SODIUM LEVEL 141 MEQ/L (136-145)
[2021-12-27] MEDS: TOLTERODINE TARTRATE 2 MG LA CAP (DETROL LA) PO SCH (08:08)
[2021-12-27] MEDS: PANTOPRAZOLE 40MG TAB (PROTONIX) PO SCH (08:08)
[2021-12-27] MEDS: APIXABAN 5 MG TAB (ELIQUIS) PO SCH ×2 (08:09→21:38)
[2021-12-27] MEDS: CETIRIZINE (ZyrTEC) 10 MG TAB PO SCH (08:09)
[2021-12-27] MEDS: LACTOBACILLUS ACIDOPHILUS CAP (BACID) PO SCH ×2 (08:09→17:24)
[2021-12-27] MEDS: METAMUCIL (PSYLLIUM) PACKET PO SCH ×2 (08:10→21:38)
[2021-12-27] MEDS: MIRALAX *UNIT DOSE* 17GM PACKET PO SCH ×2 (08:10→21:38)
[2021-12-27 15:01] VITALS: BP 111/63
[2021-12-27 21:08] VITALS: BP 104/65
[2021-12-27 21:21] LABS: ALBUMIN 2.9 GM/DL (3.2-5.2); ALT/SGPT 19 U/L (12-78); BILIRUBIN,TOTAL 0.2 MG/DL (0.2-1.0); BLOOD UREA NITROGEN 11 MG/DL (7-18); CALCIUM LEVEL 8.6 MG/DL (8.5-10.1); CARBON DIOXIDE LEVEL 26 MEQ/L (21-32); CHLORIDE LEVEL 107 MEQ/L (98-107); CREATININE FOR GFR 0.63 MG/DL (0.55-1.30); FERRITIN 64 NG/ML (8-252); GLOMERULAR FILTRATION RATE > 60.0 (>51); GLUCOSE, FASTING 116 MG/DL (70-100); LDH LACTATE DEHYDROGENASE 218 U/L (84-246); SODIUM LEVEL 141 MEQ/L (136-145); TOTAL PROTEIN 6.1 GM/DL (6.4-8.2)
[2021-12-27] MEDS: SENNA 8.6 MG TAB (SENOKOT) PO SCH (21:38)
[2021-12-28] MEDS: BACLOFEN 10 MG TAB PO SCH ×4 (00:36→17:34)
[2021-12-28] MEDS: ACETAMINOPHEN TAB 650MG DOSE (2X325MG) PO PRN (05:59)
[2021-12-28 06:00] VITALS: BP 141/72
[2021-12-28 07:20] LABS: HEMATOCRIT 38.4 % (36.0-47.0); HEMOGLOBIN 12.4 g/dl (12.0-15.5); MEAN CORPUSCULAR HEMOGLOBIN 28.1 pg (27.0-33.0); MEAN CORPUSCULAR HGB CONC 32.3 g/dl (32.0-36.5); MEAN CORPUSCULAR VOLUME 86.9 fl (80.0-96.0); PLATELET COUNT, AUTOMATED 232 10^3/uL (150-450); RED BLOOD COUNT 4.42 10^6/uL (4.00-5.40); WHITE BLOOD COUNT 6.9 10^3/uL (4.0-10.0)
[2021-12-28 07:47] LABS: BLOOD UREA NITROGEN 11 MG/DL (7-18); CARBON DIOXIDE LEVEL 29 MEQ/L (21-32); CHLORIDE LEVEL 109 MEQ/L (98-107); CREATININE FOR GFR 0.62 MG/DL (0.55-1.30); GLOMERULAR FILTRATION RATE > 60.0 (>51); GLUCOSE, FASTING 95 MG/DL (70-100); SODIUM LEVEL 142 MEQ/L (136-145)
[2021-12-28] MEDS: MIRALAX *UNIT DOSE* 17GM PACKET PO SCH ×2 (09:31→22:09)
[2021-12-28] MEDS: PANTOPRAZOLE 40MG TAB (PROTONIX) PO SCH (09:31)
[2021-12-28] MEDS: METAMUCIL (PSYLLIUM) PACKET PO SCH ×2 (09:31→22:09)
[2021-12-28] MEDS: APIXABAN 5 MG TAB (ELIQUIS) PO SCH ×2 (09:32→22:08)
[2021-12-28] MEDS: LACTOBACILLUS ACIDOPHILUS CAP (BACID) PO SCH ×2 (09:32→17:34)
[2021-12-28] MEDS: TOLTERODINE TARTRATE 2 MG LA CAP (DETROL LA) PO SCH (09:32)
[2021-12-28] MEDS: CETIRIZINE (ZyrTEC) 10 MG TAB PO SCH (09:32)
[2021-12-28 14:00] VITALS: BP 104/60
[2021-12-28] MEDS: SENNA 8.6 MG TAB (SENOKOT) PO SCH (22:09)
[2021-12-29] MEDS: BACLOFEN 10 MG TAB PO SCH ×4 (01:08→17:39)
[2021-12-29 05:46] VITALS: BP 110/62
[2021-12-29] MEDS: TOLTERODINE TARTRATE 2 MG LA CAP (DETROL LA) PO SCH (09:15)
[2021-12-29] MEDS: METAMUCIL (PSYLLIUM) PACKET PO SCH ×2 (09:15→21:22)
[2021-12-29] MEDS: PANTOPRAZOLE 40MG TAB (PROTONIX) PO SCH (09:15)
[2021-12-29] MEDS: APIXABAN 5 MG TAB (ELIQUIS) PO SCH ×2 (09:15→21:23)
[2021-12-29] MEDS: MIRALAX *UNIT DOSE* 17GM PACKET PO SCH ×2 (09:15→21:22)
[2021-12-29] MEDS: LACTOBACILLUS ACIDOPHILUS CAP (BACID) PO SCH ×2 (09:15→17:39)
[2021-12-29] MEDS: CETIRIZINE (ZyrTEC) 10 MG TAB PO SCH (09:15)
[2021-12-29] MEDS: SENNA 8.6 MG TAB (SENOKOT) PO SCH (21:23)
[2021-12-30] MEDS: BACLOFEN 10 MG TAB PO SCH ×5 (00:11→23:41)
[2021-12-30] MEDS: ACETAMINOPHEN TAB 650MG DOSE (2X325MG) PO PRN ×2 (04:43→14:21)
[2021-12-30 05:20] VITALS: BP 101/61
[2021-12-30] MEDS: METAMUCIL (PSYLLIUM) PACKET PO SCH ×2 (08:51→23:41)
[2021-12-30] MEDS: MIRALAX *UNIT DOSE* 17GM PACKET PO SCH ×2 (08:51→21:13)
[2021-12-30] MEDS: PANTOPRAZOLE 40MG TAB (PROTONIX) PO SCH (08:51)
[2021-12-30] MEDS: TOLTERODINE TARTRATE 2 MG LA CAP (DETROL LA) PO SCH (08:51)
[2021-12-30] MEDS: APIXABAN 5 MG TAB (ELIQUIS) PO SCH ×2 (08:51→21:13)
[2021-12-30] MEDS: CETIRIZINE (ZyrTEC) 10 MG TAB PO SCH (08:51)
[2021-12-30] MEDS: LACTOBACILLUS ACIDOPHILUS CAP (BACID) PO SCH ×2 (08:51→17:25)
[2021-12-30] MEDS ORDERED: DOCUSATE SODIUM 100MG CAPSULE PO ONE (15:00)
[2021-12-30 20:04] VITALS: BP 126/61
[2021-12-30] MEDS: SENNA 8.6 MG TAB (SENOKOT) PO SCH (21:13)
[2021-12-30] MEDS: DOCUSATE SODIUM 100MG CAPSULE PO SCH (21:13)
[2021-12-31 04:00] VITALS: BP 119/53
[2021-12-31] MEDS: BACLOFEN 10 MG TAB PO SCH ×3 (05:37→18:21)
[2021-12-31] MEDS: ACETAMINOPHEN TAB 650MG DOSE (2X325MG) PO PRN (05:42)
[2021-12-31] MEDS: MIRALAX *UNIT DOSE* 17GM PACKET PO SCH ×2 (09:33→21:23)
[2021-12-31] MEDS: CETIRIZINE (ZyrTEC) 10 MG TAB PO SCH (09:33)
[2021-12-31] MEDS: APIXABAN 5 MG TAB (ELIQUIS) PO SCH ×2 (09:33→21:23)
[2021-12-31] MEDS: PANTOPRAZOLE 40MG TAB (PROTONIX) PO SCH (09:33)
[2021-12-31] MEDS: TOLTERODINE TARTRATE 2 MG LA CAP (DETROL LA) PO SCH (09:34)
[2021-12-31] MEDS: LACTOBACILLUS ACIDOPHILUS CAP (BACID) PO SCH ×2 (09:34→18:21)
[2021-12-31] MEDS: METAMUCIL (PSYLLIUM) PACKET PO SCH ×2 (09:34→21:23)
[2021-12-31] MEDS: DOCUSATE SODIUM 100MG CAPSULE PO SCH ×2 (09:34→21:23)
[2021-12-31] MEDS: SENNA 8.6 MG TAB (SENOKOT) PO SCH (21:23)
[2021-12-31 22:39] VITALS: BP 113/62
[2022-01-01] MEDS: BACLOFEN 10 MG TAB PO SCH ×4 (01:29→18:05)
[2022-01-01] MEDS: ACETAMINOPHEN TAB 650MG DOSE (2X325MG) PO PRN (04:51)
[2022-01-01 04:54] VITALS: BP 115/63
[2022-01-01] MEDS: DOCUSATE SODIUM 100MG CAPSULE PO SCH ×2 (09:33→20:54)
[2022-01-01] MEDS: MIRALAX *UNIT DOSE* 17GM PACKET PO SCH ×2 (09:33→20:54)
[2022-01-01] MEDS: PANTOPRAZOLE 40MG TAB (PROTONIX) PO SCH (09:33)
[2022-01-01] MEDS: LACTOBACILLUS ACIDOPHILUS CAP (BACID) PO SCH ×2 (09:33→18:05)
[2022-01-01] MEDS: CETIRIZINE (ZyrTEC) 10 MG TAB PO SCH (09:33)
[2022-01-01] MEDS: METAMUCIL (PSYLLIUM) PACKET PO SCH ×2 (09:33→20:54)
[2022-01-01] MEDS: APIXABAN 5 MG TAB (ELIQUIS) PO SCH ×2 (09:33→20:55)
[2022-01-01] MEDS: TOLTERODINE TARTRATE 2 MG LA CAP (DETROL LA) PO SCH (09:33)
[2022-01-01] MEDS: SENNA 8.6 MG TAB (SENOKOT) PO SCH (20:54)
[2022-01-02] MEDS: BACLOFEN 10 MG TAB PO SCH ×4 (00:25→17:09)
[2022-01-02 04:00] VITALS: BP 106/59
[2022-01-02] MEDS: ACETAMINOPHEN TAB 650MG DOSE (2X325MG) PO PRN ×2 (05:39→12:18)
[2022-01-02] MEDS: CETIRIZINE (ZyrTEC) 10 MG TAB PO SCH (08:52)
[2022-01-02] MEDS: APIXABAN 5 MG TAB (ELIQUIS) PO SCH ×2 (08:52→21:19)
[2022-01-02] MEDS: MIRALAX *UNIT DOSE* 17GM PACKET PO SCH ×2 (08:52→21:19)
[2022-01-02] MEDS: DOCUSATE SODIUM 100MG CAPSULE PO SCH ×2 (08:52→21:19)
[2022-01-02] MEDS: TOLTERODINE TARTRATE 2 MG LA CAP (DETROL LA) PO SCH (08:52)
[2022-01-02] MEDS: LACTOBACILLUS ACIDOPHILUS CAP (BACID) PO SCH ×2 (08:52→17:09)
[2022-01-02] MEDS: PANTOPRAZOLE 40MG TAB (PROTONIX) PO SCH (08:52)
[2022-01-02] MEDS: METAMUCIL (PSYLLIUM) PACKET PO SCH ×2 (08:52→21:19)
[2022-01-02] MEDS: SENNA 8.6 MG TAB (SENOKOT) PO SCH (21:19)
[2022-01-03] MEDS: BACLOFEN 10 MG TAB PO SCH ×4 (00:20→18:37)
[2022-01-03] MEDS: ACETAMINOPHEN TAB 650MG DOSE (2X325MG) PO PRN ×2 (00:24→05:21)
[2022-01-03 05:25] VITALS: BP 94/63
[2022-01-03] MEDS: DOCUSATE SODIUM 100MG CAPSULE PO SCH ×2 (09:01→21:18)
[2022-01-03] MEDS: MIRALAX *UNIT DOSE* 17GM PACKET PO SCH ×2 (09:01→21:18)
[2022-01-03] MEDS: METAMUCIL (PSYLLIUM) PACKET PO SCH ×2 (09:01→21:18)
[2022-01-03] MEDS: TOLTERODINE TARTRATE 2 MG LA CAP (DETROL LA) PO SCH (09:01)
[2022-01-03] MEDS: APIXABAN 5 MG TAB (ELIQUIS) PO SCH ×2 (09:02→21:18)
[2022-01-03] MEDS: CETIRIZINE (ZyrTEC) 10 MG TAB PO SCH (09:02)
[2022-01-03] MEDS: LACTOBACILLUS ACIDOPHILUS CAP (BACID) PO SCH ×2 (09:02→18:37)
[2022-01-03] MEDS: PANTOPRAZOLE 40MG TAB (PROTONIX) PO SCH (09:02)
[2022-01-03] MEDS: SENNA 8.6 MG TAB (SENOKOT) PO SCH (21:18)
[2022-01-04] MEDS: BACLOFEN 10 MG TAB PO SCH ×5 (00:04→23:31)
[2022-01-04] MEDS: ACETAMINOPHEN TAB 650MG DOSE (2X325MG) PO PRN ×3 (02:07→20:51)
[2022-01-04 04:50] VITALS: BP 94/51
[2022-01-04] MEDS: APIXABAN 5 MG TAB (ELIQUIS) PO SCH ×2 (08:44→20:47)
[2022-01-04] MEDS: MIRALAX *UNIT DOSE* 17GM PACKET PO SCH ×2 (08:44→20:47)
[2022-01-04] MEDS: METAMUCIL (PSYLLIUM) PACKET PO SCH ×2 (08:44→20:47)
[2022-01-04] MEDS: DOCUSATE SODIUM 100MG CAPSULE PO SCH ×2 (08:44→20:47)
[2022-01-04] MEDS: TOLTERODINE TARTRATE 2 MG LA CAP (DETROL LA) PO SCH (08:44)
[2022-01-04] MEDS: LACTOBACILLUS ACIDOPHILUS CAP (BACID) PO SCH ×2 (08:44→17:20)
[2022-01-04] MEDS: CETIRIZINE (ZyrTEC) 10 MG TAB PO SCH (08:44)
[2022-01-04] MEDS: PANTOPRAZOLE 40MG TAB (PROTONIX) PO SCH (08:44)
[2022-01-04] MEDS ORDERED: diphenhydrAMINE CREAM 30GM TOP PRN (11:30)
[2022-01-04] MEDS: diphenhydrAMINE 25MG CAP PO PRN ×2 (12:55→20:47)
[2022-01-04] MEDS: SENNA 8.6 MG TAB (SENOKOT) PO SCH (20:47)
[2022-01-05 04:00] VITALS: BP 97/55
[2022-01-05] MEDS: BACLOFEN 10 MG TAB PO SCH ×3 (06:04→17:47)
[2022-01-05] MEDS: MIRALAX *UNIT DOSE* 17GM PACKET PO SCH ×2 (09:06→21:47)
[2022-01-05] MEDS: PANTOPRAZOLE 40MG TAB (PROTONIX) PO SCH (09:06)
[2022-01-05] MEDS: CETIRIZINE (ZyrTEC) 10 MG TAB PO SCH (09:06)
[2022-01-05] MEDS: APIXABAN 5 MG TAB (ELIQUIS) PO SCH ×2 (09:07→21:48)
[2022-01-05] MEDS: DOCUSATE SODIUM 100MG CAPSULE PO SCH ×2 (09:07→21:47)
[2022-01-05] MEDS: LACTOBACILLUS ACIDOPHILUS CAP (BACID) PO SCH ×2 (09:07→17:46)
[2022-01-05] MEDS: TOLTERODINE TARTRATE 2 MG LA CAP (DETROL LA) PO SCH (09:07)
[2022-01-05] MEDS: METAMUCIL (PSYLLIUM) PACKET PO SCH ×2 (09:07→21:47)
[2022-01-05] MEDS: diphenhydrAMINE 25MG CAP PO PRN (10:03)
[2022-01-05 19:54] VITALS: BP 156/81
[2022-01-05] MEDS: SENNA 8.6 MG TAB (SENOKOT) PO SCH (21:48)
[2022-01-05] MEDS: ACETAMINOPHEN TAB 650MG DOSE (2X325MG) PO PRN (21:48)
[2022-01-05] MEDS: NYSTATIN CREAM 15GM TOP PRN (21:52)
[2022-01-06] MEDS: BACLOFEN 10 MG TAB PO SCH ×4 (00:46→17:49)
[2022-01-06 04:51] VITALS: BP 111/56
[2022-01-06] MEDS: ACETAMINOPHEN TAB 650MG DOSE (2X325MG) PO PRN ×2 (06:45→17:51)
[2022-01-06] MEDS: LACTOBACILLUS ACIDOPHILUS CAP (BACID) PO SCH ×3 (08:00→17:49)
[2022-01-06] MEDS: MIRALAX *UNIT DOSE* 17GM PACKET PO SCH ×2 (11:15→21:10)
[2022-01-06] MEDS: METAMUCIL (PSYLLIUM) PACKET PO SCH ×2 (11:15→21:10)
[2022-01-06] MEDS: TOLTERODINE TARTRATE 2 MG LA CAP (DETROL LA) PO SCH (11:15)
[2022-01-06] MEDS: CETIRIZINE (ZyrTEC) 10 MG TAB PO SCH (11:16)
[2022-01-06] MEDS: PANTOPRAZOLE 40MG TAB (PROTONIX) PO SCH (11:16)
[2022-01-06] MEDS: APIXABAN 5 MG TAB (ELIQUIS) PO SCH ×2 (11:16→21:10)
[2022-01-06] MEDS: DOCUSATE SODIUM 100MG CAPSULE PO SCH ×2 (11:18→21:11)
[2022-01-06 19:33] VITALS: BP 122/60
[2022-01-06] MEDS: SENNA 8.6 MG TAB (SENOKOT) PO SCH (21:11)
[2022-01-07] MEDS: BACLOFEN 10 MG TAB PO SCH ×4 (00:19→18:01)
[2022-01-07 05:49] VITALS: BP 123/59
[2022-01-07] MEDS: ACETAMINOPHEN TAB 650MG DOSE (2X325MG) PO PRN ×3 (05:54→20:30)
[2022-01-07] MEDS: PANTOPRAZOLE 40MG TAB (PROTONIX) PO SCH (10:17)
[2022-01-07] MEDS: APIXABAN 5 MG TAB (ELIQUIS) PO SCH ×2 (10:17→20:30)
[2022-01-07] MEDS: CETIRIZINE (ZyrTEC) 10 MG TAB PO SCH (10:18)
[2022-01-07] MEDS: TOLTERODINE TARTRATE 2 MG LA CAP (DETROL LA) PO SCH (10:18)
[2022-01-07] MEDS: DOCUSATE SODIUM 100MG CAPSULE PO SCH ×2 (10:18→20:29)
[2022-01-07] MEDS: LACTOBACILLUS ACIDOPHILUS CAP (BACID) PO SCH ×2 (10:18→18:01)
[2022-01-07] MEDS: MIRALAX *UNIT DOSE* 17GM PACKET PO SCH ×2 (10:18→20:29)
[2022-01-07] MEDS: METAMUCIL (PSYLLIUM) PACKET PO SCH ×2 (10:18→20:29)
[2022-01-07 19:56] VITALS: BP 135/62
[2022-01-07] MEDS: SENNA 8.6 MG TAB (SENOKOT) PO SCH (20:29)
[2022-01-07] MEDS: NYSTATIN CREAM 15GM TOP PRN (20:47)
[2022-01-08] MEDS: BACLOFEN 10 MG TAB PO SCH ×4 (00:11→16:29)
[2022-01-08] MEDS: ACETAMINOPHEN TAB 650MG DOSE (2X325MG) PO PRN ×3 (04:01→21:18)
[2022-01-08 04:08] VITALS: BP 131/63
[2022-01-08] MEDS: METAMUCIL (PSYLLIUM) PACKET PO SCH ×2 (09:44→21:12)
[2022-01-08] MEDS: MIRALAX *UNIT DOSE* 17GM PACKET PO SCH ×2 (09:44→21:12)
[2022-01-08] MEDS: DOCUSATE SODIUM 100MG CAPSULE PO SCH ×2 (09:45→21:12)
[2022-01-08] MEDS: TOLTERODINE TARTRATE 2 MG LA CAP (DETROL LA) PO SCH (09:45)
[2022-01-08] MEDS: CETIRIZINE (ZyrTEC) 10 MG TAB PO SCH (09:46)
[2022-01-08] MEDS: APIXABAN 5 MG TAB (ELIQUIS) PO SCH ×2 (09:46→21:12)
[2022-01-08] MEDS: PANTOPRAZOLE 40MG TAB (PROTONIX) PO SCH (09:46)
[2022-01-08] MEDS: LACTOBACILLUS ACIDOPHILUS CAP (BACID) PO SCH (16:29)
[2022-01-08] MEDS: SENNA 8.6 MG TAB (SENOKOT) PO SCH (21:12)
[2022-01-09 05:00] VITALS: BP 138/63
[2022-01-09] MEDS: BACLOFEN 10 MG TAB PO SCH ×4 (05:15→18:10)
[2022-01-09] MEDS: ACETAMINOPHEN TAB 650MG DOSE (2X325MG) PO PRN ×2 (05:15→19:54)
[2022-01-09] MEDS: DOCUSATE SODIUM 100MG CAPSULE PO SCH ×2 (08:29→19:52)
[2022-01-09] MEDS: LACTOBACILLUS ACIDOPHILUS CAP (BACID) PO SCH ×2 (08:29→18:10)
[2022-01-09] MEDS: METAMUCIL (PSYLLIUM) PACKET PO SCH ×2 (08:29→19:52)
[2022-01-09] MEDS: MIRALAX *UNIT DOSE* 17GM PACKET PO SCH ×2 (08:29→19:52)
[2022-01-09] MEDS: TOLTERODINE TARTRATE 2 MG LA CAP (DETROL LA) PO SCH (08:30)
[2022-01-09] MEDS: APIXABAN 5 MG TAB (ELIQUIS) PO SCH ×2 (08:30→19:52)
[2022-01-09] MEDS: PANTOPRAZOLE 40MG TAB (PROTONIX) PO SCH (08:30)
[2022-01-09] MEDS: CETIRIZINE (ZyrTEC) 10 MG TAB PO SCH (08:30)
[2022-01-09] MEDS: NYSTATIN CREAM 15GM TOP PRN (08:31)
[2022-01-09 16:40] VITALS: BP 148/90
[2022-01-09] MEDS: SENNA 8.6 MG TAB (SENOKOT) PO SCH (19:52)
[2022-01-10] MEDS: BACLOFEN 10 MG TAB PO SCH ×5 (00:11→23:48)
[2022-01-10] MEDS: diphenhydrAMINE 25MG CAP PO PRN ×2 (04:35→18:26)
[2022-01-10 06:00] VITALS: BP 145/88
[2022-01-10] MEDS ORDERED: LORazepam 0.5 MG TAB PO STA (08:05)
[2022-01-10] MEDS: MIRALAX *UNIT DOSE* 17GM PACKET PO SCH ×2 (08:29→23:38)
[2022-01-10] MEDS: METAMUCIL (PSYLLIUM) PACKET PO SCH ×2 (08:29→23:48)
[2022-01-10] MEDS ORDERED: ONDANSETRON 4MG TAB PO ONE (08:30)
[2022-01-10] MEDS: DOCUSATE SODIUM 100MG CAPSULE PO SCH ×2 (08:30→23:38)
[2022-01-10] MEDS: APIXABAN 5 MG TAB (ELIQUIS) PO SCH ×2 (08:30→23:48)
[2022-01-10] MEDS: PANTOPRAZOLE 40MG TAB (PROTONIX) PO SCH (08:30)
[2022-01-10] MEDS: CETIRIZINE (ZyrTEC) 10 MG TAB PO SCH (08:30)
[2022-01-10] MEDS: LACTOBACILLUS ACIDOPHILUS CAP (BACID) PO SCH ×2 (08:30→18:26)
[2022-01-10] MEDS: TOLTERODINE TARTRATE 2 MG LA CAP (DETROL LA) PO SCH (10:07)
[2022-01-10] MEDS: ACETAMINOPHEN TAB 650MG DOSE (2X325MG) PO PRN ×2 (11:35→23:50)
[2022-01-10] MEDS ORDERED: oxyCODONE 5MG TAB PO ONE (15:20)
[2022-01-10 15:47] LABS: HEMATOCRIT 41.2 % (36.0-47.0); HEMOGLOBIN 13.8 g/dl (12.0-15.5); MEAN CORPUSCULAR HEMOGLOBIN 28.2 pg (27.0-33.0); MEAN CORPUSCULAR HGB CONC 33.5 g/dl (32.0-36.5); MEAN CORPUSCULAR VOLUME 84.1 fl (80.0-96.0); PLATELET COUNT, AUTOMATED 293 10^3/uL (150-450); WHITE BLOOD COUNT 13.1 10^3/uL (4.0-10.0)
[2022-01-10] MEDS: HALOPERIDOL 5MG/ML VIAL (J1630 PER 1) IM PRN (15:53)
[2022-01-10 16:28] LABS: BLOOD UREA NITROGEN 15 MG/DL (7-18); CALCIUM LEVEL 9.6 MG/DL (8.5-10.1); CARBON DIOXIDE LEVEL 23 MEQ/L (21-32); CHLORIDE LEVEL 107 MEQ/L (98-107); CREATININE FOR GFR 0.96 MG/DL (0.55-1.30); GLOMERULAR FILTRATION RATE > 60.0 (>51); GLUCOSE, FASTING 91 MG/DL (70-100); POTASSIUM SERUM 4.5 MEQ/L (3.5-5.1); SODIUM LEVEL 142 MEQ/L (136-145)
[2022-01-10] MEDS: NS 1,000 ML IV SCH (18:25)
[2022-01-10] MEDS: ASPIRIN 81MG ENTERIC TABLET PO SCH (18:28)
[2022-01-10 19:49] LABS: CHOLESTEROL RISK RATIO 3.129 (<5)
[2022-01-10 22:30] VITALS: BP 172/118
[2022-01-10 23:19] VITALS: BP 158/92
[2022-01-10] MEDS ORDERED: LORazepam 0.5 MG TAB PO PRN (23:30)
[2022-01-10] MEDS: SENNA 8.6 MG TAB (SENOKOT) PO SCH (23:48)
[2022-01-10] MEDS: RAMELTEON 8 MG TAB (ROZEREM) PO PRN (23:49)
[2022-01-10] MEDS: ATORVASTATIN 20 MG TAB PO SCH (23:51)
[2022-01-11 04:20] VITALS: BP 158/98
[2022-01-11] MEDS: BACLOFEN 10 MG TAB PO SCH ×6 (05:03→22:24)
[2022-01-11] MEDS: NS 1,000 ML IV SCH (05:19)
[2022-01-11 05:35] LABS: APPEARANCE, URINE MANUAL CLEAR (CLEAR); COLOR, URINE MANUAL YELLOW (YELLOW)
[2022-01-11 05:37] LABS: BILIRUBIN, URINE MANUAL NEGATIVE (NEGATIVE); BLOOD URINE MANUAL NEGATIVE (NEGATIVE); GLUCOSE, URINE (UA) MANUAL NEGATIVE (NEGATIVE); KETONE, URINE MANUAL NEGATIVE (NEGATIVE); LEUKOCYTE ESTERASE, URINE MAN TRACE (NEGATIVE); NITRITE, URINE MANUAL NEGATIVE (NEGATIVE); PROTEIN, URINE MANUAL NEGATIVE (NEGATIVE); UROBILINOGEN, URINE MANUAL NORMAL (NORMAL)
[2022-01-11 07:40] LABS: HEMATOCRIT 38.7 % (36.0-47.0); HEMOGLOBIN 12.6 g/dl (12.0-15.5); MEAN CORPUSCULAR HEMOGLOBIN 28.1 pg (27.0-33.0); MEAN CORPUSCULAR HGB CONC 32.6 g/dl (32.0-36.5); MEAN CORPUSCULAR VOLUME 86.4 fl (80.0-96.0); PLATELET COUNT, AUTOMATED 247 10^3/uL (150-450); RED BLOOD COUNT 4.48 10^6/uL (4.00-5.40); WHITE BLOOD COUNT 9.6 10^3/uL (4.0-10.0)
[2022-01-11 07:42] LABS: BACTERIA, URINE SMALL AMOUNT; HYALINE CAST, URINE NONE SEEN /lpf (0-1); SQUAMOUS EPITHELIAL CELL URINE SMALL AMOUNT /hpf (SMALL AMT)
[2022-01-11 07:43] LABS: RBC, URINE 0-1 /hpf (0-3)
[2022-01-11] MEDS: CETIRIZINE (ZyrTEC) 10 MG TAB PO SCH (09:08)
[2022-01-11] MEDS: DOCUSATE SODIUM 100MG CAPSULE PO SCH ×3 (09:08→22:22)
[2022-01-11] MEDS: METAMUCIL (PSYLLIUM) PACKET PO SCH ×2 (09:08→22:09)
[2022-01-11] MEDS: LORazepam 1 MG TAB PO SCH ×3 (09:08→22:22)
[2022-01-11] MEDS: MIRALAX *UNIT DOSE* 17GM PACKET PO SCH ×2 (09:08→22:09)
[2022-01-11] MEDS: APIXABAN 5 MG TAB (ELIQUIS) PO SCH ×3 (09:08→22:22)
[2022-01-11] MEDS: TOLTERODINE TARTRATE 2 MG LA CAP (DETROL LA) PO SCH (09:08)
[2022-01-11] MEDS: PANTOPRAZOLE 40MG TAB (PROTONIX) PO SCH (09:08)
[2022-01-11] MEDS: ASPIRIN 81MG ENTERIC TABLET PO SCH (09:09)
[2022-01-11] MEDS: LACTOBACILLUS ACIDOPHILUS CAP (BACID) PO SCH ×2 (09:09→17:31)
[2022-01-11] MEDS ORDERED: KETOROLAC 30 MG/ML 1ML VIAL IV ONE (09:45)
[2022-01-11] MEDS: HALOPERIDOL 5MG/ML VIAL (J1630 PER 1) IM PRN ×2 (13:52→22:40)
[2022-01-11] MEDS: RAMELTEON 8 MG TAB (ROZEREM) PO PRN (22:08)
[2022-01-11] MEDS: ATORVASTATIN 20 MG TAB PO SCH ×2 (22:08→22:22)
[2022-01-11] MEDS: SENNA 8.6 MG TAB (SENOKOT) PO SCH ×2 (22:08→22:22)
[2022-01-11] MEDS: diphenhydrAMINE 25MG CAP PO PRN (22:08)
[2022-01-11] MEDS: ACETAMINOPHEN TAB 650MG DOSE (2X325MG) PO PRN (22:09)
[2022-01-11] MEDS ORDERED: LORazepam 2 MG/ML VIAL IM STA (22:50)
[2022-01-11] MEDS ORDERED: diphenhydrAMINE 50MG/ML VIAL IM ONE ×2 (23:00)
[2022-01-11 23:20] VITALS: BP 142/88
[2022-01-11] MEDS ORDERED: HALOPERIDOL 5MG/ML VIAL (J1630 PER 1) IM PRN (23:50)
[2022-01-12 04:00] VITALS: BP 114/83
[2022-01-12] MEDS ORDERED: LORazepam 2 MG/ML VIAL IM PRN (05:00)
[2022-01-12] MEDS ORDERED: diphenhydrAMINE 50MG/ML VIAL IM PRN (05:00)
[2022-01-12] MEDS: BACLOFEN 10 MG TAB PO SCH ×4 (06:06→23:03)
[2022-01-12] MEDS: LORazepam 1 MG TAB PO SCH ×2 (08:43→23:04)
[2022-01-12] MEDS: METAMUCIL (PSYLLIUM) PACKET PO SCH ×2 (08:43→23:01)
[2022-01-12] MEDS: MIRALAX *UNIT DOSE* 17GM PACKET PO SCH ×2 (08:43→23:01)
[2022-01-12] MEDS: LACTOBACILLUS ACIDOPHILUS CAP (BACID) PO SCH ×2 (08:43→18:21)
[2022-01-12] MEDS: DOCUSATE SODIUM 100MG CAPSULE PO SCH ×2 (08:43→23:02)
[2022-01-12] MEDS: CETIRIZINE (ZyrTEC) 10 MG TAB PO SCH (08:43)
[2022-01-12] MEDS: PANTOPRAZOLE 40MG TAB (PROTONIX) PO SCH (08:43)
[2022-01-12] MEDS: APIXABAN 5 MG TAB (ELIQUIS) PO SCH ×2 (08:43→23:03)
[2022-01-12] MEDS: ASPIRIN 81MG ENTERIC TABLET PO SCH (08:43)
[2022-01-12] MEDS: ACETAMINOPHEN TAB 650MG DOSE (2X325MG) PO PRN ×2 (08:44→23:04)
[2022-01-12] MEDS: TOLTERODINE TARTRATE 2 MG LA CAP (DETROL LA) PO SCH (13:04)
[2022-01-12] MEDS: SENNA 8.6 MG TAB (SENOKOT) PO SCH (23:02)
[2022-01-12] MEDS: ATORVASTATIN 20 MG TAB PO SCH (23:03)
[2022-01-12] MEDS: diphenhydrAMINE 25MG CAP PO PRN (23:03)
[2022-01-12] MEDS: RAMELTEON 8 MG TAB (ROZEREM) PO PRN (23:04)
[2022-01-13 06:00] VITALS: BP 143/89
[2022-01-13] MEDS: BACLOFEN 10 MG TAB PO SCH ×4 (06:24→23:37)
[2022-01-13] MEDS: METAMUCIL (PSYLLIUM) PACKET PO SCH ×2 (09:47→20:06)
[2022-01-13] MEDS: CETIRIZINE (ZyrTEC) 10 MG TAB PO SCH (09:47)
[2022-01-13] MEDS: LACTOBACILLUS ACIDOPHILUS CAP (BACID) PO SCH ×2 (09:47→17:28)
[2022-01-13] MEDS: PANTOPRAZOLE 40MG TAB (PROTONIX) PO SCH (09:47)
[2022-01-13] MEDS: APIXABAN 5 MG TAB (ELIQUIS) PO SCH ×2 (09:47→20:06)
[2022-01-13] MEDS: ASPIRIN 81MG ENTERIC TABLET PO SCH (09:47)
[2022-01-13] MEDS: MIRALAX *UNIT DOSE* 17GM PACKET PO SCH ×2 (09:47→20:06)
[2022-01-13] MEDS: DOCUSATE SODIUM 100MG CAPSULE PO SCH ×2 (09:47→20:06)
[2022-01-13] MEDS: TOLTERODINE TARTRATE 2 MG LA CAP (DETROL LA) PO SCH (11:13)
[2022-01-13] MEDS: ATORVASTATIN 20 MG TAB PO SCH (20:06)
[2022-01-13] MEDS: SENNA 8.6 MG TAB (SENOKOT) PO SCH (20:06)
[2022-01-14 05:40] VITALS: BP 139/73
[2022-01-14] MEDS: BACLOFEN 10 MG TAB PO SCH ×4 (05:45→23:39)
[2022-01-14] MEDS: MIRALAX *UNIT DOSE* 17GM PACKET PO SCH ×2 (10:08→19:56)
[2022-01-14] MEDS: METAMUCIL (PSYLLIUM) PACKET PO SCH ×2 (10:08→19:56)
[2022-01-14] MEDS: ASPIRIN 81MG ENTERIC TABLET PO SCH (10:09)
[2022-01-14] MEDS: TOLTERODINE TARTRATE 2 MG LA CAP (DETROL LA) PO SCH (10:09)
[2022-01-14] MEDS: DOCUSATE SODIUM 100MG CAPSULE PO SCH ×2 (10:09→20:00)
[2022-01-14] MEDS: CETIRIZINE (ZyrTEC) 10 MG TAB PO SCH (10:09)
[2022-01-14] MEDS: APIXABAN 5 MG TAB (ELIQUIS) PO SCH ×2 (10:09→20:01)
[2022-01-14] MEDS: LACTOBACILLUS ACIDOPHILUS CAP (BACID) PO SCH ×2 (10:09→19:00)
[2022-01-14] MEDS: PANTOPRAZOLE 40MG TAB (PROTONIX) PO SCH (10:10)
[2022-01-14] MEDS: SENNA 8.6 MG TAB (SENOKOT) PO SCH (19:56)
[2022-01-14] MEDS: ATORVASTATIN 20 MG TAB PO SCH (20:00)
[2022-01-15] MEDS: BACLOFEN 10 MG TAB PO SCH ×3 (06:06→18:28)
[2022-01-15] MEDS: MIRALAX *UNIT DOSE* 17GM PACKET PO SCH ×2 (09:00→21:59)
[2022-01-15] MEDS: DOCUSATE SODIUM 100MG CAPSULE PO SCH ×2 (09:00→21:55)
[2022-01-15] MEDS: METAMUCIL (PSYLLIUM) PACKET PO SCH ×2 (09:00→21:56)
[2022-01-15] MEDS: PANTOPRAZOLE 40MG TAB (PROTONIX) PO SCH (09:46)
[2022-01-15] MEDS: LACTOBACILLUS ACIDOPHILUS CAP (BACID) PO SCH ×2 (09:46→18:28)
[2022-01-15] MEDS: ASPIRIN 81MG ENTERIC TABLET PO SCH (09:46)
[2022-01-15] MEDS: APIXABAN 5 MG TAB (ELIQUIS) PO SCH ×2 (09:46→21:55)
[2022-01-15] MEDS: CETIRIZINE (ZyrTEC) 10 MG TAB PO SCH (09:46)
[2022-01-15] MEDS: TOLTERODINE TARTRATE 2 MG LA CAP (DETROL LA) PO SCH (09:46)
[2022-01-15] MEDS: ACETAMINOPHEN TAB 650MG DOSE (2X325MG) PO PRN ×2 (09:51→18:28)
[2022-01-15] MEDS: SENNA 8.6 MG TAB (SENOKOT) PO SCH (21:56)
[2022-01-15] MEDS: RAMELTEON 8 MG TAB (ROZEREM) PO PRN (21:56)
[2022-01-15] MEDS: ATORVASTATIN 20 MG TAB PO SCH (21:56)
[2022-01-16] MEDS: BACLOFEN 10 MG TAB PO SCH ×5 (00:26→23:50)
[2022-01-16] MEDS: ACETAMINOPHEN TAB 650MG DOSE (2X325MG) PO PRN ×2 (00:27→20:42)
[2022-01-16] MEDS: MIRALAX *UNIT DOSE* 17GM PACKET PO SCH ×2 (09:00→20:43)
[2022-01-16] MEDS: DOCUSATE SODIUM 100MG CAPSULE PO SCH ×3 (09:00→20:46)
[2022-01-16] MEDS: METAMUCIL (PSYLLIUM) PACKET PO SCH ×2 (09:09→20:43)
[2022-01-16] MEDS: ASPIRIN 81MG ENTERIC TABLET PO SCH (09:10)
[2022-01-16] MEDS: LACTOBACILLUS ACIDOPHILUS CAP (BACID) PO SCH ×2 (09:10→17:36)
[2022-01-16] MEDS: TOLTERODINE TARTRATE 2 MG LA CAP (DETROL LA) PO SCH (09:12)
[2022-01-16] MEDS: CETIRIZINE (ZyrTEC) 10 MG TAB PO SCH (09:12)
[2022-01-16] MEDS: PANTOPRAZOLE 40MG TAB (PROTONIX) PO SCH (09:12)
[2022-01-16] MEDS: APIXABAN 5 MG TAB (ELIQUIS) PO SCH ×2 (09:13→20:43)
[2022-01-16] MEDS: RAMELTEON 8 MG TAB (ROZEREM) PO PRN (20:42)
[2022-01-16] MEDS: SENNA 8.6 MG TAB (SENOKOT) PO SCH ×2 (20:42→20:46)
[2022-01-16] MEDS: ATORVASTATIN 20 MG TAB PO SCH (20:43)
[2022-01-17 05:10] VITALS: BP 129/73
[2022-01-17] MEDS: ACETAMINOPHEN TAB 650MG DOSE (2X325MG) PO PRN ×2 (05:34→11:55)
[2022-01-17] MEDS: BACLOFEN 10 MG TAB PO SCH ×2 (05:34→11:55)
[2022-01-17] MEDS: METAMUCIL (PSYLLIUM) PACKET PO SCH (08:37)
[2022-01-17] MEDS: MIRALAX *UNIT DOSE* 17GM PACKET PO SCH (08:37)
[2022-01-17] MEDS: DOCUSATE SODIUM 100MG CAPSULE PO SCH (08:37)
[2022-01-17] MEDS: LACTOBACILLUS ACIDOPHILUS CAP (BACID) PO SCH (08:54)
[2022-01-17] MEDS: PANTOPRAZOLE 40MG TAB (PROTONIX) PO SCH (08:54)
[2022-01-17] MEDS: APIXABAN 5 MG TAB (ELIQUIS) PO SCH (08:54)
[2022-01-17] MEDS: TOLTERODINE TARTRATE 2 MG LA CAP (DETROL LA) PO SCH (08:54)
[2022-01-17] MEDS: ASPIRIN 81MG ENTERIC TABLET PO SCH (08:54)
[2022-01-17] MEDS: CETIRIZINE (ZyrTEC) 10 MG TAB PO SCH (08:55)
[2022-01-17] MEDS ORDERED: ONDANSETRON 4MG TAB PO PRN (09:05)
[2022-01-17] MEDS ORDERED: ONDA-83 PO (13:37)
[2022-01-17] MEDS ORDERED: ATOR1TAB21 PO (13:37)
[2022-01-17] MEDS ORDERED: HALO1TAB19 PO (13:37)
== END 2022-01-17 16:49 | disposition home health service (06) | DRG 391 ==
LOC: M ED 20:04 → M ED INP 12-22 03:57 → ENRESERV 12-22 12:17 → M MS5PR 12-22 14:25 → M 4MAIN 12-30 20:04 → M MSPAV 01-09 16:40
PROVIDERS: ADMIT Internal Medicine; ATTEND Family Medicine
DX: K52.89 Other specified noninfective gastroenteritis and colitis (principal); U07.1 COVID-19; D68.62 Lupus anticoagulant syndrome; I24.8 Other forms of acute ischemic heart disease; F68.10 Factitious disorder imposed on self, unspecified; I10 Essential (primary) hypertension; I25.10 Atherosclerotic heart disease of native coronary artery without angina pectoris; F25.9 Schizoaffective disorder, unspecified; L50.0 Allergic urticaria; J30.2 Other seasonal allergic rhinitis; K56.41 Fecal impaction; N32.81 Overactive bladder; K21.9 Gastro-esophageal reflux disease without esophagitis; T50.8X5A Adverse effect of diagnostic agents, initial encounter; F44.4 Conversion disorder with motor symptom or deficit; D64.9 Anemia, unspecified; R93.7 Abnormal findings on diagnostic imaging of other parts of musculoskeletal system; F43.10 Post-traumatic stress disorder, unspecified; Z79.01 Long term (current) use of anticoagulants; Z79.899 Other long term (current) drug therapy; Z88.0 Allergy status to penicillin; Z88.8 Allergy status to other drugs, medicaments and biological substances; Z91.018 Allergy to other foods; Z85.3 Personal history of malignant neoplasm of breast; Z87.820 Personal history of traumatic brain injury; Z86.718 Personal history of other venous thrombosis and embolism; Z91.013 Allergy to seafood; Z85.41 Personal history of malignant neoplasm of cervix uteri; Z91.040 Latex allergy status; Z86.711 Personal history of pulmonary embolism

== ENCOUNTER 2022-01-19 16:13 | Emergency (ER) | payer OTHER ==
[~2022-01-19] VITALS: Ht 167.6 cm; Wt 100.0 kg
[~2022-01-19 16:13] MED LIST changes: -ASPI81CH33 PO; -ASPI81TA26 PO; -CETI-24 PO; -DIPH25CA32 PO; -DOCU100C16 PO; -MILKSUS3 PO; -NITR100C2 PO; -PHEN-501 PO
[2022-01-19 16:58] VITALS: BP 144/69
[2022-01-19 17:01] LABS: MEAN CORPUSCULAR HEMOGLOBIN 28.2 pg (27.0-33.0); MEAN CORPUSCULAR HGB CONC 32.4 g/dl (32.0-36.5); MEAN CORPUSCULAR VOLUME 87.1 fl (80.0-96.0); PLATELET COUNT, AUTOMATED 264 10^3/uL (150-450); RED BLOOD COUNT 4.25 10^6/uL (4.00-5.40); WHITE BLOOD COUNT 10.8 10^3/uL (4.0-10.0)
[2022-01-19 17:28] LABS: RSV AMPLIFICATION NEGATIVE (NEGATIVE)
[2022-01-19 17:43] LABS: ACETAMINOPHEN LEVEL < 2.0 UG/ML (10.0-30.0); ALBUMIN 3.6 GM/DL (3.2-5.2); ALT/SGPT 40 U/L (12-78); BILIRUBIN,DIRECT 0.1 MG/DL (0.0-0.2); BILIRUBIN,TOTAL 0.5 MG/DL (0.2-1.0); BLOOD UREA NITROGEN 12 MG/DL (7-18); CALCIUM LEVEL 8.5 MG/DL (8.5-10.1); CARBON DIOXIDE LEVEL 28 MEQ/L (21-32); CHLORIDE LEVEL 105 MEQ/L (98-107); CREATININE FOR GFR 0.68 MG/DL (0.55-1.30); ETHYL ALCOHOL (ETHANOL) < 0.003 % (0.000-0.010); GLOMERULAR FILTRATION RATE > 60.0 (>51); GLUCOSE, FASTING 118 MG/DL (70-100); POTASSIUM SERUM 3.7 MEQ/L (3.5-5.1); SALICYLATE LEVEL < 1.7 MG/DL (5.0-30.0); SODIUM LEVEL 141 MEQ/L (136-145); THYROID STIMULATING HORMONE 0.326 uIU/ML (0.358-3.740); TOTAL PROTEIN 6.7 GM/DL (6.4-8.2)
[2022-01-19 20:53] LABS: AMPHETAMINES LEVEL URINE NEGATIVE (NEGATIVE); BARBITURATES URINE NEGATIVE (NEGATIVE); BENZODIAZEPINES URINE NEGATIVE (NEGATIVE); CANNABINOIDS URINE NEGATIVE (NEGATIVE); COCAINE METABOLITE URINE NEGATIVE (NEGATIVE); METHADONE URINE NEGATIVE (NEGATIVE); OPIATES URINE NEGATIVE (NEGATIVE); PHENCYCLIDINE URINE NEGATIVE (NEGATIVE)
[2022-01-20] MEDS ORDERED: DOCU100C16 PO (09:01)
[2022-01-20] MEDS ORDERED: ASPI81CH33 PO (09:01)
[2022-01-20] MEDS ORDERED: DIPH25CA32 PO ×2 (09:01→10:22)
[2022-01-20] MEDS ORDERED: PHEN-501 PO (09:04)
[2022-01-20] MEDS ORDERED: NITR100C2 PO (09:04)
[2022-01-20] MEDS ORDERED: MILKSUS3 PO (09:22)
[2022-01-20] MEDS ORDERED: ATOR1TAB21 PO (09:22)
[2022-01-20] MEDS ORDERED: ACET1TAB55 PO (09:23)
[2022-01-20] MEDS ORDERED: ELIQ5TAB PO (10:22)
[2022-01-20] MEDS ORDERED: CETI-24 PO (10:22)
[2022-01-20] MEDS ORDERED: BACL10TA2 PO (10:22)
[2022-01-20] MEDS ORDERED: ASPI81TA26 PO (10:22)
[2022-01-20] MEDS ORDERED: PANT40TA29 PO (10:22)
[2022-01-20] MEDS ORDERED: TOLT4CAP3 PO (10:22)
== END 2022-01-19 20:51 | disposition home or self-care (01) ==
LOC: M ED 16:13
DX: F29 Unspecified psychosis not due to a substance or known physiological condition (principal); F41.0 Panic disorder [episodic paroxysmal anxiety]; F43.10 Post-traumatic stress disorder, unspecified; F25.9 Schizoaffective disorder, unspecified; F32.A Depression, unspecified; K21.9 Gastro-esophageal reflux disease without esophagitis; I25.2 Old myocardial infarction; Z86.718 Personal history of other venous thrombosis and embolism; Z87.440 Personal history of urinary (tract) infections; J30.1 Allergic rhinitis due to pollen; Z91.018 Allergy to other foods; Z88.0 Allergy status to penicillin; Z88.8 Allergy status to other drugs, medicaments and biological substances; Z88.3 Allergy status to other anti-infective agents; Z91.040 Latex allergy status; Z91.013 Allergy to seafood; Z79.899 Other long term (current) drug therapy

== ENCOUNTER → 2022-01-19 | Outpatient (REF) | payer OTHER ==
[~2022-01-19] MED LIST changes: +ACET1TAB55 PO; +ASPI81CH33 PO; +ASPI81TA26 PO; +BACL1TAB8 PO; +CETI-24 PO; +DIPH25CA32 PO; +DOCU100C16 PO; +HALO1TAB19 PO; +META1POW PO; +MILKSUS3 PO; +MOM30SS2 PO; +NITR100C2 PO; +ONDA-83 PO; +PHEN-501 PO; +SENN18TA PO
== END ==
LOC: M LAB REF 20:53
PROVIDERS: ATTEND Physician Assistant
DX: R30.0 Dysuria (principal)

== ENCOUNTER 2022-01-20 00:04 | Inpatient (IN) | payer OTHER ==
[~2022-01-20] VITALS: Ht 180.3 cm; Wt 112.6 kg
[2022-01-20 03:19] LABS: HEMATOCRIT 35.5 % (36.0-47.0); HEMOGLOBIN 11.6 g/dl (12.0-15.5); MEAN CORPUSCULAR HEMOGLOBIN 28.2 pg (27.0-33.0); MEAN CORPUSCULAR HGB CONC 32.7 g/dl (32.0-36.5); MEAN CORPUSCULAR VOLUME 86.2 fl (80.0-96.0); PLATELET COUNT, AUTOMATED 268 10^3/uL (150-450); RED BLOOD COUNT 4.12 10^6/uL (4.00-5.40); WHITE BLOOD COUNT 9.5 10^3/uL (4.0-10.0)
[2022-01-20 03:56] LABS: RSV AMPLIFICATION NEGATIVE (NEGATIVE)
[2022-01-20 04:17] LABS: ACETAMINOPHEN LEVEL < 2.0 UG/ML (10.0-30.0); ALBUMIN 3.6 GM/DL (3.2-5.2); ALT/SGPT 40 U/L (12-78); BILIRUBIN,DIRECT 0.2 MG/DL (0.0-0.2); BILIRUBIN,TOTAL 0.5 MG/DL (0.2-1.0); BLOOD UREA NITROGEN 8 MG/DL (7-18); CALCIUM LEVEL 9.1 MG/DL (8.5-10.1); CARBON DIOXIDE LEVEL 25 MEQ/L (21-32); CHLORIDE LEVEL 107 MEQ/L (98-107); CREATININE FOR GFR 0.58 MG/DL (0.55-1.30); ETHYL ALCOHOL (ETHANOL) < 0.003 % (0.000-0.010); GLOMERULAR FILTRATION RATE > 60.0 (>51); GLUCOSE, FASTING 108 MG/DL (70-100); POTASSIUM SERUM 3.8 MEQ/L (3.5-5.1); SALICYLATE LEVEL < 1.7 MG/DL (5.0-30.0); SODIUM LEVEL 140 MEQ/L (136-145); TOTAL PROTEIN 6.9 GM/DL (6.4-8.2)
[2022-01-20] MEDS ORDERED: ACETAMINOPHEN TAB 650MG DOSE (2X325MG) PO ONE (07:50)
[2022-01-20] MEDS ORDERED: BACLOFEN 10 MG TAB PO SCH (09:00)
[2022-01-20] MEDS ORDERED: ASPI81CH33 PO (09:01)
[2022-01-20] MEDS ORDERED: DIPH25CA32 PO ×2 (09:01→10:22)
[2022-01-20] MEDS ORDERED: DOCU100C16 PO (09:01)
[2022-01-20] MEDS ORDERED: PHEN-501 PO (09:04)
[2022-01-20] MEDS ORDERED: NITR100C2 PO (09:04)
[2022-01-20] MEDS ORDERED: MILKSUS3 PO (09:22)
[2022-01-20] MEDS ORDERED: ATOR1TAB21 PO (09:22)
[2022-01-20] MEDS ORDERED: ACET1TAB55 PO (09:23)
[2022-01-20] MEDS ORDERED: HOME MED LIST COMPLETE! XX SCH (09:25)
[2022-01-20] MEDS ORDERED: PANT40TA29 PO (10:22)
[2022-01-20] MEDS ORDERED: BACL10TA2 PO (10:22)
[2022-01-20] MEDS ORDERED: ASPI81TA26 PO (10:22)
[2022-01-20] MEDS ORDERED: ELIQ5TAB PO (10:22)
[2022-01-20] MEDS ORDERED: TOLT4CAP3 PO (10:22)
[2022-01-20] MEDS ORDERED: CETI-24 PO (10:22)
[2022-01-20] MEDS: APIXABAN 5 MG TAB (ELIQUIS) PO SCH ×2 (10:43→21:08)
[2022-01-20] MEDS: DOCUSATE SODIUM 100MG CAPSULE PO SCH ×2 (10:43→21:09)
[2022-01-20] MEDS: PANTOPRAZOLE 40MG TAB (PROTONIX) PO SCH (10:43)
[2022-01-20] MEDS: CETIRIZINE (ZyrTEC) 10 MG TAB PO SCH (10:43)
[2022-01-20] MEDS: ASPIRIN 81 MG CHEW TABLET PO SCH (10:43)
[2022-01-20] MEDS: BACLOFEN 10 MG TAB PO SCH ×2 (10:43→19:33)
[2022-01-20] MEDS: TOLTERODINE TARTRATE 2 MG LA CAP (DETROL LA) PO SCH (10:43)
[2022-01-20] MEDS: NITROFURANTOIN (MACROBID) 100 MG CAP PO SCH ×2 (10:43→21:08)
[2022-01-20 16:51] LABS: AMPHETAMINES LEVEL URINE NEGATIVE (NEGATIVE); BARBITURATES URINE NEGATIVE (NEGATIVE); BENZODIAZEPINES URINE NEGATIVE (NEGATIVE); CANNABINOIDS URINE NEGATIVE (NEGATIVE); COCAINE METABOLITE URINE NEGATIVE (NEGATIVE); METHADONE URINE NEGATIVE (NEGATIVE); OPIATES URINE NEGATIVE (NEGATIVE); PHENCYCLIDINE URINE NEGATIVE (NEGATIVE)
[2022-01-20] MEDS: ATORVASTATIN 20 MG TAB PO SCH (21:09)
[2022-01-21] MEDS: BACLOFEN 10 MG TAB PO SCH ×5 (00:41→18:30)
[2022-01-21] MEDS: CETIRIZINE (ZyrTEC) 10 MG TAB PO SCH (09:00)
[2022-01-21] MEDS: TOLTERODINE TARTRATE 2 MG LA CAP (DETROL LA) PO SCH (10:40)
[2022-01-21] MEDS: ASPIRIN 81 MG CHEW TABLET PO SCH (10:40)
[2022-01-21] MEDS: DOCUSATE SODIUM 100MG CAPSULE PO SCH ×2 (10:41→21:50)
[2022-01-21] MEDS: APIXABAN 5 MG TAB (ELIQUIS) PO SCH ×2 (10:42→21:50)
[2022-01-21] MEDS: NITROFURANTOIN (MACROBID) 100 MG CAP PO SCH ×2 (10:44→21:50)
[2022-01-21] MEDS: PANTOPRAZOLE 40MG TAB (PROTONIX) PO SCH (10:44)
[2022-01-21 11:44] LABS: APPEARANCE, URINE MANUAL HAZY (CLEAR); BILIRUBIN, URINE MANUAL NEGATIVE (NEGATIVE); BLOOD URINE MANUAL POSITIVE (NEGATIVE); COLOR, URINE MANUAL LT YELLOW (YELLOW); GLUCOSE, URINE (UA) MANUAL NEGATIVE (NEGATIVE); KETONE, URINE MANUAL NEGATIVE (NEGATIVE); LEUKOCYTE ESTERASE, URINE MAN POSITIVE (NEGATIVE); NITRITE, URINE MANUAL POSITIVE (NEGATIVE); PROTEIN, URINE MANUAL 2+ mg/dL (NEGATIVE); UROBILINOGEN, URINE MANUAL NORMAL (NORMAL)
[2022-01-21 11:57] LABS: WBC, URINE TNTC /hpf (0-3)
[2022-01-21 11:58] LABS: SQUAMOUS EPITHELIAL CELL URINE MOD AMOUNT /hpf (SMALL AMT)
[2022-01-21 11:59] LABS: BACTERIA, URINE LARGE AMOUNT; HYALINE CAST, URINE NONE SEEN /lpf (0-1)
[2022-01-21] MEDS: ATORVASTATIN 20 MG TAB PO SCH (21:50)
[2022-01-22] MEDS: BACLOFEN 10 MG TAB PO SCH ×5 (00:28→20:40)
[2022-01-22] MEDS: NICOTINE 21MG/24HR 1 EA TRANSDERMAL TD SCH (09:00)
[2022-01-22] MEDS: MOM 30ML SUSPENSION UDC PO SCH (09:00)
[2022-01-22] MEDS: TOLTERODINE TARTRATE 2 MG LA CAP (DETROL LA) PO SCH (09:00)
[2022-01-22] MEDS ORDERED: CETIRIZINE (ZyrTEC) 10 MG TAB PO SCH (09:00)
[2022-01-22] MEDS: ASPIRIN 81 MG CHEW TABLET PO SCH (09:41)
[2022-01-22] MEDS: DOCUSATE SODIUM 100MG CAPSULE PO SCH ×2 (09:42→20:40)
[2022-01-22] MEDS: APIXABAN 5 MG TAB (ELIQUIS) PO SCH ×2 (09:43→20:40)
[2022-01-22] MEDS: NITROFURANTOIN (MACROBID) 100 MG CAP PO SCH ×2 (09:44→20:40)
[2022-01-22] MEDS: CETIRIZINE (ZyrTEC) 10 MG TAB PO SCH (09:44)
[2022-01-22] MEDS: PANTOPRAZOLE 40MG TAB (PROTONIX) PO SCH (09:44)
[2022-01-22 13:21] LABS: RSV AMPLIFICATION NEGATIVE (NEGATIVE)
[2022-01-22] MEDS ORDERED: MAALOX 30 ML SUSP *UDC PO PRN (14:05)
[2022-01-22] MEDS ORDERED: diphenhydrAMINE 25MG CAP PO PRN (14:05)
[2022-01-22] MEDS ORDERED: EPINEPHrine INJ 1 MG/ML 1ML AMP INJ PRN (14:05)
[2022-01-22] MEDS ORDERED: MOM 30ML SUSPENSION UDC PO PRN (14:05)
[2022-01-22] MEDS ORDERED: NITROGLYCERIN 0.4 MG SUBL TABLET SL PRN (14:05)
[2022-01-22] MEDS ORDERED: ACETAMINOPHEN 325 MG TAB PO PRN (14:05)
[2022-01-22 15:40] VITALS: BP 141/80
[2022-01-22] MEDS: ATORVASTATIN 20 MG TAB PO SCH (20:40)
[2022-01-22] MEDS: SENNA 8.6 MG TAB (SENOKOT) PO SCH (20:40)
[2022-01-22] MEDS: MIRALAX *UNIT DOSE* 17GM PACKET PO SCH (20:41)
[2022-01-22] MEDS: METAMUCIL (PSYLLIUM) PACKET PO SCH (20:41)
[2022-01-22] MEDS: ACETAMINOPHEN TAB 650MG DOSE (2X325MG) PO PRN (20:43)
[2022-01-22] MEDS: traZODone 50 MG TAB PO PRN (20:48)
[2022-01-22] MEDS: PHENAZOPYRIDINE 100 MG TAB PO PRN (21:05)
[2022-01-23] MEDS: BACLOFEN 10 MG TAB PO SCH ×3 (05:46→18:35)
[2022-01-23 06:17] VITALS: BP 154/88
[2022-01-23] MEDS: PHENAZOPYRIDINE 100 MG TAB PO PRN ×3 (06:34→21:04)
[2022-01-23] MEDS: ACETAMINOPHEN TAB 650MG DOSE (2X325MG) PO PRN ×3 (06:35→21:04)
[2022-01-23] MEDS: ONDANSETRON 4MG TAB PO PRN (06:56)
[2022-01-23] MEDS: MIRALAX *UNIT DOSE* 17GM PACKET PO SCH ×2 (09:00→21:02)
[2022-01-23] MEDS: NICOTINE 21MG/24HR 1 EA TRANSDERMAL TD SCH (09:00)
[2022-01-23] MEDS: MOM 30ML SUSPENSION UDC PO SCH (09:00)
[2022-01-23] MEDS: METAMUCIL (PSYLLIUM) PACKET PO SCH ×2 (09:00→21:02)
[2022-01-23] MEDS: PANTOPRAZOLE 40MG TAB (PROTONIX) PO SCH (09:18)
[2022-01-23] MEDS: ASPIRIN 81MG ENTERIC TABLET PO SCH (09:18)
[2022-01-23] MEDS: CETIRIZINE (ZyrTEC) 10 MG TAB PO SCH (09:19)
[2022-01-23] MEDS: APIXABAN 5 MG TAB (ELIQUIS) PO SCH ×2 (09:19→21:03)
[2022-01-23] MEDS: TOLTERODINE TARTRATE 2 MG LA CAP (DETROL LA) PO SCH (09:21)
[2022-01-23] MEDS: DOCUSATE SODIUM 100MG CAPSULE PO SCH ×2 (14:08→21:03)
[2022-01-23] MEDS: CEFDINIR 300 MG CAP (OMNICEF) PO SCH ×2 (14:08→21:03)
[2022-01-23 18:32] VITALS: BP 146/79
[2022-01-23] MEDS: SENNA 8.6 MG TAB (SENOKOT) PO SCH (21:03)
[2022-01-23] MEDS: ATORVASTATIN 20 MG TAB PO SCH (21:03)
[2022-01-23] MEDS: traZODone 50 MG TAB PO PRN (21:03)
[2022-01-24] MEDS: BACLOFEN 10 MG TAB PO SCH ×5 (00:54→23:32)
[2022-01-24 06:13] VITALS: BP 139/81
[2022-01-24] MEDS: ACETAMINOPHEN TAB 650MG DOSE (2X325MG) PO PRN ×3 (06:52→18:05)
[2022-01-24] MEDS: PHENAZOPYRIDINE 100 MG TAB PO PRN (06:52)
[2022-01-24] MEDS: MIRALAX *UNIT DOSE* 17GM PACKET PO SCH ×2 (07:38→21:36)
[2022-01-24] MEDS: ASPIRIN 81MG ENTERIC TABLET PO SCH (07:39)
[2022-01-24] MEDS: CEFDINIR 300 MG CAP (OMNICEF) PO SCH ×2 (07:39→21:36)
[2022-01-24] MEDS: TOLTERODINE TARTRATE 2 MG LA CAP (DETROL LA) PO SCH (07:39)
[2022-01-24] MEDS: DOCUSATE SODIUM 100MG CAPSULE PO SCH ×2 (07:39→21:36)
[2022-01-24] MEDS: PANTOPRAZOLE 40MG TAB (PROTONIX) PO SCH (07:40)
[2022-01-24] MEDS: NICOTINE 21MG/24HR 1 EA TRANSDERMAL TD SCH (07:40)
[2022-01-24] MEDS: CETIRIZINE (ZyrTEC) 10 MG TAB PO SCH (07:40)
[2022-01-24] MEDS: APIXABAN 5 MG TAB (ELIQUIS) PO SCH ×2 (07:40→21:37)
[2022-01-24] MEDS: MOM 30ML SUSPENSION UDC PO SCH (07:40)
[2022-01-24] MEDS: ONDANSETRON 4MG TAB PO PRN (07:41)
[2022-01-24] MEDS: METAMUCIL (PSYLLIUM) PACKET PO SCH ×2 (07:44→21:36)
[2022-01-24] MEDS: FUROSEMIDE 40 MG TAB PO SCH (12:01)
[2022-01-24 18:13] VITALS: BP 122/64
[2022-01-24] MEDS: SENNA 8.6 MG TAB (SENOKOT) PO SCH (21:36)
[2022-01-24] MEDS: ATORVASTATIN 20 MG TAB PO SCH (21:37)
[2022-01-24] MEDS: traZODone 50 MG TAB PO PRN (21:37)
[2022-01-25] MEDS: ACETAMINOPHEN TAB 650MG DOSE (2X325MG) PO PRN ×4 (04:24→21:08)
[2022-01-25] MEDS: BACLOFEN 10 MG TAB PO SCH ×3 (05:10→17:53)
[2022-01-25] MEDS: ONDANSETRON 4MG TAB PO PRN ×3 (07:06→21:43)
[2022-01-25] MEDS: MOM 30ML SUSPENSION UDC PO SCH (09:00)
[2022-01-25] MEDS: NICOTINE 21MG/24HR 1 EA TRANSDERMAL TD SCH (09:00)
[2022-01-25] MEDS: METAMUCIL (PSYLLIUM) PACKET PO SCH ×2 (09:00→21:05)
[2022-01-25] MEDS: MIRALAX *UNIT DOSE* 17GM PACKET PO SCH ×2 (09:01→21:05)
[2022-01-25] MEDS: ASPIRIN 81MG ENTERIC TABLET PO SCH (09:01)
[2022-01-25] MEDS: CEFDINIR 300 MG CAP (OMNICEF) PO SCH ×2 (09:02→21:05)
[2022-01-25] MEDS: PANTOPRAZOLE 40MG TAB (PROTONIX) PO SCH (09:02)
[2022-01-25] MEDS: FUROSEMIDE 40 MG TAB PO SCH ×2 (09:02→17:54)
[2022-01-25] MEDS: DOCUSATE SODIUM 100MG CAPSULE PO SCH ×2 (09:02→21:05)
[2022-01-25] MEDS: CETIRIZINE (ZyrTEC) 10 MG TAB PO SCH (09:02)
[2022-01-25] MEDS: APIXABAN 5 MG TAB (ELIQUIS) PO SCH ×2 (09:02→21:05)
[2022-01-25] MEDS: TOLTERODINE TARTRATE 2 MG LA CAP (DETROL LA) PO SCH (09:02)
[2022-01-25] MEDS ORDERED: metOLazone 5 MG TAB PO ONE (16:30)
[2022-01-25 18:15] VITALS: BP 132/65
[2022-01-25] MEDS: POTASSIUM CHLORIDE 10MEQ SR TABLET PO SCH (21:05)
[2022-01-25] MEDS: traZODone 50 MG TAB PO PRN (21:05)
[2022-01-25] MEDS: SENNA 8.6 MG TAB (SENOKOT) PO SCH (21:05)
[2022-01-25] MEDS: ATORVASTATIN 20 MG TAB PO SCH (21:06)
[2022-01-26] MEDS: BACLOFEN 10 MG TAB PO SCH ×4 (00:08→17:58)
[2022-01-26] MEDS: ACETAMINOPHEN TAB 650MG DOSE (2X325MG) PO PRN ×3 (02:25→13:11)
[2022-01-26] MEDS: ONDANSETRON 4MG TAB PO PRN ×3 (02:52→23:38)
[2022-01-26] MEDS: METAMUCIL (PSYLLIUM) PACKET PO SCH ×2 (08:37→21:16)
[2022-01-26] MEDS: MIRALAX *UNIT DOSE* 17GM PACKET PO SCH ×2 (08:37→21:16)
[2022-01-26] MEDS: ASPIRIN 81MG ENTERIC TABLET PO SCH (08:38)
[2022-01-26] MEDS: PANTOPRAZOLE 40MG TAB (PROTONIX) PO SCH (08:38)
[2022-01-26] MEDS: DOCUSATE SODIUM 100MG CAPSULE PO SCH ×2 (08:38→21:15)
[2022-01-26] MEDS: CETIRIZINE (ZyrTEC) 10 MG TAB PO SCH (08:38)
[2022-01-26] MEDS: CEFDINIR 300 MG CAP (OMNICEF) PO SCH ×2 (08:38→21:16)
[2022-01-26] MEDS: MOM 30ML SUSPENSION UDC PO SCH (08:38)
[2022-01-26] MEDS: POTASSIUM CHLORIDE 10MEQ SR TABLET PO SCH ×2 (08:38→21:15)
[2022-01-26] MEDS: APIXABAN 5 MG TAB (ELIQUIS) PO SCH ×2 (08:39→21:15)
[2022-01-26] MEDS: TOLTERODINE TARTRATE 2 MG LA CAP (DETROL LA) PO SCH (08:39)
[2022-01-26] MEDS: FUROSEMIDE 40 MG TAB PO SCH ×2 (08:39→17:58)
[2022-01-26] MEDS: NICOTINE 21MG/24HR 1 EA TRANSDERMAL TD SCH (08:44)
[2022-01-26 10:59] LABS: BLOOD UREA NITROGEN 14 MG/DL (9-23); CALCIUM LEVEL 10.2 MG/DL (8.5-10.1); CARBON DIOXIDE LEVEL 38 MMOL/L (20-31); CHLORIDE LEVEL 95 MMOL/L (98-107); CREATININE FOR GFR 0.79 MG/DL (0.55-1.30); GLOMERULAR FILTRATION RATE > 60.0 (>51); GLUCOSE, FASTING 88 MG/DL (60-100); POTASSIUM SERUM 3.9 MMOL/L (3.5-5.1); SODIUM LEVEL 140 MMOL/L (136-145)
[2022-01-26 16:36] VITALS: BP 109/61
[2022-01-26] MEDS: IBUPROFEN 400MG TAB PO PRN (18:01)
[2022-01-26] MEDS: ATORVASTATIN 20 MG TAB PO SCH (21:15)
[2022-01-26] MEDS: SENNA 8.6 MG TAB (SENOKOT) PO SCH (21:15)
[2022-01-27] MEDS: BACLOFEN 10 MG TAB PO SCH ×5 (00:01→23:50)
[2022-01-27] MEDS: IBUPROFEN 400MG TAB PO PRN ×3 (00:02→15:08)
[2022-01-27 06:19] VITALS: BP 121/65
[2022-01-27] MEDS: DOCUSATE SODIUM 100MG CAPSULE PO SCH ×2 (08:27→21:49)
[2022-01-27] MEDS: PANTOPRAZOLE 40MG TAB (PROTONIX) PO SCH (08:27)
[2022-01-27] MEDS: POTASSIUM CHLORIDE 10MEQ SR TABLET PO SCH ×2 (08:28→21:49)
[2022-01-27] MEDS: ASPIRIN 81MG ENTERIC TABLET PO SCH (08:28)
[2022-01-27] MEDS: FUROSEMIDE 40 MG TAB PO SCH ×2 (08:29→17:26)
[2022-01-27] MEDS: APIXABAN 5 MG TAB (ELIQUIS) PO SCH ×2 (08:29→21:49)
[2022-01-27] MEDS: CETIRIZINE (ZyrTEC) 10 MG TAB PO SCH (08:29)
[2022-01-27] MEDS: NICOTINE 21MG/24HR 1 EA TRANSDERMAL TD SCH (08:30)
[2022-01-27] MEDS: METAMUCIL (PSYLLIUM) PACKET PO SCH ×2 (08:30→21:49)
[2022-01-27] MEDS: CEFDINIR 300 MG CAP (OMNICEF) PO SCH ×2 (08:30→21:49)
[2022-01-27] MEDS: MIRALAX *UNIT DOSE* 17GM PACKET PO SCH ×2 (08:30→21:49)
[2022-01-27] MEDS: MOM 30ML SUSPENSION UDC PO SCH (08:30)
[2022-01-27] MEDS: TOLTERODINE TARTRATE 2 MG LA CAP (DETROL LA) PO SCH (08:30)
[2022-01-27] MEDS: ONDANSETRON 4MG TAB PO PRN (13:41)
[2022-01-27 15:05] LABS: HCG, SERUM QUANTITATIVE 4.2 MIU/ML (<4.2)
[2022-01-27 16:48] VITALS: BP 138/68
[2022-01-27] MEDS: SENNA 8.6 MG TAB (SENOKOT) PO SCH (21:49)
[2022-01-27] MEDS: ATORVASTATIN 20 MG TAB PO SCH (21:49)
[2022-01-28] MEDS: IBUPROFEN 400MG TAB PO PRN ×3 (00:08→16:51)
[2022-01-28] MEDS: ONDANSETRON 4MG TAB PO PRN ×3 (00:37→16:04)
[2022-01-28] MEDS: BACLOFEN 10 MG TAB PO SCH (05:55)
[2022-01-28 06:30] VITALS: BP 141/77
[2022-01-28] MEDS: METAMUCIL (PSYLLIUM) PACKET PO SCH ×2 (08:22→20:29)
[2022-01-28] MEDS: MOM 30ML SUSPENSION UDC PO SCH (08:22)
[2022-01-28] MEDS: CEFDINIR 300 MG CAP (OMNICEF) PO SCH ×2 (08:22→20:30)
[2022-01-28] MEDS: MIRALAX *UNIT DOSE* 17GM PACKET PO SCH ×2 (08:22→20:29)
[2022-01-28] MEDS: ASPIRIN 81MG ENTERIC TABLET PO SCH (08:23)
[2022-01-28] MEDS: PANTOPRAZOLE 40MG TAB (PROTONIX) PO SCH (08:23)
[2022-01-28] MEDS: TOLTERODINE TARTRATE 2 MG LA CAP (DETROL LA) PO SCH (08:23)
[2022-01-28] MEDS: DOCUSATE SODIUM 100MG CAPSULE PO SCH ×2 (08:23→20:29)
[2022-01-28] MEDS: FUROSEMIDE 40 MG TAB PO SCH ×2 (08:23→17:30)
[2022-01-28] MEDS: CETIRIZINE (ZyrTEC) 10 MG TAB PO SCH (08:23)
[2022-01-28] MEDS: POTASSIUM CHLORIDE 10MEQ SR TABLET PO SCH ×2 (08:24→20:30)
[2022-01-28] MEDS: APIXABAN 5 MG TAB (ELIQUIS) PO SCH ×2 (08:24→20:30)
[2022-01-28] MEDS: NICOTINE 21MG/24HR 1 EA TRANSDERMAL TD SCH (08:29)
[2022-01-28] MEDS: FLUoxetine 20MG CAP PO SCH (11:21)
[2022-01-28] MEDS: BACLOFEN 5MG PER 1/2 TABLET PO SCH ×2 (12:43→17:57)
[2022-01-28 16:20] VITALS: BP 134/72
[2022-01-28] MEDS: SENNA 8.6 MG TAB (SENOKOT) PO SCH (20:30)
[2022-01-28] MEDS: ATORVASTATIN 20 MG TAB PO SCH (20:30)
[2022-01-28] MEDS ORDERED: ARIPiprazole 2 MG TAB PO SCH (21:00)
[2022-01-29] MEDS: BACLOFEN 5MG PER 1/2 TABLET PO SCH ×5 (00:05→23:58)
[2022-01-29] MEDS: IBUPROFEN 400MG TAB PO PRN ×4 (02:30→21:07)
[2022-01-29 06:11] VITALS: BP 117/64
[2022-01-29] MEDS: METAMUCIL (PSYLLIUM) PACKET PO SCH ×2 (08:13→20:59)
[2022-01-29] MEDS: MIRALAX *UNIT DOSE* 17GM PACKET PO SCH ×2 (08:13→20:59)
[2022-01-29] MEDS: ASPIRIN 81MG ENTERIC TABLET PO SCH (08:14)
[2022-01-29] MEDS: DOCUSATE SODIUM 100MG CAPSULE PO SCH ×2 (08:14→20:59)
[2022-01-29] MEDS: TOLTERODINE TARTRATE 2 MG LA CAP (DETROL LA) PO SCH (08:14)
[2022-01-29] MEDS: CEFDINIR 300 MG CAP (OMNICEF) PO SCH ×2 (08:14→21:00)
[2022-01-29] MEDS: PANTOPRAZOLE 40MG TAB (PROTONIX) PO SCH (08:14)
[2022-01-29] MEDS: FLUoxetine 20MG CAP PO SCH (08:14)
[2022-01-29] MEDS: FUROSEMIDE 40 MG TAB PO SCH ×2 (08:15→17:58)
[2022-01-29] MEDS: NICOTINE 21MG/24HR 1 EA TRANSDERMAL TD SCH (08:15)
[2022-01-29] MEDS: POTASSIUM CHLORIDE 10MEQ SR TABLET PO SCH ×2 (08:15→21:00)
[2022-01-29] MEDS: APIXABAN 5 MG TAB (ELIQUIS) PO SCH ×2 (08:15→20:59)
[2022-01-29] MEDS: CETIRIZINE (ZyrTEC) 10 MG TAB PO SCH (08:15)
[2022-01-29 18:11] VITALS: BP 127/61
[2022-01-29] MEDS: SENNA 8.6 MG TAB (SENOKOT) PO SCH (20:59)
[2022-01-29] MEDS: ATORVASTATIN 20 MG TAB PO SCH (21:00)
[2022-01-29] MEDS: ONDANSETRON 4MG TAB PO PRN (21:06)
[2022-01-30] MEDS: IBUPROFEN 400MG TAB PO PRN ×3 (04:15→23:24)
[2022-01-30] MEDS: BACLOFEN 5MG PER 1/2 TABLET PO SCH ×4 (05:58→23:24)
[2022-01-30 06:36] VITALS: BP 142/72
[2022-01-30] MEDS: METAMUCIL (PSYLLIUM) PACKET PO SCH ×2 (08:27→21:08)
[2022-01-30] MEDS: MIRALAX *UNIT DOSE* 17GM PACKET PO SCH ×2 (08:29→21:08)
[2022-01-30] MEDS: CETIRIZINE (ZyrTEC) 10 MG TAB PO SCH (08:30)
[2022-01-30] MEDS: DOCUSATE SODIUM 100MG CAPSULE PO SCH ×2 (08:30→21:09)
[2022-01-30] MEDS: APIXABAN 5 MG TAB (ELIQUIS) PO SCH ×2 (08:31→21:10)
[2022-01-30] MEDS: FUROSEMIDE 40 MG TAB PO SCH ×2 (08:31→17:11)
[2022-01-30] MEDS: FLUoxetine 20MG CAP PO SCH (08:31)
[2022-01-30] MEDS: ASPIRIN 81MG ENTERIC TABLET PO SCH (08:31)
[2022-01-30] MEDS: TOLTERODINE TARTRATE 2 MG LA CAP (DETROL LA) PO SCH (08:31)
[2022-01-30] MEDS: PANTOPRAZOLE 40MG TAB (PROTONIX) PO SCH (08:31)
[2022-01-30] MEDS: POTASSIUM CHLORIDE 10MEQ SR TABLET PO SCH ×2 (08:31→21:09)
[2022-01-30] MEDS: NICOTINE 21MG/24HR 1 EA TRANSDERMAL TD SCH (08:32)
[2022-01-30 18:00] VITALS: BP 106/56
[2022-01-30] MEDS: traZODone 50 MG TAB PO PRN (21:09)
[2022-01-30] MEDS: ATORVASTATIN 20 MG TAB PO SCH (21:10)
[2022-01-30] MEDS: SENNA 8.6 MG TAB (SENOKOT) PO SCH (21:10)
[2022-01-30] MEDS: ONDANSETRON 4MG TAB PO PRN (23:24)
[2022-01-31] MEDS: BACLOFEN 5MG PER 1/2 TABLET PO SCH ×3 (05:25→17:16)
[2022-01-31] MEDS: IBUPROFEN 400MG TAB PO PRN ×3 (05:25→17:17)
[2022-01-31 06:53] VITALS: BP 120/70
[2022-01-31] MEDS: METAMUCIL (PSYLLIUM) PACKET PO SCH ×2 (09:29→20:56)
[2022-01-31] MEDS: MIRALAX *UNIT DOSE* 17GM PACKET PO SCH ×2 (09:29→20:56)
[2022-01-31] MEDS: FUROSEMIDE 40 MG TAB PO SCH ×2 (09:30→17:16)
[2022-01-31] MEDS: DOCUSATE SODIUM 100MG CAPSULE PO SCH ×2 (09:30→20:58)
[2022-01-31] MEDS: APIXABAN 5 MG TAB (ELIQUIS) PO SCH ×2 (09:30→20:58)
[2022-01-31] MEDS: PANTOPRAZOLE 40MG TAB (PROTONIX) PO SCH (09:30)
[2022-01-31] MEDS: TOLTERODINE TARTRATE 2 MG LA CAP (DETROL LA) PO SCH (09:30)
[2022-01-31] MEDS: CETIRIZINE (ZyrTEC) 10 MG TAB PO SCH (09:30)
[2022-01-31] MEDS: FLUoxetine 20MG CAP PO SCH (09:30)
[2022-01-31] MEDS: ASPIRIN 81MG ENTERIC TABLET PO SCH (09:30)
[2022-01-31] MEDS: POTASSIUM CHLORIDE 10MEQ SR TABLET PO SCH ×2 (09:31→20:58)
[2022-01-31] MEDS: ONDANSETRON 4MG TAB PO PRN (14:59)
[2022-01-31 18:21] VITALS: BP 134/61
[2022-01-31] MEDS: traZODone 50 MG TAB PO PRN (20:58)
[2022-01-31] MEDS: ATORVASTATIN 20 MG TAB PO SCH (20:58)
[2022-01-31] MEDS: SENNA 8.6 MG TAB (SENOKOT) PO SCH (20:58)
[2022-01-31] MEDS: PRAZOSIN 1 MG CAP PO SCH (21:00)
[2022-02-01] MEDS: BACLOFEN 5MG PER 1/2 TABLET PO SCH ×4 (00:04→17:12)
[2022-02-01] MEDS: IBUPROFEN 400MG TAB PO PRN ×4 (00:31→20:14)
[2022-02-01] MEDS: ONDANSETRON 4MG TAB PO PRN (01:17)
[2022-02-01 06:33] VITALS: BP 129/79
[2022-02-01] MEDS: MIRALAX *UNIT DOSE* 17GM PACKET PO SCH ×2 (08:21→20:12)
[2022-02-01] MEDS: FUROSEMIDE 40 MG TAB PO SCH ×2 (08:21→17:12)
[2022-02-01] MEDS: PANTOPRAZOLE 40MG TAB (PROTONIX) PO SCH (08:21)
[2022-02-01] MEDS: METAMUCIL (PSYLLIUM) PACKET PO SCH ×2 (08:21→20:12)
[2022-02-01] MEDS: ASPIRIN 81MG ENTERIC TABLET PO SCH (08:22)
[2022-02-01] MEDS: FLUoxetine 20MG CAP PO SCH (08:22)
[2022-02-01] MEDS: CETIRIZINE (ZyrTEC) 10 MG TAB PO SCH (08:22)
[2022-02-01] MEDS: APIXABAN 5 MG TAB (ELIQUIS) PO SCH ×2 (08:22→20:13)
[2022-02-01] MEDS: TOLTERODINE TARTRATE 2 MG LA CAP (DETROL LA) PO SCH (08:22)
[2022-02-01] MEDS: DOCUSATE SODIUM 100MG CAPSULE PO SCH ×2 (08:22→20:12)
[2022-02-01] MEDS: POTASSIUM CHLORIDE 10MEQ SR TABLET PO SCH ×2 (08:22→20:13)
[2022-02-01 16:30] VITALS: BP 111/59
[2022-02-01] MEDS: SENNA 8.6 MG TAB (SENOKOT) PO SCH (20:12)
[2022-02-01] MEDS: PRAZOSIN 1 MG CAP PO SCH (20:13)
[2022-02-01] MEDS: ATORVASTATIN 20 MG TAB PO SCH (20:14)
[2022-02-01] MEDS: traZODone 50 MG TAB PO PRN (20:14)
[2022-02-02] MEDS: BACLOFEN 5MG PER 1/2 TABLET PO SCH ×5 (00:06→23:43)
[2022-02-02] MEDS: IBUPROFEN 400MG TAB PO PRN ×4 (02:31→21:42)
[2022-02-02] MEDS: ONDANSETRON 4MG TAB PO PRN (04:52)
[2022-02-02 06:40] VITALS: BP 147/59
[2022-02-02] MEDS: ASPIRIN 81MG ENTERIC TABLET PO SCH (08:28)
[2022-02-02] MEDS: MIRALAX *UNIT DOSE* 17GM PACKET PO SCH ×2 (08:31→20:40)
[2022-02-02] MEDS: FUROSEMIDE 40 MG TAB PO SCH ×2 (08:31→17:16)
[2022-02-02] MEDS: FLUoxetine 20MG CAP PO SCH (08:31)
[2022-02-02] MEDS: DOCUSATE SODIUM 100MG CAPSULE PO SCH ×2 (08:31→20:40)
[2022-02-02] MEDS: PANTOPRAZOLE 40MG TAB (PROTONIX) PO SCH (08:31)
[2022-02-02] MEDS: METAMUCIL (PSYLLIUM) PACKET PO SCH ×2 (08:31→20:40)
[2022-02-02] MEDS: POTASSIUM CHLORIDE 10MEQ SR TABLET PO SCH ×2 (08:31→20:40)
[2022-02-02] MEDS: TOLTERODINE TARTRATE 2 MG LA CAP (DETROL LA) PO SCH (08:31)
[2022-02-02] MEDS: APIXABAN 5 MG TAB (ELIQUIS) PO SCH ×2 (08:36→20:40)
[2022-02-02] MEDS: CETIRIZINE (ZyrTEC) 10 MG TAB PO SCH (08:37)
[2022-02-02 16:57] VITALS: BP 119/59
[2022-02-02] MEDS: ATORVASTATIN 20 MG TAB PO SCH (20:40)
[2022-02-02] MEDS: SENNA 8.6 MG TAB (SENOKOT) PO SCH (20:40)
[2022-02-02] MEDS: traZODone 50 MG TAB PO PRN (20:40)
[2022-02-02 20:43] VITALS: BP 113/58
[2022-02-02] MEDS: PRAZOSIN 1 MG CAP PO SCH (20:43)
[2022-02-03] MEDS: IBUPROFEN 400MG TAB PO PRN ×2 (03:47→11:42)
[2022-02-03] MEDS: BACLOFEN 5MG PER 1/2 TABLET PO SCH ×2 (05:52→11:40)
[2022-02-03 06:02] VITALS: BP 125/59
[2022-02-03] MEDS: METAMUCIL (PSYLLIUM) PACKET PO SCH (08:40)
[2022-02-03] MEDS: MIRALAX *UNIT DOSE* 17GM PACKET PO SCH (08:40)
[2022-02-03] MEDS: FUROSEMIDE 40 MG TAB PO SCH (08:41)
[2022-02-03] MEDS: DOCUSATE SODIUM 100MG CAPSULE PO SCH (08:41)
[2022-02-03] MEDS: FLUoxetine 20MG CAP PO SCH (08:41)
[2022-02-03] MEDS: ASPIRIN 81MG ENTERIC TABLET PO SCH (08:42)
[2022-02-03] MEDS: TOLTERODINE TARTRATE 2 MG LA CAP (DETROL LA) PO SCH (08:42)
[2022-02-03] MEDS: APIXABAN 5 MG TAB (ELIQUIS) PO SCH (08:42)
[2022-02-03] MEDS: POTASSIUM CHLORIDE 10MEQ SR TABLET PO SCH (08:42)
[2022-02-03] MEDS: CETIRIZINE (ZyrTEC) 10 MG TAB PO SCH (08:42)
[2022-02-03] MEDS: PANTOPRAZOLE 40MG TAB (PROTONIX) PO SCH (08:42)
[2022-02-03] MEDS ORDERED: ABIL1TAB11 PO (13:53)
[2022-02-03] MEDS ORDERED: HALO5TAB33 PO (13:53)
[2022-02-03] MEDS ORDERED: FLUO20CA22 PO (13:53)
[2022-02-03] MEDS ORDERED: FURO40TA2 PO (13:53)
[2022-02-03] MEDS ORDERED: POTA-136 PO (13:53)
[2022-02-03] MEDS ORDERED: MINI1CAP PO (13:53)
[2022-02-03] MEDS ORDERED: TRAZ-252 PO (13:53)
== END 2022-02-03 14:22 | disposition home or self-care (01) | DRG 885 ==
LOC: M ED 00:04 → M ED INP 01-22 14:01 → M PSY 01-22 15:52
PROVIDERS: ADMIT Psychiatry & Neurology Psychiatry; ATTEND Student in an Organized Health Care Education/Training Program
DX: F22 Delusional disorders (principal); F60.3 Borderline personality disorder; F44.81 Dissociative identity disorder; F43.10 Post-traumatic stress disorder, unspecified; F68.11 Factitious disorder imposed on self, with predominantly psychological signs and symptoms; J30.9 Allergic rhinitis, unspecified; E66.01 Morbid (severe) obesity due to excess calories; K21.9 Gastro-esophageal reflux disease without esophagitis; I10 Essential (primary) hypertension; N32.81 Overactive bladder; M79.7 Fibromyalgia; K59.09 Other constipation; I87.2 Venous insufficiency (chronic) (peripheral); R60.0 Localized edema; Z79.01 Long term (current) use of anticoagulants; Z79.82 Long term (current) use of aspirin; Z79.899 Other long term (current) drug therapy; Z86.16 Personal history of COVID-19; Z88.8 Allergy status to other drugs, medicaments and biological substances; Z86.711 Personal history of pulmonary embolism; Z86.718 Personal history of other venous thrombosis and embolism; Z68.39 Body mass index [BMI] 39.0-39.9, adult; Z91.040 Latex allergy status; Z91.013 Allergy to seafood; Z91.018 Allergy to other foods; Z88.0 Allergy status to penicillin

== ENCOUNTER → 2022-02-17 | Outpatient (REF) | payer OTHER ==
[~2022-02-17] MED LIST changes: +ASPI81CH33 PO; +ASPI81TA26 PO; +CETI-24 PO; +DIPH25CA32 PO; +DOCU100C16 PO; +FLUO20CA22 PO; +FURO40TA2 PO; +HALO5TAB33 PO; +MILKSUS3 PO; +MINI1CAP PO; +NITR100C2 PO; +PHEN-501 PO; +POTA-136 PO; +TRAZ-252 PO
[2022-02-17 19:51] LABS: GC DNA AMPLIFICATION NEGATIVE (NEGATIVE)
== END ==
LOC: M LAB REF 16:56
PROVIDERS: ATTEND Nurse Practitioner Family
DX: Z01.419 Encounter for gynecological examination (general) (routine) without abnormal findings (principal); Z11.3 Encounter for screening for infections with a predominantly sexual mode of transmission

== ENCOUNTER → 2022-02-18 | Outpatient (CLI) | payer OTHER ==
[2022-02-18 23:21] LABS: HEPATITIS B SURFACE ANTIGEN NEGATIVE (NEGATIVE)
[2022-02-18 23:24] LABS: HEPATITIS B SURFACE ANTIBODY NEGATIVE (POSITIVE)
== END ==
LOC: M WUC 11:00
PROVIDERS: ATTEND Nurse Practitioner Family
DX: Z11.3 Encounter for screening for infections with a predominantly sexual mode of transmission (principal)

== ENCOUNTER 2022-04-10 10:42 | Emergency (ER) | payer OTHER ==
[~2022-04-10] VITALS: Ht 165.1 cm; Wt 103.2 kg
[~2022-04-10 10:42] MED LIST changes: +DIPH-435 PO; -DIPH25CA32 PO
[2022-04-10 11:40] LABS: BASO % 0.6 % (0.0-1.0); EOS # 0.1 10^3/uL (0.0-0.5); EOS % 0.8 % (0.0-3.0); HEMATOCRIT 39.7 % (36.0-47.0); HEMOGLOBIN 12.6 g/dl (12.0-15.5); LYMPH # 1.9 10^3/uL (1.5-5.0); LYMPH % 30.2 % (24.0-44.0); MEAN CORPUSCULAR HEMOGLOBIN 27.8 pg (27.0-33.0); MEAN CORPUSCULAR HGB CONC 31.7 g/dl (32.0-36.5); MEAN CORPUSCULAR VOLUME 87.6 fl (80.0-96.0); MONO # 0.4 10^3/uL (0.0-0.8); MONO % 5.9 % (2.0-8.0); NEUTROPHILS # 3.9 10^3/uL (1.5-8.5); NEUTROPHILS % 62.3 % (36.0-66.0); PLATELET COUNT, AUTOMATED 252 10^3/uL (150-450); RED BLOOD COUNT 4.53 10^6/uL (4.00-5.40); WHITE BLOOD COUNT 6.3 10^3/uL (4.0-10.0)
[2022-04-10 12:08] LABS: LIPASE 27 U/L (12-53)
[2022-04-10 12:10] LABS: ALBUMIN 3.8 G/DL (3.2-5.2); ALKALINE PHOSPHATASE 64 U/L (46-116); ALT/SGPT 21 U/L (7.0-40); AST/SGOT 20 U/L (<34); BILIRUBIN,DIRECT < 0.1 MG/DL (<0.4); BILIRUBIN,TOTAL 0.3 MG/DL (0.3-1.2); BLOOD UREA NITROGEN 17 MG/DL (9-23); CARBON DIOXIDE LEVEL 30 MMOL/L (20-31); CHLORIDE LEVEL 106 MMOL/L (98-107); CREATININE FOR GFR 0.74 MG/DL (0.55-1.30); GLOMERULAR FILTRATION RATE > 60.0 (>51); GLUCOSE, FASTING 99 MG/DL (60-100); POTASSIUM SERUM 4.4 MMOL/L (3.5-5.1); SODIUM LEVEL 141 MMOL/L (136-145); TOTAL PROTEIN 6.9 G/DL (5.7-8.2)
[2022-04-10] MEDS ORDERED: NS 1,000 ML IV ONE (12:50)
[2022-04-10] MEDS ORDERED: ONDANSETRON 4MG 2ML VIAL IV ONE (12:50)
[2022-04-10] MEDS ORDERED: ACETAMINOPHEN TAB 650MG DOSE (2X325MG) PO ONE (14:35)
[2022-04-10] MEDS ORDERED: PROM12.56 PO (14:42)
[2022-04-10 14:49] VITALS: BP 112/57
== END 2022-04-10 15:03 | disposition home or self-care (01) ==
LOC: M ED 10:42
DX: R11.2 Nausea with vomiting, unspecified (principal); R19.7 Diarrhea, unspecified; I10 Essential (primary) hypertension; I25.2 Old myocardial infarction; I25.10 Atherosclerotic heart disease of native coronary artery without angina pectoris; K21.9 Gastro-esophageal reflux disease without esophagitis; F44.4 Conversion disorder with motor symptom or deficit; F25.9 Schizoaffective disorder, unspecified; Z87.820 Personal history of traumatic brain injury; Z86.718 Personal history of other venous thrombosis and embolism; Z79.899 Other long term (current) drug therapy; Z79.01 Long term (current) use of anticoagulants
CPT/HCPCS: 80048; 80076; 83690; 85025; 96361; 96374; 99284; J2405

== ENCOUNTER 2022-08-12 12:42 | Emergency (ER) | payer OTHER ==
[~2022-08-12] VITALS: Ht 167.6 cm; Wt 104.1 kg
[~2022-08-12 12:42] MED LIST changes: +PROM12.56 PO
[2022-08-12] MEDS ORDERED: ALBU2.5V10 INH (13:42)
[2022-08-12 14:25] VITALS: BP 129/73
== END 2022-08-12 14:28 | disposition home or self-care (01) ==
LOC: M ED 12:42
DX: J45.40 Moderate persistent asthma, uncomplicated (principal); R05.9 Cough, unspecified; R07.89 Other chest pain; I10 Essential (primary) hypertension; E78.5 Hyperlipidemia, unspecified; I48.91 Unspecified atrial fibrillation; I25.10 Atherosclerotic heart disease of native coronary artery without angina pectoris; M32.9 Systemic lupus erythematosus, unspecified; Z86.711 Personal history of pulmonary embolism; Z86.718 Personal history of other venous thrombosis and embolism; Z88.0 Allergy status to penicillin; Z91.040 Latex allergy status; Z88.3 Allergy status to other anti-infective agents; Z91.018 Allergy to other foods; Z91.013 Allergy to seafood; Z79.899 Other long term (current) drug therapy

== ENCOUNTER → 2022-08-28 | Outpatient (CLI) | payer OTHER ==
[~2022-08-28] MED LIST changes: +ALBU2.5V10 INH; -HYDR200T3 PO; +HYDR200T46 PO; +SENN-111 PO; -SENN18TA PO
== END ==
LOC: M RAD 06:26
PROVIDERS: ATTEND Surgery Vascular Surgery
DX: I21.4 Non-ST elevation (NSTEMI) myocardial infarction (principal); I10 Essential (primary) hypertension; R77.8 Other specified abnormalities of plasma proteins; I82.5Z2 Chronic embolism and thrombosis of unspecified deep veins of left distal lower extremity

== ENCOUNTER 2022-10-29 10:30 | Day surgery (SDC) | payer OTHER ==
[~2022-10-29] VITALS: Ht 165.1 cm; Wt 103.1 kg
[~2022-10-29 10:30] MED LIST changes: +ATOR40TA75 PO; +B6/F1CAP PO; +CO Q100C PO; +CVS-161 PO; +EQL50TAB2 PO; +GLUC1CAP10 PO; +LIDOCAINE 2% 100MG/5ML SDV (FOR ANES.) As Ordered ONE; +MEDI473O PO; +NS 1,000 ML IV ONE; +PRAZ1CAP PO; +PROBCAP14 PO; +VITA-243 PO; +ZINC50TA17 PO; +propofoL 200 MG/20 ML VIAL As Ordered ONE
[2022-10-29] MEDS ORDERED: GLYCOPYRROLATE INJ 0.2 MG/ML 2 ML VIAL As Ordered ONE (11:22)
[2022-10-29] MEDS ORDERED: propofoL 200 MG/20 ML VIAL As Ordered ONE ×2 (11:27→11:38)
[2022-10-29] MEDS ORDERED: ePHEDrine SULFATE 25 MG/5 ML(5MG/ML) SYRINGE As Ordered ONE (11:32)
[2022-10-29 11:50] VITALS: TEMP 96.8
[2022-10-29 12:01] VITALS: BP 116/61; O2SAT 99
== END 2022-10-29 12:14 | disposition home or self-care (01) ==
LOC: M OPP 10:30
PROVIDERS: ATTEND Surgery
DX: Z12.11 Encounter for screening for malignant neoplasm of colon (principal); K63.89 Other specified diseases of intestine; Z79.01 Long term (current) use of anticoagulants; Z79.02 Long term (current) use of antithrombotics/antiplatelets; Z79.1 Long term (current) use of non-steroidal anti-inflammatories (NSAID)

== ENCOUNTER → 2022-11-13 | Outpatient (CLI) | payer OTHER ==
[~2022-11-13] MED LIST changes: -LIDOCAINE 2% 100MG/5ML SDV (FOR ANES.) As Ordered ONE; +MECL-209 PO; -MECL1TAB31 PO; -NS 1,000 ML IV ONE; -propofoL 200 MG/20 ML VIAL As Ordered ONE
== END ==
LOC: M WHC 15:49
PROVIDERS: ATTEND Nurse Practitioner Family
DX: Z12.31 Encounter for screening mammogram for malignant neoplasm of breast (principal)

== ENCOUNTER 2023-05-14 16:56 | Emergency (ER) | payer OTHER ==
[~2023-05-14] VITALS: Ht 165.1 cm; Wt 105.0 kg
[~2023-05-14 16:56] MED LIST changes: -KLON0.5T PO; +KLON0.5T8 PO; -KLON1TAB PO; +KLON1TAB13 PO; -MELA1TAB9 PO; +MELA5TAB58 PO; -MIRA1POW3 PO; +MIRA33506 PO; +RISP-105 PO; -RISP-8 PO
[2023-05-14] MEDS ORDERED: FLON1SPR NARES (17:08)
[2023-05-14 17:14] VITALS: TEMP 96
[2023-05-14 17:34] LABS: HEMOGLOBIN 13.3 g/dl (12.0-15.5); MEAN CORPUSCULAR HEMOGLOBIN 28.2 pg (27.0-33.0); MEAN CORPUSCULAR HGB CONC 34.1 g/dl (32.0-36.5); MEAN CORPUSCULAR VOLUME 82.6 fl (80.0-96.0); PLATELET COUNT, AUTOMATED 270 10^3/uL (150-450); RED BLOOD COUNT 4.72 10^6/uL (4.00-5.40); WHITE BLOOD COUNT 10.8 10^3/uL (4.0-10.0)
[2023-05-14] MEDS ORDERED: PRED20TA PO (18:39)
[2023-05-14] MEDS ORDERED: EPIP0.3I2 IM (18:39)
[2023-05-14] MEDS ORDERED: DIPH-435 PO (18:40)
[2023-05-14] MEDS: ACETAMINOPHEN 500 MG TAB PO ONE (18:51)
[2023-05-14 18:53] LABS: ALKALINE PHOSPHATASE 62 U/L (46-116); ALT/SGPT 26 U/L (7.0-40); AST/SGOT 49 U/L (<34); BILIRUBIN,TOTAL 0.3 MG/DL (0.3-1.2); BLOOD UREA NITROGEN 21 MG/DL (9-23); CALCIUM LEVEL 8.5 MG/DL (8.3-10.6); CARBON DIOXIDE LEVEL 29 MMOL/L (20-31); CHLORIDE LEVEL 102 MMOL/L (98-107); CREATININE FOR GFR 0.65 MG/DL (0.55-1.30); GLOMERULAR FILTRATION RATE > 60.0 (>45); GLUCOSE, FASTING 141 MG/DL (74-106); POTASSIUM SERUM 3.8 MMOL/L (3.5-5.1); SODIUM LEVEL 138 MMOL/L (136-145)
[2023-05-14 19:00] VITALS: BP 125/62
[2023-05-14 19:11] VITALS: O2SAT 94
== END 2023-05-14 21:31 | disposition home or self-care (01) ==
LOC: M ED 16:56 → EDBD 16:56 → M ED 21:31
DX: T78.49XA Other allergy, initial encounter (principal); R06.02 Shortness of breath; R07.9 Chest pain, unspecified; R05.9 Cough, unspecified; I10 Essential (primary) hypertension; D68.62 Lupus anticoagulant syndrome; Z86.711 Personal history of pulmonary embolism; Z86.718 Personal history of other venous thrombosis and embolism; J30.9 Allergic rhinitis, unspecified; Z88.0 Allergy status to penicillin; Z88.8 Allergy status to other drugs, medicaments and biological substances; Z91.040 Latex allergy status; Z91.013 Allergy to seafood; Z79.899 Other long term (current) drug therapy; Z79.01 Long term (current) use of anticoagulants

== ENCOUNTER 2023-08-17 08:59 | Emergency (ER) | payer OTHER ==
[~2023-08-17] VITALS: Ht 165.1 cm; Wt 105.9 kg
[~2023-08-17 08:59] MED LIST changes: +FLON1SPR NARES; +FLUO-365 PO; -FLUO20CA22 PO; +ONDA-282 PO; -ONDA4TAB6 PO; +PRED20TA PO
[2023-08-17 10:02] LABS: BASO # 0.1 10^3/uL (0.0-0.2); BASO % 0.9 % (0.0-1.0); EOS # 0.1 10^3/uL (0.0-0.5); EOS % 1.1 % (0.0-3.0); HEMATOCRIT 39.6 % (36.0-47.0); LYMPH # 1.8 10^3/uL (1.5-5.0); LYMPH % 22.3 % (24.0-44.0); MEAN CORPUSCULAR HEMOGLOBIN 27.8 pg (27.0-33.0); MEAN CORPUSCULAR HGB CONC 32.8 g/dl (32.0-36.5); MEAN CORPUSCULAR VOLUME 84.6 fl (80.0-96.0); MONO # 0.5 10^3/uL (0.0-0.8); MONO % 5.7 % (2.0-8.0); NEUTROPHILS # 5.5 10^3/uL (1.5-8.5); NEUTROPHILS % 69.7 % (36.0-66.0); PLATELET COUNT, AUTOMATED 239 10^3/uL (150-450); RED BLOOD COUNT 4.68 10^6/uL (4.00-5.40); WHITE BLOOD COUNT 7.8 10^3/uL (4.0-10.0)
[2023-08-17 10:31] LABS: ALBUMIN 3.8 G/DL (3.2-5.2); ALKALINE PHOSPHATASE 70 U/L (46-116); ALT/SGPT 26 U/L (7.0-40); AST/SGOT 52 U/L (<34); BILIRUBIN,DIRECT < 0.1 MG/DL (<0.4); BILIRUBIN,TOTAL 0.3 MG/DL (0.3-1.2); BLOOD UREA NITROGEN 20 MG/DL (9-23); CARBON DIOXIDE LEVEL 30 MMOL/L (20-31); CHLORIDE LEVEL 106 MMOL/L (98-107); CREATININE FOR GFR 0.69 MG/DL (0.55-1.30); GLOMERULAR FILTRATION RATE > 60.0 (>45); GLUCOSE, FASTING 99 MG/DL (74-106); LIPASE 31 U/L (12-53); POTASSIUM SERUM 5.1 MMOL/L (3.5-5.1); SODIUM LEVEL 142 MMOL/L (136-145); TOTAL PROTEIN 6.8 G/DL (5.7-8.2)
[2023-08-17] MEDS ORDERED: GASTROGRAFIN SOLUTION 30ML PO SCH (13:05)
[2023-08-17] MEDS: READI-CAT 2 PO SCH (13:54)
[2023-08-17 15:59] VITALS: BP 123/66; TEMP 98.3; O2SAT 99
== END 2023-08-17 16:20 | disposition home or self-care (01) ==
LOC: EDBD 08:59 → M ED 08:59
DX: R19.7 Diarrhea, unspecified (principal); R55 Syncope and collapse; I10 Essential (primary) hypertension; Z88.0 Allergy status to penicillin; Z88.1 Allergy status to other antibiotic agents; Z88.8 Allergy status to other drugs, medicaments and biological substances; Z91.040 Latex allergy status; Z91.010 Allergy to peanuts; Z91.013 Allergy to seafood; Z91.09 Other allergy status, other than to drugs and biological substances; Z79.1 Long term (current) use of non-steroidal anti-inflammatories (NSAID); Z79.51 Long term (current) use of inhaled steroids; Z79.810 Long term (current) use of selective estrogen receptor modulators (SERMs); Z79.52 Long term (current) use of systemic steroids; Z79.899 Other long term (current) drug therapy

== ENCOUNTER → 2023-09-28 | Outpatient (CLI) | payer OTHER | LOC: M RAD 12:10 | PROVIDERS: ATTEND Physician Assistant | DX: I82.4Z9 Acute embolism and thrombosis of unspecified deep veins of unspecified distal lower extremity (principal) ==

== ENCOUNTER → 2024-01-14 | Outpatient (CLI) | payer OTHER ==
[~2024-01-14] MED LIST changes: -ARIP10TA32 PO; +ARIP10TA63 PO; +FLUC-1; -FLUC200T4; -SENN-111 PO; +SENN-165 PO
== END ==
LOC: M RAD 12:34
PROVIDERS: ATTEND Nurse Practitioner Family
DX: M79.662 Pain in left lower leg (principal)

== ENCOUNTER → 2024-06-06 | Outpatient (REF) | payer OTHER | LOC: M LAB REF 15:18 | PROVIDERS: ATTEND Registered Nurse | DX: R19.7 Diarrhea, unspecified (principal) ==

== ENCOUNTER → 2024-06-27 | Outpatient (CLI) | payer OTHER | LOC: M RAD 09:18 | PROVIDERS: ATTEND Registered Nurse | DX: M79.604 Pain in right leg (principal) ==

== ENCOUNTER 2024-09-23 06:52 | Emergency (ER) | payer OTHER ==
[~2024-09-23] VITALS: Ht 165.1 cm; Wt 95.9 kg
[~2024-09-23 06:52] MED LIST changes: -EQL50TAB2 PO; +VITA1TAB82 PO
[2024-09-23 10:05] LABS: BASO # 0.1 10^3/uL (0.0-0.2); BASO % 0.9 % (0.0-1.0); EOS # 0.1 10^3/uL (0.0-0.5); EOS % 1.8 % (0.0-3.0); LYMPH # 1.8 10^3/uL (1.5-5.0); LYMPH % 32.7 % (24.0-44.0); MONO # 0.4 10^3/uL (0.0-0.8); MONO % 7.0 % (2.0-8.0); NEUTROPHILS # 3.2 10^3/uL (1.5-8.5); NEUTROPHILS % 57.2 % (36.0-66.0); PLATELET COUNT, AUTOMATED 207 10^3/uL (150-450)
[2024-09-23 10:38] LABS: KETONE, URINE AUTO RFX NEGATIVE (NEGATIVE); MUCUS, URINE RFX SMALL (NEGATIVE); NITRITE, URINE AUTO RFX NEGATIVE (NEGATIVE); RBC, URINE AUTO RFX 0 /HPF (0-3); SQUAM EPITHELIAL CELL UR AURFX 0 /HPF (0-6); WBC, URINE AUTO RFX 1 /HPF (0-3)
[2024-09-23 10:45] LABS: LEUKOCYTE ESTERASE UR AUTO RFX TRACE (NEGATIVE)
[2024-09-23 10:47] LABS: ALT/SGPT 34.0 U/L (7.0-40); AST/SGOT 46.0 U/L (<34); CALCIUM LEVEL 9.1 MG/DL (8.3-10.6); CARBON DIOXIDE LEVEL 30.0 MMOL/L (20-31); CHLORIDE LEVEL 104.0 MMOL/L (98-107); CREATININE FOR GFR 0.76 MG/DL (0.55-1.30); GLOMERULAR FILTRATION RATE 89.1 (>45); POTASSIUM SERUM 4.2 MMOL/L (3.5-5.1); SODIUM LEVEL 145.0 MMOL/L (136-145)
[2024-09-23] MEDS: NS 500 ML IV ONE (10:57)
[2024-09-23] MEDS: ACETAMINOPHEN *IV* 1,000 MG in IV 1 EA IV ONE (10:58)
[2024-09-23] MEDS ORDERED: ALBU2.5V10 NEB (11:15)
[2024-09-23] MEDS ORDERED: ONDA-83 PO (11:15)
[2024-09-23] MEDS ORDERED: TRAZ1TAB10 PO (11:15)
[2024-09-23] MEDS ORDERED: PRAZ1CAP PO (11:15)
[2024-09-23] MEDS ORDERED: POLY1POW38 PO (11:15)
[2024-09-23] MEDS ORDERED: FURO40TA2 PO (11:15)
[2024-09-23] MEDS ORDERED: HALO5TAB33 PO (11:15)
[2024-09-23] MEDS ORDERED: POTA-298 PO (11:15)
[2024-09-23] MEDS ORDERED: SENN-186 PO (11:15)
[2024-09-23] MEDS ORDERED: FLUO-365 PO (11:15)
[2024-09-23] MEDS ORDERED: ATOR40TA75 PO (11:15)
[2024-09-23] MEDS ORDERED: MAGN400C PO (11:16)
[2024-09-23] MEDS ORDERED: HOME MED LIST COMPLETE! XX SCH (11:20)
[2024-09-23] MEDS ORDERED: ACET-683 PO (12:33)
[2024-09-23] MEDS ORDERED: PROC10TA5 PO (12:33)
[2024-09-23] MEDS ORDERED: TAMS1CAP17 PO (12:33)
[2024-09-23 12:54] VITALS: BP 109/63; TEMP 96.8; O2SAT 99
== END 2024-09-23 12:50 | disposition home or self-care (01) ==
LOC: M ED 06:52
DX: N20.0 Calculus of kidney (principal); R00.1 Bradycardia, unspecified; I48.91 Unspecified atrial fibrillation; I10 Essential (primary) hypertension; Z87.820 Personal history of traumatic brain injury; Z86.718 Personal history of other venous thrombosis and embolism; Z88.0 Allergy status to penicillin; Z88.1 Allergy status to other antibiotic agents; Z88.8 Allergy status to other drugs, medicaments and biological substances; Z91.040 Latex allergy status; Z91.09 Other allergy status, other than to drugs and biological substances; Z91.018 Allergy to other foods; Z79.1 Long term (current) use of non-steroidal anti-inflammatories (NSAID); Z79.51 Long term (current) use of inhaled steroids; Z79.01 Long term (current) use of anticoagulants; Z79.899 Other long term (current) drug therapy
CPT/HCPCS: 74176; 80047; 80048; 80076; 81001; 82150; 83605; 83690; 85025; 87040; 87086; 93005; 93041; 96365; 96366; 99284; J0131

== ENCOUNTER → 2024-09-28 | Outpatient (CLI) | payer OTHER ==
[~2024-09-28] MED LIST changes: +ACET-683 PO; +ALBU2.5V10 NEB; +MAGN400C PO; +POLY1POW38 PO; +POTA-298 PO; +PROC10TA5 PO; +SENN-186 PO; +TAMS1CAP17 PO; +TRAZ1TAB10 PO
== END ==
LOC: M RAD 07:30
PROVIDERS: ATTEND Physician Assistant
DX: Z86.718 Personal history of other venous thrombosis and embolism (principal)

== ENCOUNTER 2024-12-06 18:26 | Emergency (ER) | payer OTHER ==
[~2024-12-06] VITALS: Ht 165.1 cm; Wt 98.2 kg
[~2024-12-06 18:26] MED LIST changes: -RA T500C2 PO; +TURM500C10 PO
[2024-12-06 19:29] LABS: BASO # 0.1 10^3/uL (0.0-0.2); BASO % 0.7 % (0.0-1.0); EOS # 0.2 10^3/uL (0.0-0.5); EOS % 2.0 % (0.0-3.0); LYMPH # 2.2 10^3/uL (1.5-5.0); LYMPH % 30.5 % (24.0-44.0); MONO # 0.6 10^3/uL (0.0-0.8); MONO % 7.6 % (2.0-8.0); NEUTROPHILS # 4.3 10^3/uL (1.5-8.5); NEUTROPHILS % 59.1 % (36.0-66.0); PLATELET COUNT, AUTOMATED 231 10^3/uL (150-450)
[2024-12-06 19:54] LABS: CK-MB VALUE MASS 2.5 NG/ML (<3.6)
[2024-12-06 19:56] LABS: CPK CREATINE PHOSPHOKINASE 139.0 U/L (34-145); MB/CK RELATIVE INDEX 1.79 (< OR =4)
[2024-12-06 20:11] LABS: CALCIUM LEVEL 9.1 MG/DL (8.3-10.6); CARBON DIOXIDE LEVEL 30.0 MMOL/L (20-31); CHLORIDE LEVEL 101.0 MMOL/L (98-107); CREATININE FOR GFR 0.88 MG/DL (0.55-1.30); GLOMERULAR FILTRATION RATE 74.7 (>45); POTASSIUM SERUM 3.7 MMOL/L (3.5-5.1); SODIUM LEVEL 140.0 MMOL/L (136-145)
[2024-12-06 20:56] LABS: CK-MB VALUE MASS 2.7 NG/ML (<3.6)
[2024-12-06 20:57] LABS: CPK CREATINE PHOSPHOKINASE 121.0 U/L (34-145); MB/CK RELATIVE INDEX 2.23 (< OR =4)
[2024-12-06] MEDS: ACETAMINOPHEN *IV* 1,000 MG in IV 1 EA IV ONE (21:19)
[2024-12-06] MEDS: diphenhydrAMINE 50 MG/ML VIAL IV ONE (21:20)
[2024-12-06] MEDS: NS 500 ML IV ONE (21:20)
[2024-12-06] MEDS ORDERED: ISOVUE-370 76% 100 ML VIAL As Ordered ONE (21:59)
[2024-12-06 23:04] LABS: CK-MB VALUE MASS 2.3 NG/ML (<3.6)
[2024-12-06 23:05] LABS: CPK CREATINE PHOSPHOKINASE 104.0 U/L (34-145); MB/CK RELATIVE INDEX 2.21 (< OR =4)
[2024-12-06] MEDS: KETOROLAC 30 MG/ML 1 ML VIAL IV ONE (23:43)
[2024-12-07 00:15] VITALS: BP 107/62; TEMP 97.9; O2SAT 98
== END 2024-12-07 00:31 | disposition home or self-care (01) ==
LOC: M ED 18:26
DX: R51.9 Headache, unspecified (principal); J98.11 Atelectasis; J91.8 Pleural effusion in other conditions classified elsewhere; M26.641 Arthritis of right temporomandibular joint; I48.91 Unspecified atrial fibrillation; K21.9 Gastro-esophageal reflux disease without esophagitis; I10 Essential (primary) hypertension; Z86.711 Personal history of pulmonary embolism; Z88.0 Allergy status to penicillin; Z88.1 Allergy status to other antibiotic agents; Z88.8 Allergy status to other drugs, medicaments and biological substances; Z91.09 Other allergy status, other than to drugs and biological substances; Z91.040 Latex allergy status; Z91.018 Allergy to other foods; Z79.01 Long term (current) use of anticoagulants; Z79.51 Long term (current) use of inhaled steroids; Z79.899 Other long term (current) drug therapy
CPT/HCPCS: 70450; 70486; 71045; 71275; 80048; 82550; 82553; 84484; 85025; 85379; 93005; 93041; 94760; 96374; 96375; 99285; J0131; J1200; J1885; J2765; J2919; Q9967

== ENCOUNTER 2025-02-14 21:12 | Emergency (ER) | payer OTHER ==
[~2025-02-14] VITALS: Ht 165.1 cm; Wt 98.2 kg
[2025-02-14 21:19] VITALS: BP 154/70; TEMP 98.1; O2SAT 98
== END 2025-02-15 00:04 | disposition home or self-care (01) ==
LOC: M ED 21:12
DX: S99.921A Unspecified injury of right foot, initial encounter (principal); W00.0XXA Fall on same level due to ice and snow, initial encounter; Y92.017 Garden or yard in single-family (private) house as the place of occurrence of the external cause; Y93.9 Activity, unspecified; Y99.9 Unspecified external cause status; Z88.0 Allergy status to penicillin; Z88.1 Allergy status to other antibiotic agents; Z88.8 Allergy status to other drugs, medicaments and biological substances; Z91.040 Latex allergy status; Z86.711 Personal history of pulmonary embolism; Z79.01 Long term (current) use of anticoagulants; Z79.899 Other long term (current) drug therapy